=== PATIENT | male | born 1935 | race Caucasian/White ===

== ENCOUNTER 2017-08-27 15:32 | Emergency (ER) | payer MEDICARE, SELFPAY ==
[2016-10-30 13:35] VITALS: BMI 26.5
[2017-08-27 15:33] VITALS: BP 180/73; PULSE 59; RESP 16; TEMP 37.3; O2SAT 98; BMI 27.3
--- NOTE | 2017-08-27 15:48 | VDLE_ITS ---
Reason For Study: PAIN Procedure LEFT Exam performed portable in ED. CFV is compressible, spontaneous, phasic, A preliminary report was called and/or competent, and demonstrates normal faxed to ED. augmentation. FV is compressible, spontaneous, phasic, competent and demonstrates normal augmentation. POP V is compressible, spontaneous, phasic, competent and demonstrates normal augmentation. T/P Trunk is compressible. PTV is compressible. LT PerV is compressible. Left GSV has been harvested for CABG. There are three hypoechoic, nonvascularized structures noted in the left leg. The Popliteal space has a stucture measuring 1.9 x 1.7 cm. The proximal interior calf has two structures measuring 3.2 x 1.2 cm and 2.6 x 1.3 cm. Interpretation Summary Deep veins of the left lower extremity are patent and compressible segmentally. There is no evidence of left lower extremity deep vein thrombosis. Valvular competence appears intact within the proximal deep venous system on the left . The left greater saphenous vein is absent, having been previously harvested. Three non-vascular, hypoechoic structures are noted in the left lower extremity, as described above. These may represent hematomas or seromas. Clinical correlation is advised. Ordering Physician: Juan Miguel Acosta Referring Physician: AVINASH WHITE Performed By: Alma Doran, JUANCS, RVT
[2017-08-27 16:09] LABS: Absolute Lymphocyte Count 1.39 X10^3/ul (0.83-4.51); Absolute Neutrophil Count 5.4 X10^3/uL (2.0-7.7); Basophil# 0.02 X10^3/uL; Basophil% 0.3 % (0-1); Eosinophil# 0.24 X10^3/uL; Eosinophils% 3.2 % (0-5); Hematocrit 40.8 % (40-54); Lymphocyte # 1.39 X10^3/ul (4.0); Lymphocyte % 18.4 % (19-41); Mean Corp Hgb Conc 31.9 g/gl (32-36); Mean Corpuscular Hgb 27.8 pg (27.0-32.0); Mean Corpuscular Volume 87.2 fL (80-94); Mean Platelet Vol. 9.8 fl (6.2-12.0); Monocyte# 0.54 X10^3/uL; Monocyte% 7.1 % (0-10); Neutrophil # 5.37 X10^3/uL (2.7-7.7); Neutrophil % 70.9 % (47-70); POSITIVE COUNT NO; POSITIVE DIFFERENTIAL NO; POSITIVE MORPHOLOGY NO; Platelet Count 244 K/mm3 (150-450); RBC Distribution Width CV 14.5 % (11.6-14.6); RBC Distribution Width SD 45.6 fl (35.1-43.9); Red Blood Count 4.68 M/mm3 (4.6-6.2); White Blood Count 7.6 K/mm3 (4.4-11.0)
[2017-08-27 16:24] LABS: Anion Gap 7 (5-15); BUN 16 mg/dL (7-18); BUN/Creat Ratio 11.8 RATIO (10-20); Calcium,Total 8.3 mg/dL (8.5-10.1); Chloride 104 mmol/L (98-107); Creatinine, Serum 1.36 mg/dL (0.70-1.30); EST Glomerular Filtration Rate 53 mL/min (>60); Est Glom Filt Rate - Afr Amer 65 mL/min (>60); Estimated Creatinine Clearance 41.88 ml/min; Glucose 107 mg/dL (74-106); Potassium 3.7 mmol/L (3.5-5.1); Sodium Level 142 mmol/L (136-145)
[2017-08-27 16:27] LABS: Prothrombin Time (Protime)PT. 13.4 SECONDS (11.7-14.9)
--- NOTE | 2017-08-27 16:30 | ED.VISSUMM ---
- ER Visit Summary Date of Service: 08/27/17 Chief Complaint: Left leg pain History of Present Illness: The patient is a 82 M who presents with 4 days of left leg pain and swelling. 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 He denies any fall trauma or injury. He denies chest pain shortness of breath fevers. No other systemic symptoms. Physical Examination: Afebrile hypertensive but vitals otherwise unremarkable Heart regular Lungs clear Abdomen soft Patient has asymmetric edema of the left leg. He does have some tenderness along the calf he has no focal bony tenderness there is no erythema no streaking he has brisk capillary refill I was unable to palpate dorsalis pedis pulses bilaterally but he has a strong posterior tibial Doppler signal sensation compartments are soft Test Results: CBC BMP coagulation studies notable for creatinine of 1.36. Venous Doppler shows no evidence of DVT however there are 3 hypoechoic nonvascularized structures in the left leg at the popliteal space measuring 1.9 x 1.7 and the proximal anterior calf has 2 structures measuring 3.2 x 1.2 and 2.6 x 1.3. Emergency Department Course and Treatment: 3 studies unremarkable. The patient has no evidence of DVT. He has brisk capillary refill and a strong posterior tibial pulse. No history of trauma. I am uncertain of the etiology of the hypoechoic structures in the leg. Popliteal structure could possibly be Ellis's cyst. I do not believe this is process such as hematoma given the lack of trauma. He has no infectious symptoms or erythema to suggest abscess. He was advised to follow-up with his primary care physician. His symptoms are improving. He has noted that both swelling and pain are better today. He was advised on supportive care. All questions answered bedside. They understand return for new or worsening symptoms. Treatment Plan: [] Disposition: Discharge Impression: Left leg pain and edema This note was generated with [employer] dictation software. It may contain incorrect words, spelling, and punctuation that were not noted in review of the chart prior to signing ED Disposition - Plan for ED Patient: Chief Complaint: Lower Extremity Injury Referrals: Adalgisa Isidro MD [Primary Care Provider] -
--- NOTE | 2017-08-27 16:38 | ED.DCSUM_ITS ---
- ER Visit Summary Date of Service: 08/27/17 Chief Complaint: Left leg pain History of Present Illness: The patient is a 82 M who presents with 4 days of left leg pain and swelling. 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 He denies any fall trauma or injury. He denies chest pain shortness of breath fevers. No other systemic symptoms. Physical Examination: Afebrile hypertensive but vitals otherwise unremarkable Heart regular Lungs clear Abdomen soft Patient has asymmetric edema of the left leg. He does have some tenderness along the calf he has no focal bony tenderness there is no erythema no streaking he has brisk capillary refill I was unable to palpate dorsalis pedis pulses bilaterally but he has a strong posterior tibial Doppler signal sensation compartments are soft Test Results: CBC BMP coagulation studies notable for creatinine of 1.36. Venous Doppler shows no evidence of DVT however there are 3 hypoechoic nonvascularized structures in the left leg at the popliteal space measuring 1.9 x 1.7 and the proximal anterior calf has 2 structures measuring 3.2 x 1.2 and 2.6 x 1.3. Emergency Department Course and Treatment: 3 studies unremarkable. The patient has no evidence of DVT. He has brisk capillary refill and a strong posterior tibial pulse. No history of trauma. I am uncertain of the etiology of the hypoechoic structures in the leg. Popliteal structure could possibly be Ellis' s cyst. I do not believe this is process such as hematoma given the lack of trauma. He has no infectious symptoms or erythema to suggest abscess. He was advised to follow-up with his primary care physician. His symptoms are improving. He has noted that both swelling and pain are better today. He was advised on supportive care. All questions answered bedside. They understand return for new or worsening symptoms. Treatment Plan: [] Disposition: Discharge Impression: Left leg pain and edema This note was generated with [employer] dictation software. It may contain incorrect words, spelling, and punctuation that were not noted in review of the chart prior to signing ED Disposition - Plan for ED Patient: Chief Complaint: Lower Extremity Injury Referrals: Adalgisa Isidro MD [Primary Care Provider] -
--- NOTE | 2017-08-27 16:38 | ED.DEP ---
ED Disposition - Plan for ED Patient: Chief Complaint: Lower Extremity Injury Instructions: ED Leg Swelling Unilateral Referrals: Adalgisa Isidro MD [Primary Care Provider] -
[2017-08-27 17:27] VITALS: BP 157/79; PULSE 61; RESP 16; O2SAT 97
== END 2017-08-27 17:30 | disposition home or self-care (01) ==
PROVIDERS: Emergency Provider Emergency Medicine; Family Provider Internal Medicine; PCP Internal Medicine
DX: M79.662 Pain in left lower leg (principal); R60.0 Localized edema; I25.10 Atherosclerotic heart disease of native coronary artery without angina pectoris; I25.2 Old myocardial infarction; I10 Essential (primary) hypertension; E78.00 Pure hypercholesterolemia, unspecified; Z95.1 Presence of aortocoronary bypass graft
CPT/HCPCS: 80048; 85025; 85610; 93971; 99283; A4216

== ENCOUNTER → 2017-09-16 11:45 | Outpatient (CLI) | payer MEDICARE, SELFPAY ==
[2016-10-30 13:35] VITALS: BMI 26.5
[2017-09-16 14:20] LABS: AST(SGOT) 21 U/L (15-37); Alanine Aminotransfer ALT/SGPT 19 U/L (16-61); Albumin, Serum 3.4 g/dL (3.2-5.0); Alkaline Phosphatase 59 U/L (45-117); Bilirubin, Direct 0.21 mg/dL (0.00-0.30); Cholesterol 129 mg/dL (200); Globulin 3.3 g/dL (2.2-4.2); High Density Lipoprotein 44 mg/dL; Protein, Total 6.7 g/dL (6.4-8.2); Triglycerides 76 mg/dL; Very Low Density Lipoprotein 15 mg/dL (5-40)
== END ==
PROVIDERS: Family Provider Internal Medicine; PCP Internal Medicine; Visit Provider Internal Medicine Cardiovascular Disease
DX: I10 Essential (primary) hypertension (principal); E78.00 Pure hypercholesterolemia, unspecified
CPT/HCPCS: 36415; 80061; 80076

== ENCOUNTER 2018-02-25 15:14 | Emergency (ER) | payer MEDICARE, SELFPAY ==
[2016-10-30 13:35] VITALS: BMI 26.5
[2018-02-25 15:14] VITALS: BP 181/62; PULSE 52; RESP 24; TEMP 36.6; O2SAT 98; BMI 25.8
--- NOTE | 2018-02-25 15:33 | CT_ITS ---
STUDY: CT CERVICAL SPINE WITHOUT CONTRAST REASON FOR EXAM: Male, 82 years old. Fall. RADIATION DOSAGE (If Supplied By Facility): CTDIvol = ( 21.76 ) mGy, DLP = ( 556.56 ) mGycm TECHNIQUE: High resolution transaxial imaging was performed without contrast material. Sagittal and coronal images were reconstructed. Individualized dose optimization techniques were used for this CT. COMPARISON: None FINDINGS: No definite acute fracture/dislocation. Severe demineralization. The cervical junction is intact. C1-C2 articulation is intact with pronounced degenerative changes. Curvature is within normal limits. There is normal alignment. There is multilevel fusion along the anterior aspect of the cervical spine. Facet joints are intact at all levels bilaterally. No jumped facets. There is multilevel spondyloarthropathy. Multilevel degenerative disc disease seen. Multilevel loss of disc height. Multilevel posterior marginal osteophytes and disc bulges. Multilevel neural foraminal narrowing. Multilevel compromise of the spinal canal. There is heavily calcified plaque of the carotids. There is a 2.4 cm nodule or mass of the left thyroid gland. CT/Spine Cervical without Contras IMPRESSION: There is no definite acute fracture/dislocation. Degenerative changes. Electronically Signed: Nate Day MD at 16:11 EDT , Service support ,
--- NOTE | 2018-02-25 15:33 | CT_ITS ---
STUDY: CT LUMBAR SPINE WITHOUT CONTRAST REASON FOR EXAM: Male, 82 years old. Fall. RADIATION DOSAGE (If Supplied By Facility): CTDIvol = ( 25.11 ) mGy, DLP = ( 855.05 ) mGycm TECHNIQUE: The patient was scanned in a multi detector CT scanner. High resolution transaxial imaging was performed. Sagittal and coronal images were reconstructed. Individualized dose optimization techniques were used for this CT. COMPARISON: None FINDINGS: There is straightening of the normal lumbar lordosis. There is no substantial scoliosis. Normal alignment of the lumbar vertebral bodies. No compression fractures are seen. Diffuse demineralization. Pedicles and facet joints intact all levels. Prominent multilevel degenerative facet joint disease with hypertrophy of the involved bones. No significant loss of disc height at any level. Mild to moderate posterior disc bulges at L2-L3, L3-L4, and L4-L5. Multilevel spinal stenosis related to degenerative changes, most pronounced at L3-L4 and L4-L5. Sacroiliac joints are intact bilaterally. Incompletely visualized mass of the left kidney. Ultrasound or CT scan of the abdomen and pelvis recommended. CT/Spine Lumbar without Contrast IMPRESSION: No acute fracture or dislocation. Multilevel degenerative changes. Electronically Signed: Nate Day MD at 16:33 EDT , Service support ,
--- NOTE | 2018-02-25 15:33 | CT_ITS ---
STUDY: CT THORACIC SPINE WITHOUT CONTRAST REASON FOR EXAM: Male, 82 years old. Fall. RADIATION DOSAGE (If Supplied By Facility): CTDIvol = ( 20.02 ) mGy, DLP = ( 1186.43 ) mGycm TECHNIQUE: The patient was scanned in a multi detector CT scanner. High resolution imaging was performed. Sagittal and coronal images were reconstructed. Individualized dose optimization techniques were used for this CT. COMPARISON: None. FINDINGS: Severe diffused mineralization. There is an increased kyphosis of the thoracic spine. There is no substantial scoliosis. There is multilevel endplate spondylosis of the thoracic spine. There is multilevel degenerative disc disease with loss of the disc space heights. No definite fractures. Multilevel ankylosis seen across the anterior thoracic spine. Visualized lungs show subsegmental atelectasis or scarring in both lower lobes. CT/Spine Thoracic without Contras IMPRESSION: No definite acute abnormality. Demineralization. Diffuse degenerative changes. Diffuse ankylosis. Electronically Signed: Nate Day MD at 16:36 EDT , Service support ,
--- NOTE | 2018-02-25 15:33 | CT_ITS ---
STUDY: CT BRAIN WITHOUT CONTRAST REASON FOR EXAM: Male, 82 years old. Fall. Pain. RADIATION DOSAGE (If Supplied By Facility): CTDIvol = ( 44.99 ) mGy, DLP = ( 863.60 ) mGycm TECHNIQUE: Transaxial CT imaging of the brain was performed without administration of intravenous contrast material. Individualized dose optimization techniques were used for this CT. COMPARISON: None. FINDINGS: There is no definite acute abnormality. There is diffuse mild symmetric atrophy. There is atrophy of the posterior fossa structures. There is diffuse small vessel ischemic disease of the white matter. There is no definite acute infarct. There is no bleed. There is no gross mass, mass effect, or midline shift. There is no acute abnormality of the skull. No fractures. Grossly normal orbits. Grossly normal sinuses. CT/Brain/Head without Contrast IMPRESSION: Chronic age related changes and atrophy. No acute abnormality. Electronically Signed: Nate Day MD at 16:06 EDT , Service support ,
--- NOTE | 2018-02-25 15:34 | ED.VISSUMM ---
- ER Visit Summary Date of Service: 02/25/18 Chief Complaint: Fall History of Present Illness: The patient is a 82 M who presents with injuries after a fall. Patient was emptying a bucket of water and slipped on acorns, falling backwards and striking his head on a grassy embankment. He had brief loss of consciousness. Patient is complaining of neck pain and low thoracic/upper lumbar back pain. He was able to get up and walk into the house. He changed his close and placed an ice pack on his back. He is also complaining of a bruise to the left forearm where the metal bucket struck his arm when he fell. He is on Plavix. He denies any other injuries. Physical Examination: Vital signs: afebrile, hemodynamically stable, no hypoxia on room air General: well nourished, well developed, in no distress Skin: warm, dry, no rash, no pallor, hematoma to the left lateral distal/mid forearm, no deformity noted, no surrounding tenderness HEENT: normocephalic and atraumatic no scalp hematoma, abrasion or tenderness; PERRL, EOMI, moist mucous membranes no maxillofacial trauma, neck is supple with no midline tenderness, deformities or step-offs, no paraspinal tenderness Cardiovascular: regular rate and rhythm without murmurs, no peripheral edema, 2+ pulses all distal extremities Respiratory: No increased work of breathing, lungs are clear to auscultation bilaterally, no rales, rhonchi or wheezing, no chest wall tenderness Abdominal: Abdomen is soft, nontender with normoactive bowel sounds, no guarding or rebound, no masses Back: Midline tenderness to palpation in the low thoracic/upper lumbar region without any step-offs or deformities. No paraspinal tenderness MSK: Moves all extremities, no deformities, normal strength, pelvis is stable Neuro: Awake and alert, oriented ?4. No facial droop, sensation and motor function intact and symmetric Test Results: Abnormal Lab Results 02/25/18 02/25/18 02/25/18 15:40 15:40 15:40 WBC 8.7 RBC 4.75 Hgb 13.6 Hct 41.0 MCV 86.3 MCH 28.6 MCHC 33.2 RDW 14.7 H RDW Differential 45.9 H Plt Count 228 MPV 10.1 Immature Gran % (Auto) 0.200 Neut % (Auto) 75.8 H Lymph % (Auto) 12.[address] [place] % (Auto) 6.2 Eos % (Auto) 4.6 Baso % (Auto) 0.5 Absolute Neuts (auto) 6.6 Absolute Lymphs (auto) 1.10 Total Counted Not Reportable PT 13.9 INR 1.1 APTT 35.1 Sodium 138 Potassium 3.9 Chloride 103 Carbon Dioxide 28.0 Anion Gap 7 BUN 15 Creatinine 1.38 H Estim Creat Clear Calc 42.61 Est GFR (MDRD) Af Amer 63 Est GFR (MDRD) Non-Af 52 L BUN/Creatinine Ratio 10.9 Glucose 130 H Calcium 8.4 L Clinical Impression(s) from Imaging Studies Brain CT 02/25/18 15:33 IMPRESSION: Chronic age related changes and atrophy. No acute abnormality. Electronically Signed: Nate Day MD at 16:06 EDT , Service support , Cervical Spine CT 02/25/18 15:33 IMPRESSION: There is no definite acute fracture/dislocation. Degenerative changes. Electronically Signed: Nate Day MD at 16:11 EDT , Service support , Lumbar Spine CT 02/25/18 15:33 IMPRESSION: No acute fracture or dislocation. Multilevel degenerative changes. Electronically Signed: Nate Day MD at 16:33 EDT , Service support , Thoracic Spine CT 02/25/18 15:33 IMPRESSION: No definite acute abnormality. Demineralization. Diffuse degenerative changes. Diffuse ankylosis. Electronically Signed: Nate Day MD at 16:36 EDT , Service support , Forearm X-Ray 02/25/18 15:37 IMPRESSION: Normal x-ray examination of the radius and ulna. Electronically Signed: Nate Day MD at 16:38 EDT , Service support , Chest X-Ray 02/25/18 16:08 IMPRESSION: No changes. No acute abnormalities. Electronically Signed: Nate Day MD at 16:37 EDT , Service support , Medications Given Discontinued Medications Acetaminophen (Tylenol) 650 mg PO X1 ONE Stop: 02/25/18 15:35 Last Admin: 02/25/18 16:16 Dose: 650 mg Hydrocodone Bitart/Acetaminophen ([place] 5mg-325mg) 1 tablet PO X1 ONE Stop: 02/25/18 17:21 Last Admin: 02/25/18 17:45 Dose: 1 tablet Emergency Department Course and Treatment: Patient is on Plavix and had a head injury with brief loss of consciousness. Head CT is performed. Spinal CT including neck, thoracic and lumbar performed due to patient's complaints of midline pain and injury. Head CT showed no intracranial hemorrhage. C-spine and thoracic/lumbar spine showed no fractures. There was a mass noted on the left kidney that was not completely visualized. Patient does not have any knowledge of this mass and will follow up with his primary care doctor for further characterization and workup of it. Labs showed no leukocytosis, anemia, electrolyte derangements. Patient had an elevated creatinine of 1.3. PT and INR were within normal limits. Patient received Tylenol for pain. He was given a dose of [place] for continued back pain prior to discharge. He was given a prescription for [place]. He will follow-up with his doctor for reevaluation and for further workup of the left kidney mass. Patient discharged home in improved condition. Treatment Plan: [] Disposition: [] Impression: Closed head injury, contusion of the back, incidental left kidney mass finding on imaging This note was generated with [employer] dictation software. It may contain incorrect words, spelling, and punctuation that were not noted in review of the chart prior to signing ED Disposition - Plan for ED Patient: Disposition: Home or Assisted Living Chief Complaint: Fall Instructions: ED Mechanical Fall Prescriptions: Hydrocodone Bitart/Apap 5-325 [[place] 5MG-325MG] 1 tab PO Q6H PRN PRN 3 Days #10 tab PRN Reason: Pain Referrals: Adalgisa Isidro MD [Primary Care Provider] - 3-5 Days (Left kidney mass noted on CT of the lumbar spine) Additional Instructions: Use Tylenol as needed for pain and use [place] for severe pain. Do not exceed more than 3000 mg of acetaminophen in [address] scan of your lumbar spine showed an incidental finding of a mass on your left kidney, which was only partially seen in this imaging. Please follow-up with your doctor for further workup of this left kidney mass. If you have any worsening of your condition or any new concerning symptoms, please return immediately to the emergency department for another evaluation.
--- NOTE | 2018-02-25 15:37 | ED.DCSUM_ITS ---
- ER Visit Summary Date of Service: 02/25/18 Chief Complaint: Fall History of Present Illness: The patient is a 82 M who presents with injuries after a fall. Patient was emptying a bucket of water and slipped on acorns, falling backwards and striking his head on a grassy embankment. He had brief loss of consciousness. Patient is complaining of neck pain and low thoracic/upper lumbar back pain. He was able to get up and walk into the house. He changed his close and placed an ice pack on his back. He is also complaining of a bruise to the left forearm where the metal bucket struck his arm when he fell. He is on Plavix. He denies any other injuries. Physical Examination: Vital signs: afebrile, hemodynamically stable, no hypoxia on room air General: well nourished, well developed, in no distress Skin: warm, dry, no rash, no pallor, hematoma to the left lateral distal/mid forearm, no deformity noted, no surrounding tenderness HEENT: normocephalic and atraumatic no scalp hematoma, abrasion or tenderness; PERRL, EOMI, moist mucous membranes no maxillofacial trauma, neck is supple with no midline tenderness, deformities or step-offs, no paraspinal tenderness Cardiovascular: regular rate and rhythm without murmurs, no peripheral edema, 2+ pulses all distal extremities Respiratory: No increased work of breathing, lungs are clear to auscultation bilaterally, no rales, rhonchi or wheezing, no chest wall tenderness Abdominal: Abdomen is soft, nontender with normoactive bowel sounds, no guarding or rebound, no masses Back: Midline tenderness to palpation in the low thoracic/upper lumbar region without any step-offs or deformities. No paraspinal tenderness MSK: Moves all extremities, no deformities, normal strength, pelvis is stable Neuro: Awake and alert, oriented ?4. No facial droop, sensation and motor function intact and symmetric Test Results: Abnormal Lab Results 02/25/18 02/25/18 02/25/18 15:40 15:40 15:40 WBC 8.7 RBC 4.75 Hgb 13.6 Hct 41.0 MCV 86.3 MCH 28.6 MCHC 33.2 RDW 14.7 H RDW Differential 45.9 H Plt Count 228 MPV 10.1 Immature Gran % (Auto) 0.200 Neut % (Auto) 75.8 H Lymph % (Auto) 12.7 L [place] % (Auto) 6.2 Eos % (Auto) 4.6 Baso % (Auto) 0.5 Absolute Neuts (auto) 6.6 Absolute Lymphs (auto) 1.10 Total Counted Not Reportable PT 13.9 INR 1.1 APTT 35.1 Sodium 138 Potassium 3.9 Chloride 103 Carbon Dioxide 28.0 Anion Gap 7 BUN 15 Creatinine 1.38 H Estim Creat Clear Calc 42.61 Est GFR (MDRD) Af Amer 63 Est GFR (MDRD) Non-Af 52 L BUN/Creatinine Ratio 10.9 Glucose 130 H Calcium 8.4 L Clinical Impression(s) from Imaging Studies Brain CT 02/25/18 15:33 IMPRESSION: Chronic age related changes and atrophy. No acute abnormality. Electronically Signed: Nate Day MD at 16:06 EDT , Service support , Cervical Spine CT 02/25/18 15:33 IMPRESSION: There is no definite acute fracture/dislocation. Degenerative changes. Electronically Signed: Nate Day MD at 16:11 EDT , Service support , Lumbar Spine CT 02/25/18 15:33 IMPRESSION: No acute fracture or dislocation. Multilevel degenerative changes. Electronically Signed: Nate Day MD at 16:33 EDT , Service support , Thoracic Spine CT 02/25/18 15:33 IMPRESSION: No definite acute abnormality. Demineralization. Diffuse degenerative changes. Diffuse ankylosis. Electronically Signed: Nate Day MD at 16:36 EDT , Service support , Forearm X-Ray 02/25/18 15:37 IMPRESSION: Normal x-ray examination of the radius and ulna. Electronically Signed: Nate Day MD at 16:38 EDT , Service support , Chest X-Ray 02/25/18 16:08 IMPRESSION: No changes. No acute abnormalities. Electronically Signed: Nate Day MD at 16:37 EDT , Service support , Medications Given Discontinued Medications Acetaminophen (Tylenol) 650 mg PO X1 ONE Stop: 02/25/18 15:35 Last Admin: 02/25/18 16:16 Dose: 650 mg Hydrocodone Bitart/Acetaminophen ([place] 5mg-325mg) 1 tablet PO X1 ONE Stop: 02/25/18 17:21 Last Admin: 02/25/18 17:45 Dose: 1 tablet Emergency Department Course and Treatment: Patient is on Plavix and had a head injury with brief loss of consciousness. Head CT is performed. Spinal CT including neck, thoracic and lumbar performed due to patient's complaints of midline pain and injury. Head CT showed no intracranial hemorrhage. C-spine and thoracic/lumbar spine showed no fractures. There was a mass noted on the left kidney that was not completely visualized. Patient does not have any knowledge of this mass and will follow up with his primary care doctor for further characterization and workup of it. Labs showed no leukocytosis, anemia, electrolyte derangements. Patient had an elevated creatinine of 1.3. PT and INR were within normal limits. Patient received Tylenol for pain. He was given a dose of [place] for continued back pain prior to discharge. He was given a prescription for [place]. He will follow-up with his doctor for reevaluation and for further workup of the left kidney mass. Patient discharged home in improved condition. Treatment Plan: [] Disposition: [] Impression: Closed head injury, contusion of the back, incidental left kidney mass finding on imaging This note was generated with [employer] dictation software. It may contain incorrect words, spelling, and punctuation that were not noted in review of the chart prior to signing ED Disposition - Plan for ED Patient: Disposition: Home or Assisted Living Chief Complaint: Fall Instructions: ED Mechanical Fall Prescriptions: Hydrocodone Bitart/Apap 5-325 [[place] 5MG-325MG] 1 tab PO Q6H PRN PRN 3 Days #10 tab PRN Reason: Pain Referrals: Adalgisa Isidro MD [Primary Care Provider] - 3-5 Days (Left kidney mass noted on CT of the lumbar spine) Additional Instructions: Use Tylenol as needed for pain and use [place] for severe pain. Do not exceed more than 3000 mg of acetaminophen in [address] scan of your lumbar spine showed an incidental finding of a mass on your left kidney, which was only partially seen in this imaging. Please follow-up with your doctor for further workup of this left kidney mass. If you have any worsening of your condition or any new concerning symptoms, please return immediately to the emergency department for another evaluation.
--- NOTE | 2018-02-25 15:37 | RAD_ITS ---
STUDY: X-RAY - LEFT RADIUS AND ULNA REASON FOR EXAM: Male, 82 years old. Fall. Pain. TECHNIQUE: 2 view(s) of the forearm. COMPARISON: None. FINDINGS: There is no demonstrated soft tissue swelling. Normal visualized radius. Normal visualized ulna. There is no demonstrated acute fracture. RAD/Forearm 2 Views IMPRESSION: Normal x-ray examination of the radius and ulna. Electronically Signed: Nate Day MD at 16:38 EDT , Service support ,
[2018-02-25 15:56] LABS: Absolute Neutrophil Count 6.6 X10^3/uL (2.0-7.7); Basophil# 0.04 X10^3/uL; Basophil% 0.5 % (0-1); Eosinophils% 4.6 % (0-5); Hemoglobin 13.6 g/dl (13.0-16.5); Lymphocyte % 12.7 % (19-41); Mean Corp Hgb Conc 33.2 g/gl (32-36); Mean Corpuscular Hgb 28.6 pg (27.0-32.0); Mean Corpuscular Volume 86.3 fL (80-94); Mean Platelet Vol. 10.1 fl (6.2-12.0); Monocyte# 0.54 X10^3/uL; Monocyte% 6.2 % (0-10); Neutrophil # 6.55 X10^3/uL (2.7-7.7); Neutrophil % 75.8 % (47-70); Platelet Count 228 K/mm3 (150-450); RBC Distribution Width CV 14.7 % (11.6-14.6); RBC Distribution Width SD 45.9 fl (35.1-43.9); Red Blood Count 4.75 M/mm3 (4.6-6.2); White Blood Count 8.7 K/mm3 (4.4-11.0)
[2018-02-25 16:00] LABS: POSITIVE COUNT NO; POSITIVE DIFFERENTIAL NO; POSITIVE MORPHOLOGY NO
[2018-02-25 16:06] LABS: Anion Gap 7 (5-15); BUN 15 mg/dL (7-18); BUN/Creat Ratio 10.9 RATIO (10-20); Calcium,Total 8.4 mg/dL (8.5-10.1); Chloride 103 mmol/L (98-107); Creatinine, Serum 1.38 mg/dL (0.70-1.30); EST Glomerular Filtration Rate 52 mL/min (>60); Est Glom Filt Rate - Afr Amer 63 mL/min (>60); Estimated Creatinine Clearance 42.61 ml/min; Glucose 130 mg/dL (74-106); Potassium 3.9 mmol/L (3.5-5.1); Sodium Level 138 mmol/L (136-145)
--- NOTE | 2018-02-25 16:08 | RAD_ITS ---
STUDY: X-RAY CHEST REASON FOR EXAM: Male, 82 years old. Fall. Pain. TECHNIQUE: Single AP portable view of the chest. COMPARISON: 12/06/2016. FINDINGS: The lungs are hyperexpanded. There are coarsened interstitial markings suggestive of mild chronic fibrosis. Scarring seen in the left lung base, stable. No gross focal infiltrates. Blunting of the left costophrenic angle is stable and is probably scarring. Sternal cerclage wires and vascular clips are present from a prior sternotomy and coronary artery bypass graft procedure (CABG). Mild to moderate cardiomegaly. Normal mediastinum and rashad. Normal visualized pulmonary arteries. Normal visualized aortic arch and descending thoracic aorta. Normal visualized thoracic spine. Normal visualized ribs, clavicles, and shoulders. No fractures are seen. There is no demonstrated abnormality of the visualized soft tissue structures of the upper abdomen. RAD/Chest 1 View (Portable) IMPRESSION: No changes. No acute abnormalities. Electronically Signed: Nate Day MD at 16:37 EDT , Service support ,
[2018-02-25 16:15] LABS: International Normalized Ratio 1.1; Prothrombin Time (Protime)PT. 13.9 SECONDS (11.7-14.9)
[2018-02-25 16:16] LABS: Partial Thromboplast Time 35.1 Seconds (24.1-36.2)
[2018-02-25] MEDS: Acetaminophen 325 MG Tablet 650 MG PO (16:16)
[2018-02-25 16:17] VITALS: PULSE 61; RESP 21; O2SAT 96; O2SAT 97
--- NOTE | 2018-02-25 17:20 | ED.DEP ---
ED Disposition - Plan for ED Patient: Disposition: Home or Assisted Living Chief Complaint: Fall Instructions: ED Mechanical Fall Prescriptions: Hydrocodone Bitart/Apap 5-325 [[place] 5MG-325MG] 1 tab PO Q6H PRN PRN 3 Days #10 tab PRN Reason: Pain Referrals: Adalgisa Isidro MD [Primary Care Provider] - 3-5 Days (Left kidney mass noted on CT of the lumbar spine) Additional Instructions: Use Tylenol as needed for pain and use [place] for severe pain. Do not exceed more than 3000 mg of acetaminophen in [address] scan of your lumbar spine showed an incidental finding of a mass on your left kidney, which was only partially seen in this imaging. Please follow-up with your doctor for further workup of this left kidney mass. If you have any worsening of your condition or any new concerning symptoms, please return immediately to the emergency department for another evaluation.
[2018-02-25] MEDS: HYDROcodone Bitartrate/Apap 5/325 Tablet PO (17:45)
[2018-02-25 17:46] VITALS: BP 160/74; PULSE 60; RESP 18; O2SAT 95
--- NOTE | 2018-02-25 17:47 | ED.RN ---
PT GIVEN WRITTEN AND VERBAL DISCHARGE INSTRUCTIONS AND HOME GOING PRESCRIPTIONS. PT DAUGHTER AND PT VERBALIZE UNDERSTANDING. EDUCATED ON USE AND SIDE EFFECTS OF NORCO. PT IV D/C SITE COVERED WITH 2X2 GAUZE DRESSING AND PAPER TAPE. PRESSURE APPLIED TO SITE. PT DRESSED AND PLACED INTO WHEELCHAIR AND WHEELED OUT OF DEPT BY DAUGHTER.
== END 2018-02-25 17:49 | disposition home or self-care (01) ==
PROVIDERS: Emergency Provider Emergency Medicine; Family Provider Internal Medicine; PCP Internal Medicine
DX: S06.9X1A Unspecified intracranial injury with loss of consciousness of 30 minutes or less, initial encounter (principal); S30.0XXA Contusion of lower back and pelvis, initial encounter; N28.89 Other specified disorders of kidney and ureter; I25.10 Atherosclerotic heart disease of native coronary artery without angina pectoris; I25.2 Old myocardial infarction; M54.2 Cervicalgia; W01.0XXA Fall on same level from slipping, tripping and stumbling without subsequent striking against object, initial encounter
CPT/HCPCS: 70450; 71045; 72125; 72128; 72131; 73090; 80048; 85025; 85610; 85730; 99283; A4216

== ENCOUNTER → 2018-11-09 16:20 | Outpatient (CLI) | payer MEDICARE, SELFPAY ==
[2016-10-30 13:35] VITALS: BMI 26.5
[2018-11-09 16:11] VITALS: BMI 24.7
[2018-11-09 18:00] LABS: Anion Gap 8 (5-15); BUN 22 mg/dL (7-18); Calcium,Total 8.5 mg/dL (8.5-10.1); Chloride 104 mmol/L (98-107); Creatinine, Serum 1.47 mg/dL (0.70-1.30); EST Glomerular Filtration Rate 49 mL/min (>60); Est Glom Filt Rate - Afr Amer 59 mL/min (>60); Glucose 119 mg/dL (74-106); Potassium 3.8 mmol/L (3.5-5.1); Sodium Level 140 mmol/L (136-145)
[2018-11-09 18:06] LABS: BNP,B-Type NATRIURETIC PEPTIDE 383.7 pg/mL (0-100)
== END ==
PROVIDERS: Family Provider Internal Medicine; PCP Internal Medicine; Referring Provider Nurse Practitioner Family; Visit Provider Nurse Practitioner Family
DX: I25.10 Atherosclerotic heart disease of native coronary artery without angina pectoris (principal); I25.2 Old myocardial infarction; I10 Essential (primary) hypertension; E78.5 Hyperlipidemia, unspecified; R06.09 Other forms of dyspnea
CPT/HCPCS: 36415; 80048; 83880

== ENCOUNTER → 2018-12-02 05:50 | Outpatient (CLI) | payer MEDICARE, SELFPAY ==
[2016-10-30 13:35] VITALS: BMI 26.5
[2018-11-09 16:11] VITALS: BMI 24.7
--- NOTE | 2018-12-02 12:30 | STRESSREP ---
Stress Test Report Pharmacologic myocardial perfusion stress test. 83-year-old man with a history of chest pain, shortness of breath. Medications: Atenolol, Plavix, amlodipine, atorvastatin, isosorbide. Stress protocol: Resting EKG demonstrates atrial fibrillation with a rate of 60 bpm occasional premature ventricular complexes noted resting blood pressure 132/70 mmHg. 0.4 mg of regadenoson was infused per usual protocol followed by rapid intravenous saline flush injection continuous EKG monitoring was performed. The patient maintained atrial fibrillation throughout the recording. The maximum heart rate attained was 77 bpm which was 56% of maximum predicted heart rate and maximum workload was 1 metabolic equivalent. At rest and during peak infusion nonspecific ST-T wave changes were noted with no meet the criteria for ischemia. The resting blood pressure was 132/70 mmHg the peak blood pressure was 148/60 mmHg. Myocardial perfusion protocol. 14.1 mCi of technetium 99m sestamibi was injected at rest. 0.4 mg of regadenoson was infused per usual protocol peak infusion 43.9 mCi of technetium 99m sestamibi was injected stress images were obtained stress and rest images were reconstructed and compared in the short axis vertical and horizontal long axis. Gated images were also obtained Perfusion SPECT analysis: Review of the stress images demonstrate a normal cardiac silhouette size. There is a large extensive defect noted involving the lateral wall and extending to the anterolateral wall. This is present on the stress and resting images to a similar extent suggesting a previous extensive lateral and anterolateral infarct. No ischemia is noted. Gated SPECT analysis: The gated ejection fraction is noted to be 34%. Conclusion: Myocardial perfusion stress test with evidence of previous extensive lateral and anterolateral infarct. No ischemia noted. Ischemic cardiomyopathy Atrial fibrillation.
== END ==
PROVIDERS: Family Provider Internal Medicine; PCP Internal Medicine; Referring Provider Nurse Practitioner Family; Visit Provider Nurse Practitioner Family
DX: I25.10 Atherosclerotic heart disease of native coronary artery without angina pectoris (principal); R07.9 Chest pain, unspecified; R06.09 Other forms of dyspnea; I10 Essential (primary) hypertension; E78.5 Hyperlipidemia, unspecified
CPT/HCPCS: 78452; 93017; A9500; A4216; J2785

== ENCOUNTER 2019-01-22 23:05 | Inpatient (IN) | payer MEDICARE, SELFPAY ==
[2016-10-30 13:35] VITALS: BMI 26.5
[2018-12-14 10:47] VITALS: BMI 23.6
--- NOTE | 2019-01-22 23:05 | ECHOD_ITS ---
Reason For Study: AFIB Procedure This was a 2D Doppler, Color Flow transthoracic echocardiogram. The study was technically difficult. Exam performed portable in ICU/CCU. Left Ventricle Borderline enlarged left ventricle. Mild segmental systolic dysfunction (see wall motion). The estimated ejection fraction is 45 %. Unable to assess diastolic dysfunction. Posterior-Basal: Akinetic. Infero-Basal: Hypokinetic. Mid-Anterior : Hypokinetic. Mid-Lateral : Hypokinetic. Mid- Posterior: Akinetic. Mid-Inferior: Hypokinetic. Mid-anteroseptal : Hypokinetic. Anterior [place] : Hypokinetic. Lateral [place] : Hypokinetic. Right Ventricle Normal RV size. Normal systolic function. Atria The left atrium is moderately enlarged. Normal right atrium. No doppler evidence for ASD. Mitral Valve There is no mitral annular calcification. Normal mitral valve. Mild (1+) mitral valve insufficiency. Tricuspid Valve Mild focal calcification of the tricuspid valve. Moderate (2+) tricuspid valve insufficiency. Right ventricular systolic pressure estimated to be 80 mmHg. Aortic Valve Trisinus/trileaflet aortic valve. Moderate focal aortic valve calcification. Trivial aortic valve insufficiency. Pulmonic Valve The pulmonic valve is not well visualized. Trivial pulmonic valve insufficiency. Great Vessels Normal sized aortic root. Pericardium/Pleural No pericardial effusion. Medication Definity deferred d/ elevated PAP. MMode/2D Measurements & Calculations LVIDd: 5.6 cm IVSd: 0.96 cm Ao root diam: 2.9 cm LVIDs: 4.3 cm LVPWd: 0.68 cm RVDd: 4.6 cm FS: 21.8 % LAV(MOD-bp): 102.0 ml LVAd ap4: 34.6 cm2 SV(MOD-sp4): 58.6 ml LAV(MOD-bp) Indexed: 52.2 ml/m2 EDV(MOD-sp4): 119.2 ml LAV(MOD-sp2): 87.9 ml EDV(sp4-el): 124.1 ml LAV(MOD-sp4): 118.3 ml LVAs ap4: 23.0 cm2 ESV(MOD-sp4): 60.7 ml ESV(sp4-el): 61.1 ml EF(MOD-sp4): 49.1 % EF(sp4-el): 50.8 % SV(sp4-el): 63.0 ml LA A4 area: 31.8 cm2 LA dimension(2D): 5.8 cm RA A4 area: 18.2 cm2 Doppler Measurements & Calculations Ao V2 max: 118.5 cm/sec LV V1 max: 81.2 cm/sec PA V2 max: 62.8 cm/sec Ao max P.6 mmHg LV V1 max P.6 mmHg TR max jeanine: 422.6 cm/sec TR max P.5 mmHg Interpretation Summary The study was technically difficult. Borderline enlarged left ventricle. Mild segmental systolic dysfunction (see wall motion). The estimated ejection fraction is 45 %. The left atrium is moderately enlarged. Mild (1+) mitral valve insufficiency. Moderate (2+) tricuspid valve insufficiency. Moderate focal aortic valve calcification. Trivial aortic valve insufficiency. Trivial pulmonic valve insufficiency. Right ventricular systolic pressure estimated to be 80 mmHg. (c/w severe pulmonary hypertension) Unable to assess diastolic dysfunction. Ordering Physician: Ashley Lundberg Referring Physician: AVINASH WHITE Performed By: Alma Doran, RDCS, RVT
--- NOTE | 2019-01-22 23:31 | PCM.HP.STD ---
Problem List (1) Acute respiratory failure with hypoxia Status: Acute (2) Pneumonia Status: Acute Qualifiers: Pneumonia type: due to unspecified organism Laterality: left Lung location: lower lobe of lung Qualified Code(s): J18.1 - Lobar pneumonia, unspecified organism (3) Severe sepsis Status: Acute (4) CHF exacerbation Status: Acute Qualifiers: Heart failure type: unspecified Qualified Code(s): I50.9 - Heart failure, unspecified (5) Atrial fibrillation with RVR Status: Acute (6) Hyperlipidemia Status: Chronic Qualifiers: Hyperlipidemia type: unspecified Qualified Code(s): E78.5 - Hyperlipidemia, unspecified (7) Non-ST elevated myocardial infarction Status: Chronic (8) HTN (hypertension) Status: Chronic Qualifiers: Hypertension type: essential hypertension Qualified Code(s): I10 - Essential (primary) hypertension (9) CAD (coronary artery disease) Status: Chronic Qualifiers: Coronary Disease-Associated Artery/Lesion type: unspecified vessel or lesion type [place] vs. transplanted heart: unspecified whether [place] or transplanted heart Associated angina: angina presence unspecified Qualified Code(s): I25.10 - Atherosclerotic heart disease of [place] coronary artery without angina pectoris (10) BPH (benign prostatic hyperplasia) Status: Chronic Qualifiers: Lower urinary tract symptom presence: unspecified whether lower urinary tract symptoms present Qualified Code(s): N40.0 - Benign prostatic hyperplasia without lower urinary tract symptoms History of Present Illness Date of Admission: 01/22/19 Chief Complaint: Dyspnea, fever, cough The patient is an 83 y/o M w/ PMHx: CAD s/p remote CABG MARIA to his LAD, SVG to OM1 and SVG to first diagonal, PCI SVG to obtuse marginal 08/2016 w/ noted patent MARIA to LAD, staged procedure with RCA stenting 10/2016, HTN, HLD, Tobacco use history, Anxiety and Depression, CKD stage III who presents to the [facility] as direct admission from [facility] ED on 01/22/19 with history of ongoing exertional dyspnea for which she has been evaluated per cardiology and had recently 07/2018 ECHO as well as 11/2018 stress testing which was unremarkable for inducible ischemia who now presents as direct admission from outside hospital ED with history of worsening 2-day severe dyspnea, more severe on day of ED presentation to the point of having to call EMS who noted patient to be dyspneic, hypoxic with increased work of breathing, febrile with mildly productive cough and fever. Patient did note on day of ED presentation he did have episode of anorexia, nausea and several bouts of emesis followed by dry heaving. In the outside hospital ED patient was noted to on examination have crackles at the bases with increased work of breathing but it initially appeared more stable with intent to obtain CT scan of the chest and following return per physician went into flash pulmonary edema with worsened pulmonary status requiring BiPAP initiation as well as nitroglycerin drip with clinical improvement and eventual decreased blood pressure therefore nitroglycerin titrated off. Additional ED lab and imaging results at outside facility included: VS: T 38.4, HR 102, BP 131/63, RR 30, BIPAP Oxygenating 94% CBC: WBC 12.5, Hgb 15, Plt 206 with L shift BMP: Na 142, K 4.1, BUN/Cr 19/1.3 Trop: 0.020 LA: 2.2 CXR: Vascular congestion and interstitial edema, ? L pleural effusion versus infiltrate CTPA: No PE, BL small effusions, congestion, cardiomegaly and LL infiltrate. ABG: pH 7.4, pO2 77, pCO2 35 EKG: Atrial fibrillation Bld Cx x 2 Vanc and Zosyn, NG drip initially, Lasix 40 mg IV x 1, ASA and tylenol Past Medical History Past Medical History (Chronic Problems): Chronic Problems (Last Reviewed 07/07/18 @ 15:47 by Amor Steen MD) Hyperlipidemia (Chronic) Non-ST elevated myocardial infarction (Chronic) HTN (hypertension) (Chronic) Pure hypercholesterolemia (Chronic) Atherosclerotic heart disease (Chronic) S/P CABG in 1993 with MARIA to LAD, SVG to OM1, and SVG to first diagonal; PTCA/CRYSTAL to SVG to obtuse marginal in August 2016; Staged PTCA/CRYSTAL to RCA in October 2016; CAD (coronary artery disease) (Chronic) BPH (benign prostatic hyperplasia) (Chronic) Medical History: Medical History (Last Reviewed 07/07/18 @ 15:47 by Amor Steen MD) 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 PTCA: PTCA/CRYSTAL to SVG to OM 09/19/2016. PCI-CRYSTAL-RCA 10/30/2016. 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 Allergies atorvastatin calcium [From Lipitor] Adverse Reaction (Verified 12/14/18 10:59) Other LEG CRAMPS WITH 40MG DOSE BUT TOLERATES LOWER DOSE buspirone HCl [From BuSpar] Adverse Reaction (Verified 12/14/18 10:59) Other FAINT fosinopril sodium [From Monopril] Adverse Reaction (Verified 12/14/18 10:59) Other LEG CRAMPS Iodinated Contrast Media [CONTRASTS] Adverse Reaction (Verified 12/14/18 10:59) Itching ramipril [From Altace] Adverse Reaction (Verified 12/14/18 10:59) Other LEG CRAMPS simvastatin Adverse Reaction (Verified 12/14/18 10:59) Other WHEN MIXED WITH DILTIAZEM CAUSES SEVERE MUSCLE CRAMPS Home Medications: Ambulatory Orders Medication Instructions Recorded Atenolol [Tenormin (beta vlad)] 50 mg PO DAILY 06/01/14 Calcium Carb/Vitamin D 1 tab PO DAILY@0800 06/01/14 [Caltrate-600 With Vit D Tab] Cholecalciferol (VIT D3) [Vitamin 2,000 unit PO DAILY 06/01/14 D3] Multivitamins,Therapeutic 1 tab PO DAILY 06/01/14 [Multivitamin] Geary-3 Fatty Acids/Fish Oil 1 ea PO DAILY 06/01/14 [Geary-3 Fish Oil Softgel] Nitroglycerin (INPATIENT USE) 0.4 mg SUBLINGUAL PRN PRN 06/08/14 [Nitrostat] Aspirin E.C. [Ecotrin] 81 mg PO DAILY@0800 tab 10/31/16 atorvastatin 20 mg tablet 20 mg PO QHS #90 tab 05/12/18 clopidogrel 75 mg tablet 75 mg PO DAILY #90 tab 05/12/18 amlodipine 5 mg tablet 5 mg PO .daily #90 tab 07/07/18 isosorbide dinitrate 20 mg tablet 20 mg PO TID #270 tab 07/07/18 losartan 25 mg tablet 25 mg PO BID #180 tab 07/07/18 lorazepam 0.5 mg tablet 0.5 mg PO DAILY PRN 15 Days tab 11/09/18 sertraline 50 mg tablet 100 mg PO DAILY tab 11/09/18 furosemide 40 mg tablet 40 mg PO BID #90 tab 12/14/18 potassium chloride ER 20 mEq 20 meq PO DAILY #90 tab 12/14/18 tablet,extended release Surgical History: Surgical History (Last Reviewed 07/07/18 @ 15:47 by Amor Steen MD) H/O coronary artery bypass surgery Z95.1 CABG: MARIA to LAD, SVG to 1st OM, SVG to 1st Dx 1993. S/P coronary artery stent placement Z95.5 PTCA: PTCA/CRYSTAL to SVG to OM 09/19/2016 Surgical History: coronary bypass surgery, - - CABG x2, PCI. Psychiatric History: Anxiety, Depression Lives: Spouse/ Significant Other Smoking Status: Former smoker Tobacco Use: Non-smoker Alcohol: Occasional Drugs: None - *Family History Sibling Family History: Family History (Last Reviewed 07/07/18 @ 15:47 by Amor Steen MD) Father emphysema Mother Hypertension HLD (hyperlipidemia) Sister Enlarged heart Sister Myocardial infarction History Items: - - sister from enlarged heart Maternal Family History: Family History (Last Reviewed 07/07/18 @ 15:47 by Amor Steen MD) Father emphysema Mother Hypertension HLD (hyperlipidemia) Sister Enlarged heart Sister Myocardial infarction History Items: High Cholesterol, Heart Disease, Hypertension Paternal Family History: Family History (Last Reviewed 07/07/18 @ 15:47 by Amor Steen MD) Father emphysema Mother Hypertension HLD (hyperlipidemia) Sister Enlarged heart Sister Myocardial infarction History Items: COPD Review of Systems Constitutional: Reports: Anorexia, Fever, Malaise, Weakness, Fatigue. Denies: Chills, Weight Change HEENT: Denies: Head Aches, Sinus Congestion, Sinus Drainage Cardiovascular: Reports: Palpitations. Denies: Chest Pain, Edema, Light Headedness, Orthopnea, Syncope Respiratory: Reports: Cough, Shortness of Breath, Shortness of breath at rest, Shortness of breath upon exertion, Sputum production. Denies: Wheezing Gastrointestinal: Reports: Nausea, Vomiting. Denies: Abdominal Pain Genitourinary: Denies: Dysuria Musculoskeletal: Reports: Joint Pain. Denies: Joint Tenderness Skin: Denies: Rash, Wounds Neurological: Denies: Numbness, Tingling, Focal weakness Psychiatric: Reports: Anxiety, Depression. Denies: Homicidal Ideations, Suicidal Ideations Hematologic/ Lymphatic: Reports: Easy Bruising, Easy Bleeding VTE Information - Inpt Only VTE Present on Admission: No VTE Mechan Device Prophylaxis: SCD's VTE Pharm Prophylaxis ordered?: Yes Subjective: Seated upright in the ICU bed, BiPAP per EMS still in place, notes feeling improved since initial presentation in outside hospital ED, able to speak in full sentences now, normalized respiratory rate and resolving accessory muscle usage. Objective: Physical Examination: General: awake, alert, oriented x 3 and cooperative, seated upright in the ICU bed, recent arrival, BiPAP per EMS still in place, notes feeling improved since initial presentation in outside hospital ED, able to speak in full sentences now, normalized respiratory rate and resolving accessory muscle usage. Skin: normal color, turgor, no icterus, cyanosis except occasional noted ecchymoses, very staged extremities. HEENT: AT/NC, EOMI, PERRLA, dry MM, BIPAP in place, no carotid bruits, +JVD noted. Lungs: Diminished breath sounds throughout, greater bilateral bases, mildly rhonchorous especially left base, rales bilateral mid to base, BiPAP per EMS still in place, notes feeling improved since initial presentation in outside hospital ED, able to speak in full sentences now, normalized respiratory rate and resolving accessory muscle usage. Heart: Irregular irregular; no gallop, rub audible. Abdomen: soft, NTTP, ND, normal BS, no HSM. Extremities: no cyanosis, clubbing, or edema. Neurological: patient awake, alert, oriented x 3; cognitive function intact; pupils equally reactive to light and accomodation; cranial nerves II-XII grossly normal, moving all 4 extremities, no focal deficits, strength severely global decrease secondary to acute presentation. Psychiatric: affect appears fatigued, no acute evidence of depressive or anxiety feelings. - Physical Exam Body Mass Index (BMI) 23.6 Assessment/Plan All Active Problems (Last Reviewed 07/07/18 @ 15:47 by Amor Steen MD) Acute respiratory failure with hypoxia (Acute) Pneumonia (Acute) Severe sepsis (Acute) CHF exacerbation (Acute) Atrial fibrillation with RVR (Acute) Dyspnea on exertion (Acute) Chest pain (Acute) The patient is an 83 y/o M w/ PMHx: CAD s/p remote CABG x 2 and PCI, HTN, HLD, Tobacco use history, Anxiety and Depression, CKD stage III who presents to the [facility] as direct admission from [facility] ED on 01/22/19 with worsening 2-day history of severe dyspnea, more severe on day of ED presentation to the point of having to call EMS who noted patient to be dyspneic, hypoxic with increased work of breathing, febrile with mildly productive cough and fever. 1. Acute Severe Sepsis secondary to Acute Hypoxic Respiratory Failure, Multifactorial secondary to Community Aqcuired Pneumonia, Possible GN Organism and #2: Will admit to the ICU, BIPAP at [facility]SH ED although may transition to CPAP given no marked CO2 retention, will transition to NC as able with wean as tolerated to room air, continue ATC duonebs, PRN albuterol, maintained on IV Zosyn and Vancomycin given severity of appearance wih de-escalation of abx as able, HOB, IS parameters w/ pending sputum cultures, respiratory viral panel and urine antigens. Bld cx x 2 obtained in the [facility] ED. ICU physician consulted. 2. Acute Decompensated CHF, Unclear Type: Patient administered IV lasix in the ED, will maintain on cardiac telemetry obtain cardiac enzyme series, obtain serial EKGs, continue IV lasix diuresis, monitor I/Os, maintain on intake restriction, continue medical therapy w/ asa, statin, BB, ACEI. Will obtain TSH and magnesium level. Most recent ECHO 08/21/18, will request repeat. Cardiology consulted, requested admission per Hospitalist service from [facility] ED. PRN morphine to decrease afterload, continue oxygen supplementation, if necessary will position w/ upright position with legs off bed to decrease preload. 3. Paroxsymal atrial fibrillation, ? New Onset: Stress testing results mentioned atrial fibrillation during study but not mentioned in prior Cardiology notes and no anticoagulation regimen noted including most recent evaluation in 11/2018, thus assume new onset. Discussed with OSH ED physician and requested initiation of heparin versus lovenox. EKG in [facility]SH ED w/ atrial fibrillation w/ RVR initially but rate improved to 80s without regimen. Will maintain on telemetry, obtain cardiac enzyme serial set, obtain magnesium level, repeat ECHO as noted, obtain TSH level. CHADs scoring appropriate for anticoagulation start at this time w/ lovenox with oral regimen investigation in AM for cost assessment. Cardiology consulted, pending. 4. CAD: s/p remote CABG MARIA to his LAD, SVG to OM1 and SVG to first diagonal, PCI SVG to obtuse marginal 08/2016 w/ noted patent MARIA to LAD, staged procedure with RCA stenting 10/2016, following w/ Dr. Steen, will continue home regimen asa, plavix, statin, BB. 12/02/18 most recent stress testing performed which was negative for inducible ischemia. 08/21/18 ECHO w/ LV normal size, mild septal LV hypertrophy, LV systolic function mildly decreased with EF 47%, indeterminate LV diastolic dysfunction, RV normal size, RV systolic function low normal, left atrial cavity severely dilated, estimated RV systolic pressure likely underestimated secondary to week or incomplete tricuspid regurgitation signal but at least 70 mmHg plus. 5. CKD stage III: Admission BUN/Cr 13/06.3, prior appears similar with Cr 1.3-1.4, continue to trend. 6. Hypertension: Continue home regimen including atenolol, amlodipine, Lasix, losartan, isosorbide, PRN hydralazine. 7. Hyperlipidemia: Continue home statin regimen. AM FLP. 8. History of tobacco use: Continued tobacco cessation encouragement. 9. DVT prophylaxis: SCDs, therapeutic Lovenox. 10. CODE status: Patient daughter is his healthcare power of insurance attorney, living will is in place. Discussed CODE status at length including difference between FULL code, DNR-CCA and DNR-CC status. Following discussions about the differences in these status, requested full code status. Advanced Care Planning Face to Face Time: 16 minutes. Code Visit Inpatient E&M: 46523 Init Hosp L3 Procedures: 80989 Advncd Care Plan 30 Min
[2019-01-22 23:46] VITALS: BP 168/86; PULSE 93; RESP 24; TEMP 36.8; O2SAT 91
[2019-01-22 23:54] VITALS: PULSE 94
[2019-01-22 23:58] VITALS: BMI 24.6
[2019-01-23] VITALS (26 sets, daily range): BP systolic 117–150; BP diastolic 55–101; PULSE 51–93; RESP 12–25; TEMP 36.2–37.2; O2SAT 87–99
--- NOTE | 2019-01-23 00:08 | CPS ---
Use for rescue, per physician
[2019-01-23] MEDS: Enoxaparin 80 MG/0.8 ML Syringe 75 MG SC ×3 (00:46→21:05)
[2019-01-23] MEDS: Furosemide 40 MG/4 ML Vial IV ×3 (00:48→17:48)
[2019-01-23] MEDS: Atenolol 50 MG Tablet PO (00:48)
--- NOTE | 2019-01-23 00:53 | PCM.RX.CS ---
Consult Pharmacy has been consulted to manage selected antiobiotic: Vancomycin Type of Consult: New start Suspected Infection: Pneumonia Weight used for dosin.8 kg Estimated Creatinine Clearance: 44.5 Goal Trough: 15-20 mcg/mL Pharmacy Plan for Drug Dosing: Pharmacy Service will continue to monitor and adjust dosing as required. Medications Vancomycin HCl () 500 mg in 100 mls @ 100 mls/hr IV Q12H LISA VANCO 1250 GIVEN IN [facility] ED 01/23 @ 0000 Follow-Up Labs: Trough Vancomycin Labs to be done on [date and time ordered]: 01/24 @ 1130
[2019-01-23 01:25] LABS: Thyroid Stim Hormone (TSH) 0.93 uIU/mL (0.358-3.74)
[2019-01-23 03:48] LABS: Absolute Lymphocyte Count 0.38 X10^3/uL (0.83-4.51); Absolute Neutrophil Count 10.1 X10^3/uL (2.0-7.7); Basophil# 0.02 X10^3/uL; Basophil% 0.2 % (0-1); Hematocrit 41.5 % (40-54); Hemoglobin 13.7 g/dL (13.0-16.5); Lymphocyte # 0.38 X10^3/ul (4.0); Lymphocyte % 3.6 % (19-41); Mean Corpuscular Hgb 29.7 pg (27.0-32.0); Mean Corpuscular Volume 89.8 fL (80-94); Mean Platelet Vol. 10.9 fl (6.2-12.0); Monocyte# 0.13 X10^3/uL; Monocyte% 1.2 % (0-10); NRBC Flagged by Analyzer 0 % (0-5); Neutrophil # 10.13 X10^3/uL (2.7-7.7); Neutrophil % 94.7 % (47-70); POSITIVE DIFFERENTIAL YES; Platelet Count 200 K/mm3 (150-450); RBC Distribution Width CV 15.4 % (11.6-14.6); Red Blood Count 4.62 M/mm3 (4.6-6.2); White Blood Count 10.7 K/mm3 (4.4-11.0)
[2019-01-23 03:53] LABS: Differential Indicated SCAN CRITERIA MET
[2019-01-23 04:47] LABS: Anion Gap 9 (5-15); BUN 21 mg/dL (7-18); BUN/Creat Ratio 12.8 RATIO (10-20); Chloride 107 mmol/L (98-107); Cholesterol 128 mg/dL (200); Creatinine, Serum 1.64 mg/dL (0.70-1.30); EST Glomerular Filtration Rate 43 mL/min (>60); Est Glom Filt Rate - Afr Amer 52 mL/min (>60); Estimated Creatinine Clearance 35.24 ml/min; Glucose 189 mg/dL (74-106); High Density Lipoprotein 54 mg/dL; Sodium Level 143 mmol/L (136-145); Triglycerides 43 mg/dL; Very Low Density Lipoprotein 9 mg/dL (5-40)
[2019-01-23] MEDS: Isosorbide DN 20 MG Tablet PO ×3 (05:10→21:05)
[2019-01-23] MEDS: 0.9% NaCl IVPB Med Flush (250 mL) 15 ML IV (05:11)
--- NOTE | 2019-01-23 05:55 | RAD_ITS ---
HISTORY: SOB Short of Breath/DyspneaRAD - Chest ADDITIONAL HISTORY: None provided. COMPARISON: 02/25/2018 TECHNIQUE: Frontal chest radiograph. Number of images including paperwork: 1 FINDINGS: LUNGS AND PLEURA: Small bilateral pleural effusions and bibasilar opacities, increased on the right and unchanged on the left. CARDIAC SILHOUETTE: Stable. MEDIASTINUM AND ARGELIA: Aortic calcification. UPPER ABDOMEN: Unremarkable. SKELETON AND SOFT TISSUES: No acute findings. OTHER DEVICES AND HARDWARE: None. RAD/Chest 1 View (Portable) IMPRESSION: Mild increase in right basilar opacity. Chest otherwise appears similar. at 0627 Reported and signed by: Catherine Akhtar MD Electronically Signed: Catherine Akhtar MD at 6:27 EDT Tel , Service support ,
--- NOTE | 2019-01-23 05:55 | EKG12_ITS ---
Test Reason : AM Blood Pressure : / mmHG Vent. Rate : 067 BPM Atrial Rate : 045 BPM P-R Int : 000 ms QRS Dur : 098 ms QT Int : 492 ms P-R-T Axes : 000 017 090 degrees QTc Int : 519 ms Atrial fibrillation Prolonged QT Abnormal ECG When compared with ECG of 23-JAN-2019 05:04, MANUAL COMPARISON REQUIRED, DATA IS UNCONFIRMED Confirmed by ANGÉLICA PEPE ([id number]), assignment editor DEE DEE BEAVERS ([id number]) on 01/28/2019 1:58:23 PM Referred By: FRANCINE Confirmed By:ANGÉLICA PEPE
--- NOTE | 2019-01-23 06:07 | PCM.CON.CC ---
Reason for Consult Date of Consultation: 01/23/19 Reason for Consultation: Respiratory failure, CHF, pneumonia, A. fib History of Present Illness: The patient is an 83-year-old male, with a history as outlined below, who presented as a transfer from an outside hospital emergency department on January 22 with complaints of shortness of breath. Apparently on the day of his hospital presentation, the patient had episodes of nausea followed by bouts of emesis and dry heaving. The patient's presenting plain film chest x-ray at the outside hospital reported vascular congestion/interstitial edema along with cardiomegaly and a small left pleural effusion. The patient's troponin at the outside hospital was negative. However, his BNP level was in excess of 9623. The patient did have elevated systolic blood pressures noted in the emergency department along with tachypnea. A CTA chest was apparently performed which was compromised by respiratory motion. However, there is no evidence of acute central pulmonary embolism. A moderate right and small left pleural effusion were noted along with pulmonary vascular congestion. There was note of a left lower lobe consolidation as well. Per nursing report, the patient has been placed on a nitro drip transiently, which led to hypotension. He was also placed on BiPAP for work of breathing. The patient has a history of coronary artery disease with prior PCI in August 2016. He did previously undergo bypass surgery in 1993. The patient is followed longitudinally by Dr. Steen on an outpatient basis. Recent pharmacologic stress test completed in November 2018 only revealed evidence of previous extensive lateral and anterolateral infarct with no acute ischemia noted. Surface echocardiogram from July 2018 revealed a left ventricular systolic function of approximately 47%. Right ventricular systolic function was noted to be low normal. There was severe left atrial dilation. The right ventricular systolic pressure was elevated. On presentation to the hospital, the patient was noted to be afebrile and hemodynamically stable. He was initially documented to be saturating 91% on 6 L/min. Laboratory evaluation revealed no evidence of a leukocytosis. Chemistry profile was notable for acute on chronic kidney disease with a creatinine of 1.64. Troponin was mildly elevated to 0.189. The patient currently denies the presence of chest pain or shortness of breath. Past Medical History Past Medical History (Chronic Problems): Chronic Problems (Last Reviewed 07/07/18 @ 15:47 by Amor Steen MD) Atrial fibrillation with RVR (Chronic) Hx of CABG (Chronic) Hyperlipidemia (Chronic) HTN (hypertension) (Chronic) Pure hypercholesterolemia (Chronic) Atherosclerotic heart disease (Chronic) S/P CABG in 1993 with MARIA to LAD, SVG to OM1, and SVG to first diagonal; PTCA/CRYSTAL to SVG to obtuse marginal in August 2016; Staged PTCA/CRYSTAL to RCA in October 2016; CAD (coronary artery disease) (Chronic) BPH (benign prostatic hyperplasia) (Chronic) Medical History: Medical History (Last Reviewed 07/07/18 @ 15:47 by Amor Steen MD) senior care use of drug Z79.899 Nicotine abuse Z72.0 Atherosclerotic heart disease of [place] coronary artery without angina pectoris I25.10 CABG: MARIA to LAD, SVG to 1st OM, SVG to 1st Dx 1993. PTCA: PTCA/CRYSTAL to SVG to OM 09/19/2016. PCI-CRYSTAL-RCA 10/30/2016. 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 Allergies atorvastatin calcium [From Lipitor] Adverse Reaction (Verified 12/14/18 10:59) Other LEG CRAMPS WITH 40MG DOSE BUT TOLERATES LOWER DOSE buspirone HCl [From BuSpar] Adverse Reaction (Verified 12/14/18 10:59) Other FAINT fosinopril sodium [From Monopril] Adverse Reaction (Verified 12/14/18 10:59) Other LEG CRAMPS Iodinated Contrast Media [CONTRASTS] Adverse Reaction (Verified 12/14/18 10:59) Itching ramipril [From Altace] Adverse Reaction (Verified 12/14/18 10:59) Other LEG CRAMPS simvastatin Adverse Reaction (Verified 12/14/18 10:59) Other WHEN MIXED WITH DILTIAZEM CAUSES SEVERE MUSCLE CRAMPS Home Medications: Ambulatory Orders Medication Instructions Recorded Atenolol [Tenormin (beta vlad)] 50 mg PO DAILY 06/01/14 Calcium Carb/Vitamin D 1 tab PO DAILY@0800 06/01/14 [Caltrate-600 With Vit D Tab] Cholecalciferol (VIT D3) [Vitamin 2,000 unit PO DAILY 06/01/14 D3] Multivitamins,Therapeutic 1 tab PO DAILY 06/01/14 [Multivitamin] [place]-3 Fatty Acids/Fish Oil 1 ea PO DAILY 06/01/14 [Moriah-3 Fish Oil Softgel] Nitroglycerin (INPATIENT USE) 0.4 mg SUBLINGUAL PRN PRN 06/08/14 [Nitrostat] Aspirin E.C. [Ecotrin] 81 mg PO DAILY@0800 tab 10/31/16 atorvastatin 20 mg tablet 20 mg PO QHS #90 tab 05/12/18 clopidogrel 75 mg tablet 75 mg PO DAILY #90 tab 05/12/18 amlodipine 5 mg tablet 5 mg PO .daily #90 tab 07/07/18 isosorbide dinitrate 20 mg tablet 20 mg PO TID #270 tab 07/07/18 losartan 25 mg tablet 25 mg PO BID #180 tab 07/07/18 lorazepam 0.5 mg tablet 0.5 mg PO DAILY PRN 15 Days tab 11/09/18 sertraline 50 mg tablet 100 mg PO DAILY tab 11/09/18 furosemide 40 mg tablet 40 mg PO BID #90 tab 12/14/18 potassium chloride ER 20 mEq 20 meq PO DAILY #90 tab 12/14/18 tablet,extended release Surgical History: Surgical History (Last Reviewed 07/07/18 @ 15:47 by Amor Steen MD) H/O coronary artery bypass surgery Z95.1 CABG: MARIA to LAD, SVG to 1st OM, SVG to 1st Dx 1993. S/P coronary artery stent placement Z95.5 PTCA: PTCA/CRYSTAL to SVG to OM 09/19/2016 Surgical History: coronary bypass surgery, - - CABG x2, PCI. Psychiatric History: Anxiety, Depression Lives: Spouse/ Significant Other Smoking Status: Former smoker Tobacco Use: Non-smoker Alcohol: Occasional Drugs: None - *Family History Sibling Family History: Family History (Last Reviewed 07/07/18 @ 15:47 by Amor Steen MD) Father emphysema Mother Hypertension HLD (hyperlipidemia) Sister Enlarged heart Sister Myocardial infarction History Items: - - sister from enlarged heart Maternal Family History: Family History (Last Reviewed 07/07/18 @ 15:47 by Amor Steen MD) Father emphysema Mother Hypertension HLD (hyperlipidemia) Sister Enlarged heart Sister Myocardial infarction History Items: High Cholesterol, Heart Disease, Hypertension Paternal Family History: Family History (Last Reviewed 07/07/18 @ 15:47 by Amor Steen MD) Father emphysema Mother Hypertension HLD (hyperlipidemia) Sister Enlarged heart Sister Myocardial infarction History Items: COPD Review of Systems Constitutional: Denies: Chills, Fever Eyes: Denies: Blurred vision, Double vision HEENT: Denies: Head Aches, Sinus Congestion, Sinus Drainage Cardiovascular: Reports: Chest Pain Respiratory: Reports: Shortness of Breath. Denies: Cough, Sputum production Gastrointestinal: Denies: Abdominal Pain, Nausea, Vomiting Genitourinary: Denies: Dysuria Musculoskeletal: Denies: Joint Pain, Joint Tenderness Skin: Reports: Rash - Focal (on back). Denies: Wounds Neurological: Denies: Numbness, Tingling, Focal weakness Psychiatric: Denies: Anxiety, Depression, Homicidal Ideations, Suicidal Ideations Hematologic/ Lymphatic: Denies: Easy Bruising, Easy Bleeding Objective: The patient's most recent lab work, culture data and imaging studies have all been personally reviewed. - Physical Exam General: Alert, Oriented x3, Cooperative, No apparent distress HEENT: Atraumatic, PERRLA Oral: No Gingival or Mucosal Lesions/ Ulcerations Neck: Supple, No Nodes, Trachea Midline Lungs: - - Grossly clear with the exception of right basilar rales. Cardiovascular: Normal S1, Normal S2, Irregular Rate Abdomen: Bowel Sounds Present, Soft, Non Tender Extremities: No clubbing, No cyanosis, No edema Skin: - - Focal rash located on back. Musculoskeletal: No Muscle Wasting Lymphatic: No Cervical, Supraclavicular, or Inguinal Adenopathy Neurological: Cranial nerves II-XII grossly intact, Neuro grossly intact Psych/Mental Status: Alert and oriented to time, place, person, mood and affect Vital Signs Temp Pulse Resp BP Pulse Ox 99.0 F 55 L 15 128/74 H 98 01/23/19 05:00 01/23/19 06:00 01/23/19 06:00 01/23/19 06:00 01/23/19 06:00 Oxygen Flow Rate (L/min) 5 Oxygen Delivery Method Nasal Cannula Weight: 171 lb 8.314 oz Body Mass Index (BMI) 24.6 Intake and Output for Last 24 Hours 01/21/19 01/22/19 01/23/19 23:59 23:59 23:59 Intake Total 100 / 100 Output Total 850 / 850 Balance -750 / -750 Microbiology Past 72 Hours 01/23/19 01:00 Legionella Antigen - Final Urine, Clean Catch 01/23/19 01:00 Streptococcus pneumoniae Antigen (M - Final Urine, Clean Catch Laboratory Tests Past 24 Hrs 01/23/19 01/23/19 01/23/19 00:45 03:35 03:35 WBC 10.7 RBC 4.62 Hgb 13.7 Hct 41.5 MCV 89.8 MCH 29.7 MCHC 33.0 RDW Std Deviation 50.0 H RDW Coeff of Justice 15.4 H Plt Count 200 MPV 10.9 Immature Gran % (Auto) 0.300 Neut % (Auto) 94.7 H Lymph % (Auto) 3.6 L [place] % (Auto) 1.2 Eos % (Auto) 0.0 Baso % (Auto) 0.2 Absolute Neuts (auto) 10.1 H Absolute Lymphs (auto) 0.38 L Nucleated RBC % 0 Sodium Cancelled Potassium Cancelled Chloride Cancelled Carbon Dioxide Cancelled Anion Gap Cancelled BUN Cancelled Creatinine Cancelled Estim Creat Clear Calc Cancelled Est GFR (MDRD) Af Amer Cancelled Est GFR (MDRD) Non-Af Cancelled BUN/Creatinine Ratio Cancelled Glucose Cancelled Calcium Cancelled Magnesium 2.0 Troponin I 0.156 H Triglycerides Cancelled Cholesterol Cancelled LDL Cholesterol Cancelled VLDL Cholesterol Cancelled HDL Cholesterol Cancelled TSH 0.93 01/23/19 01/23/19 03:35 04:00 WBC RBC Hgb Hct MCV MCH MCHC RDW Std Deviation RDW Coeff of Justice Plt Count MPV Immature Gran % (Auto) Neut % (Auto) Lymph % (Auto) [place] % (Auto) Eos % (Auto) Baso % (Auto) Absolute Neuts (auto) Absolute Lymphs (auto) Nucleated RBC % Sodium 143 Potassium 4.0 Chloride 107 Carbon Dioxide 27.0 Anion Gap 9 BUN 21 H Creatinine 1.64 H Estim Creat Clear Calc 35.24 Est GFR (MDRD) Af Amer 52 L Est GFR (MDRD) Non-Af 43 L BUN/Creatinine Ratio 12.8 Glucose 189 H Calcium 8.0 L Magnesium Troponin I Cancelled 0.187 H Triglycerides 43 Cholesterol 128 LDL Cholesterol 65 VLDL Cholesterol 9 HDL Cholesterol 54 TSH Clinical Impression(s) from Imaging Studies Chest X-Ray 01/23/19 05:55 IMPRESSION: Mild increase in right basilar opacity. Chest otherwise appears similar. at 0627 Reported and signed by: Catherine Akhtar MD Electronically Signed: Catherine Akhtar MD at 6:27 EDT Tel , Service support , Assessment/Plan RECOMMENDATIONS: 1. Wean supplemental oxygen to maintain saturations at or above 90%. 2. Trend troponins and obtain repeat echocardiogram. 3. Check MRSA screen and discontinue vancomycin if negative. 4. Continue Zosyn as ordered, pending infectious work-up. 5. Cardiology consultation is pending. IMPRESSIONS: 1. Acute hypoxemic respiratory failure The patient initially presented to the hospital with symptoms including chest pain and shortness of breath. The patient's outside hospital CTA chest demonstrated findings concerning for decompensated heart failure and basilar pneumonia. The patient has responded clinically to the use of IV diuretic therapy and noninvasive positive pressure ventilatory support. He has been weaned from BiPAP at this time and is maintaining oxygen saturations on nasal cannula supplemental O2. Recommend continuing to wean O2 to maintain saturations at or above 90%. Continue diuretic therapy. Continue empiric antimicrobial therapy, pending infectious work-up. Check MRSA screen, and if negative, discontinue vancomycin. Repeat echocardiogram is currently pending. Cardiology consultation is pending. 2. Chest pain/history of coronary artery disease/troponin elevation/paroxysmal atrial fibrillation The patient is routinely followed by Dr. Steen on an outpatient basis. We will trend his troponin levels at this time and obtain a repeat echocardiogram. Defer medical management to cardiology. 3. 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 Continue home medications as indicated. This note was generated with [employer] software. It may contain incorrect words, spelling, and punctuation that were not noted in checking the note before signing. Code Visit Inpatient E&M: 60443 Init Hosp L3
[2019-01-23] MEDS: Ipratropium/Albuterol Sulfate 3 ML AMPUL.NEB INHALATION ×4 (06:50→19:13)
--- NOTE | 2019-01-23 07:11 | PN_ITS ---
Subjective: Patient is an 83-year-old gentleman who was transferred from an outside hospital with progressive shortness of breath associated with fever, chills and cough. CT performed [facility] demonstrated left lower lobe consolidation with moderate right and small left pleural effusion with pulmonary vascular congestion. Patient was subsequently transferred to the [facility] admitted to the intensive care unit Objective: GENERAL: cooperative HEENT: Atraumatic; EYES; Anicteric, NECK; supple, normal thyroid, RESPIRATORY: Diminished to auscultation CARDIOVASCULAR: Irregularly irregular GI: soft, non-tender, normoactive bowel sounds, : No Renal angle tenderness; EXTREMITIES: Trace edema, no clubbing, MUSCULOSKELETAL: No Joint Tenderness; NEURO: Awake; no lateralizing signs. SKIN: No Rash PSYCH; Normal affect Vitals/I&O's: Vital Signs Temp Pulse Resp BP Pulse Ox 99.0 F 50 L 18 128/74 H 99 01/23/19 05:00 01/23/19 06:52 01/23/19 06:52 01/23/19 06:00 01/23/19 06:52 Oxygen Flow Rate (L/min) 6 Oxygen Delivery Method Nasal Cannula Weight: 77.8 kg Body Mass Index (BMI) 24.6 Intake and Output for Last 24 Hours 01/21/19 01/22/19 01/23/19 23:59 23:59 23:59 Intake Total 100 / 100 Output Total 850 / 850 Balance -750 / -750 Microbiology Past 72 Hours 01/23/19 01:00 Urine, Clean Catch Legionella Antigen - Final 01/23/19 01:00 Urine, Clean Catch Streptococcus pneumoniae Antigen (M - Final Laboratory Results 01/23/19 00:45: Magnesium 2.0, Troponin I 0.156 H, TSH 0.93 01/23/19 03:35: WBC 10.7, RBC 4.62, Hgb 13.7, Hct 41.5, MCV 89.8, MCH 29.7, MCHC 33.0, RDW Std Deviation 50.0 H, RDW Coeff of Justice 15.4 H, Plt Count 200, MPV 10.9, Immature Gran % (Auto) 0.300, Neut % (Auto) 94.7 H, Lymph % (Auto) 3.6 L, Gem % (Auto) 1.2, Eos % (Auto) 0.0, Baso % (Auto) 0.2, Absolute Neuts (auto) 10.1 H, Absolute Lymphs (auto) 0.38 L, Nucleated RBC % 0 01/23/19 03:35: Sodium Cancelled, Potassium Cancelled, Chloride Cancelled, Carbon Dioxide Cancelled, Anion Gap Cancelled, BUN Cancelled, Creatinine Cancelled, Estim Creat Clear Calc Cancelled, Est GFR (MDRD) Af Amer Cancelled, Est GFR (MDRD) Non-Af Cancelled, BUN/Creatinine Ratio Cancelled, Glucose Cancelled, Calcium Cancelled, Triglycerides Cancelled, Cholesterol Cancelled, LDL Cholesterol Cancelled, VLDL Cholesterol Cancelled, HDL Cholesterol Cancelled 01/23/19 03:35: Troponin I Cancelled 01/23/19 04:00: Sodium 143, Potassium 4.0, Chloride 107, Carbon Dioxide 27.0, Anion Gap 9, BUN 21 H, Creatinine 1.64 H, Estim Creat Clear Calc 35.24, Est GFR (MDRD) Af Amer 52 L, Est GFR (MDRD) Non-Af 43 L, BUN/Creatinine Ratio 12.8, Glucose 189 H, Calcium 8.0 L, Troponin I 0.187 H, Triglycerides 43, Cholesterol 128, LDL Cholesterol 65, VLDL Cholesterol 9, HDL Cholesterol 54 01/23/19 06:30: Troponin I 0.189 H Current Medications Acetaminophen (Tylenol) 650 mg PO Q6H PRN PRN PRN Reason: Non-cardiac pain (mod-severe) Hydrocodone Bitart/Acetaminophen ([place] 5mg-325mg) 1 - 2 tablet PO Q6H PRN PRN PRN Reason: MOD-SEVERE PAIN (4-10/10) Al Hydroxide/Mg Hydroxide (Mylanta Ii) 15 - 30 ml PO Q4H PRN PRN PRN Reason: INDIGESTION Albuterol Sulfate (Ventolin Aerosols) 2.5 mg INHALATION Q2H PRN PRN PRN Reason: SHORTNESS OF BREATH Albuterol/Ipratropium (Duoneb) 3 ml INHALATION Q4HWA.RT [facility] Last Admin: 01/23/19 06:50 Dose: 3 ml Documented by: Amlodipine Besylate (Norvasc) 5 mg PO DAILY [facility] Aspirin (Ecotrin) 81 mg PO DAILY@0800 [facility] Atenolol (Tenormin (Beta Darcie)) 50 mg PO DAILY [facility] Last Admin: 01/23/19 00:48 Dose: 50 mg Documented by: Atorvastatin Calcium (Lipitor) 20 mg PO QHS [facility] Clopidogrel Bisulfate (Plavix) 75 mg PO DAILY [facility] Dextrose (D50w Syringe) 0 gm IV X1 PRN; Protocol PRN Reason: Hypoglycemia Enoxaparin Sodium (Lovenox) 75 mg SC Q12 [facility] Last Admin: 01/23/19 00:46 Dose: 75 mg Documented by: Furosemide (Lasix) 40 mg IV BIDLX [facility] Last Admin: 01/23/19 00:48 Dose: 40 mg Documented by: Glucagon () 1 mg IM .X1 PRN PRN Reason: Hypoglycemia Guaifenesin (Robitussin) 10 ml PO Q4H PRN PRN PRN Reason: COUGH Hydralazine HCl (Apresoline Iv) 10 mg IV Q4H PRN PRN PRN Reason: SBP > 160 Piperacillin Sod/Tazobactam (Sod 3.375 gm/ Sodium Chloride) 50 mls @ 12.5 mls/hr IV Q8 [facility] Last Admin: 01/23/19 05:10 Dose: 12.5 mls/hr Documented by: Vancomycin IV Pharmacy to Dose (1 ea/ Sodium Chloride) 500 mls @ 250 mls/hr IV X1 PRN; Protocol PRN Reason: Rx to Dose Sodium Chloride () 250 mls @ 15 mls/hr IV .[id number] PRN PRN Reason: SALINE FLUSH Last Infusion: 01/23/19 05:11 Dose: 0 mls/hr Documented by: Vancomycin HCl () 500 mg in 100 mls @ 100 mls/hr IV Q12H [facility] Isosorbide Dinitrate (Isordil) 20 mg PO TID [facility] Last Admin: 01/23/19 05:10 Dose: 20 mg Documented by: Lorazepam (Ativan) 0.5 mg PO DAILY PRN PRN PRN Reason: anxiety Losartan Potassium (Cozaar) 25 mg PO BID [facility] Magnesium Hydroxide (Milk Of Magnesia) 30 ml PO DAILY PRN PRN Reason: Constipation Melatonin (Melatonin) 3 mg PO QHS PRN PRN PRN Reason: INSOMNIA Morphine Sulfate () 1 - 2 mg IV Q4H PRN PRN PRN Reason: PAIN Nitroglycerin (Nitrostat) 0.4 mg SUBLINGUAL Q5M PRN PRN Reason: CARDIAC/CHEST PAIN Ondansetron HCl (Zofran) 4 mg IV Q8H PRN PRN PRN Reason: NAUSEA/VOMITING Potassium Chloride (K-Dur) 20 meq PO DAILY [facility] Sertraline HCl (Zoloft) 100 mg PO DAILY [facility] Sodium Chloride () 10 - 40 ml IV UD PRN PRN Reason: SALINE FLUSH Throat Lozenges (Cepacol Sore Throat Lozenge) 1 lozenge MUCOUS MEM Q2H PRN PRN PRN Reason: Sore Throat/Cough Medical Necessity - Tobacco Use Smoking Status: Former smoker Tobacco Use: Non-smoker Assessment/Plan All Active Problems (Last Reviewed 07/07/18 @ 15:47 by Amor Steen MD) Acute respiratory failure with hypoxia (Acute) Pneumonia (Acute) Severe sepsis (Acute) CHF exacerbation (Acute) Atrial fibrillation with RVR (Acute) Dyspnea on exertion (Acute) Chest pain (Acute) Patient is an 83-year-old gentleman who was transferred from an outside hospital with progressive shortness of breath associated with fever, chills and cough. CT performed [facility] demonstrated left lower lobe consolidation with moderate right and small left pleural effusion with pulmonary vascular congestion. Patient was subsequently transferred to the [facility] admitted to the intensive care unit 1. Acute hypoxic respiratory failure due to combination of factors including c ommunity-acquired pneumonia acute decompensated congestive heart failure. Admitted to the intensive care unit managed with noninvasive ventilation 2. Sepsis secondary to community-acquired pneumonia. Patient admitted to the intensive care unit management broad-spectrum antibiotics with vancomycin and Zosyn after cultures have been sent 3. Acute decompensated congestive heart failure with decreased ejection fraction patient has known ischemic cardiomyopathy with an ejection fraction of 35% patient was placed on diuretics Lasix, daily input and output, fluid restriction and daily weight. Consultation was placed to patient's primary cardiology team 4. Elevated troponin suspected to be secondary to demand ischemia. Given patient significant past cardiac history including CABG and subsequent stent placement consultation was placed to patient's radiographer cardiac catheterization 5. Coronary artery disease with previous CABG x2 and subsequent PCI patient is on beta-blockers, ARB's as well as antiplatelet therapy 6. Ischemic cardiomyopathy due #5. Recommended medications including beta- blockers and ARB's 7. Chronic kidney disease stage III with baseline creatinine of 1.4-1.6. 8. Hypertension-blood pressure controlled, home medications continued with dose adjustment as needed 9. Dyslipidemia-patient is on statin therapy, continued at home dose 10. Depression with anxiety patient is on sertraline did continue 11. Paroxysmal atrial fibrillation with significant variable rate and is on therapeutic Lovenox consultation placed to cardiology 12. DVT prophylaxis: SCDs, therapeutic Lovenox. Active Medications Acetaminophen (Tylenol) 650 mg PO Q6H PRN PRN PRN Reason: Non-cardiac pain (mod-severe) Hydrocodone Bitart/Acetaminophen ([place] 5mg-325mg) 1 - 2 tablet PO Q6H PRN PRN PRN Reason: MOD-SEVERE PAIN (4-03/04) Al Hydroxide/Mg Hydroxide (Mylanta Ii) 15 - 30 ml PO Q4H PRN PRN PRN Reason: INDIGESTION Albuterol Sulfate (Ventolin Aerosols) 2.5 mg INHALATION Q2H PRN PRN PRN Reason: SHORTNESS OF BREATH Albuterol/Ipratropium (Duoneb) 3 ml INHALATION Q4HWA.RT [facility] Last Admin: 01/23/19 06:50 Dose: 3 ml Documented by: Amlodipine Besylate (Norvasc) 5 mg PO DAILY [facility] Aspirin (Ecotrin) 81 mg PO DAILY@0800 [facility] Atenolol (Tenormin (Beta Darcie)) 50 mg PO DAILY [facility] Last Admin: 01/23/19 00:48 Dose: 50 mg Documented by: Atorvastatin Calcium (Lipitor) 20 mg PO QHS [facility] Clopidogrel Bisulfate (Plavix) 75 mg PO DAILY [facility] Dextrose (D50w Syringe) 0 gm IV X1 PRN; Protocol PRN Reason: Hypoglycemia Enoxaparin Sodium (Lovenox) 75 mg SC Q12 [facility] Last Admin: 01/23/19 00:46 Dose: 75 mg Documented by: Furosemide (Lasix) 40 mg IV BIDLX [facility] Last Admin: 01/23/19 00:48 Dose: 40 mg Documented by: Glucagon () 1 mg IM .X1 PRN PRN Reason: Hypoglycemia Guaifenesin (Robitussin) 10 ml PO Q4H PRN PRN PRN Reason: COUGH Hydralazine HCl (Apresoline Iv) 10 mg IV Q4H PRN PRN PRN Reason: SBP > 160 Piperacillin Sod/Tazobactam (Sod 3.375 gm/ Sodium Chloride) 50 mls @ 12.5 mls/hr IV Q8 [facility] Last Admin: 01/23/19 05:10 Dose: 12.5 mls/hr Documented by: Vancomycin IV Pharmacy to Dose (1 ea/ Sodium Chloride) 500 mls @ 250 mls/hr IV X1 PRN; Protocol PRN Reason: Rx to Dose Sodium Chloride () 250 mls @ 15 mls/hr IV .[id number] PRN PRN Reason: SALINE FLUSH Last Infusion: 01/23/19 05:11 Dose: 0 mls/hr Documented by: Vancomycin HCl () 500 mg in 100 mls @ 100 mls/hr IV Q12H [facility] Isosorbide Dinitrate (Isordil) 20 mg PO TID [facility] Last Admin: 01/23/19 05:10 Dose: 20 mg Documented by: Lorazepam (Ativan) 0.5 mg PO DAILY PRN PRN PRN Reason: anxiety Losartan Potassium (Cozaar) 25 mg PO BID [facility] Magnesium Hydroxide (Milk Of Magnesia) 30 ml PO DAILY PRN PRN Reason: Constipation Melatonin (Melatonin) 3 mg PO QHS PRN PRN PRN Reason: INSOMNIA Morphine Sulfate () 1 - 2 mg IV Q4H PRN PRN PRN Reason: PAIN Nitroglycerin (Nitrostat) 0.4 mg SUBLINGUAL Q5M PRN PRN Reason: CARDIAC/CHEST PAIN Ondansetron HCl (Zofran) 4 mg IV Q8H PRN PRN PRN Reason: NAUSEA/VOMITING Potassium Chloride (K-Dur) 20 meq PO DAILY [facility] Sertraline HCl (Zoloft) 100 mg PO DAILY [facility] Sodium Chloride () 10 - 40 ml IV UD PRN PRN Reason: SALINE FLUSH Throat Lozenges (Cepacol Sore Throat Lozenge) 1 lozenge MUCOUS MEM Q2H PRN PRN PRN Reason: Sore Throat/Cough Code Visit Inpatient E&M: [id number] [facility] Hosp L3
--- NOTE | 2019-01-23 09:44 | CM.UR ---
Attempted to see patient for RN assmt at this time however he is sleeping. Will return at later time. Marcy Flores RN, CCM.
--- NOTE | 2019-01-23 10:56 | CM.UR ---
RN CM Assessment Introduced role of RN CM to patient. Patient is alert and able to participate in RN CM Assessment. Care providers, pharmacy, and demographics verified. No family at bedside. Presentation: c/o SOB, nausea, vomiting, dry heaves. Admit Dx: CHF Re-Admit: no Barriers/Issues: Cares for w/dementia. So he makes decisions with that in mind. PCP: yaya Specialists: Brittney heart; linda (urology). Preferred Pharmacy: [facility] or [employer] mail order [facility] Benefit: yes, no concerns. LNOK: Savannah Long, daughter. , Carmen, has demential. LW/HPOA: Savannah Long, daughter is 2nd HPOA but who is first has dementia. both are on file. Living Arrangements: Lives in 2 story home however has 1st floor set up. Him and his live alone. Daughter checks on them. She also hired someone to come M-W- to help clean and with meals. The days she comes--she gets them breakfast and lunch. ADL?s: Independent. Transportation: Self or daughter, if needed. DME: Walker, Cane, raised toilet seat, shower chair, grab bars and hand held shower head. Had o2 in past but only for a couple of weeks. DME co: No preference. had o2 from [employer] in past. HHC: None SNF: None Goal: to return home. DC PLAN: Vet declines SNF. discussed HHC and he declined but I began to ask if doing daily wts. States no. Instructed him on daily weights and why you do it. Explained that HHC can instruct him on things like that along with assess his CP status for ongoing recovery. states will consider it. Marcy Flores RN, CCM.
--- NOTE | 2019-01-23 12:21 | CON.PCM_ITS ---
Problem List (1) CAD (coronary artery disease) Status: Chronic Qualifiers: Coronary Disease-Associated Artery/Lesion type: unspecified vessel or lesion type [place] vs. transplanted heart: unspecified whether [place] or transplanted heart Associated angina: angina presence unspecified Qualified Code(s): I25.10 - Atherosclerotic heart disease of [place] coronary artery without angina pectoris (2) Hx of CABG Status: Chronic (3) Atrial fibrillation with RVR Status: Chronic (4) CHF exacerbation Status: Acute Qualifiers: Heart failure type: unspecified Qualified Code(s): I50.9 - Heart failure, unspecified (5) Non-ST elevated myocardial infarction Status: Acute (6) Hyperlipidemia Status: Chronic Qualifiers: Hyperlipidemia type: unspecified Qualified Code(s): E78.5 - Hyperlipidemia, unspecified (7) HTN (hypertension) Status: Chronic Qualifiers: Hypertension type: essential hypertension Qualified Code(s): I10 - Essential (primary) hypertension (8) Pneumonia Status: Acute Qualifiers: Pneumonia type: due to unspecified organism Laterality: left Lung location: lower lobe of lung Qualified Code(s): J18.1 - Lobar pneumonia, unspecified organism (9) Severe sepsis Status: Acute Reason for Consult Date of Consultation: 01/23/19 History of Present Illness: The patient is a 83 year old white male with a past cardiovascular history which is included underlying CAD, CABG, CHF, atrial fibrillation, superimposed upon hyperlipidemia, hypertension, who now presents for evaluation of CHF exacerbation as well as pneumonia and sepsis. The patient states that recently he became progressively short of breath and dyspneic. He subsequently presented to the [facility] emergency department. Based upon a telephone conversation with the [facility] emergency department staff he was thought to have a combination of CHF exacerbation as well as, based upon fever, examination, and radiologic findings with chest CT scan, an underlying pneumonia. He was treated with a combination of IV nitroglycerin and O2 support with BiPAP. He was subsequently transferred to [facility] ICU for further evaluation and care. He was treated with IV diuretic therapy. He states he feels much better this morning than he did last night. He denies any ongoing chest discomfort. He states his main concern was his progressive shortness of breath and dyspnea. He has had orthopnea/PND. He has not noted any significant lower extremity peripheral pitting edema. There was no report of near syncope or syncope. He states he has a history of atrial fibrillation. He is undergone laboratory profile. His laboratory studies have demonstrated indeterminate troponin I levels. His ECG demonstrated the appearance of atrial fibrillation with concerns of a prolonged QT interval. His radiologic studies have demonstrated bilateral pulmonary infiltrates/edema on preliminary inspection. [] Past Medical History Allergies/Adverse Reactions: Allergies atorvastatin calcium [From Lipitor] Adverse Reaction (Verified 12/14/18 10:59) Other LEG CRAMPS WITH 40MG DOSE BUT TOLERATES LOWER DOSE buspirone HCl [From BuSpar] Adverse Reaction (Verified 12/14/18 10:59) Other FAINT fosinopril sodium [From Monopril] Adverse Reaction (Verified 12/14/18 10:59) Other LEG CRAMPS Iodinated Contrast Media [CONTRASTS] Adverse Reaction (Verified 12/14/18 10:59) Itching ramipril [From Altace] Adverse Reaction (Verified 12/14/18 10:59) Other LEG CRAMPS simvastatin Adverse Reaction (Verified 12/14/18 10:59) Other WHEN MIXED WITH DILTIAZEM CAUSES SEVERE MUSCLE CRAMPS Home Medications: Ambulatory Orders Medication Instructions Recorded Atenolol [Tenormin (beta vlad)] 50 mg PO DAILY 06/01/14 Calcium Carb/Vitamin D 1 tab PO DAILY@0800 06/01/14 [Caltrate-600 With Vit D Tab] Cholecalciferol (VIT D3) [Vitamin 2,000 unit PO DAILY 06/01/14 D3] Multivitamins,Therapeutic 1 tab PO DAILY 06/01/14 [Multivitamin] [place]-3 Fatty Acids/Fish Oil 1 ea PO DAILY 06/01/14 [[place]-3 Fish Oil Softgel] Nitroglycerin (INPATIENT USE) 0.4 mg SUBLINGUAL PRN PRN 06/08/14 [Nitrostat] Aspirin E.C. [Ecotrin] 81 mg PO DAILY@0800 tab 10/31/16 atorvastatin 20 mg tablet 20 mg PO QHS #90 tab 05/12/18 clopidogrel 75 mg tablet 75 mg PO DAILY #90 tab 05/12/18 amlodipine 5 mg tablet 5 mg PO .daily #90 tab 07/07/18 isosorbide dinitrate 20 mg tablet 20 mg PO TID #270 tab 07/07/18 losartan 25 mg tablet 25 mg PO BID #180 tab 07/07/18 lorazepam 0.5 mg tablet 0.5 mg PO DAILY PRN 15 Days tab 11/09/18 sertraline 50 mg tablet 100 mg PO DAILY tab 11/09/18 furosemide 40 mg tablet 40 mg PO BID #90 tab 12/14/18 potassium chloride ER 20 mEq 20 meq PO DAILY #90 tab 12/14/18 tablet,extended release Past Medical History (Chronic Problems): Chronic Problems (Last Reviewed 07/07/18 @ 15:47 by Amor Steen MD) Atrial fibrillation with RVR (Chronic) Hx of CABG (Chronic) Hyperlipidemia (Chronic) HTN (hypertension) (Chronic) Pure hypercholesterolemia (Chronic) Atherosclerotic heart disease (Chronic) S/P CABG in 1993 with MARIA to LAD, SVG to OM1, and SVG to first diagonal; PTCA/CRYSTAL to SVG to obtuse marginal in August 2016; Staged PTCA/CRYSTAL to RCA in October 2016; CAD (coronary artery disease) (Chronic) BPH (benign prostatic hyperplasia) (Chronic) Surgical History: coronary bypass surgery, - - CABG x2, PCI. Psychiatric History: Anxiety, Depression - *Family History Sibling Family History: Family History (Last Reviewed 07/07/18 @ 15:47 by Amor Steen MD) Father emphysema Mother Hypertension HLD (hyperlipidemia) Sister Enlarged heart Sister Myocardial infarction History Items: - - sister from enlarged heart Maternal Family History: Family History (Last Reviewed 07/07/18 @ 15:47 by Amor Steen MD) Father emphysema Mother Hypertension HLD (hyperlipidemia) Sister Enlarged heart Sister Myocardial infarction History Items: High Cholesterol, Heart Disease, Hypertension Paternal Family History: Family History (Last Reviewed 07/07/18 @ 15:47 by Amor Steen MD) Father emphysema Mother Hypertension HLD (hyperlipidemia) Sister Enlarged heart Sister Myocardial infarction History Items: COPD Lives: Spouse/ Significant Other Smoking Status: Former smoker Tobacco Use: Non-smoker Alcohol: Occasional Drugs: None Review of Systems - Review of Systems General: Reports: Fever. Denies: Fatigue, Night Sweats Cardiovascular: Reports: Chest Discomfort, Shortness of Breath, Orthopnea, PND Respiratory: Reports: Shortness of Breath. Denies: Cough, Sputum Production, Hemoptysis Gastrointestinal: Denies: Hematemesis, Hematochezia, Melena Genitourinary: Denies: Dysuria, Hematuria Skin: Denies: Rash Subjectve: This is a pleasant thin 83-year-old white male who appears to be resting r easonably comfortably at the moment in no acute distress. Objective: Vital Signs Temp Pulse Resp BP Pulse Ox 97.2 F L 64 18 142/66 H 94 01/23/19 08:00 01/23/19 11:01 01/23/19 11:01 01/23/19 11:00 01/23/19 11:00 Oxygen Flow Rate (L/min) 3 Oxygen Delivery Method Nasal Cannula Weight: 171 lb 8.314 oz Body Mass Index (BMI) 24.6 Intake and Output for Last 24 Hours 01/21/19 01/22/19 01/23/19 23:59 23:59 23:59 Intake Total 150 / 150 Output Total 850 / 850 Balance -700 / -700 General: Awake, Alert, Oriented x 3, Cooperative, No Acute Distress HEENT: Atraumatic, Normocephalic, PERRL, EOMI, Sclera Non Icteric Oral: Moist Mucosa Neck: Supple, Good ROM, No JVD Lungs: Diminished Herminio Bases Cardiovascular: Irregular Rhythm, Normal S1, Normal S2 Abdomen: Bowel Sounds Present, Soft, Non Tender Extremities: No edema Neurological: No Focal Motor or Sensory Deficit Psych/Mental Status: Appropriate 01/23/19 00:45: Magnesium 2.0, Troponin I 0.156 H 01/23/19 03:35: WBC 10.7, RBC 4.62, Hgb 13.7, Hct 41.5, MCV 89.8, MCH 29.7, MCHC 33.0, Plt Count 200, MPV 10.9, Immature Gran % (Auto) 0.300, Neut % (Auto) 94.7 H, Lymph % (Auto) 3.6 L, Rhea % (Auto) 1.2, Eos % (Auto) 0.0, Baso % (Auto) 0.2, Absolute Neuts (auto) 10.1 H, Nucleated RBC % 0 01/23/19 03:35: Sodium Cancelled, Potassium Cancelled, Chloride Cancelled, Ca rbon Dioxide Cancelled, Anion Gap Cancelled, BUN Cancelled, Creatinine Cancelled, Est GFR (MDRD) Af Amer Cancelled, Est GFR (MDRD) Non-Af Cancelled, BUN/Creatinine Ratio Cancelled, Glucose Cancelled, Calcium Cancelled, Triglycerides Cancelled, Cholesterol Cancelled, LDL Cholesterol Cancelled, VLDL Cholesterol Cancelled, HDL Cholesterol Cancelled 01/23/19 03:35: Troponin I Cancelled 01/23/19 04:00: Sodium 143, Potassium 4.0, Chloride 107, Carbon Dioxide 27.0, Anion Gap 9, BUN 21 H, Creatinine 1.64 H, Est GFR (MDRD) Af Amer 52 L, Est GFR (MDRD) Non-Af 43 L, BUN/Creatinine Ratio 12.8, Glucose 189 H, Calcium 8.0 L, Troponin I 0.187 H, Triglycerides 43, Cholesterol 128, LDL Cholesterol 65, VLDL Cholesterol 9, HDL Cholesterol 54 01/23/19 06:30: Troponin I 0.189 H Rhythm: Atrial fibrillation EKG: As noted above ECHO: 08-20-18: [facility]: Left ventricle reported with an LVEF of 47%; severe left atrial enlargement; mild to moderate MR; mild TR; trace to mild AI; trace to mild CO Stress Test: 12-02-18: Pharmacologic stress nuclear imaging study: Compatible with previous extensive lateral and anterior lateral OH with no myocardial ischemia appreciated with an LVEF of 34% Cardiac Cath: 09-19-16: Left ventricle with an LVEF 55% with hypokinesis of the basal inferior segment; left main coronary artery with 40% stenosis; LAD occluded; LCx occluded; RCA previously stented with mid 90% stenosis; MARIA to the LAD patent; SVG to the diagonal branch occluded; SVG to the OM stented with in-stent 95% stenosis PCI: 10-30-16: PCI to the mid RCA with a 3.0?20 Promus Synergy stent and relook at the SVG to the OM reported is widely patent with NNEKA-3 flow CXR: Preliminary evaluation as noted above Chest CT Scan: [facility] report per emergency department staff as noted above Assessment/Plan 1. CAD status post CABG The patient has a history of CAD status post CABG. He has undergone noninvasive evaluation earlier this year as noted above. He was not thought at the time to require further evaluation with diagnostic cardiac catheterization. At the present time he presents with concerns of both CHF exacerbation and pneumonia/sepsis. He is in the ICU for continued medical management. As he has improves he can be considered to be transferred to the PCU for continued evaluation and care. Depending upon his clinical course he may or may not need repeat evaluation of his coronary/graft anatomy. In the meantime he will continue medical therapy with adjustment as needed. 2. Atrial fibrillation The patient has a history of atrial fibrillation. He has been on rate control therapy. This will be adjusted as needed. He can be considered for anticoagulant therapy if the risk benefit ratio is in his favor. 3. CHF He does have a CHF exacerbation. At the present time he will need to be monitored and continue medical management. He will undergo further evaluation with a transthoracic echocardiogram to reassess his left ventricular wall motion systolic function to assist with his ongoing evaluation and care. 4. Non-ST segment elevation OH His troponin I levels were indeterminant. This may be a type II supply demand mismatch event brought on by his pneumonia/sepsis superimposed upon his underlying cardiovascular status especially noting that his recent noninvasive study did not suggest ongoing myocardial ischemia warranting further invasive evaluation or care. His enzymes and ECG can be followed. He will be reassessed noninvasively as noted above. Depending upon his course he may or may not need repeat invasive evaluation and care. In the meantime he will continue medical management. 5. Hyperlipidemia He will continue medical management as deemed appropriate. 6. Hypertension His blood pressure will be followed. He will continue medical therapy as deemed appropriate. 7. Pneumonia He has been diagnosed with pneumonia. He will continue evaluation care per internal medicine and pulmonology/critical care medicine. 8. Sepsis He was also thought to have evidence of sepsis. Again he will continue evaluation care per internal medicine and neurology/critical care medicine. Comment: The patient's case has been discussed and reviewed with the patient. This note was generated with [employer] dictation software. It may contain incorrect words, spelling, and punctuation that were not noted in checking the note before signing.
[2019-01-23] MEDS: Losartan Potassium 25 MG Tablet PO ×2 (12:40→21:05)
[2019-01-23] MEDS: Aspirin E.C. 81 MG Tablet PO (12:40)
[2019-01-23] MEDS: Sertraline 100 MG Tablet PO (12:42)
[2019-01-23] MEDS: Clopidogrel Bisulfate 75 MG Tablet PO (12:42)
[2019-01-23] MEDS: amLODIPine 5 MG Tablet PO (12:42)
--- NOTE | 2019-01-23 14:27 | NURSING ---
report called to TINSEL MACHINE OPERATOR
[2019-01-23 14:44] LABS: M R Staph aureus DNA By PCR Negative (Negative); Probe Check PASS; Specimen Processing Control PASS
[2019-01-23] MEDS: 0.9% NaCl Peripheral Flush Adult/Peds IV (17:49)
[2019-01-23] MEDS: Atorvastatin Calcium 20 MG Tablet PO (21:05)
[2019-01-24] VITALS (17 sets, daily range): BP systolic 122–156; BP diastolic 48–81; PULSE 45–94; RESP 16–22; TEMP 36.5–36.7; O2SAT 88–96
--- NOTE | 2019-01-24 01:43 | NURSING ---
14:00 Zosyn noted to not have infused. Hospitalist notified.
--- NOTE | 2019-01-24 05:55 | EKG12_ITS ---
Test Reason : CP/SOB Blood Pressure : / mmHG Vent. Rate : 108 BPM Atrial Rate : 122 BPM P-R Int : 000 ms QRS Dur : 096 ms QT Int : 360 ms P-R-T Axes : 000 -08 086 degrees QTc Int : 482 ms Atrial fibrillation with rapid ventricular response Nonspecific ST abnormality Abnormal ECG When compared with ECG of 24-JAN-2019 05:19, MANUAL COMPARISON REQUIRED, DATA IS UNCONFIRMED Confirmed by ANGÉLICA PEPE ([id number]), editor news DEE DEE BEAVERS ([id number]) on 01/28/2019 2:00:22 PM Referred By: DR ESCAMILLA Confirmed By:ANGÉLICA PEPE
[2019-01-24] MEDS: 0.9% NaCl IVPB Med Flush (250 mL) 12.5 ML IV (06:23)
[2019-01-24] MEDS: Isosorbide DN 20 MG Tablet PO ×3 (06:35→21:14)
[2019-01-24] MEDS: Acetaminophen 325 MG Tablet 650 MG PO (06:36)
--- NOTE | 2019-01-24 07:13 | PCM.PN.PUL ---
Subjective: The patient was seen and examined at the bedside this morning. Events from the last 24 hours have been reviewed. The patient is currently afebrile, hemodynamically stable and maintaining appropriate oxygen saturations on 2 L/min via nasal cannula. The patient is currently documented to be overall net -1.8 L for the admission. The patient is currently sitting upright in bed, eating breakfast. He denies the presence of SOB. Objective: The patient's most recent lab work, culture data and imaging studies have all been personally reviewed. Surface echocardiogram revealed mild segmental systolic dysfunction with an ejection fraction of 45%. There was left atrial enlargement and a right ventricular systolic pressure estimated to be 80 mmHg. Strep and urine Legionella antigens were both negative. Respiratory viral panel was negative. - Physical Exam General: Alert, Oriented x3, Cooperative, No apparent distress, - - Sitting upright in bed eating breakfast. HEENT: Atraumatic, PERRLA, Normocephalic Oral: No Gingival or Mucosal Lesions/ Ulcerations Neck: Supple, No Nodes, Trachea Midline Lungs: No rhonchi, No wheeze, No rales, Diminished Cardiovascular: Normal S1, Normal S2, Irregular Rate Abdomen: Bowel Sounds Present, Soft, Non Tender Extremities: No clubbing, No cyanosis, No edema Skin: No breakdown Musculoskeletal: No Tenderness to Palpation of Joints or Extremities Lymphatic: No Cervical, Supraclavicular, or Inguinal Adenopathy Neurological: Cranial nerves II-XII grossly intact, Neuro grossly intact Psych/Mental Status: Alert and oriented to time, place, person, mood and affect Vital Signs Temp Pulse Resp BP Pulse Ox 97.8 F 73 22 H 136/81 H 96 01/24/19 02:55 01/24/19 06:53 01/24/19 02:55 01/24/19 02:55 01/24/19 02:55 Oxygen Flow Rate (L/min) 2 Oxygen Delivery Method Nasal Cannula Weight: 166 lb 14.239 oz Body Mass Index (BMI) 24.6 Intake and Output for Last 24 Hours 01/22/19 01/23/19 01/24/19 23:59 23:59 23:59 Intake Total 1073.25 / 1073.25 77.63 / 77.63 Output Total 2450 / 2450 585 / 585 Balance -1376.75 / -1376.75 -507.37 / -507.37 Microbiology Past 72 Hours 01/23/19 02:15 Respiratory Panel (PCR) - Final Mucosa - Nasopharyngeal 01/23/19 01:00 Legionella Antigen - Final Urine, Clean Catch 01/23/19 01:00 Streptococcus pneumoniae Antigen (M - Final Urine, Clean Catch Laboratory Tests Past 24 Hrs 01/23/19 01/24/19 01/24/19 12:30 05:00 05:00 WBC Pending RBC Pending Hgb Pending Hct Pending MCV Pending MCH Pending MCHC Pending RDW Std Deviation Pending RDW Coeff of Justice Pending Plt Count Pending Neut % (Auto) Pending Absolute Neuts (auto) Pending Sodium Pending Potassium Pending Chloride Pending Carbon Dioxide Pending Anion Gap Pending BUN Pending Creatinine Pending Est GFR (MDRD) Af Amer Pending Est GFR (MDRD) Non-Af Pending BUN/Creatinine Ratio Pending Glucose Pending Calcium Pending Magnesium Pending MRSA (PCR) Negative Clinical Impression(s) from Imaging Studies Chest X-Ray 01/23/19 05:55 IMPRESSION: Mild increase in right basilar opacity. Chest otherwise appears similar. at 0627 Reported and signed by: Catherine Akhtar MD Electronically Signed: Catherine Akhtar MD at 6:27 EDT Tel , Service support , Medical Necessity - Tobacco Use Smoking Status: Former smoker Tobacco Use: Non-smoker Assessment/Plan All Active Problems (Last Reviewed 07/07/18 @ 15:47 by Amor Steen MD) Acute respiratory failure with hypoxia (Acute) Pneumonia (Acute) Severe sepsis (Acute) CHF exacerbation (Acute) Dyspnea on exertion (Acute) Chest pain (Acute) Non-ST elevated myocardial infarction (Acute) RECOMMENDATIONS: 1. Continue antibiotics. 2. Wean supplemental oxygen to maintain saturations at or above 90%. 3. Continue diuretic therapy. 4. Encourage incentive parameter use and mobilize patient as tolerated. IMPRESSIONS: 1. Acute hypoxemic respiratory failure The patient initially presented to the hospital with symptoms including chest pain and shortness of breath. The patient's outside hospital CTA chest demonstrated findings concerning for decompensated heart failure and basilar pneumonia. The patient has responded clinically to the use of IV diuretic therapy and noninvasive positive pressure ventilatory support. He has been weaned from BiPAP and is maintaining oxygen saturations on nasal cannula supplemental O2. Recommend continuing to wean O2 to maintain saturations at or above 90%. Continue diuretic therapy. Continue empiric antimicrobial therapy, pending infectious work-up. Cardiology is following to assist with medical optimization. 2. Chest pain/history of coronary artery disease/troponin elevation/paroxysmal atrial fibrillation The patient is routinely followed by Dr. Steen on an outpatient basis. Defer medical management to cardiology. 3. 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 Continue home medications as indicated. This note was generated with [employer] dictation software. It may contain incorrect words, spelling, and punctuation that were not noted in checking the note before signing. Code Visit Inpatient E&M: 62363 Subs Hosp L2
[2019-01-24 07:14] LABS: Anion Gap 8 (5-15); BUN 38 mg/dL (7-18); BUN/Creat Ratio 22.6 RATIO (10-20); Chloride 108 mmol/L (98-107); Creatinine, Serum 1.68 mg/dL (0.70-1.30); EST Glomerular Filtration Rate 42 mL/min (>60); Est Glom Filt Rate - Afr Amer 50 mL/min (>60); Glucose 121 mg/dL (74-106); Magnesium 2.2 mg/dL (1.6-2.6); Potassium 3.6 mmol/L (3.5-5.1); Sodium Level 144 mmol/L (136-145)
[2019-01-24] MEDS: Ipratropium/Albuterol Sulfate 3 ML AMPUL.NEB INHALATION ×4 (07:14→19:26)
[2019-01-24 07:22] LABS: Absolute Lymphocyte Count 1.07 X10^3/uL (0.83-4.51); Absolute Neutrophil Count 10.9 X10^3/uL (2.0-7.7); Basophil# 0.03 X10^3/uL; Basophil% 0.2 % (0-1); Eosinophil# 0.04 X10^3/uL; Eosinophils% 0.3 % (0-5); Hematocrit 36.3 % (40-54); Hemoglobin 11.8 g/dL (13.0-16.5); Lymphocyte # 1.07 X10^3/ul (4.0); Lymphocyte % 8.3 % (19-41); Mean Corp Hgb Conc 32.5 g/dL (32-36); Mean Corpuscular Hgb 29.4 pg (27.0-32.0); Mean Corpuscular Volume 90.3 fL (80-94); Mean Platelet Vol. 10.8 fl (6.2-12.0); Monocyte# 0.72 X10^3/uL; Monocyte% 5.6 % (0-10); NRBC Flagged by Analyzer 0 % (0-5); Neutrophil # 10.93 X10^3/uL (2.7-7.7); Neutrophil % 85.3 % (47-70); Platelet Count 174 K/mm3 (150-450); RBC Distribution Width CV 15.5 % (11.6-14.6); RBC Distribution Width SD 50.7 fl (35.1-43.9); Red Blood Count 4.02 M/mm3 (4.6-6.2); White Blood Count 12.8 K/mm3 (4.4-11.0)
--- NOTE | 2019-01-24 07:24 | PCM.PN.HOSP ---
Subjective: Patient is an 83-year-old gentleman who was transferred from an outside hospital with progressive shortness of breath associated with fever, chills and cough. CT performed [facility] demonstrated left lower lobe consolidation with moderate right and small left pleural effusion with pulmonary vascular congestion. Patient was subsequently transferred to the [facility] admitted to the intensive care unit 01/24/2019. Patient was transferred from the intensive care unit to PCU once his respiratory status improved he however still requires oxygen desaturate was his oxygen is taking up. He may need to be assessed for home oxygen prior to discharge Objective: GENERAL: cooperative HEENT: Atraumatic; EYES; Anicteric, NECK; supple, normal thyroid, RESPIRATORY: Diminished to auscultation CARDIOVASCULAR: Irregularly irregular GI: soft, non-tender, normoactive bowel sounds, : No Renal angle tenderness; EXTREMITIES: Trace edema, no clubbing, MUSCULOSKELETAL: No Joint Tenderness; NEURO: Awake; no lateralizing signs. SKIN: No Rash PSYCH; Normal affect Vitals/I&O's: Vital Signs Temp Pulse Resp BP Pulse Ox 97.8 F 73 22 H 136/81 H 96 01/24/19 02:55 01/24/19 06:53 01/24/19 02:55 01/24/19 02:55 01/24/19 02:55 Oxygen Flow Rate (L/min) 2 Oxygen Delivery Method Nasal Cannula Weight: 75.7 kg Body Mass Index (BMI) 24.6 Intake and Output for Last 24 Hours 01/22/19 01/23/19 01/24/19 23:59 23:59 23:59 Intake Total 1073.25 / 1073.25 77.63 / 77.63 Output Total 2450 / 2450 585 / 585 Balance -1376.75 / -1376.75 -507.37 / -507.37 Microbiology Past 72 Hours 01/23/19 02:15 Mucosa - Nasopharyngeal Respiratory Panel (PCR) - Final 01/23/19 01:00 Urine, Clean Catch Legionella Antigen - Final 01/23/19 01:00 Urine, Clean Catch Streptococcus pneumoniae Antigen (M - Final Laboratory Results 01/23/19 12:30: MRSA (PCR) Negative 01/24/19 05:00: WBC 12.8 H, RBC 4.02 L, Hgb 11.8 L, Hct 36.3 L, MCV 90.3, MCH 29.4, MCHC 32.5, RDW Std Deviation 50.7 H, RDW Coeff of Justice 15.5 H, Plt Count 174, MPV 10.8, Immature Gran % (Auto) 0.300, Neut % (Auto) 85.3 H, Lymph % (Auto) 8.3 L, Emery % (Auto) 5.6, Eos % (Auto) 0.3, Baso % (Auto) 0.2, Absolute Neuts (auto) 10.9 H, Absolute Lymphs (auto) 1.07, Nucleated RBC % 0 01/24/19 05:00: Sodium 144, Potassium 3.6, Chloride 108 H, Carbon Dioxide 28.0, Anion Gap 8, BUN 38 H, Creatinine 1.68 H, Estim Creat Clear Calc 34.40, Est GFR (MDRD) Af Amer 50 L, Est GFR (MDRD) Non-Af 42 L, BUN/Creatinine Ratio 22.6 H, Glucose 121 H, Calcium 8.0 L, Magnesium 2.2 Current Medications Acetaminophen (Tylenol) 650 mg PO Q6H PRN PRN PRN Reason: Non-cardiac pain (mod-severe) Last Admin: 01/24/19 06:36 Dose: 650 mg Documented by: Hydrocodone Bitart/Acetaminophen (Shelbina 5mg-325mg) 1 - 2 tablet PO Q6H PRN PRN PRN Reason: MOD-SEVERE PAIN (4-10/10) Al Hydroxide/Mg Hydroxide (Mylanta Ii) 15 - 30 ml PO Q4H PRN PRN PRN Reason: INDIGESTION Albuterol Sulfate (Ventolin Aerosols) 2.5 mg INHALATION Q2H PRN PRN PRN Reason: SHORTNESS OF BREATH Albuterol/Ipratropium (Duoneb) 3 ml INHALATION Q4HWA.RT [facility] Last Admin: 01/24/19 07:14 Dose: 3 ml Documented by: Amlodipine Besylate (Norvasc) 5 mg PO DAILY [facility] Last Admin: 01/23/19 12:42 Dose: 5 mg Documented by: Aspirin (Ecotrin) 81 mg PO DAILY@0800 [facility] Last Admin: 01/23/19 12:40 Dose: 81 mg Documented by: Atenolol (Tenormin (Beta Darcie)) 25 mg PO DAILY [facility] Atorvastatin Calcium (Lipitor) 20 mg PO QHS [facility] Last Admin: 01/23/19 21:05 Dose: 20 mg Documented by: Clopidogrel Bisulfate (Plavix) 75 mg PO DAILY [facility] Last Admin: 01/23/19 12:42 Dose: 75 mg Documented by: Dextrose (D50w Syringe) 0 gm IV X1 PRN; Protocol PRN Reason: Hypoglycemia Enoxaparin Sodium (Lovenox) 75 mg SC Q12 [facility] Last Admin: 01/23/19 21:05 Dose: 75 mg Documented by: Furosemide (Lasix) 40 mg IV BIDLX [facility] Last Admin: 01/23/19 17:48 Dose: 40 mg Documented by: Glucagon () 1 mg IM .X1 PRN PRN Reason: Hypoglycemia Guaifenesin (Robitussin) 10 ml PO Q4H PRN PRN PRN Reason: COUGH Hydralazine HCl (Apresoline Iv) 10 mg IV Q4H PRN PRN PRN Reason: SBP > 160 Piperacillin Sod/Tazobactam (Sod 3.375 gm/ Sodium Chloride) 50 mls @ 12.5 mls/hr IV Q8 [facility] Last Admin: 01/24/19 06:26 Dose: 12.5 mls/hr Documented by: Sodium Chloride () 250 mls @ 15 mls/hr IV .[id number] PRN PRN Reason: SALINE FLUSH Last Infusion: 01/24/19 06:26 Dose: 0 mls/hr Documented by: Isosorbide Dinitrate (Isordil) 20 mg PO TID [facility] Last Admin: 01/24/19 06:35 Dose: 20 mg Documented by: Lorazepam (Ativan) 0.5 mg PO DAILY PRN PRN PRN Reason: anxiety Losartan Potassium (Cozaar) 25 mg PO BID [facility] Last Admin: 01/23/19 21:05 Dose: 25 mg Documented by: Magnesium Hydroxide (Milk Of Magnesia) 30 ml PO DAILY PRN PRN Reason: Constipation Melatonin (Melatonin) 3 mg PO QHS PRN PRN PRN Reason: INSOMNIA Morphine Sulfate () 1 - 2 mg IV Q4H PRN PRN PRN Reason: PAIN Nitroglycerin (Nitrostat) 0.4 mg SUBLINGUAL Q5M PRN PRN Reason: CARDIAC/CHEST PAIN Ondansetron HCl (Zofran) 4 mg IV Q8H PRN PRN PRN Reason: NAUSEA/VOMITING Potassium Chloride (K-Dur) 20 meq PO DAILY [facility] Last Admin: 01/23/19 12:41 Dose: 20 meq Documented by: Sertraline HCl (Zoloft) 100 mg PO DAILY [facility] Last Admin: 01/23/19 12:42 Dose: 100 mg Documented by: Sodium Chloride () 10 - 40 ml IV UD PRN PRN Reason: SALINE FLUSH Last Admin: 01/23/19 17:49 Dose: 15 ml Documented by: Throat Lozenges (Cepacol Sore Throat Lozenge) 1 lozenge MUCOUS MEM Q2H PRN PRN PRN Reason: Sore Throat/Cough Medical Necessity - Tobacco Use Smoking Status: Former smoker Tobacco Use: Non-smoker Assessment/Plan All Active Problems (Last Reviewed 07/07/18 @ 15:47 by Amor Steen MD) Acute respiratory failure with hypoxia (Acute) Pneumonia (Acute) Severe sepsis (Acute) CHF exacerbation (Acute) Dyspnea on exertion (Acute) Chest pain (Acute) Non-ST elevated myocardial infarction (Acute) Patient is an 83-year-old gentleman who was transferred from an outside hospital with progressive shortness of breath associated with fever, chills and cough. CT performed [facility] demonstrated left lower lobe consolidation with moderate right and small left pleural effusion with pulmonary vascular congestion. Patient was subsequently transferred to the [facility] admitted to the intensive care unit 1. Acute hypoxic respiratory failure due to combination of factors including community-acquired pneumonia acute decompensated congestive heart failure. Admitted to the intensive care unit managed with noninvasive ventilation ~01/24/2019: Patient was transferred from the intensive care unit to the progressive care unit following stabilization of his respiratory status. However requires oxygen did drop to high 80s while she was taking it. Patient may need to be assessed for home oxygen prior to discharge 2. Sepsis secondary to community-acquired pneumonia. Patient admitted to the intensive care unit management broad-spectrum antibiotics with vancomycin and Zosyn after cultures have been sent ~01/24/2019 cultures have remained negative to date. 3. Acute decompensated congestive heart failure with decreased ejection fraction patient has known ischemic cardiomyopathy with an ejection fraction of 35% patient was placed on diuretics Lasix, daily input and output, fluid restriction and daily weight. Consultation was placed to patient's primary cardiology team repeat echo during hospital stay revealed mild segmental systolic dysfunction with an ejection fraction of 45%. There was left atrial enlargement and a right ventricular systolic pressure estimated to be 80 mmHg. 4. Elevated troponin suspected to be secondary to demand ischemia. 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 Berkowitz reviewed. 5. Severe pulmonary hypertension with estimated RVSP of 88 mmHg 6. Coronary artery disease with previous CABG x2 and subsequent PCI patient is on beta-blockers, ARB's as well as antiplatelet therapy 7. Ischemic cardiomyopathy due #5. Recommended medications including beta-blockers and ARB's 8. Hypertension-blood pressure controlled, home medications continued with dose adjustment as needed 9. Dyslipidemia-patient is on statin therapy, continued at home dose 10. Depression with anxiety patient is on sertraline did continue 11. Paroxysmal atrial fibrillation with significant variable rate and is on therapeutic Lovenox consultation placed to cardiology patient is a candidate for long-term systemic anticoagulation given his high [id number] 4+ 12. Chronic kidney disease stage III with baseline creatinine of 1.4-1.6. 13. DVT prophylaxis: SCDs, therapeutic Lovenox. Code Visit Inpatient E&M: 02508 Subs Hosp L2
[2019-01-24] MEDS: Losartan Potassium 25 MG Tablet PO ×2 (09:17→21:15)
[2019-01-24] MEDS: Clopidogrel Bisulfate 75 MG Tablet PO (09:17)
[2019-01-24] MEDS: 0.9% NaCl Peripheral Flush Adult/Peds IV ×2 (09:17→17:19)
[2019-01-24] MEDS: Enoxaparin 80 MG/0.8 ML Syringe 75 MG SC ×2 (09:17→21:15)
[2019-01-24] MEDS: Furosemide 40 MG/4 ML Vial IV ×2 (09:17→17:19)
[2019-01-24] MEDS: amLODIPine 5 MG Tablet PO (09:17)
[2019-01-24] MEDS: Aspirin E.C. 81 MG Tablet PO (09:17)
[2019-01-24] MEDS: Atenolol 25 MG Tablet PO (09:18)
[2019-01-24] MEDS: Sertraline 100 MG Tablet PO (09:18)
--- NOTE | 2019-01-24 11:44 | PCM.PN.CARD ---
Subjectve: The patient states he continues to feel better with his breathing. Objective: Vital Signs Temp Pulse Resp BP Pulse Ox 97.8 F 68 18 122/48 H 93 01/24/19 09:05 01/24/19 11:17 01/24/19 11:17 01/24/19 09:05 01/24/19 09:05 Oxygen Flow Rate (L/min) 1 Oxygen Delivery Method Nasal Cannula Weight: 166 lb 14.239 oz Body Mass Index (BMI) 24.6 Intake and Output for Last 24 Hours 01/22/19 01/23/19 01/24/19 23:59 23:59 23:59 Intake Total 1073.25 / 1073.25 127.63 / 127.63 Output Total 2450 / 2450 585 / 585 Balance -1376.75 / -1376.75 -457.37 / -457.37 General: Awake, Alert, Oriented x 3, Cooperative, No Acute Distress HEENT: Atraumatic, Normocephalic, PERRL, EOMI, Sclera Non Icteric Neck: Supple, Good ROM, No JVD Lungs: Inspiratory Wheezes - Herminio Cardiovascular: Irregular Rhythm, Normal S1, Normal S2 Abdomen: Bowel Sounds Present, Soft, Non Tender Extremities: No edema Neurological: No Focal Motor or Sensory Deficit Psych/Mental Status: Appropriate 01/24/19 05:00: WBC 12.8 H, RBC 4.02 L, Hgb 11.8 L, Hct 36.3 L, MCV 90.3, MCH 29.4, MCHC 32.5, Plt Count 174, MPV 10.8, Immature Gran % (Auto) 0.300, Neut % (Auto) 85.3 H, Lymph % (Auto) 8.3 L, Bennett % (Auto) 5.6, Eos % (Auto) 0.3, Baso % (Auto) 0.2, Absolute Neuts (auto) 10.9 H, Nucleated RBC % 0 01/24/19 05:00: Sodium 144, Potassium 3.6, Chloride 108 H, Carbon Dioxide 28.0, Anion Gap 8, BUN 38 H, Creatinine 1.68 H, Est GFR (MDRD) Af Amer 50 L, Est GFR (MDRD) Non-Af 42 L, BUN/Creatinine Ratio 22.6 H, Glucose 121 H, Calcium 8.0 L, Magnesium 2.2 Rhythm: Atrial fibrillation Echocardiogram: Interpretation Summary The study was technically difficult. Borderline enlarged left ventricle. Mild segmental systolic dysfunction (see wall motion). The estimated ejection fraction is 45 %. The left atrium is moderately enlarged. Mild (1+) mitral valve insufficiency. Moderate (2+) tricuspid valve insufficiency. Moderate focal aortic valve calcification. Trivial aortic valve insufficiency. Trivial pulmonic valve insufficiency. Right ventricular systolic pressure estimated to be 80 mmHg. (c/w severe pulmonary hypertension) Unable to assess diastolic dysfunction. Medical Necessity - Tobacco Use Smoking Status: Former smoker Tobacco Use: Non-smoker Assessment/Plan 1. CAD status post CABG The patient has a history of CAD status post CABG. He has undergone noninvasive evaluation earlier this year as noted above. He was not thought at the time to require further evaluation with diagnostic cardiac catheterization. At the present time he presents with concerns of both CHF exacerbation and pneumonia/sepsis. He is now in the PCU. He appears symptomatically improved. He is continuing medical therapy. Depending upon his clinical course he may or may not need repeat evaluation of his coronary/graft anatomy. 2. Atrial fibrillation The patient has a history of atrial fibrillation. He has been on rate control therapy. This will be adjusted as needed. He can be considered for anticoagulant therapy if the risk benefit ratio is in his favor. 3. CHF He does have a CHF exacerbation. At the present time he will need to be monitored and continue medical management. He did undergo reevaluation with a transthoracic echocardiogram. His estimated LVEF was 45%. He is continuing medical therapy. This includes IV diuretic therapy at this time. 4. Non-ST segment elevation DE His troponin I levels were indeterminant. This may be a type II supply demand mismatch event brought on by his pneumonia/sepsis superimposed upon his underlying cardiovascular status especially noting that his recent noninvasive study did not suggest ongoing myocardial ischemia warranting further invasive evaluation or care. His enzymes and ECG can be followed. He will be reassessed noninvasively as noted above. Depending upon his course he may or may not need repeat invasive evaluation and care. In the meantime he will continue medical management. 5. Hyperlipidemia He will continue medical management as deemed appropriate. 6. Hypertension His blood pressure will be followed. He will continue medical therapy as deemed appropriate. 7. Pneumonia He has been diagnosed with pneumonia. He will continue evaluation care per internal medicine and pulmonology/critical care medicine. 8. Sepsis He was also thought to have evidence of sepsis. Again he will continue evaluation care per internal medicine and pulmonology/critical care medicine. Comment: The patient's case has been discussed and reviewed with the patient. This note was generated with [employer] dictation software. It may contain incorrect words, spelling, and punctuation that were not noted in checking the note before signing.
[2019-01-24] MEDS: HYDROcodone Bitartrate/Apap 5/325 Tablet PO (13:57)
[2019-01-24] MEDS: Atorvastatin Calcium 20 MG Tablet PO (21:14)
[2019-01-25] VITALS (18 sets, daily range): BP systolic 140–165; BP diastolic 64–90; PULSE 73–152; RESP 15–24; TEMP 36.8–36.9; O2SAT 88–98
[2019-01-25] MEDS: Nitroglycerin (INPATIENT USE) 0.4 MG TAB.SUBL SUBLINGUAL (04:13)
[2019-01-25] MEDS: Albuterol 2.5 MG/3 ML VIAL.NEB. INHALATION (04:13)
[2019-01-25] MEDS: guaiFENesin 10 ML UDC (200MG/10ML) PO (04:39)
[2019-01-25] MEDS: BENZOCAINE/MENTHOL 1 LOZENGE MUCOUS MEM ×2 (04:39→14:56)
[2019-01-25 05:29] LABS: Absolute Lymphocyte Count 0.81 X10^3/uL (0.83-4.51); Absolute Neutrophil Count 9.6 X10^3/uL (2.0-7.7); Basophil# 0.04 X10^3/uL; Basophil% 0.4 % (0-1); Eosinophil# 0.15 X10^3/uL; Eosinophils% 1.3 % (0-5); Hematocrit 41.6 % (40-54); Hemoglobin 13.4 g/dL (13.0-16.5); Lymphocyte # 0.81 X10^3/ul (4.0); Lymphocyte % 7.2 % (19-41); Mean Corp Hgb Conc 32.2 g/dL (32-36); Mean Corpuscular Hgb 29.5 pg (27.0-32.0); Mean Corpuscular Volume 91.6 fL (80-94); Mean Platelet Vol. 10.4 fl (6.2-12.0); Monocyte# 0.62 X10^3/uL; Monocyte% 5.5 % (0-10); NRBC Flagged by Analyzer 0 % (0-5); Neutrophil % 85.1 % (47-70); Platelet Count 198 K/mm3 (150-450); RBC Distribution Width SD 53.1 fl (35.1-43.9); Red Blood Count 4.54 M/mm3 (4.6-6.2); White Blood Count 11.3 K/mm3 (4.4-11.0)
[2019-01-25] MEDS: Isosorbide DN 20 MG Tablet PO ×3 (05:38→21:02)
[2019-01-25 05:46] LABS: Anion Gap 7 (5-15); BUN 38 mg/dL (7-18); BUN/Creat Ratio 20.5 RATIO (10-20); Calcium,Total 8.6 mg/dL (8.5-10.1); Chloride 108 mmol/L (98-107); Creatinine, Serum 1.85 mg/dL (0.70-1.30); EST Glomerular Filtration Rate 37 mL/min (>60); Est Glom Filt Rate - Afr Amer 45 mL/min (>60); Estimated Creatinine Clearance 31.24 ml/min; Glucose 123 mg/dL (74-106); Sodium Level 145 mmol/L (136-145)
[2019-01-25] MEDS: Ipratropium/Albuterol Sulfate 3 ML AMPUL.NEB INHALATION ×3 (06:41→19:25)
--- NOTE | 2019-01-25 07:58 | PN_ITS ---
Subjective: Chief complaint: Follow-up after admission for sepsis secondary to community acquired pneumonia, complicated by acute hypoxic respiratory failure and also found to have acute decompensated CHF and non-ST elevation DC. Patient seen and examined. No acute events overnight. Nursing staff mentioned that this morning, his oxygen requirement slightly increased to 3 to 4 L, he was on 1 L last night. Patient mentioned that he has not had any sort of cough and chest pain which he thinks was brought up by coughing. His breathing is okay this morning, still having mild cough with minimal sputum production. Although, he is feeling better. He has been afebrile, intermittently, he has been tachycardic blood pressure stable, pulse ox is 94% on 3 L. - Physical Exam General: Alert, Oriented x3, Cooperative, No apparent distress HEENT: Atraumatic, PERRLA, EOMI, Normocephalic Oral: Moist Mucosa, No Gingival or Mucosal Lesions/ Ulcerations Neck: Supple, No JVD, Negative Carotid Bruits, Trachea Midline, Thyroid Normal Size and Texture Lungs: No wheeze, No rales, Diminished, Rhonchi, - - Decreased breath sounds bilateral, bilateral rhonchi, minimally short of breath. Cardiovascular: Normal S1, Normal S2, No murmurs, PMI Normal, Irregular Rate Abdomen: Bowel Sounds Present, Soft, Non Tender, Non-Distended, No Hepato- splenomegaly Extremities: No clubbing, No cyanosis, No edema Skin: No rashes, No breakdown Lymphatic: No Cervical, Supraclavicular, or Inguinal Adenopathy Neurological: Cranial nerves II-XII grossly intact, Motor Exam 5/5 strength throughout Psych/Mental Status: Normal Affect, Appropriate, Alert and oriented to time, place, person, mood and affect Vital Signs Temp Pulse Resp BP Pulse Ox 98.2 F 102 H 18 144/74 H 94 01/25/19 05:45 01/25/19 06:51 01/25/19 05:45 01/25/19 05:45 01/25/19 05:45 Oxygen Flow Rate (L/min) 3 Oxygen Delivery Method Nasal Cannula Weight: 164 lb 3.91 oz Body Mass Index (BMI) 24.6 Intake and Output for Last 24 Hours 01/23/19 01/24/19 01/25/19 23:59 23:59 23:59 Intake Total 1073.25 / 1073.25 1326.21 / 1326.21 333.42 / 333.42 Output Total 2450 / 2450 1005 / 1005 250 / 250 Balance -1376.75 / -1376.75 321.21 / 321.21 83.42 / 83.42 Microbiology Past 72 Hours 01/24/19 18:50 C. difficile DNA Amplification - Final Stool 01/23/19 02:15 Respiratory Panel (PCR) - Final Mucosa - Nasopharyngeal 01/23/19 01:00 Legionella Antigen - Final Urine, Clean Catch 01/23/19 01:00 Streptococcus pneumoniae Antigen (M - Final Urine, Clean Catch Laboratory Tests Past 24 Hrs 01/25/19 01/25/19 05:00 05:00 WBC 11.3 H RBC 4.54 L Hgb 13.4 Hct 41.6 MCV 91.6 MCH 29.5 MCHC 32.2 RDW Std Deviation 53.1 H RDW Coeff of Justice 16.0 H Plt Count 198 MPV 10.4 Immature Gran % (Auto) 0.500 Neut % (Auto) 85.1 H Lymph % (Auto) 7.2 L Barber % (Auto) 5.5 Eos % (Auto) 1.3 Baso % (Auto) 0.4 Absolute Neuts (auto) 9.6 H Absolute Lymphs (auto) 0.81 L Nucleated RBC % 0 Sodium 145 Potassium 4.0 Chloride 108 H Carbon Dioxide 30.0 Anion Gap 7 BUN 38 H Creatinine 1.85 H Estim Creat Clear Calc 31.24 Est GFR (MDRD) Af Amer 45 L Est GFR (MDRD) Non-Af 37 L BUN/Creatinine Ratio 20.5 H Glucose 123 H Calcium 8.6 Medical Necessity - Tobacco Use Smoking Status: Former smoker Tobacco Use: Non-smoker Assessment/Plan All Active Problems (Last Updated 01/25/19 @ 07:53 by Shirlene Tuttle MD) Non-ST elevated myocardial infarction (Acute) Acute respiratory failure with hypoxia (Acute) Pneumonia (Acute) CHF exacerbation (Acute) This is an 83 years old male patient presented to the emergency room because of shortness of breath, cough and fever, found to have sepsis secondary to community acquired pneumonia, complicated by acute hypoxic respiratory failure and also found to have acute decompensated CHF, paroxysmal atrial fibrillation and non-ST elevation DC. #1 community-acquired pneumonia/sepsis: He is on IV Zosyn. He has been afebrile, still on oxygen at 4 L. White blood cell count is trending down. Pneumococcal and Legionella antigen were negative. Respiratory panel for viruses were negative. Sputum culture is pending. Plan to continue same treatment. #2 acute hypoxic respiratory failure: Multifactorial secondary to pneumonia as well as acute CHF. He is on IV antibiotics and IV diuretics. Oxygen requirement has been decreasing but this morning, he went up again to 4 L. He denied any loss of shortness of breath. Plan to continue bronchial dilators, IV diuretics as above. #3 acute decompensated systolic CHF: He is on IV Lasix, on atenolol, isosorbide dinitrate and losartan. 2D echocardiogram revealed ejection fraction of 45%, RVSP of 80 consistent with severe pulmonary hypertension. His creatinine started to go up slightly from his baseline. Plan to repeat BMP tomorrow morning. #4 non-ST elevation DC: Attributed to demand ischemia. EKG reviewed as above. Patient is on aspirin, statins, Plavix, beta-blockers and losartan. #5 paroxysmal atrial fibrillation: This morning, heart rate has been fast but improved. Patient mentioned that he has been on atenolol 50 mg p.o. daily at home but he has been on 25 here. Plan to change atenolol to 50 mg p.o. daily, continue Lovenox for anticoagulation. Cardiology on the case, will discuss with cardiology about starting oral anticoagulant #6 CAD status post CABG and subsequent stents: Stable, continue aspirin, Plavix, statins, beta blockers and losartan. #7 ischemic cardiomyopathy: With acute CHF as mentioned above. Plan as above. #8 hypertension: Blood pressure stable, continue atenolol, nitrates and losartan. #9 stage III chronic kidney disease: Baseline creatinine has been around 1.4 to 1.7 mg/dL. Today's creatinine is 1.85, likely because of the Lasix. Plan to monitor. #10 DVT prophylaxis: He is on therapeutic Lovenox twice daily. This note was generated with [employer] software. It may contain incorrect words, spelling, and punctuation that were not noted in checking the note before signing. Code Visit Inpatient E&M: 51224 Subs Hosp L2
--- NOTE | 2019-01-25 08:16 | CPS ---
Oxygen titrated from 3L to 4L; maintain an oxygen saturation > 88%
[2019-01-25] MEDS: Furosemide 40 MG/4 ML Vial IV ×2 (09:50→17:45)
[2019-01-25] MEDS: 0.9% NaCl Peripheral Flush Adult/Peds IV (09:50)
[2019-01-25] MEDS: Clopidogrel Bisulfate 75 MG Tablet PO (09:51)
[2019-01-25] MEDS: amLODIPine 5 MG Tablet PO (09:51)
[2019-01-25] MEDS: Losartan Potassium 25 MG Tablet PO ×2 (09:51→21:02)
[2019-01-25] MEDS: Enoxaparin 80 MG/0.8 ML Syringe 75 MG SC (09:51)
[2019-01-25] MEDS: Sertraline 100 MG Tablet PO (09:51)
[2019-01-25] MEDS: Atenolol 50 MG Tablet PO (09:51)
[2019-01-25] MEDS: Aspirin E.C. 81 MG Tablet PO (10:17)
--- NOTE | 2019-01-25 10:18 | RAD_ITS ---
STUDY: X-RAY CHEST REASON FOR EXAM: Male, 83 years old. Shortness of breath. TECHNIQUE: Frontal and lateral views of the chest. COMPARISON: January 23, 2019 FINDINGS: Hyperexpansion with diffuse interstitial pattern unchanged. Patchy opacities at both bases, left greater than right, most likely representing scarring, unchanged. Pleural thickening/pleural effusion on the left, relatively unchanged. Cardiomegaly with sternotomy wires. Normal mediastinum and rashad. Normal visualized pulmonary arteries. Aortic tortuosity and calcification Normal visualized thoracic spine. Stable osteoarthrosis There is no demonstrated abnormality of the visualized soft tissue structures of the upper abdomen. RAD/Chest PA and Lateral IMPRESSION: Relatively stable appearance of the chest with no superimposed acute finding. Electronically Signed: Aurelio Hull MD at 11:02 EDT , Service support ,
--- NOTE | 2019-01-25 10:19 | PCM.PN.PUL ---
Subjective: Patient did okay overnight. Patient has had an increase in supplemental oxygen requirements. Patient reports that he was eating and then had to cough. Patient states that he had taken a nitro, but since has required 3 to 4 L to maintain adequate saturations. Patient denies any current chest pain, nausea or vomiting. Patient does report increased difficulty with walking to the restroom. - Physical Exam General: Alert, Oriented x3, Cooperative, No apparent distress, - - Appears stated age. No conversational dyspnea. HEENT: Atraumatic, PERRLA, EOMI, Normocephalic, - - Glasses in place. Oral: Moist Mucosa, No Gingival or Mucosal Lesions/ Ulcerations Neck: Supple, No JVD, No Nodes, Trachea Midline Lungs: No rhonchi, No wheeze, No rales, Diminished Cardiovascular: Normal S1, Normal S2, No murmurs, Irregular Rate, No rub noted, No Gallop Abdomen: Bowel Sounds Present, Soft, Non Tender, Non-Distended Extremities: No clubbing, No cyanosis, No edema Skin: No rashes, No breakdown Musculoskeletal: No Tenderness to Palpation of Joints or Extremities Lymphatic: No Cervical, Supraclavicular, or Inguinal Adenopathy Neurological: Cranial nerves II-XII grossly intact, Neuro grossly intact, Motor Exam 5/5 strength throughout Psych/Mental Status: Alert and oriented to time, place, person, mood and affect Vital Signs Temp Pulse Resp BP Pulse Ox 36.8 C 94 18 141/67 H 94 01/25/19 09:45 01/25/19 09:45 01/25/19 09:45 01/25/19 09:45 01/25/19 09:45 Oxygen Flow Rate (L/min) 4 Oxygen Delivery Method Nasal Cannula Weight: 74.5 kg Body Mass Index (BMI) 24.6 Intake and Output for Last 24 Hours 01/23/19 01/24/19 01/25/19 23:59 23:59 23:59 Intake Total 1073.25 / 1073.25 1326.21 / 1326.21 383.42 / 383.42 Output Total 2450 / 2450 1005 / 1005 250 / 250 Balance -1376.75 / -1376.75 321.21 / 321.21 133.42 / 133.42 Microbiology Past 72 Hours 01/24/19 18:50 C. difficile DNA Amplification - Final Stool 01/23/19 02:15 Respiratory Panel (PCR) - Final Mucosa - Nasopharyngeal 01/23/19 01:00 Legionella Antigen - Final Urine, Clean Catch 01/23/19 01:00 Streptococcus pneumoniae Antigen (M - Final Urine, Clean Catch Laboratory Tests Past 24 Hrs 01/25/19 01/25/19 05:00 05:00 WBC 11.3 H RBC 4.54 L Hgb 13.4 Hct 41.6 MCV 91.6 MCH 29.5 MCHC 32.2 RDW Std Deviation 53.1 H RDW Coeff of Justice 16.0 H Plt Count 198 MPV 10.4 Immature Gran % (Auto) 0.500 Neut % (Auto) 85.1 H Lymph % (Auto) 7.2 L [place] % (Auto) 5.5 Eos % (Auto) 1.3 Baso % (Auto) 0.4 Absolute Neuts (auto) 9.6 H Absolute Lymphs (auto) 0.81 L Nucleated RBC % 0 Sodium 145 Potassium 4.0 Chloride 108 H Carbon Dioxide 30.0 Anion Gap 7 BUN 38 H Creatinine 1.85 H Estim Creat Clear Calc 31.24 Est GFR (MDRD) Af Amer 45 L Est GFR (MDRD) Non-Af 37 L BUN/Creatinine Ratio 20.5 H Glucose 123 H Calcium 8.6 Medical Necessity - Tobacco Use Smoking Status: Former smoker Tobacco Use: Non-smoker Assessment/Plan All Active Problems (Last Updated 01/25/19 @ 07:53 by Shirlene Tuttle MD) Non-ST elevated myocardial infarction (Acute) Acute respiratory failure with hypoxia (Acute) Pneumonia (Acute) CHF exacerbation (Acute) RECOMMENDATIONS: 1. Continue antibiotics. 2. Wean supplemental oxygen to maintain saturations at or above 90%. 3. Continue diuretic therapy. 4. Encourage incentive parameter use and mobilize patient as tolerated. 5. Obtain PA and lateral chest x-ray IMPRESSIONS: 1. Acute hypoxemic respiratory failure The patient initially presented to the hospital with symptoms including chest pain and shortness of breath. The patient's outside hospital CTA chest demonstrated findings concerning for decompensated heart failure and basilar pneumonia. The patient has responded clinically to the use of IV diuretic therapy and noninvasive positive pressure ventilatory support. Unclear if patient had an aspiration event leading to worsening oxygen requirements. Patient has had a slight increase in creatinine indicating the diuretic therapy may need to be lowered in the near future. Recommend continuing to wean O2 to maintain saturations at or above 90%. Continue diuretic therapy. Continue empiric antimicrobial therapy, pending infectious work-up. Cardiology is following to assist with medical optimization. 2. Chest pain/history of coronary artery disease/troponin elevation/paroxysmal atrial fibrillation The patient is routinely followed by Dr. Steen on an outpatient basis. Defer medical management to cardiology. 3. 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 Continue home medications as indicated. Code Visit Inpatient E&M: 07951 Subs Hosp L2
--- NOTE | 2019-01-25 15:51 | CPS ---
Titrated pt.'s O2 flow from 4L to 3L; pt. maintaining saturation > 88%
--- NOTE | 2019-01-25 16:41 | PCM.PN.CARD ---
Subjectve: The patient states that he is breathing better overall. He believes he is wheezing less. Objective: Vital Signs Temp Pulse Resp BP Pulse Ox 98.2 F 75 24 H 140/64 H 91 01/25/19 15:02 01/25/19 15:09 01/25/19 15:09 01/25/19 15:02 01/25/19 15:09 Oxygen Flow Rate (L/min) 3 Oxygen Delivery Method Nasal Cannula Weight: 164 lb 3.91 oz Body Mass Index (BMI) 24.6 Intake and Output for Last 24 Hours 01/23/19 01/24/19 01/25/19 23:59 23:59 23:59 Intake Total 1073.25 / 1073.25 1326.21 / 1326.21 806.92 / 806.92 Output Total 2450 / 2450 1005 / 1005 250 / 250 Balance -1376.75 / -1376.75 321.21 / 321.21 556.92 / 556.92 General: Awake, Alert, Oriented x 3, Cooperative HEENT: Atraumatic, Normocephalic, PERRL, EOMI, Sclera Non Icteric Oral: Moist Mucosa Neck: Supple, Good ROM, No JVD Lungs: Inspiratory Wheezes - Herminio - Less prominent than previous examination Cardiovascular: Irregular Rhythm, Normal S1, Normal S2 Abdomen: Bowel Sounds Present, Soft, Non Tender Extremities: No edema Psych/Mental Status: Appropriate 01/25/19 05:00: WBC 11.3 H, RBC 4.54 L, Hgb 13.4, Hct 41.6, MCV 91.6, MCH 29.5, MCHC 32.2, Plt Count 198, MPV 10.4, Immature Gran % (Auto) 0.500, Neut % (Auto) 85.1 H, Lymph % (Auto) 7.2 L, [place] % (Auto) 5.5, Eos % (Auto) 1.3, Baso % (Auto) 0.4, Absolute Neuts (auto) 9.6 H, Nucleated RBC % 0 01/25/19 05:00: Sodium 145, Potassium 4.0, Chloride 108 H, Carbon Dioxide 30.0, Anion Gap 7, BUN 38 H, Creatinine 1.85 H, Est GFR (MDRD) Af Amer 45 L, Est GFR (MDRD) Non-Af 37 L, BUN/Creatinine Ratio 20.5 H, Glucose 123 H, Calcium 8.6 Rhythm: Medical Necessity - Tobacco Use Smoking Status: Former smoker Tobacco Use: Non-smoker Assessment/Plan 1. CAD status post CABG The patient has a history of CAD status post CABG. He has undergone noninvasive evaluation earlier this year as noted above. He was not thought at the time to require further evaluation with diagnostic cardiac catheterization. At the present time he presents with concerns of both CHF exacerbation and pneumonia/sepsis. He is now in the PCU. He appears symptomatically improved. He is continuing medical therapy. 2. Atrial fibrillation The patient has a history of atrial fibrillation. He has been on rate control therapy. This will be adjusted as needed. He is being transitioned to oral anticoagulant therapy. 3. CHF He does have a CHF exacerbation. At the present time he will need to be monitored and continue medical management. He did undergo reevaluation with a transthoracic echocardiogram. His estimated LVEF was 45%. He is continuing medical therapy. This includes IV diuretic therapy at this time. 4. Non-ST segment elevation NM His troponin I levels were indeterminant. This may be a type II supply demand mismatch event brought on by his pneumonia/sepsis superimposed upon his underlying cardiovascular status especially noting that his recent noninvasive study did not suggest ongoing myocardial ischemia warranting further invasive evaluation or care. 5. Hyperlipidemia He will continue medical management as deemed appropriate. 6. Hypertension His blood pressure will be followed. He will continue medical therapy as deemed appropriate. 7. Pneumonia He has been diagnosed with pneumonia. He will continue evaluation care per internal medicine and pulmonology/critical care medicine. 8. Sepsis He was also thought to have evidence of sepsis. Again he will continue evaluation care per internal medicine and pulmonology/critical care medicine. Comment: The patient's case has been discussed and reviewed with the patient. This note was generated with [employer] dictation software. It may contain incorrect words, spelling, and punctuation that were not noted in checking the note before signing.
[2019-01-25] MEDS: 0.9% NaCl IVPB Med Flush (250 mL) 15 ML IV (17:46)
[2019-01-25] MEDS: APIXABAN 2.5 MG TABLET PO (21:02)
[2019-01-25] MEDS: Atorvastatin Calcium 20 MG Tablet PO (21:02)
[2019-01-26] VITALS (13 sets, daily range): BP systolic 105–137; BP diastolic 55–68; PULSE 59–86; RESP 12–17; TEMP 36.4–36.8; O2SAT 82–96
[2019-01-26] MEDS: 0.9% NaCl IVPB Med Flush (250 mL) 15 ML IV (05:07)
[2019-01-26] MEDS: Isosorbide DN 20 MG Tablet PO ×3 (05:15→21:48)
[2019-01-26] MEDS: BENZOCAINE/MENTHOL 1 LOZENGE MUCOUS MEM ×2 (05:15→08:53)
[2019-01-26 06:06] LABS: Absolute Neutrophil Count 6.7 X10^3/uL (2.0-7.7); Basophil# 0.04 X10^3/uL; Basophil% 0.5 % (0-1); Eosinophil# 0.24 X10^3/uL; Eosinophils% 2.9 % (0-5); Hematocrit 37.9 % (40-54); Hemoglobin 12.2 g/dL (13.0-16.5); Lymphocyte % 10.7 % (19-41); Mean Corp Hgb Conc 32.2 g/dL (32-36); Mean Corpuscular Hgb 29.2 pg (27.0-32.0); Mean Corpuscular Volume 90.7 fL (80-94); Mean Platelet Vol. 10.3 fl (6.2-12.0); Monocyte# 0.52 X10^3/uL; Monocyte% 6.2 % (0-10); NRBC Flagged by Analyzer 0 % (0-5); Neutrophil # 6.67 X10^3/uL (2.7-7.7); Neutrophil % 79.2 % (47-70); Platelet Count 185 K/mm3 (150-450); RBC Distribution Width CV 15.9 % (11.6-14.6); RBC Distribution Width SD 52.6 fl (35.1-43.9); Red Blood Count 4.18 M/mm3 (4.6-6.2); White Blood Count 8.4 K/mm3 (4.4-11.0)
[2019-01-26] MEDS: Ipratropium/Albuterol Sulfate 3 ML AMPUL.NEB INHALATION ×4 (06:41→18:52)
[2019-01-26 06:43] LABS: Anion Gap 8 (5-15); BUN 35 mg/dL (7-18); BUN/Creat Ratio 21.5 RATIO (10-20); Calcium,Total 8.6 mg/dL (8.5-10.1); Chloride 108 mmol/L (98-107); Creatinine, Serum 1.63 mg/dL (0.70-1.30); EST Glomerular Filtration Rate 43 mL/min (>60); Est Glom Filt Rate - Afr Amer 52 mL/min (>60); Estimated Creatinine Clearance 35.46 ml/min; Glucose 104 mg/dL (74-106); Potassium 3.6 mmol/L (3.5-5.1); Sodium Level 145 mmol/L (136-145)
--- NOTE | 2019-01-26 07:45 | PN_ITS ---
Subjective: Chief complaint: Follow-up after admission for sepsis secondary to community acquired pneumonia, complicated by acute hypoxic respiratory failure and also found to have acute decompensated CHF and non-ST elevation WA. Patient seen and examined. No acute events overnight. Today, patient feels better, shortness of breath continued to improve slowly. Still having mild cough, sputum production. Denies fever chills. He has been afebrile, blood pressure has stable, pulse ox is 93% on 2 L. - Physical Exam General: Alert, Oriented x3, Cooperative, No apparent distress HEENT: Atraumatic, PERRLA, EOMI, Normocephalic Oral: Moist Mucosa, No Gingival or Mucosal Lesions/ Ulcerations Neck: Supple, No JVD, Negative Carotid Bruits, Trachea Midline, Thyroid Normal Size and Texture Lungs: No wheeze, Diminished, Rhonchi, - - Decreased breath sounds bilateral more at the bases with faint crackles in the right base Cardiovascular: Normal S1, Normal S2, No murmurs, PMI Normal, Irregular Rate Abdomen: Bowel Sounds Present, Soft, Non Tender, Non-Distended, No Hepato- splenomegaly Extremities: No clubbing, No cyanosis, No edema Skin: No rashes, No breakdown Lymphatic: No Cervical, Supraclavicular, or Inguinal Adenopathy Neurological: Cranial nerves II-XII grossly intact, Neuro grossly intact Psych/Mental Status: Normal Affect, Appropriate, Alert and oriented to time, place, person, mood and affect Vital Signs Temp Pulse Resp BP Pulse Ox 98.1 F 73 16 137/55 H 93 01/26/19 03:00 01/26/19 07:00 01/26/19 06:41 01/26/19 05:10 01/26/19 06:41 Oxygen Flow Rate (L/min) 2 Oxygen Delivery Method Nasal Cannula Weight: 163 lb 2.273 oz Body Mass Index (BMI) 24.6 Intake and Output for Last 24 Hours 01/24/19 01/25/19 01/26/19 23:59 23:59 23:59 Intake Total 1326.21 / 1326.21 1333.05 / 1333.05 123.12 / 123.12 Output Total 1005 / 1005 675 / 675 100 / 100 Balance 321.21 / 321.21 658.05 / 658.05 23.12 / 23.12 Microbiology Past 72 Hours 01/25/19 06:00 Gram Stain - Final Sputum, Expectorated/Coughed 01/24/19 18:50 C. difficile DNA Amplification - Final Stool 01/23/19 02:15 Respiratory Panel (PCR) - Final Mucosa - Nasopharyngeal Laboratory Tests Past 24 Hrs 01/26/19 01/26/19 05:46 05:46 WBC 8.4 RBC 4.18 L Hgb 12.2 L Hct 37.9 L MCV 90.7 MCH 29.2 MCHC 32.2 RDW Std Deviation 52.6 H RDW Coeff of Justice 15.9 H Plt Count 185 MPV 10.3 Immature Gran % (Auto) 0.500 Neut % (Auto) 79.2 H Lymph % (Auto) 10.7 L [place] % (Auto) 6.2 Eos % (Auto) 2.9 Baso % (Auto) 0.5 Absolute Neuts (auto) 6.7 Absolute Lymphs (auto) 0.90 Nucleated RBC % 0 Sodium 145 Potassium 3.6 Chloride 108 H Carbon Dioxide 29.0 Anion Gap 8 BUN 35 H Creatinine 1.63 H Estim Creat Clear Calc 35.46 Est GFR (MDRD) Af Amer 52 L Est GFR (MDRD) Non-Af 43 L BUN/Creatinine Ratio 21.5 H Glucose 104 Calcium 8.6 Medical Necessity - Tobacco Use Smoking Status: Former smoker Tobacco Use: Non-smoker Assessment/Plan All Active Problems (Last Updated 01/25/19 @ 07:53 by Shirlene Tuttle MD) Non-ST elevated myocardial infarction (Acute) Acute respiratory failure with hypoxia (Acute) Pneumonia (Acute) CHF exacerbation (Acute) This is an 83 years old male patient presented to the emergency room because of shortness of breath, cough and fever, found to have sepsis secondary to community acquired pneumonia, complicated by acute hypoxic respiratory failure and also found to have acute decompensated CHF, paroxysmal atrial fibrillation and non-ST elevation WA. #1 community-acquired pneumonia/sepsis: Remained on IV Zosyn. He has been afebrile, oxygen is down to 2 L. Leukocytosis resolved. Pneumococcal and Legionella antigen were negative. Respiratory panel for viruses were negative. Sputum culture is pending. Plan to continue same treatment, anticipate discharge tomorrow. #2 acute hypoxic respiratory failure: Multifactorial secondary to pneumonia as well as acute CHF. He is on IV antibiotics and IV diuretics. Oxygen requirement has been decreasing, he is down to 2 L and he is feeling better. Plan to continue same treatment, ambulatory pulse ox tomorrow morning. #3 acute decompensated systolic CHF: Remained on IV Lasix, on atenolol, isosorbide dinitrate and losartan. 2D echocardiogram revealed ejection fraction of 45%, RVSP of 80 consistent with severe pulmonary hypertension. Creatinine improved compared to yesterday. Plan to give another dose of IV Lasix, then switch to oral Lasix later today, repeat BMP tomorrow morning #4 non-ST elevation WA: Attributed to demand ischemia. EKG reviewed as above. Patient is on aspirin, statins, Plavix, beta-blockers and losartan. #5 paroxysmal atrial fibrillation: Rate is controlled, blood pressure stable. Continue atenolol for rate control and he was started on Eliquis yesterday. #6 CAD status post CABG and subsequent stents: Stable, continue aspirin, Plavix, statins, beta blockers and losartan. #7 ischemic cardiomyopathy: With acute CHF as mentioned above. Plan as above. #8 hypertension: Blood pressure stable, continue atenolol, nitrates and losartan. #9 stage III chronic kidney disease: Baseline creatinine has been around 1.4 to 1.7 mg/dL. Today's creatinine is 1.63, stable at baseline. #10 DVT prophylaxis: Continue Eliquis. This note was generated with [employer] software. It may contain incorrect words, spelling, and punctuation that were not noted in checking the note before signing. Code Visit Inpatient E&M: 27602 Subs Hosp L2
[2019-01-26] MEDS: APIXABAN 2.5 MG TABLET PO ×2 (08:46→21:48)
[2019-01-26] MEDS: Atenolol 50 MG Tablet PO (08:46)
[2019-01-26] MEDS: Aspirin E.C. 81 MG Tablet PO (08:53)
[2019-01-26] MEDS: Losartan Potassium 25 MG Tablet PO ×2 (08:54→21:48)
[2019-01-26] MEDS: amLODIPine 5 MG Tablet PO (08:54)
[2019-01-26] MEDS: Clopidogrel Bisulfate 75 MG Tablet PO (08:57)
[2019-01-26] MEDS: Furosemide 40 MG/4 ML Vial IV (08:57)
[2019-01-26] MEDS: 0.9% NaCl Peripheral Flush Adult/Peds IV ×2 (08:58→15:09)
[2019-01-26] MEDS: Sertraline 100 MG Tablet PO (10:37)
--- NOTE | 2019-01-26 10:46 | PN_ITS ---
Subjective: Patient did well overnight. Patient reports subjective improvement compared to yesterday. Patient states he was able to ambulate to the bathroom with little difficulty. Patient is still requiring 2 L nasal cannula to maintain saturations. - Physical Exam General: Alert, Oriented x3, Cooperative, No apparent distress, - - Appears stated age. No conversational dyspnea. HEENT: Atraumatic, PERRLA, EOMI, Normocephalic, - - No scleral icterus or injection noted. Glasses in place. Oral: Moist Mucosa, No Gingival or Mucosal Lesions/ Ulcerations Neck: Supple, No JVD, No Nodes, Trachea Midline Lungs: No rhonchi, No wheeze, No rales, Diminished Cardiovascular: Normal S1, Normal S2, No murmurs, Irregular Rate, No rub noted, No Gallop Abdomen: Bowel Sounds Present, Soft, Non Tender, Non-Distended Extremities: No clubbing, No cyanosis, No edema, Capillary Refill Less than 3 Seconds Skin: No rashes, No breakdown Musculoskeletal: No Tenderness to Palpation of Joints or Extremities Lymphatic: No Cervical, Supraclavicular, or Inguinal Adenopathy Neurological: Cranial nerves II-XII grossly intact, Neuro grossly intact, Motor Exam 5/5 strength throughout Psych/Mental Status: Alert and oriented to time, place, person, mood and affect Vital Signs Temp Pulse Resp BP Pulse Ox 36.7 C 72 17 134/67 H 87 01/26/19 08:44 01/26/19 08:44 01/26/19 08:44 01/26/19 08:44 01/26/19 10:07 Oxygen Flow Rate (L/min) [ 6 AMBULATION with Oxygen] Oxygen Flow Rate (L/min) 2 Oxygen Delivery Method Nasal Cannula Weight: 74 kg Body Mass Index (BMI) 24.6 Intake and Output for Last 24 Hours 01/24/19 01/25/19 01/26/19 23:59 23:59 23:59 Intake Total 1326.21 / 1326.21 1333.05 / 1333.05 181.12 / 181.12 Output Total 1005 / 1005 675 / 675 100 / 100 Balance 321.21 / 321.21 658.05 / 658.05 81.12 / 81.12 Microbiology Past 72 Hours 01/25/19 06:00 Gram Stain - Final Sputum, Expectorated/Coughed Respiratory Culture - Preliminary Presumptive C albicans 01/24/19 18:50 C. difficile DNA Amplification - Final Stool 01/23/19 02:15 Respiratory Panel (PCR) - Final Mucosa - Nasopharyngeal Laboratory Tests Past 24 Hrs 01/26/19 01/26/19 05:46 05:46 WBC 8.4 RBC 4.18 L Hgb 12.2 L Hct 37.9 L MCV 90.7 MCH 29.2 MCHC 32.2 RDW Std Deviation 52.6 H RDW Coeff of Justice 15.9 H Plt Count 185 MPV 10.3 Immature Gran % (Auto) 0.500 Neut % (Auto) 79.2 H Lymph % (Auto) 10.7 L [place] % (Auto) 6.2 Eos % (Auto) 2.9 Baso % (Auto) 0.5 Absolute Neuts (auto) 6.7 Absolute Lymphs (auto) 0.90 Nucleated RBC % 0 Sodium 145 Potassium 3.6 Chloride 108 H Carbon Dioxide 29.0 Anion Gap 8 BUN 35 H Creatinine 1.63 H Estim Creat Clear Calc 35.46 Est GFR (MDRD) Af Amer 52 L Est GFR (MDRD) Non-Af 43 L BUN/Creatinine Ratio 21.5 H Glucose 104 Calcium 8.6 Clinical Impression(s) from Imaging Studies Chest X-Ray 01/25/19 10:18 IMPRESSION: Relatively stable appearance of the chest with no superimposed acute finding. Electronically Signed: Aurelio Hull MD at 11:02 EDT , Service support , Medical Necessity - Tobacco Use Smoking Status: Former smoker Tobacco Use: Non-smoker Assessment/Plan All Active Problems (Last Updated 01/25/19 @ 07:53 by Shirlene Tuttle MD) Non-ST elevated myocardial infarction (Acute) Acute respiratory failure with hypoxia (Acute) Pneumonia (Acute) CHF exacerbation (Acute) RECOMMENDATIONS: 1. Continue antibiotics to complete a 10-day course 2. Wean supplemental oxygen to maintain saturations at or above 90%. 3. Continue diuretic therapy. 4. Encourage incentive parameter use and mobilize patient as tolerated. 5. Walking oximetry prior to discharge IMPRESSIONS: 1. Acute hypoxemic respiratory failure The patient initially presented to the hospital with symptoms including chest pain and shortness of breath. The patient's outside hospital CTA chest demonstrated findings concerning for decompensated heart failure and basilar pneumonia. The patient has responded clinically to the use of IV diuretic therapy and noninvasive positive pressure ventilatory support. Chest x-ray yesterday did not show any acute infiltrate. Patient has tolerated diuretic therapy well. Continue to wean oxygen as tolerated. Cannot exclude the need for short-term nasal cannula oxygen. Patient should have a walking oximetry prior to discharge and this can be followed up as an outpatient. 2. Chest pain/history of coronary artery disease/troponin eleva tion/paroxysmal atrial fibrillation The patient is routinely followed by Dr. Steen on an outpatient basis. Defer medical management to cardiology. 3. 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 Continue home medications as indicated. Code Visit Inpatient E&M: 67606 Subs Hosp L2
--- NOTE | 2019-01-26 11:59 | PCM.PN.CARD ---
Subjectve: The patient believes that his breathing is improving as time goes on. He denies any ongoing chest discomfort. Objective: Vital Signs Temp Pulse Resp BP Pulse Ox 98.0 F 59 L 16 134/67 H 87 01/26/19 08:44 01/26/19 11:02 01/26/19 10:53 01/26/19 08:44 01/26/19 10:07 Oxygen Flow Rate (L/min) [ 6 AMBULATION with Oxygen] Oxygen Flow Rate (L/min) 2 Oxygen Delivery Method Nasal Cannula Weight: 163 lb 2.273 oz Body Mass Index (BMI) 24.6 Intake and Output for Last 24 Hours 01/24/19 01/25/19 01/26/19 23:59 23:59 23:59 Intake Total 1326.21 / 1326.21 1333.05 / 1333.05 181.12 / 181.12 Output Total 1005 / 1005 675 / 675 100 / 100 Balance 321.21 / 321.21 658.05 / 658.05 81.12 / 81.12 General: Awake, Alert, Oriented x 3, Cooperative, No Acute Distress HEENT: Atraumatic, Normocephalic, PERRL, EOMI, Sclera Non Icteric Oral: Moist Mucosa Neck: Supple, Good ROM, No JVD Lungs: Rales - Herminio Bases Cardiovascular: Irregular Rhythm, Normal S1, Normal S2 Abdomen: Bowel Sounds Present, Soft, Non Tender Extremities: No edema Psych/Mental Status: Appropriate 01/26/19 05:46: WBC 8.4, RBC 4.18 L, Hgb 12.2 L, Hct 37.9 L, MCV 90.7, MCH 29.2, MCHC 32.2, Plt Count 185, MPV 10.3, Immature Gran % (Auto) 0.500, Neut % (Auto) 79.2 H, Lymph % (Auto) 10.7 L, [place] % (Auto) 6.2, Eos % (Auto) 2.9, Baso % (Auto) 0.5, Absolute Neuts (auto) 6.7, Nucleated RBC % 0 01/26/19 05:46: Sodium 145, Potassium 3.6, Chloride 108 H, Carbon Dioxide 29.0, Anion Gap 8, BUN 35 H, Creatinine 1.63 H, Est GFR (MDRD) Af Amer 52 L, Est GFR (MDRD) Non-Af 43 L, BUN/Creatinine Ratio 21.5 H, Glucose 104, Calcium 8.6 Rhythm: Atrial fibrillation Medical Necessity - Tobacco Use Smoking Status: Former smoker Tobacco Use: Non-smoker Assessment/Plan 1. CAD status post CABG The patient has a history of CAD status post CABG. He has undergone noninvasive evaluation earlier this year as noted above. He was not thought at the time to require further evaluation with diagnostic cardiac catheterization. At the present time he presents with concerns of both CHF exacerbation and pneumonia/sepsis. He is now in the PCU. He appears symptomatically improved. He is continuing medical therapy. 2. Atrial fibrillation The patient has a history of atrial fibrillation. He has been on rate control therapy. This will be adjusted as needed. He is being transitioned to oral anticoagulant therapy. 3. CHF He does have a CHF exacerbation. At the present time he will need to be monitored and continue medical management. He did undergo reevaluation with a transthoracic echocardiogram. His estimated LVEF was 45%. He is continuing medical therapy. He is being transitioned from IV to oral diuretics. 4. Non-ST segment elevation [place] His troponin I levels were indeterminant. This may be a type II supply demand mismatch event brought on by his pneumonia/sepsis superimposed upon his underlying cardiovascular status especially noting that his recent noninvasive study did not suggest ongoing myocardial ischemia warranting further invasive evaluation or care. 5. Hyperlipidemia He will continue medical management as deemed appropriate. 6. Hypertension His blood pressure will be followed. He will continue medical therapy as deemed appropriate. 7. Pneumonia He has been diagnosed with pneumonia. He will continue evaluation care per internal medicine and pulmonology/critical care medicine. 8. Sepsis He was also thought to have evidence of sepsis. Again he will continue evaluation care per internal medicine and pulmonology/critical care medicine. Comment: The patient's case has been discussed and reviewed with the patient. This note was generated with [employer] dictation software. It may contain incorrect words, spelling, and punctuation that were not noted in checking the note before signing.
--- NOTE | 2019-01-26 12:18 | CASEMGMT ---
CORWIN GRAYSON NOTE: Call received from pt's daughter, Savannah. She states she is pt's HCPOA. She states she is interested in pt going to a SNF. Savannah made aware pt is A/O and that he would need to be agreeable as well. PT/OT notes also reviewed and pt ambulated 200' today andd HHC recommended. Savannah made aware of this and states is interested in list of HHC agencies in Network with [facility]. COWRIN GRAYSON to room to talk with pt. He is alert/oriented. Discussed SNF vs HHC and pt declines wanting to go to SNF. Discussed PT/OT recommendations. Pt is agreeable to HHC. While CORIWN GRAYSON in room talking with pt, pt's other daughter, Zohreh, came in to see pt. Pt states he is agreeable to what HHC agency Savannah and Zohreh decide on. List of C agencies in network with [facility] left in room at this time for family to review. Palak GARRETT RN, CM
--- NOTE | 2019-01-26 15:33 | CASEMGMT ---
Patient has a Healthcare POA and Healthcare LW on file at [facility]. Kinjal TROTTER ENTRY OPERATOR
[2019-01-26] MEDS: Furosemide 40 MG Tablet PO (17:56)
[2019-01-26] MEDS: Atorvastatin Calcium 20 MG Tablet PO (21:49)
[2019-01-27] VITALS (8 sets, daily range): BP systolic 112–146; BP diastolic 58–70; PULSE 58–85; RESP 12–20; TEMP 36.6–36.9; O2SAT 89–99
[2019-01-27] MEDS: BENZOCAINE/MENTHOL 1 LOZENGE MUCOUS MEM (06:28)
[2019-01-27] MEDS: Isosorbide DN 20 MG Tablet PO (06:28)
--- NOTE | 2019-01-27 07:49 | CPS ---
Titrated pt.'s oxygen from 2.5L to 2L; pt. maintaining O2 saturation > 94%
--- NOTE | 2019-01-27 09:55 | PCM.PN.PUL ---
Subjective: Patient did well overnight. No acute issues were reported. Patient feels his strength is improving subjectively. Patient denies any chest pain. Patient does have a cough, but no production is reported. - Physical Exam General: Alert, Oriented x3, Cooperative, No apparent distress, Well developed, Well nourished, - - Appears stated age. HEENT: Atraumatic, PERRLA, EOMI, Normocephalic, - - No scleral icterus or injection noted. Oral: Moist Mucosa, No Gingival or Mucosal Lesions/ Ulcerations Neck: Supple, No JVD, No Nodes, Trachea Midline Lungs: No rhonchi, No wheeze, No rales, Diminished Cardiovascular: Normal S1, Normal S2, No murmurs, Irregular Rate, No rub noted, No Gallop Abdomen: Bowel Sounds Present, Soft, Non Tender, Non-Distended Extremities: No clubbing, No cyanosis, No edema, Capillary Refill Less than 3 Seconds Skin: No rashes, No breakdown Musculoskeletal: No Tenderness to Palpation of Joints or Extremities Lymphatic: No Cervical, Supraclavicular, or Inguinal Adenopathy Neurological: Cranial nerves II-XII grossly intact, Neuro grossly intact, Motor Exam 5/5 strength throughout Psych/Mental Status: Alert and oriented to time, place, person, mood and affect Vital Signs Temp Pulse Resp BP Pulse Ox 36.6 C 69 12 146/58 H 95 01/27/19 06:20 01/27/19 07:00 01/27/19 06:20 01/27/19 06:20 01/27/19 07:00 Oxygen Flow Rate (L/min) [ 6 AMBULATION with Oxygen] Oxygen Flow Rate (L/min) 2 Oxygen Delivery Method Nasal Cannula Weight: 72 kg Body Mass Index (BMI) 24.6 Intake and Output for Last 24 Hours 01/25/19 01/26/19 01/27/19 23:59 23:59 23:59 Intake Total 1333.05 / 1333.05 1555.37 / 1555.37 111 / 111 Output Total 675 / 675 750 / 750 300 / 300 Balance 658.05 / 658.05 805.37 / 805.37 -189 / -189 Microbiology Past 72 Hours 01/25/19 06:00 Gram Stain - Final Sputum, Expectorated/Coughed Respiratory Culture - Final Presumptive C albicans 01/24/19 18:50 C. difficile DNA Amplification - Final Stool Medical Necessity - Tobacco Use Smoking Status: Former smoker Tobacco Use: Non-smoker Assessment/Plan All Active Problems (Last Updated 01/25/19 @ 07:53 by Shirlene Tuttle MD) Non-ST elevated myocardial infarction (Acute) Acute respiratory failure with hypoxia (Acute) Pneumonia (Acute) CHF exacerbation (Acute) RECOMMENDATIONS: 1. Continue antibiotics to complete a 10-day course. Jaylene likely contaminant and does not need treated 2. Wean supplemental oxygen to maintain saturations at or above 90%. 3. Agree with transition to p.o. Lasix 4. Encourage incentive parameter use and mobilize patient as tolerated. 5. Walking oximetry prior to discharge 6. Follow-up 2 weeks after discharge with nurse practitioner in our office IMPRESSIONS: 1. Acute hypoxemic respiratory failure The patient initially presented to the hospital with symptoms including chest pain and shortness of breath. The patient's outside hospital CTA chest demonstrated findings concerning for decompensated heart failure and basilar pneumonia. The patient has responded clinically to the use of IV diuretic therapy and noninvasive positive pressure ventilatory support. Chest x-ray yesterday did not show any acute infiltrate. Patient has tolerated diuretic therapy well. Agree with transition to p.o. Lasix. Continue to wean oxygen as tolerated. Cannot exclude the need for short-term nasal cannula oxygen. Patient should have a walking oximetry prior to discharge and this can be followed up as an outpatient. 2. Chest pain/history of coronary artery disease/troponin elevation/paroxysmal atrial fibrillation The patient is routinely followed by Dr. Steen on an outpatient basis. Defer medical management to cardiology. 3. 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 Continue home medications as indicated. Code Visit Inpatient E&M: 09778 Subs Hosp L2
[2019-01-27] MEDS: Aspirin E.C. 81 MG Tablet PO (09:58)
[2019-01-27] MEDS: Losartan Potassium 25 MG Tablet PO (09:59)
[2019-01-27] MEDS: Furosemide 40 MG Tablet PO (10:00)
[2019-01-27] MEDS: APIXABAN 2.5 MG TABLET PO (10:00)
[2019-01-27] MEDS: amLODIPine 5 MG Tablet PO (10:02)
[2019-01-27] MEDS: Clopidogrel Bisulfate 75 MG Tablet PO (10:03)
[2019-01-27] MEDS: Sertraline 100 MG Tablet PO (10:04)
[2019-01-27] MEDS: Atenolol 50 MG Tablet PO (10:04)
[2019-01-27] MEDS: 0.9% NaCl Peripheral Flush Adult/Peds IV (10:05)
--- NOTE | 2019-01-27 10:06 | PCM.DC ---
- Discharge Diagnoses Current Active Problems: Current Active and Chronic Problems (Last Reviewed 07/07/18 @ 15:47 by Amor Steen MD) Hx of CABG (Chronic) You will use the following diet at home:: Cardiac, Fluid restricted (specify 2000 mls, 1500 mls) - Less than 1500 cc daily Your food should be the consistency of: Regular Discharge Activity: Return to Normal Activity Weight Bearing Status: Weight bearing as tolerated Call your doctor if you observe: Fever of 101 or Higher, Shortness of breath, Dizziness, Fainting spells, Chest pain, Increased palpitations (irregular heartbeat), Uncontrolled pain Instructions: Heart Failure, Using Oxygen at Home Allergies/Adverse Reactions: Allergies atorvastatin calcium [From Lipitor] Adverse Reaction (Verified 12/14/18 10:59) Other LEG CRAMPS WITH 40MG DOSE BUT TOLERATES LOWER DOSE buspirone HCl [From BuSpar] Adverse Reaction (Verified 12/14/18 10:59) Other FAINT fosinopril sodium [From Monopril] Adverse Reaction (Verified 12/14/18 10:59) Other LEG CRAMPS Iodinated Contrast Media [CONTRASTS] Adverse Reaction (Verified 12/14/18 10:59) Itching ramipril [From Altace] Adverse Reaction (Verified 12/14/18 10:59) Other LEG CRAMPS simvastatin Adverse Reaction (Verified 12/14/18 10:59) Other WHEN MIXED WITH DILTIAZEM CAUSES SEVERE MUSCLE CRAMPS Medications to take at Discharge Atenolol [Tenormin (beta vlad)] 50 mg PO DAILY 06/01/14 Calcium Carb/Vitamin D [Caltrate-600 With Vit D Tab] 1 tab PO BID 06/01/14 Cholecalciferol (VIT D3) [Vitamin D3] 2,000 unit PO DAILY 06/01/14 Multivitamins,Therapeutic [Multivitamin] 1 tab PO DAILY 06/01/14 [place]-3 Fatty Acids/Fish Oil [[place]-3 Fish Oil Softgel] 1 ea PO BID 06/01/14 Nitroglycerin (INPATIENT USE) [Nitrostat] 0.4 mg SUBLINGUAL PRN PRN 06/08/14 atorvastatin 20 mg tablet 20 mg PO QHS #90 tab 05/12/18 clopidogrel 75 mg tablet 75 mg PO DAILY #90 tab 05/12/18 amlodipine 5 mg tablet 5 mg PO .daily #90 tab 07/07/18 isosorbide dinitrate 20 mg tablet 20 mg PO TID #270 tab 07/07/18 losartan 25 mg tablet 25 mg PO BID #180 tab 07/07/18 lorazepam 0.5 mg tablet 0.5 mg PO DAILY PRN 15 Days tab 11/09/18 sertraline 50 mg tablet 100 mg PO DAILY tab 11/09/18 potassium chloride ER 20 mEq tablet,extended release 20 meq PO DAILY #90 tab 12/14/18 Amox/Clavulanate Tablet [Augmentin Tablet] 875 mg PO Q12H #10 tab 01/27/19 Apixaban [Eliquis] 2.5 mg PO BID #90 tab 01/27/19 Furosemide 40 mg PO BID #90 tab 01/27/19 The following prescriptions were given: Amox/Clavulanate Tablet [Augmentin Tablet] 875 mg PO Q12H #10 tab Prescription Printed Apixaban [Eliquis] 2.5 mg PO BID #90 tab Prescription Printed Furosemide 40 mg PO BID #90 tab Prescription Printed Primary Care Physician: Adalgisa Isidro MD [Primary Care Provider] - Please follow up with your Primary Care Physician in: 1 week. Test Results: Test results from this visit will be discussed in further detail at your follow-up appointment, if applicable. Please Follow Up With: Robbie Baugh MD When: 2 week. Please Follow Up With: Que Berkowitz MD When: 2-4 weeks.
--- NOTE | 2019-01-27 10:26 | PN.CARD_ITS ---
Subjectve: The patient appears to be resting comfortably. He looks better compared to admission. He states he feels better especially with respect to his breathing. Objective: Vital Signs Temp Pulse Resp BP Pulse Ox 97.9 F 80 16 112/60 92 01/27/19 09:52 01/27/19 09:52 01/27/19 09:52 01/27/19 09:52 01/27/19 09:52 Oxygen Flow Rate (L/min) [ 6 AMBULATION with Oxygen] Oxygen Flow Rate (L/min) 2 Oxygen Delivery Method Room Air Weight: 158 lb 11.725 oz Body Mass Index (BMI) 24.6 Intake and Output for Last 24 Hours 01/25/19 01/26/19 01/27/19 23:59 23:59 23:59 Intake Total 1333.05 / 1333.05 1555.37 / 1555.37 111 / 111 Output Total 675 / 675 750 / 750 300 / 300 Balance 658.05 / 658.05 805.37 / 805.37 -189 / -189 General: Awake, Alert, Oriented x 3, Cooperative, No Acute Distress HEENT: Atraumatic, Normocephalic, PERRL, EOMI, Sclera Non Icteric Oral: Moist Mucosa Neck: Supple, Good ROM, No JVD Lungs: - - Improved compared to previous examination with respect to no obvious wheezing at this time Cardiovascular: Irregular Rhythm, Normal S1, Normal S2 Abdomen: Bowel Sounds Present, Soft, Non Tender Extremities: No edema Psych/Mental Status: Appropriate Rhythm: Atrial fibrillation Medical Necessity - Tobacco Use Smoking Status: Former smoker Tobacco Use: Non-smoker Assessment/Plan 1. CAD status post CABG The patient has a history of CAD status post CABG. He has undergone noninvasive evaluation earlier this year as noted above. He was not thought at the time to require further evaluation with diagnostic cardiac catheterization. At the present time he presents with concerns of both CHF exacerbation and pneumonia/sepsis. He is now in the PCU. He appears symptomatically improved. He is continuing medical therapy. 2. Atrial fibrillation The patient has a history of atrial fibrillation. He has been on rate control therapy. This will be adjusted as needed. He is being transitioned to oral anticoagulant therapy. 3. CHF He does have a CHF exacerbation. At the present time he will need to be monitored and continue medical manage ment. He did undergo reevaluation with a transthoracic echocardiogram. His estimated LVEF was 45%. He is continuing medical therapy. He is now on oral diuretics. 4. Non-ST segment elevation MS His troponin I levels were indeterminant. This may be a type II supply demand mismatch event brought on by his pneumonia/sepsis superimposed upon his underlying cardiovascular status especially noting that his recent noninvasive study did not suggest ongoing myocardial ischemia warranting further invasive evaluation or care. 5. Hyperlipidemia He will continue medical management as deemed appropriate. 6. Hypertension His blood pressure will be followed. He will continue medical therapy as deemed appropriate. 7. Pneumonia He has been diagnosed with pneumonia. He will continue evaluation care per internal medicine and pulmonology/critical care medicine. 8. Sepsis He was also thought to have evidence of sepsis. Again he will continue evaluation care per internal medicine and pulmonology/critical care medicine. Overall, the patient appears to be symptomatically improved. He will need to continue medical management. He will need continued future outpatient follow-up with his PCP as well as with cardiology. Comment: The patient's case has been discussed and reviewed with the patient. This note was generated with [employer] dictation software. It may contain incorrect words, spelling, and punctuation that were not noted in checking the note before signing.
--- NOTE | 2019-01-27 10:26 | CASEMGMT ---
Addendum entered by Heidi Saldana 01/27/19 11:21: This RN CM received call from pt's daughterSavannah and in-network HHC list reviewed at this time. DaughterSavannah, states that she would like [facility] set up for pt at this time. Advised daughter that pt would be set up for RN, PT/OT, and SW at discharge, voices understanding at this time. Daughter does ask this RN CM about what qualifies pt for SNF at this time. This RN CM asked daughter is pt changed his mind and is willing to go to SNF and daughterSavannah, states that pt does not want to go to SNF but would still like to go home at this time. This RN CM advised her that if pt did decide once home that he needed to go to SNF then his PCP and C SW could assist with this, voices understanding. Daughter is aware that pt does not qualify for home oxygen at this time, voices understanding. Advised daughter that pt would be sent home on Eliquis and that this RN CM would call to check coverage/co-pay and that this RN CM would notify her with any concerns with Eliquis coverage/co-pay, voices understanding. Daughter is concerned about knowing what meds pt will and won't be on at discharge. This RN CM advised daughter that this would all be in pt d/c instructions and that HHC RN would also go through, voices understanding. Order for HHC in [facility] at this time. Call to [facility] and per pharmacist, pt's co-pay for 90 days of med is $94 at this time. This RN CM to room and updated pt on all at this time, voices understanding. Pt states that he still would like to go home with the C at this time and states no concern with Eliquis co-pay for $94 for 90 days at this time. Pt thanks this RN CM for all the assistance at this time. Pt voices no further questions/concerns/needs at this time. SStaten RN CM Original Note: Per Kinza OLIVIA, pt does not qualify for home oxygen at this time. This RN CM to room to discuss discharge plan with pt at this time and pt states that he would like to go home with HHC but states this RN CM needs to call his daughter, Savannah, to get the HHC choice. Call to Savannah and she is unsure of [facility] agency at this time and would like to call this RN CM back in a little bit to go over in-network list. Eliquis rx was sent to pharmacy and this RN CM will call and check coverage/co-pay. Shira RN CM
[2019-01-27] MEDS: Ipratropium/Albuterol Sulfate 3 ML AMPUL.NEB INHALATION (10:48)
--- NOTE | 2019-01-27 13:05 | DS.PCM_ITS ---
Discharge Date and Diagnosis Date of Admission: 01/22/19 Date of Discharge: 01/27/19 - Primary Discharge Diagnosis #1 community-acquired pneumonia/sepsis. #2 acute hypoxic respiratory failure. #3 acute decompensated systolic CHF. #4 non-ST elevation NC. - Secondary Discharge Diagnosis Chronic Problems (Last Reviewed 07/07/18 @ 15:47 by Amor Steen MD) HTN (hypertension) (Chronic) Pure hypercholesterolemia (Chronic) Atherosclerotic heart disease (Chronic) S/P CABG in 1993 with MARIA to LAD, SVG to OM1, and SVG to first diagonal; PTCA/CRYSTAL to SVG to obtuse marginal in August 2016; Staged PTCA/CRYSTAL to RCA in October 2016; CAD (coronary artery disease) (Chronic) BPH (benign prostatic hyperplasia) (Chronic) Hyperlipidemia (Chronic) Atrial fibrillation with RVR (Chronic) Hx of CABG (Chronic) Hospital Course and Treatment Imaging Results: Clinical Impression(s) from Imaging Studies Chest X-Ray 01/23/19 05:55 IMPRESSION: Mild increase in right basilar opacity. Chest otherwise appears similar. at 0627 Reported and signed by: Catherine Akhtar MD Electronically Signed: Catherine Akhtar MD at 6:27 EDT Tel , Service support , Chest X-Ray 01/25/19 10:18 IMPRESSION: Relatively stable appearance of the chest with no superimposed acute finding. Electronically Signed: Aurelio Hull MD at 11:02 EDT , Service support , Dr. Gilliland, Dr. Baugh, critical care. Dr. Berkowitz, cardiology. Operations: None Procedures: 2-D Echocardiogram, EKG Summary of Care Provided: Patient seen and examined on the day of discharge and appeared to be stable to be discharged home with home health. Patient's breathing has been improving every day and today on the day of discharge, walking pulse oximeter performed and his pulse ox was 89% on room air with ambulation and 92% on room air at rest and it did not drop below 88% with ambulation. He did not qualify for home oxygen. His other vital signs were stable. This is an 83 years old male patient presented to the emergency room because of shortness of breath, cough and fever, found to have sepsis secondary to community acquired pneumonia, complicated by acute hypoxic respiratory failure and also found to have acute decompensated CHF, paroxysmal atrial fibrillation and non-ST elevation NC. #1 community-acquired pneumonia/sepsis: Treated with IV vancomycin and Zosyn. After treatment, patient remained afebrile for more than 72 hours. Leukocytosis resolved. Pneumococcal and Legionella antigen were negative. Respiratory panel for viruses were negative. Sputum culture revealed presumptive Jaylene albicans, there was no indication to treat. Patient was seen by PT OT and patient elected to go home with home health. Patient discharged home with home health in a stable medical condition, discharged on Augmentin 875 mg p.o. twice daily for 5 days to complete total of 10 days of treatment. #2 acute hypoxic respiratory failure: Multifactorial secondary to pneumonia as well as acute CHF. Treated with IV antibiotics and IV diuretics. Symptoms of shortness of breath improved and his oxygen requirement decreased. On the day of discharge, walking pulse oximetry performed and patient did not qualify for home oxygen. His pulse ox remained above 88% with ambulation on room air. #3 acute decompensated systolic CHF: Treated with IV Lasix, on atenolol, isosorbide dinitrate and losartan. 2D echocardiogram revealed ejection fraction of 45%, RVSP of 80 consistent with severe pulmonary hypertension. His creatinine started to go up and went up to 1.85 but improved with IV Lasix. #4 non-ST elevation NC: Attributed to demand ischemia. EKG reviewed as above. Treated with aspirin, statins, Plavix, beta-blockers and losartan. #5 paroxysmal atrial fibrillation: ContinueD on atenolol for rate control and started on Eliquis during this admission. Patient discharged home with home health in a stable condition, discharged on Augmentin twice daily to complete total 10 days of treatment, started on Eliquis 2.5 g p.o. twice daily for anticoagulation, maintained on his previous home medications including Lasix 40 g p.o. daily, recommended follow-up with PCP in 1 week, follow-up with pulmonology in 2 weeks and follow-up with cardiology in 2 to 4 weeks. This note was generated with [employer] dictation software. It may contain incorrect words, spelling, and punctuation that were not noted in checking the note before signing. - Physical Exam General: Alert, Oriented x3, Cooperative, No apparent distress HEENT: Atraumatic, PERRLA, EOMI, Normocephalic Oral: Moist Mucosa, No Gingival or Mucosal Lesions/ Ulcerations Neck: Supple, No JVD, Negative Carotid Bruits, Trachea Midline, Thyroid Normal Size and Texture Lungs: Clear to auscultation, No wheeze, No rales, Diminished, Rhonchi Cardiovascular: Normal S1, Normal S2, No murmurs, PMI Normal, Irregular Rate Abdomen: Bowel Sounds Present, Soft, Non Tender, Non-Distended, No Hepato- splenomegaly Extremities: No clubbing, No cyanosis, No edema Skin: No rashes, No breakdown Lymphatic: No Cervical, Supraclavicular, or Inguinal Adenopathy Neurological: Cranial nerves II-XII grossly intact, Neuro grossly intact Psych/Mental Status: Normal Affect, Appropriate Vital Signs Temp Pulse Resp BP Pulse Ox 97.9 F 85 20 H 112/60 92 01/27/19 09:52 01/27/19 10:48 01/27/19 10:48 01/27/19 09:52 01/27/19 11:15 Oxygen Flow Rate (L/min) [ 6 AMBULATION with Oxygen] Oxygen Flow Rate (L/min) 2 Oxygen Delivery Method Room Air Weight: 158 lb 11.725 oz Body Mass Index (BMI) 24.6 Intake and Output for Last 24 Hours 01/25/19 01/26/19 01/27/19 23:59 23:59 23:59 Intake Total 1333.05 / 1333.05 1555.37 / 1555.37 521 / 521 Output Total 675 / 675 750 / 750 400 / 400 Balance 658.05 / 658.05 805.37 / 805.37 121 / 121 Microbiology Past 72 Hours 01/25/19 06:00 Gram Stain - Final Sputum, Expectorated/Coughed Respiratory Culture - Final Presumptive C albicans 01/24/19 18:50 C. difficile DNA Amplification - Final Stool Discharge Activity: Return to Normal Activity Weight Bearing Status: Weight bearing as tolerated Call your doctor if you observe: Fever of 101 or Higher, Shortness of breath, Dizziness, Fainting spells, Chest pain, Increased palpitations (irregular heartbeat), Uncontrolled pain Home Medications: Medications to take at Discharge Atenolol [Tenormin (beta vlad)] 50 mg PO DAILY 06/01/14 Calcium Carb/Vitamin D [Caltrate-600 With Vit D Tab] 1 tab PO BID 06/01/14 Cholecalciferol (VIT D3) [Vitamin D3] 2,000 unit PO DAILY 06/01/14 Multivitamins,Therapeutic [Multivitamin] 1 tab PO DAILY 06/01/14 [place]-3 Fatty Acids/Fish Oil [[place]-3 Fish Oil Softgel] 1 ea PO BID 06/01/14 Nitroglycerin (INPATIENT USE) [Nitrostat] 0.4 mg SUBLINGUAL PRN PRN 06/08/14 atorvastatin 20 mg tablet 20 mg PO QHS #90 tab 05/12/18 clopidogrel 75 mg tablet 75 mg PO DAILY #90 tab 05/12/18 amlodipine 5 mg tablet 5 mg PO .daily #90 tab 07/07/18 isosorbide dinitrate 20 mg tablet 20 mg PO TID #270 tab 07/07/18 losartan 25 mg tablet 25 mg PO BID #180 tab 07/07/18 lorazepam 0.5 mg tablet 0.5 mg PO DAILY PRN 15 Days tab 11/09/18 sertraline 50 mg tablet 100 mg PO DAILY tab 11/09/18 potassium chloride ER 20 mEq tablet,extended release 20 meq PO DAILY #90 tab 12/14/18 Amox/Clavulanate Tablet [Augmentin Tablet] 875 mg PO Q12H #10 tab 01/27/19 Apixaban [Eliquis] 2.5 mg PO BID #90 tab 01/27/19 Furosemide 40 mg PO BID #90 tab 01/27/19 Following Prescrptions Were Given to Patient: Amox/Clavulanate Tablet [Augmentin Tablet] 875 mg PO Q12H #10 tab Prescription Printed Apixaban [Eliquis] 2.5 mg PO BID #90 tab Prescription Printed Furosemide 40 mg PO BID #90 tab Prescription Printed Primary Care Physician: Adalgisa Isidro MD [Primary Care Provider] - Please follow up with your Primary Care Physician in: 1 week. Please Follow Up With: Robbie Baugh MD When: 2 week. Please Follow Up With: Que Berkowitz MD When: 2-4 weeks. Patient Instructions: Heart Failure, Using Oxygen at Home Disposition: Home with Home Health Minutes spent on discharge:: 33 Patient Condition:: Stable Medical Necessity - Tobacco Use Smoking Status: Former smoker Tobacco Use: Non-smoker Meaningful Use Info Meaningful Use Diagnoses (Choose all that apply): CHF - CHF PATEL/ARB ordered at discharge?: Yes Documented LVEF (%): 45 Code Visit Inpatient E&M: 72859 Disch Hosp
== END 2019-01-27 14:51 | disposition home or self-care (01) | DRG 871 ==
LOC: ICU 01-23 07:04 → PCU 01-23 14:47 → ICU 01-26 06:33 → PCU 01-26 06:33
PROVIDERS: Internal Medicine; Internal Medicine Critical Care Medicine; Admitting Provider Family Medicine; Family Provider Internal Medicine; PCP Internal Medicine; Visit Provider Hospitalist
DX: A41.9 Sepsis, unspecified organism (principal); I50.23 Acute on chronic systolic (congestive) heart failure; J96.01 Acute respiratory failure with hypoxia; J18.9 Pneumonia, unspecified organism; I21.A1 Myocardial infarction type 2; I13.0 Hypertensive heart and chronic kidney disease with heart failure and stage 1 through stage 4 chronic kidney disease, or unspecified chronic kidney disease; I25.10 Atherosclerotic heart disease of native coronary artery without angina pectoris; N40.0 Benign prostatic hyperplasia without lower urinary tract symptoms; E78.00 Pure hypercholesterolemia, unspecified; E78.5 Hyperlipidemia, unspecified; Z95.1 Presence of aortocoronary bypass graft; I48.0 Paroxysmal atrial fibrillation; Z87.891 Personal history of nicotine dependence; N18.3 Chronic kidney disease, stage 3 (moderate)
CPT/HCPCS: 36415; 71045; 71046; 80048; 80061; 83735; 84443; 84484; 85025; 87070; 87205; 87449; 87493; 87633; 87641; 93005; 93306; 94640; 94667; 94668; 97110; 97116; 97162; 97165; 97530; 97535; 97802; J7050; Q9957; A4216; J1940

== ENCOUNTER → 2019-02-01 17:18 | Outpatient (CLI) | payer MEDICARE, SELFPAY ==
[2016-10-30 13:35] VITALS: BMI 26.5
[2019-01-22 23:58] VITALS: BMI 24.6
[2019-02-01 17:37] LABS: Anion Gap 5 (5-15); BUN 26 mg/dL (7-18); BUN/Creat Ratio 15.4 RATIO (10-20); Calcium,Total 8.5 mg/dL (8.5-10.1); Chloride 106 mmol/L (98-107); Creatinine, Serum 1.69 mg/dL (0.70-1.30); EST Glomerular Filtration Rate 41 mL/min (>60); Est Glom Filt Rate - Afr Amer 50 mL/min (>60); Glucose 76 mg/dL (74-106); Potassium 4.5 mmol/L (3.5-5.1); Sodium Level 142 mmol/L (136-145)
== END ==
PROVIDERS: Family Provider Internal Medicine; PCP Internal Medicine; Visit Provider Internal Medicine
DX: I13.0 Hypertensive heart and chronic kidney disease with heart failure and stage 1 through stage 4 chronic kidney disease, or unspecified chronic kidney disease (principal); I50.21 Acute systolic (congestive) heart failure; N18.3 Chronic kidney disease, stage 3 (moderate)
CPT/HCPCS: 80048

== ENCOUNTER 2019-04-13 18:46 | Inpatient (IN) | payer MEDICARE, SELFPAY ==
[2016-10-30 13:35] VITALS: BMI 26.5
[2019-02-26 11:11] VITALS: BMI 23.9
[2019-04-13] VITALS (8 sets, daily range): BP systolic 122–157; BP diastolic 81–94; PULSE 76–94; RESP 15–20; TEMP 36.7–37.4; O2SAT 88–95; BMI 23.0; BMI 22.4
--- NOTE | 2019-04-13 18:53 | ED.RN ---
PULLED OLD ESTELA FOR
--- NOTE | 2019-04-13 19:04 | ED.RN ---
missed last nights and this am pills per pt and family. took his noon meds at 3pm then 4pm meds on time
--- NOTE | 2019-04-13 19:40 | EKG12_ITS ---
Test Reason : CP Blood Pressure : / mmHG Vent. Rate : 091 BPM Atrial Rate : 312 BPM P-R Int : 000 ms QRS Dur : 092 ms QT Int : 386 ms P-R-T Axes : 000 -30 061 degrees QTc Int : 474 ms Atrial fibrillation Left axis deviation Nonspecific T wave abnormality Prolonged QT Abnormal ECG Confirmed by ESTEBAN ALEXANDER, GIOVANNI ([id number]), offline editor DEE DEE BEAVERS ([id number]) on 04/16/2019 12:25:16 PM Referred By: Ashley Lundberg Confirmed By:LISA ORELLANA MD
[2019-04-13 19:48] LABS: Absolute Lymphocyte Count 1.04 X10^3/uL (0.83-4.51); Absolute Neutrophil Count 9.2 X10^3/uL (2.0-7.7); Basophil# 0.04 X10^3/uL; Basophil% 0.4 % (0-1); Eosinophil# 0.26 X10^3/uL; Eosinophils% 2.3 % (0-5); Hematocrit 45.2 % (40-54); Hemoglobin 14.6 g/dL (13.0-16.5); Lymphocyte # 1.04 X10^3/ul (4.0); Lymphocyte % 9.3 % (19-41); Mean Corp Hgb Conc 32.3 g/dL (32-36); Mean Corpuscular Hgb 28.9 pg (27.0-32.0); Mean Corpuscular Volume 89.3 fL (80-94); Mean Platelet Vol. 10.8 fl (6.2-12.0); Monocyte# 0.61 X10^3/uL; Monocyte% 5.5 % (0-10); NRBC Flagged by Analyzer 0 % (0-5); Neutrophil # 9.19 X10^3/uL (2.7-7.7); Neutrophil % 82.2 % (47-70); Platelet Count 210 K/mm3 (150-450); RBC Distribution Width CV 14.2 % (11.6-14.6); RBC Distribution Width SD 45.7 fl (35.1-43.9); Red Blood Count 5.06 M/mm3 (4.6-6.2); White Blood Count 11.2 K/mm3 (4.4-11.0)
[2019-04-13 19:54] LABS: International Normalized Ratio 1.1; Prothrombin Time (Protime)PT. 14.1 SECONDS (11.7-14.9)
--- NOTE | 2019-04-13 19:55 | RAD_ITS ---
STUDY: X-RAY CHEST REASON FOR EXAM: Male, 83 years old. Chest pain TECHNIQUE: Frontal view of the chest COMPARISON: X-ray chest January 25, 2019 FINDINGS: Postoperative changes are present. Left base atelectasis and/or small infiltrate is present. Lungs are otherwise clear. There are no pleural effusions. There is no pneumothorax. The heart is enlarged. The visualized osseous structures are within normal limits. RAD/Chest 1 View (Portable) IMPRESSION: Left base atelectasis and/or small infiltrate. Cardiomegaly. Electronically Signed: Kulwant Christianson, at 20:11 EST Tel , Service support ,
--- NOTE | 2019-04-13 19:57 | ED.VISSUMM ---
- ER Visit Summary Date of Service: 04/13/19 Chief Complaint: Chest pain History of Present Illness: The patient is a 83 M presenting with chest pain. Patient states this started approximately 1.5 hours prior to arrival. He had midsternal chest pain associated with shortness of breath and nausea. He was lightheaded with no syncope. He took one nitro at home which improved his pain. He has a history of CABG and 6 stents. Last stents were in 2004. History of hypertension, hypercholesterolemia. He is not a smoker. Denies other complaints. Physical Examination: Vitals are stable. Patient is afebrile. Alert no acute distress. HEENT exam is unremarkable. Neck is supple. Lungs are clear and equal bilaterally. Heart is irregularly irregular Abdomen is soft nontender nondistended. Extremities are unremarkable. Skin is warm and dry. No focal neurologic deficit. Remainder of exam is unremarkable. Emergency Department Course and Treatment: Patient was given aspirin on arrival. EKG is A. fib rate of 91, similar to previous. Chest x-ray shows left base atelectasis and/or small infiltrate. Cardiomegaly. CBC shows white count 11.2. Chemistries show glucose 164, BUN 20, creatinine 1.54. Troponin is negative. After the patient ambulated to the bathroom his pulse ox was 79% on room air. He was given Rocephin, Zithromax IV. Discussed with the hospitalist for admission. Disposition: Admission Impression: Pneumonia, hypoxia, chest pain This note was generated with [employer] dictation software. It may contain incorrect words, spelling, and punctuation that were not noted in review of the chart prior to signing ED Disposition - Plan for ED Patient: Referrals: Adalgisa Isidro MD [Primary Care Provider] -
[2019-04-13 20:03] LABS: Anion Gap 6 (5-15); BUN 20 mg/dL (7-18); Calcium,Total 8.8 mg/dL (8.5-10.1); Chloride 106 mmol/L (98-107); Creatinine, Serum 1.54 mg/dL (0.70-1.30); EST Glomerular Filtration Rate 46 mL/min (>60); Est Glom Filt Rate - Afr Amer 56 mL/min (>60); Estimated Creatinine Clearance 38.47 ml/min; Glucose 164 mg/dL (74-106); Potassium 4.1 mmol/L (3.5-5.1); Sodium Level 140 mmol/L (136-145)
[2019-04-13] MEDS: Aspirin 325 MG Tablet PO (20:03)
--- NOTE | 2019-04-13 20:49 | PCM.HP.STD ---
Problem List (1) Acute respiratory failure with hypoxia Status: Acute (2) Pneumonia Status: Acute Qualifiers: Pneumonia type: due to unspecified organism Laterality: left Lung location: lower lobe of lung Qualified Code(s): J18.9 - Pneumonia, unspecified organism (3) Chest pain Status: Acute Qualifiers: Chest pain type: unspecified Qualified Code(s): R07.9 - Chest pain, unspecified (4) CKD (chronic kidney disease), stage III Status: Chronic (5) Essential hypertension Status: Chronic (6) Pure hypercholesterolemia Status: Chronic (7) Atherosclerotic heart disease Status: Chronic Qualifiers: Coronary Disease-Associated Artery/Lesion type: unspecified vessel or lesion type [place] vs. transplanted heart: unspecified whether [place] or transplanted heart Associated angina: angina presence unspecified Qualified Code(s): I25.10 - Atherosclerotic heart disease of [place] coronary artery without angina pectoris Comment: S/P CABG in 1993 with MARIA to LAD, SVG to OM1, and SVG to first diagonal; PTCA/CRYSTAL to SVG to obtuse marginal in August 2016; Staged PTCA/CRYSTAL to RCA in October 2016; (8) BPH (benign prostatic hyperplasia) Status: Chronic Qualifiers: Lower urinary tract symptom presence: unspecified whether lower urinary tract symptoms present Qualified Code(s): N40.0 - Benign prostatic hyperplasia without lower urinary tract symptoms (9) Hx of CABG Status: Chronic History of Present Illness Date of Admission: 04/13/19 Chief Complaint: Chest pain, Fatigue, Malaise, Dyspnea The patient is a 83 y/o M w/ PMHx: CKD stage III, Chronic atrial fibrillation on eliquis, CAD s/p CABG x 5 and PCI, HTN, HLD, Tobacco use history who presents to the [facility] ED on 04/13/19 with history of several days of progressively worsening fatigue, malaise, anorexia with exertional dyspnea which progressed on day of presentation to dyspnea with minimal exertion with onset approximately 1 to 2 hours prior to arrival to the ED with concurrent midsternal chest discomfort described as a heaviness, rated 2-4 out of 10 with worsened dyspnea with no radiation with lightheadedness and diaphoresis, but no nausea or emesis and noted this felt like his prior PR symptoms with self administration of lorazepam and nitroglycerin sublingual regimen with complete resolution of discomfort following. Work-up in the ED included T 99.4, heart rate 89, BP 139/81, 88% on room air however with exertion in the ED patient decreased to 76% on room air, improved to 95% on 2 L nasal cannula, CBC with WBC 11.1, hemoglobin 14.6, platelet 210 with left shift, unremarkable coags, BMP with BUN/creatinine 20/1.54, glucose 164, troponin less than 0.015, EKG with atrial fibrillation, rate controlled with no acute evidence of ischemia, chest x-ray with left lower lobe questionable atelectasis versus infiltrate. In the ED patient ministered aspirin, azithromycin as well as Rocephin. Past Medical History Past Medical History (Chronic Problems): Chronic Problems (Last Reviewed 02/26/19 @ 11:28 by Amor Steen MD) CKD (chronic kidney disease), stage III (Chronic) Presence of stent in coronary artery (Chronic ~10/2016) PTCA/CRYSTAL to SVG to obtuse marginal in August 2016; Staged PTCA/CRYSTAL to RCA in October 2016; Atherosclerosis of coronary artery bypass graft without angina pectoris (Chronic) Essential hypertension (Chronic) Pure hypercholesterolemia (Chronic) Atherosclerotic heart disease (Chronic) S/P CABG in 1993 with MARIA to LAD, SVG to OM1, and SVG to first diagonal; PTCA/CRYSTAL to SVG to obtuse marginal in August 2016; Staged PTCA/CRYSTAL to RCA in October 2016; BPH (benign prostatic hyperplasia) (Chronic) Hyperlipidemia (Chronic) Atrial fibrillation with RVR (Chronic) Hx of CABG (Chronic ~1993) Medical History: Medical History (Last Reviewed 02/26/19 @ 11:28 by Amor Steen MD) Presence of stent in coronary artery (Chronic) Onset Date: ~10/2016 Z95.5 PTCA/CRYSTAL to SVG to obtuse marginal in August 2016; Staged PTCA/CRYSTAL to RCA in October 2016; Atherosclerosis of coronary artery bypass graft without angina pectoris (Chronic) I25.810 Essential hypertension (Chronic) I10 Nicotine abuse Z72.0 Atherosclerotic heart disease of [place] coronary artery without angina pectoris I25.10 CABG: MARIA to LAD, SVG to 1st OM, SVG to 1st Dx 1993. PTCA: PTCA/CRYSTAL to SVG to OM 09/19/2016. PCI-CRYSTAL-RCA 10/30/2016. 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 Allergies atorvastatin calcium [From Lipitor] Adverse Reaction (Verified 04/13/19 18:56) Other LEG CRAMPS WITH 40MG DOSE BUT TOLERATES LOWER DOSE buspirone HCl [From BuSpar] Adverse Reaction (Verified 04/13/19 18:56) Other FAINT fosinopril sodium [From Monopril] Adverse Reaction (Verified 04/13/19 18:56) Other LEG CRAMPS Iodinated Contrast Media [CONTRASTS] Adverse Reaction (Verified 04/13/19 18:56) Itching ramipril [From Altace] Adverse Reaction (Verified 04/13/19 18:56) Other LEG CRAMPS simvastatin Adverse Reaction (Verified 04/13/19 18:56) Other WHEN MIXED WITH DILTIAZEM CAUSES SEVERE MUSCLE CRAMPS Home Medications: Ambulatory Orders Medication Instructions Recorded Atenolol [Tenormin (beta vlad)] 50 mg PO DAILY 06/01/14 Calcium Carb/Vitamin D 1 tab PO BID 06/01/14 [Caltrate-600 With Vit D Tab] Cholecalciferol (VIT D3) [Vitamin 2,000 unit PO DAILY 06/01/14 D3] Multivitamins,Therapeutic 1 tab PO DAILY 06/01/14 [Multivitamin] Nitroglycerin (INPATIENT USE) 0.4 mg SUBLINGUAL PRN PRN 06/08/14 [Nitrostat] lorazepam 0.5 mg tablet 0.5 mg PO DAILY PRN 15 Days tab 11/09/18 Amlodipine Besylate [Norvasc] 5 mg PO DAILY 04/13/19 Apixaban [Eliquis] 2.5 mg PO BID 04/13/19 Atorvastatin Calcium 20 mg PO QHS 04/13/19 Bupropion HCl 75 mg PO BID 04/13/19 Clopidogrel Bisulfate [Clopidogrel] 75 mg PO DAILY 04/13/19 Furosemide 40 mg PO MOWETHFRSA 04/13/19 Furosemide [Lasix] 80 mg PO SUTU 04/13/19 Isosorbide Dinitrate 20 mg PO TID 04/13/19 Losartan Potassium [Cozaar] 25 mg PO BID 04/13/19 Roxana-3S/Dha/Epa/Fish Oil [Roxana-3 1 cap PO BID 04/13/19 Fish Oil 1,200 mg Sfgl] Potassium Chloride [K-Tab ER] 20 meq PO DAILY 04/13/19 Sertraline HCl 100 mg PO DAILY 04/13/19 Surgical History: Surgical History (Last Reviewed 02/26/19 @ 11:28 by Amor Steen MD) H/O coronary artery bypass surgery Z95.1 CABG: MARIA to LAD, SVG to 1st OM, SVG to 1st Dx 1993. Presence of coronary angioplasty implant and graft Onset Date: ~10/2016 Z95.5 PTCA/CRYSTAL to SVG to obtuse marginal in August 2016; Staged PTCA/CRYSTAL to RCA in October 2016; Surgical History: coronary bypass surgery, - - CABG x5, PCI x6, left knee arthroscopic surgery. Psychiatric History: Anxiety, Depression Lives: Alone - Patient currently living alone, his is in skilled undergoing rehab. Smoking Status: Former smoker - Patient quit cigarette tobacco usage in 1945. Tobacco Use: Non-smoker Alcohol: Occasional Drugs: None - *Family History Maternal Family History: Family History (Last Reviewed 02/26/19 @ 11:28 by Amor Steen MD) Father emphysema Mother Hypertension HLD (hyperlipidemia) Sister Enlarged heart Sister Myocardial infarction History Items: High Cholesterol, Heart Disease, Hypertension Paternal Family History: Family History (Last Reviewed 02/26/19 @ 11:28 by Amor Steen MD) Father emphysema Mother Hypertension HLD (hyperlipidemia) Sister Enlarged heart Sister Myocardial infarction History Items: COPD Sibling Family History: Family History (Last Reviewed 02/26/19 @ 11:28 by Amor Steen MD) Father emphysema Mother Hypertension HLD (hyperlipidemia) Sister Enlarged heart Sister Myocardial infarction History Items: - - sister from enlarged heart Review of Systems Constitutional: Reports: Anorexia, Malaise, Weakness, Fatigue. Denies: Chills, Fever, Weight Change HEENT: Denies: Head Aches, Sinus Congestion, Sinus Drainage Cardiovascular: Reports: Chest Pain, Chest Tightness, Light Headedness. Denies: Orthopnea, Palpitations, Syncope Respiratory: Reports: Shortness of Breath, Shortness of breath at rest, Shortness of breath upon exertion. Denies: Cough, Sputum production, Wheezing Gastrointestinal: Denies: Abdominal Pain, Nausea, Vomiting Genitourinary: Denies: Dysuria Musculoskeletal: Reports: Joint Pain. Denies: Joint Tenderness Skin: Denies: Rash, Wounds Neurological: Denies: Numbness, Tingling, Focal weakness Psychiatric: Reports: Anxiety, Depression. Denies: Homicidal Ideations, Suicidal Ideations Hematologic/ Lymphatic: Reports: Easy Bruising, Easy Bleeding VTE Information - Inpt Only VTE Present on Admission: No VTE Mechan Device Prophylaxis: SCD's VTE Pharm Prophylaxis ordered?: No Reason prophylaxis not ordered:: Treatment Not Indicated - We will continue home Eliquis. Patient Problems: Active and Suspected Problems (Last Reviewed 02/26/19 @ 11:28 by Amor Steen MD) Chest pain (Acute) Pneumonia (Acute) Subjective: Seated upright in ED bed, fatigued appearance, recent exertion from the restroom with severe hypoxia in the 70s, increased work of breathing and accessory muscle usage, clinically improving now but at rest and requiring up to 4 to 5 L nasal cannula to maintain appropriate saturations. Objective: Physical Examination: General: awake, alert, oriented x 3 and cooperative, seated upright in the ED bed, fatigued appearance, recent ambulation of the restroom with hypoxia into the 70s, increased work of breathing, accessory muscle usage, clinically improving now as he is resting but requiring 4 to 5 L nasal cannula to maintain appropriate saturations. Skin: normal color, turgor, no icterus, cyanosis. HEENT: AT/NC, EOMI, PERRLA, dry MM, no carotid bruits or JVD noted. Lungs: Diminished, greater bases, left greater than right, increased effort, mild increased work of breathing, accessory muscle usage however improving given currently resting but was very hypoxic prior, no rales, rhonchi or wheezing. wheezing. Heart: Irregular, rate controlled; no gallop, rub audible. Abdomen: soft, NTTP, ND, normal BS, no HSM. Extremities: no cyanosis, clubbing, or edema. Neurological: patient awake, alert, oriented x 3; cognitive function intact; pupils equally reactive to light and accomodation; cranial nerves II-XII grossly normal, moving all 4 extremities, no focal deficits, strength severely global decrease secondary to acute presentation. Psychiatric: affect appears fatigued, ill, no acute evidence of depressive or anxiety feelings. - Physical Exam Vitals/I&O's: Vital Signs Temp Pulse Resp BP Pulse Ox 99.4 F H 88 17 122/84 H 95 04/13/19 18:47 04/13/19 20:00 04/13/19 20:00 04/13/19 20:00 04/13/19 20:00 Oxygen Flow Rate (L/min) 2 Oxygen Delivery Method Nasal Cannula Weight: 165 lb Body Mass Index (BMI) 23.0 Laboratory Results 04/13/19 19:05: WBC 11.2 H, RBC 5.06, Hgb 14.6, Hct 45.2, MCV 89.3, MCH 28.9, MCHC 32.3, RDW Std Deviation 45.7 H, RDW Coeff of Justice 14.2, Plt Count 210, MPV 10.8, Immature Gran % (Auto) 0.300, Neut % (Auto) 82.2 H, Lymph % (Auto) 9.3 L, [place] % (Auto) 5.5, Eos % (Auto) 2.3, Baso % (Auto) 0.4, Absolute Neuts (auto) 9.2 H, Absolute Lymphs (auto) 1.04, Nucleated RBC % 0 04/13/19 19:05: PT 14.1, INR 1.1 04/13/19 19:05: Sodium 140, Potassium 4.1, Chloride 106, Carbon Dioxide 28.0, Anion Gap 6, BUN 20 H, Creatinine 1.54 H, Estim Creat Clear Calc 38.47, Est GFR (MDRD) Af Amer 56 L, Est GFR (MDRD) Non-Af 46 L, BUN/Creatinine Ratio 13.0, Glucose 164 H, Calcium 8.8, Troponin I < 0.015 Assessment/Plan All Active Problems (Last Reviewed 02/26/19 @ 11:28 by Amor Steen MD) Chest pain (Acute) Pneumonia (Acute) Non-ST elevated myocardial infarction (Acute ~01/23/19) Acute respiratory failure with hypoxia (Acute) CHF exacerbation (Acute) Pneumonia (Resolved) The patient is a 83 y/o M w/ PMHx: CKD stage III, Chronic atrial fibrillation on eliquis, CAD s/p CABG x 5 and PCI, HTN, HLD, Tobacco use history who presents to the [facility] ED on 04/13/19 with history of several days of progressively worsening fatigue, malaise, anorexia with exertional dyspnea which progressed on day of presentation to dyspnea with minimal exertion with onset approximately 1 to 2 hours prior to arrival to the ED with concurrent midsternal chest discomfort described as a heaviness, rated 2-4 out of 10 with worsened dyspnea with no radiation with lightheadedness and diaphoresis. 1. Suspected Community Acquired Pneumonia w/ Acute Hypoxic Respiratory Failure: CXR in the ED w/ left base atelectasis and/or small infiltrate, notable hypoxia with any exertion in the emergency room, decreased into the 70s with walking the bathroom with recent fatigue, malaise, anorexia and dyspnea, worse with exertion with suspect likely pneumonia. Patient was admitted in January and treated for pneumonia at that time with review of sputum culture with no significant organisms. Will admit to PCU given underlying cardiac history and chest pain complaints although may be pleuritic, maintain on oxygen with wean as tolerated to room air, PRN albuterol, maintain Rocephin and Azithromycin but given recent prior pneumonia may need to consider broadening but current presentation not severe aside hypoxia thus we will continue with this regimen in the interim, HOB, IS parameters w/ pending sputum cultures, respiratory viral panel and urine antigens. We will continue to gently hydrate and repeat chest x-ray in a.m. Given current presentation, underlying cardiac history will maintain as noted on cardiac monitoring with cycling of cardiac enzymes as well as repeat EKGs but defer immediate stress test transition. 2. Chest Pain: EKG in ED rate controlled atrial fibrillation, CXR w/ suspected left lower lobe pneumonia, initial trop normal x1. Will place on a monitored bed to assure no acute myocardial infarction with serial cardiac enzymes and EKGs. Given acute presentation with concurrently suspected pneumonia, #1, will continue treatment as noted and hold on progression to immediate stress testing until clinically improved. ASA, NG, morphine. FLP in AM. Mag pending. 3. Hyperglycemia: Admission glucose 164, likely stress response, hemoglobin A1c requested. 4. CAD: Status post CABG x5, PCI x6, maintain on aspirin, Eliquis, atenolol, losartan, atorvastatin. 5. Hypertension: Continue home regimen including atenolol, Lasix, isosorbide, losartan, PRN hydralazine. 6. Hyperlipidemia: Continue home statin regimen. AM FLP. 7. Chronic atrial fibrillation: We will continue home Eliquis and atenolol regimen. 8. Anxiety and depression: We will continue patient home sertraline as well as his low-dose lorazepam. Current presentation with noted chest discomfort may be associated with his pleuritic chest discomfort as well as his anxiety. He noted complete resolution following lorazepam as well as nitroglycerin self administration. 9. Chronic Kidney Disease Stage III: Admission BUN/Cr 20/1.54, baseline renal function 1.4-1.7, stable, repeat BMP in AM. 10. CODE status: Patient's daughter is his healthcare power of disability attorney. He has a living will in place. Discussed CODE status at length including difference between FULL code, DNR-CCA and DNR-CC status. Following discussions about the differences in these status, requested DNR-CCA, no intubation status. Advanced Care Planning Face to Face Time: 16 minutes. Code Visit Inpatient E&M: 82253 Init Hosp L3 Procedures: 13781 Advncd Care Plan 30 Min
[2019-04-13] MEDS: Ceftriaxone 1 GM/50 ML BAG IV (21:29)
--- NOTE | 2019-04-13 22:35 | EKG12_ITS ---
Test Reason : AM EKG Blood Pressure : / mmHG Vent. Rate : 069 BPM Atrial Rate : 357 BPM P-R Int : 000 ms QRS Dur : 096 ms QT Int : 462 ms P-R-T Axes : 000 -19 089 degrees QTc Int : 495 ms Atrial fibrillation with premature ventricular or aberrantly conducted complexes Prolonged QT Abnormal ECG When compared with ECG of 13-APR-2019 22:48, MANUAL COMPARISON REQUIRED, DATA IS UNCONFIRMED Confirmed by CARLYLE ALEXANDER, ROSINA ([id number]), movie editor DEE DEE BEAVERS ([id number]) on 04/19/2019 10:04:56 AM Referred By: Ashley Lundberg Confirmed By:ROSINA TADEO MD
[2019-04-14] VITALS (12 sets, daily range): BP systolic 110–162; BP diastolic 53–90; PULSE 69–131; RESP 18; TEMP 36.6–36.9; O2SAT 92–96
[2019-04-14] MEDS: APIXABAN 2.5 MG TABLET PO ×3 (00:09→20:43)
[2019-04-14] MEDS: Losartan Potassium 25 MG Tablet PO ×3 (00:09→20:43)
[2019-04-14] MEDS: Furosemide 40 MG Tablet PO ×3 (00:09→17:10)
[2019-04-14] MEDS: Atorvastatin Calcium 20 MG Tablet PO ×2 (00:09→20:43)
[2019-04-14] MEDS: Isosorbide DN 20 MG Tablet PO ×4 (00:09→20:43)
[2019-04-14] MEDS: 0.9% Normal Saline 1,000 ML 100 ML IV ×3 (01:02→23:13)
[2019-04-14 02:16] LABS: Absolute Lymphocyte Count 1.23 X10^3/uL (0.83-4.51); Absolute Neutrophil Count 7.1 X10^3/uL (2.0-7.7); Basophil# 0.05 X10^3/uL; Basophil% 0.5 % (0-1); Eosinophil# 0.34 X10^3/uL; Eosinophils% 3.6 % (0-5); Hematocrit 37.3 % (40-54); Hemoglobin 12.1 g/dL (13.0-16.5); Lymphocyte # 1.23 X10^3/ul (4.0); Lymphocyte % 13.2 % (19-41); Mean Corp Hgb Conc 32.4 g/dL (32-36); Mean Corpuscular Hgb 28.9 pg (27.0-32.0); Mean Platelet Vol. 10.5 fl (6.2-12.0); Monocyte# 0.57 X10^3/uL; Monocyte% 6.1 % (0-10); NRBC Flagged by Analyzer 0 % (0-5); Neutrophil % 76.3 % (47-70); Platelet Count 170 K/mm3 (150-450); RBC Distribution Width CV 14.2 % (11.6-14.6); RBC Distribution Width SD 45.7 fl (35.1-43.9); Red Blood Count 4.19 M/mm3 (4.6-6.2); White Blood Count 9.3 K/mm3 (4.4-11.0)
[2019-04-14 02:32] LABS: Anion Gap 5 (5-15); BUN 19 mg/dL (7-18); BUN/Creat Ratio 13.8 RATIO (10-20); Calcium,Total 8.2 mg/dL (8.5-10.1); Chloride 106 mmol/L (98-107); Cholesterol 119 mg/dL (200); Creatinine, Serum 1.38 mg/dL (0.70-1.30); EST Glomerular Filtration Rate 52 mL/min (>60); Est Glom Filt Rate - Afr Amer 63 mL/min (>60); Estimated Creatinine Clearance 41.82 ml/min; Glucose 111 mg/dL (74-106); High Density Lipoprotein 38 mg/dL; Potassium 3.3 mmol/L (3.5-5.1); Sodium Level 140 mmol/L (136-145); Triglycerides 77 mg/dL; Very Low Density Lipoprotein 15 mg/dL (5-40)
--- NOTE | 2019-04-14 05:55 | EKG12_ITS ---
Test Reason : CP ADMIT Blood Pressure : / mmHG Vent. Rate : 079 BPM Atrial Rate : 326 BPM P-R Int : 000 ms QRS Dur : 090 ms QT Int : 448 ms P-R-T Axes : 000 -13 093 degrees QTc Int : 513 ms Atrial fibrillation with premature ventricular or aberrantly conducted complexes Nonspecific T wave abnormality Prolonged QT Abnormal ECG When compared with ECG of 13-APR-2019 18:53, MANUAL COMPARISON REQUIRED, DATA IS UNCONFIRMED Confirmed by CARLYLE ALEXANDER, ROSINA ([id number]), video editor DEE DEE BEAVERS ([id number]) on 04/19/2019 10:06:58 AM Referred By: Ashley Lundberg Confirmed By:ROSINA TADEO MD
--- NOTE | 2019-04-14 07:36 | PCM.PN.HOSP ---
Patient Problems: Active and Suspected Problems (Last Reviewed 02/26/19 @ 11:28 by Amor Steen MD) Chest pain (Acute) Pneumonia (Acute) Subjective: CC: Follow-up for chest pain and exertional dyspnea Patient is an 83-year-old gentleman who presented chest pain as well as exertional dyspnea. Chest x-ray obtained on admission demonstrated Left base atelectasis and/or small infiltrate. Was also noted to have low-grade fever of 99.7 as well as likely elevated WBC count 10.2. Given his significant cardiac comorbidities patient admitted to monitored bed for subsequent management Objective: GENERAL: cooperative HEENT: Atraumatic; EYES; Anicteric, NECK; supple, normal thyroid, RESPIRATORY: Diminished to auscultation CARDIOVASCULAR: Irregularly irregular GI: soft, non-tender, normoactive bowel sounds, : No Renal angle tenderness; EXTREMITIES: Trace edema, no clubbing, MUSCULOSKELETAL: No Joint Tenderness; NEURO: Awake; no lateralizing signs. SKIN: No Rash PSYCH; Normal affect Vitals/I&O's: Vital Signs Temp Pulse Resp BP Pulse Ox 97.8 F 72 18 150/65 H 92 04/14/19 04:35 04/14/19 06:51 04/14/19 04:35 04/14/19 04:35 04/14/19 04:35 Oxygen Flow Rate (L/min) 2 Oxygen Delivery Method Nasal Cannula Weight: 72.9 kg Body Mass Index (BMI) 22.4 Intake and Output for Last 24 Hours 04/12/19 04/13/19 04/14/19 23:59 23:59 23:59 Intake Total 50 / 50 675 / 675 Output Total 550 / 550 Balance 50 / 50 125 / 125 Microbiology Past 72 Hours 04/14/19 00:46 Urine, Clean Catch Streptococcus pneumoniae Antigen (M - Final 04/14/19 00:46 Urine, Clean Catch Legionella Antigen - Final Laboratory Results 04/13/19 19:05: WBC 11.2 H, RBC 5.06, Hgb 14.6, Hct 45.2, MCV 89.3, MCH 28.9, MCHC 32.3, RDW Std Deviation 45.7 H, RDW Coeff of Justice 14.2, Plt Count 210, MPV 10.8, Immature Gran % (Auto) 0.300, Neut % (Auto) 82.2 H, Lymph % (Auto) 9.3 L, Yancey % (Auto) 5.5, Eos % (Auto) 2.3, Baso % (Auto) 0.4, Absolute Neuts (auto) 9.2 H, Absolute Lymphs (auto) 1.04, Nucleated RBC % 0 04/13/19 19:05: PT 14.1, INR 1.1 04/13/19 19:05: Sodium 140, Potassium 4.1, Chloride 106, Carbon Dioxide 28.0, Anion Gap 6, BUN 20 H, Creatinine 1.54 H, Estim Creat Clear Calc 38.47, Est GFR (MDRD) Af Amer 56 L, Est GFR (MDRD) Non-Af 46 L, BUN/Creatinine Ratio 13.0, Glucose 164 H, Calcium 8.8, Troponin I < 0.015 04/13/19 19:05: Magnesium 2.0 04/13/19 19:05: Hemoglobin A1c 6.0 04/13/19 23:00: Troponin I < 0.015 04/14/19 02:06: Sodium 140, Potassium 3.3 L, Chloride 106, Carbon Dioxide 29.0, Anion Gap 5, BUN 19 H, Creatinine 1.38 H, Estim Creat Clear Calc 41.82, Est GFR (MDRD) Af Amer 63, Est GFR (MDRD) Non-Af 52 L, BUN/Creatinine Ratio 13.8, Glucose 111 H, Calcium 8.2 L, Triglycerides 77, Cholesterol 119, LDL Cholesterol 66, VLDL Cholesterol 15, HDL Cholesterol 38 L 04/14/19 02:06: WBC 9.3, RBC 4.19 L, Hgb 12.1 L, Hct 37.3 L, MCV 89.0, MCH 28.9, MCHC 32.4, RDW Std Deviation 45.7 H, RDW Coeff of Justice 14.2, Plt Count 170, MPV 10.5, Immature Gran % (Auto) 0.300, Neut % (Auto) 76.3 H, Lymph % (Auto) 13.2 L, Yancey % (Auto) 6.1, Eos % (Auto) 3.6, Baso % (Auto) 0.5, Absolute Neuts (auto) 7.1, Absolute Lymphs (auto) 1.23, Nucleated RBC % 0 04/14/19 02:06: Troponin I < 0.015 Current Medications Acetaminophen (Tylenol) 650 mg PO Q6H PRN PRN PRN Reason: Non-cardiac pain (4-10/10) Hydrocodone Bitart/Acetaminophen ([place] 5mg-325mg) 1 - 2 tablet PO Q6H PRN PRN PRN Reason: Pain Score 4-10/10 Al Hydroxide/Mg Hydroxide (Mylanta Ii) 15 - 30 ml PO Q4H PRN PRN PRN Reason: INDIGESTION Albuterol Sulfate (Ventolin Aerosols) 2.5 mg INHALATION Q2H PRN PRN PRN Reason: dyspnea, wheezing Amlodipine Besylate (Norvasc) 5 mg PO DAILY [facility] Apixaban (Eliquis) 2.5 mg PO BID [facility] Last Admin: 04/14/19 00:09 Dose: 2.5 mg Documented by: Aspirin (Ecotrin) 81 mg PO DAILY@0800 [facility] Atenolol (Tenormin (Beta Darcie)) 50 mg PO DAILY [facility] Atorvastatin Calcium (Lipitor) 20 mg PO QHS [facility] Last Admin: 04/14/19 00:09 Dose: 20 mg Documented by: Bupropion HCl (Wellbutrin Tablets) 75 mg PO DAILY [facility] Cholecalciferol (Vitamin D) 2,000 unit PO DAILY [facility] Clopidogrel Bisulfate (Plavix) 75 mg PO DAILY [facility] Dextrose (D50w Syringe) 0 gm IV X1 PRN; Protocol PRN Reason: Hypoglycemia Furosemide (Lasix) 40 mg PO BIDLX [facility] Last Admin: 04/14/19 00:09 Dose: 40 mg Documented by: Glucagon () 1 mg IM .X1 PRN PRN Reason: Hypoglycemia Guaifenesin (Robitussin) 20 ml PO Q4H PRN PRN PRN Reason: COUGH Hydralazine HCl (Apresoline Iv) 10 mg IV Q4H PRN PRN PRN Reason: SBP > 160 Sodium Chloride () 1,000 mls @ 100 mls/hr IV .Q10H [facility] Last Admin: 04/14/19 01:02 Dose: 100 mls/hr Documented by: Azithromycin 500 mg/ Dextrose 255 mls @ 250 mls/hr IV Q24@2200 [facility] Ceftriaxone Sodium 2 gm/ (Sodium Chloride) 50 mls @ 100 mls/hr IV Q24@2200 [facility] Isosorbide Dinitrate (Isordil) 20 mg PO TID [facility] Last Admin: 04/14/19 05:00 Dose: 20 mg Documented by: Lorazepam (Ativan) 0.5 mg PO DAILY PRN PRN PRN Reason: Anixety Losartan Potassium (Cozaar) 25 mg PO BID [facility] Last Admin: 04/14/19 00:09 Dose: 25 mg Documented by: Magnesium Hydroxide (Milk Of Magnesia) 30 ml PO DAILY PRN PRN Reason: Constipation Melatonin (Melatonin) 3 mg PO QHS PRN PRN PRN Reason: INSOMNIA Morphine Sulfate () 1 - 2 mg IV Q4H PRN PRN PRN Reason: Pain Score 1-10/10 Nitroglycerin (Nitrostat) 0.4 mg SUBLINGUAL Q5M PRN PRN Reason: CARDIAC/CHEST PAIN Nutritional Formula (Lactose Free) (Ensure Enlive) 120 ml PO 4X/DAY [facility] Ondansetron HCl (Zofran) 4 mg IV Q8H PRN PRN PRN Reason: NAUSEA/VOMITING Potassium Chloride (K-Dur) 20 meq PO DAILYCM [facility] Sertraline HCl (Zoloft) 100 mg PO DAILY [facility] Sodium Chloride () 10 - 40 ml IV UD PRN PRN Reason: SALINE FLUSH Throat Lozenges (Cepacol Sore Throat Lozenge) 1 lozenge MUCOUS MEM Q2H PRN PRN PRN Reason: Sore Throat/Cough STROKE Vital Signs/Narrative: Vital Signs Temp Pulse Resp BP Pulse Ox 04/14/19 06:51 72 04/14/19 04:35 97.8 F 78 18 150/65 H 92 Medical Necessity - Tobacco Use Smoking Status: Former smoker Tobacco Use: Non-smoker Assessment/Plan All Active Problems (Last Reviewed 02/26/19 @ 11:28 by Amor Steen MD) Chest pain (Acute) Pneumonia (Acute) Non-ST elevated myocardial infarction (Acute ~01/23/19) Acute respiratory failure with hypoxia (Acute) CHF exacerbation (Acute) Pneumonia (Resolved) Patient is an 83-year-old gentleman who presented chest pain as well as exertional dyspnea. Chest x-ray obtained on admission demonstrated Left base atelectasis and/or small infiltrate. Was also noted to have low-grade fever of 99.7 as well as likely elevated WBC count 10.2. Given his significant cardiac comorbidities patient admitted to monitored bed for subsequent management 1. Suspected community-acquired pneumonia ~Patient started on Rocephin as well as azithromycin in addition to supplemental oxygen. Cultures so far negative to date 2. Exertional dyspnea with chest pain ~ In a patient with underlying coronary artery disease with previous CABG. Patient does not recall his last stress his cardiac enzymes have so far remained negative to date, plan will be for patient to undergo a nuclear stress test prior to his discharge to rule out myocardial ischemia 3. Chronic congestive heart failure with decreased ejection fraction ~patient has known ischemic cardiomyopathy with an ejection fraction of 35% patient patient is on diuretics Lasix, continued 4. Severe pulmonary hypertension ~ with estimated RVSP of 88 mmHg 5. Coronary artery disease ~with previous CABG x2 and subsequent PCI patient is on beta-blockers, ARB's as well as antiplatelet therapy 6. Hypertension ~ blood pressure controlled, home medications continued with dose adjustment as needed 7. Dyslipidemia ~patient is on statin therapy, continued at home dose 8. Depression with anxiety ~patient is on sertraline did continue 9. Paroxysmal atrial fibrillation with variable rate ~Patient is on rate control agent?atenolol as well as systemic anticoagulation with Eliquis 10. Chronic kidney disease stage III with baseline creatinine of 1.4-1.6. ~Kidney function at baseline 11. DVT prophylaxis: Eliquis Active Medications Acetaminophen (Tylenol) 650 mg PO Q6H PRN PRN PRN Reason: Non-cardiac pain (4-10/10) Hydrocodone Bitart/Acetaminophen ([place] 5mg-325mg) 1 - 2 tablet PO Q6H PRN PRN PRN Reason: Pain Score 4-10/10 Al Hydroxide/Mg Hydroxide (Mylanta Ii) 15 - 30 ml PO Q4H PRN PRN PRN Reason: INDIGESTION Albuterol Sulfate (Ventolin Aerosols) 2.5 mg INHALATION Q2H PRN PRN PRN Reason: dyspnea, wheezing Amlodipine Besylate (Norvasc) 5 mg PO DAILY [facility] Apixaban (Eliquis) 2.5 mg PO BID [facility] Last Admin: 04/14/19 00:09 Dose: 2.5 mg Documented by: Aspirin (Ecotrin) 81 mg PO DAILY@0800 [facility] Last Admin: 04/14/19 08:42 Dose: Not Given Documented by: Atenolol (Tenormin (Beta Darcie)) 50 mg PO DAILY [facility] Atorvastatin Calcium (Lipitor) 20 mg PO QHS [facility] Last Admin: 04/14/19 00:09 Dose: 20 mg Documented by: Bupropion HCl (Wellbutrin Tablets) 75 mg PO DAILY [facility] Cholecalciferol (Vitamin D) 2,000 unit PO DAILY [facility] Clopidogrel Bisulfate (Plavix) 75 mg PO DAILY [facility] Dextrose (D50w Syringe) 0 gm IV X1 PRN; Protocol PRN Reason: Hypoglycemia Furosemide (Lasix) 40 mg PO BIDLX [facility] Last Admin: 04/14/19 00:09 Dose: 40 mg Documented by: Glucagon () 1 mg IM .X1 PRN PRN Reason: Hypoglycemia Guaifenesin (Robitussin) 20 ml PO Q4H PRN PRN PRN Reason: COUGH Hydralazine HCl (Apresoline Iv) 10 mg IV Q4H PRN PRN PRN Reason: SBP > 160 Sodium Chloride () 1,000 mls @ 100 mls/hr IV .Q10H [facility] Last Admin: 04/14/19 01:02 Dose: 100 mls/hr Documented by: Azithromycin 500 mg/ Dextrose 255 mls @ 250 mls/hr IV Q24@2200 [facility] Ceftriaxone Sodium 2 gm/ (Sodium Chloride) 50 mls @ 100 mls/hr IV Q24@2200 [facility] Isosorbide Dinitrate (Isordil) 20 mg PO TID [facility] Last Admin: 04/14/19 05:00 Dose: 20 mg Documented by: Lorazepam (Ativan) 0.5 mg PO DAILY PRN PRN PRN Reason: Anixety Losartan Potassium (Cozaar) 25 mg PO BID [facility] Last Admin: 04/14/19 00:09 Dose: 25 mg Documented by: Magnesium Hydroxide (Milk Of Magnesia) 30 ml PO DAILY PRN PRN Reason: Constipation Melatonin (Melatonin) 3 mg PO QHS PRN PRN PRN Reason: INSOMNIA Morphine Sulfate () 1 - 2 mg IV Q4H PRN PRN PRN Reason: Pain Score 1-10/10 Nitroglycerin (Nitrostat) 0.4 mg SUBLINGUAL Q5M PRN PRN Reason: CARDIAC/CHEST PAIN Nutritional Formula (Lactose Free) (Ensure Enlive) 120 ml PO 4X/DAY [facility] Ondansetron HCl (Zofran) 4 mg IV Q8H PRN PRN PRN Reason: NAUSEA/VOMITING Potassium Chloride (K-Dur) 20 meq PO DAILYCM [facility] Last Admin: 04/14/19 08:42 Dose: 20 meq Documented by: Sertraline HCl (Zoloft) 100 mg PO DAILY [facility] Sodium Chloride () 10 - 40 ml IV UD PRN PRN Reason: SALINE FLUSH Throat Lozenges (Cepacol Sore Throat Lozenge) 1 lozenge MUCOUS MEM Q2H PRN PRN PRN Reason: Sore Throat/Cough Clinical Impression(s) from Imaging Studies Chest X-Ray 04/13/19 19:55 IMPRESSION: Left base atelectasis and/or small infiltrate. Cardiomegaly. Electronically Signed: Kulwant Christianson, at 20:11 EST Tel , Service support , Code Visit Inpatient E&M: [id number] Subs Hosp L3
--- NOTE | 2019-04-14 08:15 | RAD_ITS ---
STUDY: X-RAY CHEST REASON FOR EXAM: Male, 83 years old. Six-month history of cough and shortness of breath. TECHNIQUE: AP and lateral views of the chest. COMPARISON: Comparison is made with prior study dated April 13, 2019. FINDINGS: EKG electrodes are seen. Stable left lower lobe infiltrate with blunting of the left cosmetic angle. Minimal increase interstitial markings at the right lung base suggestive of curly B lines. Underlying mild degree of CHF should be ruled out. Sternal cerclage wires and vascular clips are present from a prior sternotomy and coronary artery bypass graft procedure (CABG). Normal mediastinum and rashad. Normal visualized pulmonary arteries. There is atherosclerotic calcification of the aortic arch with tortuosity. Normal visualized thoracic spine. There is degenerative osteoarthritis of the bilateral shoulders. There is no demonstrated abnormality of the visualized soft tissue structures of the upper abdomen. RAD/Chest PA and Lateral IMPRESSION: Stable left lower lobe infiltrate with blunting of the left costophrenic angle increased interstitial markings suggests a mild degree of superimposed CHF. Electronically Signed: Onur Butler, at 11:12 EST , Service support ,
[2019-04-14] MEDS: amLODIPine 5 MG Tablet PO (10:56)
[2019-04-14] MEDS: Clopidogrel Bisulfate 75 MG Tablet PO (10:57)
[2019-04-14] MEDS: Atenolol 50 MG Tablet PO (10:57)
[2019-04-14] MEDS: Sertraline 100 MG Tablet PO (10:58)
[2019-04-14] MEDS: 0.9% Saline Lock 10 ML Syringe IV ×2 (11:50→23:14)
[2019-04-14] MEDS: Ondansetron 4 MG/2 ML Vial IV (11:50)
[2019-04-14] MEDS: buPROPion 75 MG Tablet PO ×2 (12:34→20:43)
--- NOTE | 2019-04-14 12:57 | CASEMGMT ---
CORWIN GRAYSON assessment: Face to Face with patient for initial transition planning/care coordination assessment. RN KENAN introduced self and role at [facility], pt voices understanding and consents to assessment at this time. Pt is lying in bed in no distress at this time. Pt is A/Ox4 at this time and answers all questions appropriately at this time. Care providers, pharmacy, and demographics verified at this time. PCP: Sanna Specialists: felipe Steen Preferred Pharmacy: [facility] mail [place] Insurance: [facility] Prescription Benefit: [employer] Living Will/HPOA: Pt states has LW/HPOA and they are on file at [facility] at this time. Pt's is listed as HPOA but according to pt/chart, she has dementia and caregivers at home. Pt's daughter, Savannah Long, is listed as back up. Jose ManuelBethanyLauren ALIVIA aaron, voices understanding. LNOK: Savannah Long, daughter; Amy Lujan, daughter Living Arrangements: Pt states lives with on main level of 2 story home and states no concerns at home at this time. Pt states is independent with ADL's. Pt states that they have a caregiver for his that comes in [facility] mornings each week for 3 hours and they help with meals, cleaning, etc. Transportation: Pt states drives self or daughter drives and states no transportation concerns at this time. DME/HHC: Pt states has the following DME: cane, walker, w/c, raised toilet seat, grab bars, shower chair, and hand held shower. Pt states no need for any further DME at this time. Pt is currently on 3 liters of oxygen at this time, CM to follow. Pt did have [facility]HC set up at last discharge but states that he does not feel that he needs it at this time. CM to follow. Pt states no hx of SNF in the past. Pt states no concerns with going home at time of discharge. Pt is retired. Pt states does not smoke but does drink 2 beers before dinner every night. Pt voices no further concerns/needs at this time. CM to follow PT/OT eval, home oxygen qualification and for any further discharge planning/needs. Advised pt to ask for CM if any further questions/concerns/needs arise, voices understanding. Pt Goal: Home Plan: Home, pending PT/OT evals. [place] CORWIN CM
[2019-04-14] MEDS: Tamsulosin HCl 0.4 MG Capsule PO (17:10)
[2019-04-15] VITALS (10 sets, daily range): BP systolic 110–150; BP diastolic 56–88; PULSE 63–82; RESP 14–18; TEMP 36.4–37.2; O2SAT 92–95
--- NOTE | 2019-04-15 04:00 | EKG12_ITS ---
Test Reason : AM Blood Pressure : / mmHG Vent. Rate : 078 BPM Atrial Rate : 074 BPM P-R Int : 000 ms QRS Dur : 100 ms QT Int : 438 ms P-R-T Axes : 000 003 090 degrees QTc Int : 499 ms Atrial fibrillation Nonspecific T wave abnormality Prolonged QT Abnormal ECG When compared with ECG of 14-APR-2019 05:52, MANUAL COMPARISON REQUIRED, DATA IS UNCONFIRMED Confirmed by CARLYLE ALEXANDER, ROSINA ([id number]), brands editor DEE DEE BEAVERS ([id number]) on 04/19/2019 9:57:29 AM Referred By: Ashley Lundberg Confirmed By:ROSINA TADEO MD
[2019-04-15 05:10] LABS: Absolute Lymphocyte Count 0.84 X10^3/uL (0.83-4.51); Basophil# 0.03 X10^3/uL; Basophil% 0.3 % (0-1); Eosinophil# 0.27 X10^3/uL; Eosinophils% 2.8 % (0-5); Hemoglobin 11.7 g/dL (13.0-16.5); Lymphocyte # 0.84 X10^3/ul (4.0); Lymphocyte % 8.6 % (19-41); Mean Corp Hgb Conc 32.5 g/dL (32-36); Mean Corpuscular Hgb 29.1 pg (27.0-32.0); Mean Corpuscular Volume 89.6 fL (80-94); Mean Platelet Vol. 10.6 fl (6.2-12.0); Monocyte# 0.54 X10^3/uL; Monocyte% 5.5 % (0-10); NRBC Flagged by Analyzer 0 % (0-5); Neutrophil # 8.04 X10^3/uL (2.7-7.7); Neutrophil % 82.4 % (47-70); Platelet Count 150 K/mm3 (150-450); RBC Distribution Width CV 14.1 % (11.6-14.6); Red Blood Count 4.02 M/mm3 (4.6-6.2); White Blood Count 9.8 K/mm3 (4.4-11.0)
[2019-04-15 05:19] LABS: International Normalized Ratio 1.3; Prothrombin Time (Protime)PT. 16.2 SECONDS (11.7-14.9)
[2019-04-15 05:20] LABS: Partial Thromboplast Time 45.5 Seconds (24.1-36.2)
[2019-04-15] MEDS: Aspirin E.C. 81 MG Tablet PO (05:25)
[2019-04-15] MEDS: Losartan Potassium 25 MG Tablet PO ×2 (05:25→20:53)
[2019-04-15] MEDS: Clopidogrel Bisulfate 75 MG Tablet PO (05:25)
[2019-04-15 05:30] LABS: Anion Gap 9 (5-15); BUN 23 mg/dL (7-18); Calcium,Total 7.7 mg/dL (8.5-10.1); Chloride 105 mmol/L (98-107); Creatinine, Serum 1.53 mg/dL (0.70-1.30); EST Glomerular Filtration Rate 46 mL/min (>60); Est Glom Filt Rate - Afr Amer 56 mL/min (>60); Estimated Creatinine Clearance 37.72 ml/min; Glucose 104 mg/dL (74-106); Potassium 3.6 mmol/L (3.5-5.1); Sodium Level 141 mmol/L (136-145)
[2019-04-15] MEDS: 0.9% Normal Saline 1,000 ML 100 ML IV (11:28)
[2019-04-15] MEDS: Furosemide 40 MG Tablet PO ×2 (11:33→17:24)
[2019-04-15] MEDS: amLODIPine 5 MG Tablet PO (11:36)
[2019-04-15] MEDS: buPROPion 75 MG Tablet PO ×2 (11:37→20:52)
[2019-04-15] MEDS: Sertraline 100 MG Tablet PO (11:37)
[2019-04-15] MEDS: Atenolol 50 MG Tablet PO (11:40)
--- NOTE | 2019-04-15 11:55 | PCM.PROGNOTE ---
<Leigh Parks - Last Filed: 04/15/19 12:12> Patient Problems: Active and Suspected Problems (Last Reviewed 02/26/19 @ 11:28 by Amor Steen MD) Chest pain (Acute) Pneumonia (Acute) Subjective: Patient seen and examined. Underwent stress test this morning. Patient denies symptoms during stress test. He does report continued dyspnea with minimal exertion and generalized weakness. - Physical Exam Vitals/I&O's: Vital Signs Temp Pulse Resp BP Pulse Ox 98.0 F 81 14 132/65 H 93 04/15/19 11:44 04/15/19 11:44 04/15/19 11:44 04/15/19 11:44 04/15/19 11:44 Oxygen Flow Rate (L/min) 2 Oxygen Delivery Method Nasal Cannula Weight: 160 lb 11.472 oz Body Mass Index (BMI) 22.4 Intake and Output for Last 24 Hours 04/13/19 04/14/19 04/15/19 23:59 23:59 23:59 Intake Total 50 / 50 3443.33 / 3683.33 1235 / 1235 Output Total 800 / 1125 800 / 800 Balance 50 / 50 2643.33 / 2558.33 435 / 435 General: Alert, Oriented x3, Cooperative HEENT: Atraumatic, PERRLA, EOMI, Normocephalic Oral: Dry Mucosa Neck: Supple, No JVD, Negative Carotid Bruits Lungs: Clear to auscultation, Diminished Cardiovascular: - - Atrial fibrillation, rate controlled Abdomen: Bowel Sounds Present, Soft, Non Tender, Non-Distended Extremities: No clubbing, No cyanosis, No edema, Capillary Refill Less than 3 Seconds Skin: No rashes, No breakdown Musculoskeletal: No Tenderness to Palpation of Joints or Extremities Neurological: Cranial nerves II-XII grossly intact, Neuro grossly intact Psych/Mental Status: Normal Affect, Appropriate Microbiology Past 72 Hours 04/14/19 00:45 Mucosa - Nose Respiratory Panel (PCR) - Final 04/14/19 00:46 Urine, Clean Catch Streptococcus pneumoniae Antigen (M - Final 04/14/19 00:46 Urine, Clean Catch Legionella Antigen - Final Laboratory Results 04/15/19 05:00: WBC 9.8, RBC 4.02 L, Hgb 11.7 L, Hct 36.0 L, MCV 89.6, MCH 29.1, MCHC 32.5, RDW Std Deviation 46.0 H, RDW Coeff of Justice 14.1, Plt Count 150, MPV 10.6, Immature Gran % (Auto) 0.400, Neut % (Auto) 82.4 H, Lymph % (Auto) 8.6 L, [place] % (Auto) 5.5, Eos % (Auto) 2.8, Baso % (Auto) 0.3, Absolute Neuts (auto) 8.0 H, Absolute Lymphs (auto) 0.84, Nucleated RBC % 0 04/15/19 05:00: PT 16.2 H, INR 1.3, APTT 45.5 H 04/15/19 05:00: Sodium 141, Potassium 3.6, Chloride 105, Carbon Dioxide 27.0, Anion Gap 9, BUN 23 H, Creatinine 1.53 H, Estim Creat Clear Calc 37.72, Est GFR (MDRD) Af Amer 56 L, Est GFR (MDRD) Non-Af 46 L, BUN/Creatinine Ratio 15.0, Glucose 104, Calcium 7.7 L Current Medications Acetaminophen (Tylenol) 650 mg PO Q6H PRN PRN PRN Reason: Non-cardiac pain (4-10/10) Hydrocodone Bitart/Acetaminophen ([place] 5mg-325mg) 1 - 2 tablet PO Q6H PRN PRN PRN Reason: Pain Score 4-10/10 Al Hydroxide/Mg Hydroxide (Mylanta Ii) 15 - 30 ml PO Q4H PRN PRN PRN Reason: INDIGESTION Albuterol Sulfate (Ventolin Aerosols) 2.5 mg INHALATION Q2H PRN PRN PRN Reason: dyspnea, wheezing Amlodipine Besylate (Norvasc) 5 mg PO DAILY [facility] [place] Last Admin: 04/15/19 11:36 Dose: 5 mg Documented by: Apixaban (Eliquis) 2.5 mg PO BID [facility] [place] Last Admin: 04/14/19 20:43 Dose: 2.5 mg Documented by: Aspirin (Ecotrin) 81 mg PO DAILY@0800 [facility] [place] Last Admin: 04/15/19 05:25 Dose: 81 mg Documented by: Atenolol (Tenormin (Beta Darcie)) 50 mg PO DAILY [facility] [place] Last Admin: 04/15/19 11:40 Dose: 50 mg Documented by: Atorvastatin Calcium (Lipitor) 20 mg PO QHS [facility] [place] Last Admin: 04/14/19 20:43 Dose: 20 mg Documented by: Bupropion HCl (Wellbutrin Tablets) 75 mg PO BID [facility] [place] Last Admin: 04/15/19 11:37 Dose: 75 mg Documented by: Cholecalciferol (Vitamin D) 2,000 unit PO DAILY [facility] [place] Last Admin: 04/15/19 11:36 Dose: 2,000 unit Documented by: Clopidogrel Bisulfate (Plavix) 75 mg PO DAILY [facility] [place] Last Admin: 04/15/19 05:25 Dose: 75 mg Documented by: Dextrose (D50w Syringe) 0 gm IV X1 PRN; Protocol PRN Reason: Hypoglycemia Furosemide (Lasix) 40 mg PO BIDLX [facility] [place] Last Admin: 04/15/19 11:33 Dose: 40 mg Documented by: Glucagon () 1 mg IM .X1 PRN PRN Reason: Hypoglycemia Guaifenesin (Robitussin) 20 ml PO Q4H PRN PRN PRN Reason: COUGH Hydralazine HCl (Apresoline Iv) 10 mg IV Q4H PRN PRN PRN Reason: SBP > 160 Sodium Chloride () 1,000 mls @ 100 mls/hr IV .Q10H [facility] [place] Last Admin: 04/15/19 11:28 Dose: 100 mls/hr Documented by: Azithromycin 500 mg/ Dextrose 255 mls @ 250 mls/hr IV Q24@2200 [facility] [place] Last Infusion: 04/14/19 23:13 Dose: Infused Documented by: Ceftriaxone Sodium 2 gm/ (Sodium Chloride) 50 mls @ 100 mls/hr IV Q24@2200 [facility] [place] Last Infusion: 04/14/19 21:26 Dose: Infused Documented by: Isosorbide Dinitrate (Isordil) 20 mg PO TID [facility] [place] Last Admin: 04/15/19 05:28 Dose: Not Given Documented by: Lorazepam (Ativan) 0.5 mg PO DAILY PRN PRN PRN Reason: Anixety Losartan Potassium (Cozaar) 25 mg PO BID [facility] [place] Last Admin: 04/15/19 05:25 Dose: 25 mg Documented by: Magnesium Hydroxide (Milk Of Magnesia) 30 ml PO DAILY PRN PRN Reason: Constipation Melatonin (Melatonin) 3 mg PO QHS PRN PRN PRN Reason: INSOMNIA Morphine Sulfate () 1 - 2 mg IV Q4H PRN PRN PRN Reason: Pain Score 1-10/10 Nitroglycerin (Nitrostat) 0.4 mg SUBLINGUAL Q5M PRN PRN Reason: CARDIAC/CHEST PAIN Nutritional Formula (Lactose Free) (Ensure Enlive) 120 ml PO 4X/DAY [facility] [place] Last Admin: 04/15/19 11:28 Dose: Not Given Documented by: Ondansetron HCl (Zofran) 4 mg IV Q8H PRN PRN PRN Reason: NAUSEA/VOMITING Last Admin: 04/14/19 11:50 Dose: 4 mg Documented by: Potassium Chloride (K-Dur) 20 meq PO DAILYCM [facility] [place] Last Admin: 04/15/19 11:36 Dose: 20 meq Documented by: Sertraline HCl (Zoloft) 100 mg PO DAILY [facility] [place] Last Admin: 04/15/19 11:37 Dose: 100 mg Documented by: Sodium Chloride () 10 - 40 ml IV UD PRN PRN Reason: SALINE FLUSH Last Admin: 04/14/19 23:14 Dose: 10 ml Documented by: Tamsulosin HCl (Flomax) 0.4 mg PO DAILY@1730 [facility] [place] Last Admin: 04/14/19 17:10 Dose: 0.4 mg Documented by: Throat Lozenges (Cepacol Sore Throat Lozenge) 1 lozenge MUCOUS MEM Q2H PRN PRN PRN Reason: Sore Throat/Cough Medical Necessity - Tobacco Use Smoking Status: Former smoker Tobacco Use: Non-smoker Assessment/Plan All Active Problems (Last Reviewed 02/26/19 @ 11:28 by Amor Steen MD) Chest pain (Acute) Pneumonia (Acute) Non-ST elevated myocardial infarction (Acute ~01/23/19) Acute respiratory failure with hypoxia (Acute) CHF exacerbation (Acute) Pneumonia (Resolved) 1. Acute hypoxic respiratory insufficiency secondary to acute community-acquired pneumonia-chest x-ray admission with left base infiltrate. Mild leukocytosis and fever. Continue azithromycin and Rocephin. Albuterol and DuoNeb aerosols. Respiratory panel negative. Urine negative for strep and Legionella. Blood culture pending. Send sputum for culture. Continue supplement oxygen to maintain O2 sat above 90%. Walking pulse ox prior to discharge. PT/OT. 2. Chest pain, rule out ACS-troponin negative. EKG without ST-T changes. Patient underwent nuclear stress test this morning, report pending. 3. Severe pulmonary hypertension-RVSP 80 mmHg on echo December 2018. 4. Chronic systolic CHF-echo from December 2018 demonstrated an EF of 45%, mild mitral valve insufficiency, moderate tricuspid valve insufficiency, RVSP estimated to be 80 mmHg. Continue home Lasix regimen. 5. 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 6. Hypertension-continue atenolol, Lasix, isosorbide, losartan. 7. Hyperlipidemia-continue statin regimen. 8. Chronic atrial fibrillation-rate controlled. Continue Eliquis, atenolol. 9. Anxiety, depression-continue sertraline, bupropion, lorazepam regimen. 10. Chronic kidney disease stage III-at baseline, trend BMP. 11. BPH-continue Flomax regimen. DVT prophylaxis-Eliquis Discharge planning: Follow PT/OT evaluation. This patient was seen by LEXIE Rich under the supervision of Dr. Silva. <Honey Silva - Last Filed: 04/15/19 16:31> - Physical Exam Vitals/I&O's: Vital Signs Temp Pulse Resp BP Pulse Ox 97.9 F 66 16 150/79 H 95 04/15/19 14:42 04/15/19 14:42 04/15/19 14:42 04/15/19 14:42 04/15/19 14:42 Oxygen Flow Rate (L/min) 2 Oxygen Delivery Method Nasal Cannula Weight: 72.9 kg Body Mass Index (BMI) 22.4 Intake and Output for Last 24 Hours 04/13/19 04/14/19 04/15/19 23:59 23:59 23:59 Intake Total 50 / 50 3443.33 / 3683.33 1450 / 1450 Output Total 800 / 1125 800 / 800 Balance 50 / 50 2643.33 / 2558.33 650 / 650 Microbiology Past 72 Hours 04/14/19 00:45 Mucosa - Nose Respiratory Panel (PCR) - Final 04/14/19 00:46 Urine, Clean Catch Streptococcus pneumoniae Antigen (M - Final 04/14/19 00:46 Urine, Clean Catch Legionella Antigen - Final Laboratory Results 04/15/19 05:00: WBC 9.8, RBC 4.02 L, Hgb 11.7 L, Hct 36.0 L, MCV 89.6, MCH 29.1, MCHC 32.5, RDW Std Deviation 46.0 H, RDW Coeff of Justice 14.1, Plt Count 150, MPV 10.6, Immature Gran % (Auto) 0.400, Neut % (Auto) 82.4 H, Lymph % (Auto) 8.6 L, [place] % (Auto) 5.5, Eos % (Auto) 2.8, Baso % (Auto) 0.3, Absolute Neuts (auto) 8.0 H, Absolute Lymphs (auto) 0.84, Nucleated RBC % 0 04/15/19 05:00: PT 16.2 H, INR 1.3, APTT 45.5 H 04/15/19 05:00: Sodium 141, Potassium 3.6, Chloride 105, Carbon Dioxide 27.0, Anion Gap 9, BUN 23 H, Creatinine 1.53 H, Estim Creat Clear Calc 37.72, Est GFR (MDRD) Af Amer 56 L, Est GFR (MDRD) Non-Af 46 L, BUN/Creatinine Ratio 15.0, Glucose 104, Calcium 7.7 L Current Medications Acetaminophen (Tylenol) 650 mg PO Q6H PRN PRN PRN Reason: Non-cardiac pain (4-10/10) Hydrocodone Bitart/Acetaminophen ([place] 5mg-325mg) 1 - 2 tablet PO Q6H PRN PRN PRN Reason: Pain Score 4-10/10 Al Hydroxide/Mg Hydroxide (Mylanta Ii) 15 - 30 ml PO Q4H PRN PRN PRN Reason: INDIGESTION Albuterol Sulfate (Ventolin Aerosols) 2.5 mg INHALATION Q2H PRN PRN PRN Reason: dyspnea, wheezing Amlodipine Besylate (Norvasc) 5 mg PO DAILY [facility] [place] Last Admin: 04/15/19 11:36 Dose: 5 mg Documented by: Apixaban (Eliquis) 2.5 mg PO BID [facility] [place] Last Admin: 04/15/19 16:22 Dose: Not Given Documented by: Aspirin (Ecotrin) 81 mg PO DAILY@0800 [facility] [place] Last Admin: 04/15/19 05:25 Dose: 81 mg Documented by: Atenolol (Tenormin (Beta Darcie)) 50 mg PO DAILY [facility] [place] Last Admin: 04/15/19 11:40 Dose: 50 mg Documented by: Atorvastatin Calcium (Lipitor) 20 mg PO QHS [facility] [place] Last Admin: 04/14/19 20:43 Dose: 20 mg Documented by: Bupropion HCl (Wellbutrin Tablets) 75 mg PO BID [facility] [place] Last Admin: 04/15/19 11:37 Dose: 75 mg Documented by: Cholecalciferol (Vitamin D) 2,000 unit PO DAILY [facility] [place] Last Admin: 04/15/19 11:36 Dose: 2,000 unit Documented by: Clopidogrel Bisulfate (Plavix) 75 mg PO DAILY [facility] [place] Last Admin: 04/15/19 05:25 Dose: 75 mg Documented by: Dextrose (D50w Syringe) 0 gm IV X1 PRN; Protocol PRN Reason: Hypoglycemia Furosemide (Lasix) 40 mg PO BIDLX [facility] [place] Last Admin: 04/15/19 11:33 Dose: 40 mg Documented by: Furosemide (Lasix) 20 mg IV DAILY [facility] [place] Glucagon () 1 mg IM .X1 PRN PRN Reason: Hypoglycemia Guaifenesin (Robitussin) 20 ml PO Q4H PRN PRN PRN Reason: COUGH Hydralazine HCl (Apresoline Iv) 10 mg IV Q4H PRN PRN PRN Reason: SBP > 160 Azithromycin 500 mg/ Dextrose 255 mls @ 250 mls/hr IV Q24@2200 [facility] [place] Last Infusion: 04/14/19 23:13 Dose: Infused Documented by: Ceftriaxone Sodium 2 gm/ (Sodium Chloride) 50 mls @ 100 mls/hr IV Q24@2200 [facility] [place] Last Infusion: 04/14/19 21:26 Dose: Infused Documented by: Isosorbide Dinitrate (Isordil) 20 mg PO TID [facility] [place] Last Admin: 04/15/19 14:35 Dose: 20 mg Documented by: Lorazepam (Ativan) 0.5 mg PO DAILY PRN PRN PRN Reason: Anixety Losartan Potassium (Cozaar) 25 mg PO BID [facility] [place] Last Admin: 04/15/19 05:25 Dose: 25 mg Documented by: Magnesium Hydroxide (Milk Of Magnesia) 30 ml PO DAILY PRN PRN Reason: Constipation Melatonin (Melatonin) 3 mg PO QHS PRN PRN PRN Reason: INSOMNIA Morphine Sulfate () 1 - 2 mg IV Q4H PRN PRN PRN Reason: Pain Score 1-10/10 Nitroglycerin (Nitrostat) 0.4 mg SUBLINGUAL Q5M PRN PRN Reason: CARDIAC/CHEST PAIN Nutritional Formula (Lactose Free) (Ensure Enlive) 120 ml PO 4X/DAY [facility] [place] Last Admin: 04/15/19 14:35 Dose: Not Given Documented by: Ondansetron HCl (Zofran) 4 mg IV Q8H PRN PRN PRN Reason: NAUSEA/VOMITING Last Admin: 04/14/19 11:50 Dose: 4 mg Documented by: Potassium Chloride (K-Dur) 20 meq PO DAILYCM [facility] [place] Last Admin: 04/15/19 11:36 Dose: 20 meq Documented by: Sertraline HCl (Zoloft) 100 mg PO DAILY [facility] [place] Last Admin: 04/15/19 11:37 Dose: 100 mg Documented by: Sodium Chloride () 10 - 40 ml IV UD PRN PRN Reason: SALINE FLUSH Last Admin: 04/14/19 23:14 Dose: 10 ml Documented by: Tamsulosin HCl (Flomax) 0.4 mg PO DAILY@1730 [facility] [place] Last Admin: 04/14/19 17:10 Dose: 0.4 mg Documented by: Throat Lozenges (Cepacol Sore Throat Lozenge) 1 lozenge MUCOUS MEM Q2H PRN PRN PRN Reason: Sore Throat/Cough Assessment/Plan This patient was seen in conjunction with Leigh Parks MARGARINE CHURN OPERATOR. I have independently interviewed and examined the patient and reviewed pertinent historical, laboratory, and other data. Please refer to her note for patient's presentation, findings, and recommendations. Patient was seen and examined. Feels improved. No acute events overnight. States done today that was negative. Vitals were reviewed -stable Physical Exam: Gen: Comfortable, not pale, not jaundiced, alert oriented x3, on 2L oxygen CVS:HS I +II, regular, no murmurs RESP: Diminished at the lung bases GI: BS present and normal, nontender, no palpable organs EXT:No edema Labs reviewed: ASSESSMENT: 1. Hypoxia 2. Chest pain, atypical 3. Severe pulmonary hypertension 4. Chroinc systolic CHF, EF 45% 5. Hypertension 6. Hyperlipidemia 7. Chronic atrial fibrillation 8. Anxiety/depression Meds reviewed Plan: Continue to wean off oxygen Reevaluate for ambulatory oxygen tomorrow We will discharge tomorrow if stable Code Visit Inpatient E&M: 72511 Subs Hosp L2
[2019-04-15] MEDS: Isosorbide DN 20 MG Tablet PO ×2 (14:35→20:53)
--- NOTE | 2019-04-15 14:36 | STRESSREP_ITS ---
Stress Test Report Date: 04/15/2019 Procedure: Pharmacologic stress nuclear imaging study Indications: Chest pain Consent: Per the patient Procedure: The patient underwent pharmacologic (Regadenoson) evaluation with a peak heart rate of 87 beats per minute (63 %predicted maximal heart rate) and a peak blood pressure of 130/62 mmHg. The baseline ECG demonstrated [atrial fibrillation]. EKG during lexiscan infusion revealed no significant ischemic changes. EKG post infusion revealed no significant ischemic changes [There were no significant cardiac dysrhythmias pretest, during pharmacologic infusion, or recovery]. [There was no complaint of chest discomfort during pharmacologic infusion or recovery]. The examination was discontinued secondary to completion of protocol. Impression: 1. Lexiscan stress test test is negative for Lexiscan infusion induced EKG changes of ischemia. 2. Lexiscan stress test test is negative for Lexiscan infusion induced chest pain. 3. Results of the nuclear portion of the test is as below Myocardial perfusion imaging study: Technique: The patient was injected with 12 millicuries of technetium 99m Cardiolite and subsequently rest SPECT Cardiolite nuclear imaging was obtained in the horizontal long, vertical long, and short axis views. The patient underwent pharmacologic (Regadenoson) evaluation. Please see above for details. The patient was injected with [] millicuries of technetium 99m Cardiolite and subsequently stress SPECT Cardiolite nuclear imaging was obtained in the horizo ntal long, vertical long, and short axis views. A gated Cardiolite study at peak stress was obtained. Interpretation: Rest and stress SPECT Cardiolite nuclear imaging status post realignment, nor malization, and attenuation correction demonstrate severe decrease in the radioisotope uptake in the lateral wall and inferolateral zamora on both the rest and stress images suggestive of infarction in this region. There is no significant reversibility suggestive of significant ischemia. Gated images reveal global hypokinesis. The reported LVEF is 37 %. Impression: 1. There is no evidence of significant ischemia. Evidence of prior lateral and inferolateral myocardial infarction. 2. Estimated ejection fraction is 37%. This note was generated with Googleation software. It may contain incorrect words, spelling, and punctuation that were not noted in checking the note before signing.
[2019-04-15] MEDS: Tamsulosin HCl 0.4 MG Capsule PO (17:24)
[2019-04-15] MEDS: 0.9% Saline Lock 10 ML Syringe IV (20:52)
[2019-04-15] MEDS: Atorvastatin Calcium 20 MG Tablet PO (20:52)
[2019-04-15] MEDS: APIXABAN 2.5 MG TABLET PO (20:53)
[2019-04-16] VITALS (7 sets, daily range): BP systolic 106–113; BP diastolic 48–57; PULSE 40–65; RESP 16–18; TEMP 36.4–36.7; O2SAT 86–97
[2019-04-16] MEDS: Isosorbide DN 20 MG Tablet PO ×2 (05:37→13:28)
[2019-04-16] MEDS: 0.9% Saline Lock 10 ML Syringe IV (05:38)
[2019-04-16 06:39] LABS: Hematocrit 35.9 % (40-54); Hemoglobin 11.6 g/dL (13.0-16.5); Mean Corp Hgb Conc 32.3 g/dL (32-36); Mean Corpuscular Hgb 28.8 pg (27.0-32.0); Mean Corpuscular Volume 89.1 fL (80-94); Mean Platelet Vol. 10.7 fl (6.2-12.0); Platelet Count 159 K/mm3 (150-450); RBC Distribution Width CV 13.9 % (11.6-14.6); RBC Distribution Width SD 45.3 fl (35.1-43.9); Red Blood Count 4.03 M/mm3 (4.6-6.2); White Blood Count 7.6 K/mm3 (4.4-11.0)
[2019-04-16 07:03] LABS: Anion Gap 8 (5-15); BUN 24 mg/dL (7-18); Chloride 107 mmol/L (98-107); Creatinine, Serum 1.26 mg/dL (0.70-1.30); EST Glomerular Filtration Rate 58 mL/min (>60); Est Glom Filt Rate - Afr Amer 70 mL/min (>60); Glucose 83 mg/dL (74-106); Potassium 3.4 mmol/L (3.5-5.1); Sodium Level 143 mmol/L (136-145)
[2019-04-16] MEDS: Aspirin E.C. 81 MG Tablet PO (09:49)
[2019-04-16] MEDS: APIXABAN 2.5 MG TABLET PO (09:50)
[2019-04-16] MEDS: buPROPion 75 MG Tablet PO (09:50)
[2019-04-16] MEDS: Clopidogrel Bisulfate 75 MG Tablet PO (09:50)
[2019-04-16] MEDS: Furosemide 40 MG Tablet PO (09:50)
[2019-04-16] MEDS: Losartan Potassium 25 MG Tablet PO (09:50)
[2019-04-16] MEDS: Atenolol 50 MG Tablet PO (09:51)
[2019-04-16] MEDS: Sertraline 100 MG Tablet PO (09:51)
--- NOTE | 2019-04-16 11:51 | PCM.DC ---
- Discharge Diagnoses Current Active Problems: Current Active and Chronic Problems (Last Reviewed 02/26/19 @ 11:28 by Amor Steen MD) Chest pain (Acute) CKD (chronic kidney disease), stage III (Chronic) Pneumonia (Acute) You will use the following diet at home:: No restrictions Allergies/Adverse Reactions: Allergies atorvastatin calcium [From Lipitor] Adverse Reaction (Verified 04/13/19 18:56) Other LEG CRAMPS WITH 40MG DOSE BUT TOLERATES LOWER DOSE buspirone HCl [From BuSpar] Adverse Reaction (Verified 04/13/19 18:56) Other FAINT fosinopril sodium [From Monopril] Adverse Reaction (Verified 04/13/19 18:56) Other LEG CRAMPS Iodinated Contrast Media [CONTRASTS] Adverse Reaction (Verified 04/13/19 18:56) Itching ramipril [From Altace] Adverse Reaction (Verified 04/13/19 18:56) Other LEG CRAMPS simvastatin Adverse Reaction (Verified 04/13/19 18:56) Other WHEN MIXED WITH DILTIAZEM CAUSES SEVERE MUSCLE CRAMPS Medications to take at Discharge Atenolol [Tenormin (beta vlad)] 50 mg PO DAILY 06/01/14 Calcium Carb/Vitamin D [Caltrate-600 With Vit D Tab] 1 tab PO BID 06/01/14 Cholecalciferol (VIT D3) [Vitamin D3] 2,000 unit PO DAILY 06/01/14 Multivitamins,Therapeutic [Multivitamin] 1 tab PO DAILY 06/01/14 Nitroglycerin (INPATIENT USE) [Nitrostat] 0.4 mg SUBLINGUAL PRN PRN 06/08/14 lorazepam 0.5 mg tablet 0.5 mg PO DAILY PRN 15 Days tab 11/09/18 Amlodipine Besylate [Norvasc] 5 mg PO DAILY 04/13/19 Apixaban [Eliquis] 2.5 mg PO BID 04/13/19 Atorvastatin Calcium 20 mg PO QHS 04/13/19 Bupropion HCl 75 mg PO BID 04/13/19 Clopidogrel Bisulfate [Clopidogrel] 75 mg PO DAILY 04/13/19 Furosemide 40 mg PO MOWETHFRSA 04/13/19 Furosemide [Lasix] 80 mg PO SUTU 04/13/19 Isosorbide Dinitrate 20 mg PO TID 04/13/19 Losartan Potassium [Cozaar] 25 mg PO BID 04/13/19 [place]-3S/Dha/Epa/Fish Oil [[place]-3 Fish Oil 1,200 mg Sfgl] 1 cap PO BID 04/13/19 Potassium Chloride [K-Tab ER] 20 meq PO DAILY 04/13/19 Sertraline HCl 100 mg PO DAILY 04/13/19 Tamsulosin HCl 0.4 mg PO DAILY 04/13/19 Amox/Clavulanate Tablet [Augmentin Tablet] 875 mg PO Q12H #8 tab 04/16/19 Azithromycin 500 mg PO DAILY 1 Days #1 tab 04/16/19 The following prescriptions were given: Amox/Clavulanate Tablet [Augmentin Tablet] 875 mg PO Q12H #8 tab Transmission Status: Received by [facility]/pharmacy #[id number] Azithromycin 500 mg PO DAILY 1 Days #1 tab Transmission Status: Pending to [facility]/pharmacy #[id number] Primary Care Physician: Adalgisa Isidro MD [Primary Care Provider] - Please follow up with your Primary Care Physician in: 1 Week Test Results: Test results from this visit will be discussed in further detail at your follow-up appointment, if applicable. Please Follow Up With: Amor Steen MD Please Follow Up With: Sage Iverson Proposed Discharge Date: 04/16/19
--- NOTE | 2019-04-16 12:34 | CASEMGMT ---
Therapy is recommending further therapy at discharge. ALIVIA spoke with patient and his daughter Amy. Introduced self and role at [facility]. SW explained that therapy is recommending further therapy and would he be agreeable to home health. He said he would be in agreement and would like [facility] as he has had them before. ALIVIA let them both know the RN KENAN will be working on setting up home oxygen. ALIVIA called Tere at [facility] and left her a voice mail with referral for custodial, PT, OT, and Social Work. Plan: Home with [facility] custodial, PT, OT, and Social Work. Home O2 being set up by RN KENAN. Kinjal [employer]
--- NOTE | 2019-04-16 13:00 | DS.PCM_ITS ---
<Leigh Parks - Last Filed: 04/16/19 13:09> Discharge Date and Diagnosis Date of Admission: 04/13/19 Date of Discharge: 04/16/19 - Primary Discharge Diagnosis Active and Suspected Problems (Last Reviewed 02/26/19 @ 11:28 by Amor Steen MD) 1. Acute hypoxic respiratory insufficiency secondary to acute community- acquired pneumonia 2. Chest pain, ACS ruled out 3. Severe pulmonary hypertension 4. Chronic systolic CHF 5. CAD status post CABG x5 and PCI x6 6. Hypertension 7. Hyperlipidemia 8. Chronic atrial fibrillation 9. Anxiety, depression 10. Chronic kidney disease stage III 11. BPH - Secondary Discharge Diagnosis Chronic Problems (Last Reviewed 02/26/19 @ 11:28 by Amor Steen MD) CKD (chronic kidney disease), stage III (Chronic) Presence of stent in coronary artery (Chronic ~10/2016) PTCA/CRYSTAL to SVG to obtuse marginal in August 2016; Staged PTCA/CRYSTAL to RCA in October 2016; Atherosclerosis of coronary artery bypass graft without angina pectoris (Chronic) Essential hypertension (Chronic) Pure hypercholesterolemia (Chronic) Atherosclerotic heart disease (Chronic) S/P CABG in 1993 with MARIA to LAD, SVG to OM1, and SVG to first diagonal; PTCA/CRYSTAL to SVG to obtuse marginal in August 2016; Staged PTCA/CRYSTAL to RCA in October 2016; BPH (benign prostatic hyperplasia) (Chronic) Hyperlipidemia (Chronic) Atrial fibrillation with RVR (Chronic) Hx of CABG (Chronic ~1993) Hospital Course and Treatment Imaging Results: Diagnostic Data Chest X-Ray 04/14/19 08:15 IMPRESSION: Stable left lower lobe infiltrate with blunting of the left costophrenic angle increased interstitial markings suggests a mild degree of superimposed CHF. Electronically Signed: Onur Butler, at 11:12 EST , Service support , Operations: None Procedures: Stress test Summary of Care Provided: The patient is a 83 year old M admitted 04/13/2018 due to chest pain, fatigue, malaise and dyspnea. 1. Acute hypoxic respiratory insufficiency secondary to acute community- acquired pneumonia-chest x-ray admission with left base infiltrate. Mild leukocytosis and fever resolved. Respiratory panel negative. Urine negative for strep and Legionella. Blood culture shows no growth thus far. Patient unable to produce sputum for culture. IV azithromycin and IV Rocephin during admission. Discharge on azithromycin 5 mg x 1 dose to complete course as well as Augmentin 875 mg p.o. twice daily for 4 days. Patient qualified for home oxygen and will continue 2 L nasal cannula supplemental oxygen with ambulation. He is ambulatory in the home. Follow-up with primary care provider in 1 week. 2. Chest pain, ACS ruled out-troponin negative. EKG without ST-T changes. Patient underwent nuclear stress test which was negative for ischemia. 3. Severe pulmonary hypertension-RVSP 80 mmHg on echo December 2018. 4. Chronic systolic CHF-echo from December 2018 demonstrated an EF of 45%, mild mitral valve insufficiency, moderate tricuspid valve insufficiency, RVSP estimated to be 80 mmHg. Continue home Lasix regimen. 5. 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 6. Hypertension-continue atenolol, Lasix, isosorbide, losartan. 7. Hyperlipidemia-continue statin regimen. 8. Chronic atrial fibrillation-rate controlled. Continue Eliquis, atenolol. 9. Anxiety, depression-continue sertraline, bupropion, lorazepam regimen. 10. Chronic kidney disease stage III-at baseline. 11. BPH-continue Flomax regimen. General: Alert, Oriented x3, Cooperative HEENT: Atraumatic, PERRLA, EOMI, Normocephalic Oral: Dry Mucosa Neck: Supple, No JVD, Negative Carotid Bruits Lungs: Clear to auscultation, Diminished Cardiovascular: Atrial fibrillation, rate controlled Abdomen: Bowel Sounds Present, Soft, Non Tender, Non-Distended Extremities: No clubbing, No cyanosis, No edema, Capillary Refill Less than 3 Seconds Skin: No rashes, No breakdown Musculoskeletal: No Tenderness to Palpation of Joints or Extremities Neurological: Cranial nerves II-XII grossly intact, Neuro grossly intact Psych/Mental Status: Normal Affect, Appropriate Patient seen and examined prior to discharge. Physical assessment as noted above. Patient is stable for discharge with follow up recommendations as noted above. This patient was seen by LEXIE Rich under the supervision of Dr. Silva. - Physical Exam Vitals/I&O's: Vital Signs Temp Pulse Resp BP Pulse Ox 97.5 F L 56 L 18 106/49 L 91 04/16/19 09:38 04/16/19 09:38 04/16/19 09:38 04/16/19 09:38 04/16/19 12:31 Oxygen Flow Rate (L/min) [ 2 AMBULATION with Oxygen] Oxygen Flow Rate (L/min) [ 0 AMBULATING on Room Air] Oxygen Flow Rate (L/min) [At 0 REST on Room Air] Oxygen Flow Rate (L/min) 2 Oxygen Delivery Method Nasal Cannula Weight: 160 lb 11.472 oz Body Mass Index (BMI) 22.4 Intake and Output for Last 24 Hours 04/14/19 04/15/19 04/16/19 23:59 23:59 23:59 Intake Total 3443.33 / 3683.33 1855 / 1855 Output Total 800 / 1125 1000 / 1000 150 / 150 Balance 2643.33 / 2558.33 855 / 855 -150 / -150 Microbiology Past 72 Hours 04/15/19 16:30 Stool C. difficile DNA Amplification - Final 04/14/19 00:45 Mucosa - Nose Respiratory Panel (PCR) - Final 04/14/19 00:46 Urine, Clean Catch Streptococcus pneumoniae Antigen (M - Fin al 04/14/19 00:46 Urine, Clean Catch Legionella Antigen - Final Laboratory Results 04/16/19 06:20: WBC 7.6, RBC 4.03 L, Hgb 11.6 L, Hct 35.9 L, MCV 89.1, MCH 28.8, MCHC 32.3, RDW Std Deviation 45.3 H, RDW Coeff of Justice 13.9, Plt Count 159, MPV 10.7 04/16/19 06:20: Sodium 143, Potassium 3.4 L, Chloride 107, Carbon Dioxide 28.0, Anion Gap 8, BUN 24 H, Creatinine 1.26, Estim Creat Clear Calc 45.80, Est GFR (MDRD) Af Amer 70, Est GFR (MDRD) Non-Af 58 L, BUN/Creatinine Ratio 19.0, Glucose 83, Calcium 8.0 L Current Medications Acetaminophen (Tylenol) 650 mg PO Q6H PRN PRN PRN Reason: Non-cardiac pain (-03/04) Hydrocodone Bitart/Acetaminophen ([place] 5mg-325mg) 1 - 2 tablet PO Q6H PRN PRN PRN Reason: Pain Score 4-10/10 Al Hydroxide/Mg Hydroxide (Mylanta Ii) 15 - 30 ml PO Q4H PRN PRN PRN Reason: INDIGESTION Albuterol Sulfate (Ventolin Aerosols) 2.5 mg INHALATION Q2H PRN PRN PRN Reason: dyspnea, wheezing Amlodipine Besylate (Norvasc) 5 mg PO DAILY [facility] Last Admin: 04/16/19 09:50 Dose: Not Given Documented by: Apixaban (Eliquis) 2.5 mg PO BID [facility] Last Admin: 04/16/19 09:50 Dose: 2.5 mg Documented by: Aspirin (Ecotrin) 81 mg PO DAILY@0800 [facility] Last Admin: 04/16/19 09:49 Dose: 81 mg Documented by: Atenolol (Tenormin (Beta Darcie)) 50 mg PO DAILY [facility] Last Admin: 04/16/19 09:51 Dose: 50 mg Documented by: Atorvastatin Calcium (Lipitor) 20 mg PO QHS [facility] Last Admin: 04/15/19 20:52 Dose: 20 mg Documented by: Bupropion HCl (Wellbutrin Tablets) 75 mg PO BID [facility] Last Admin: 04/16/19 09:50 Dose: 75 mg Documented by: Cholecalciferol (Vitamin D) 2,000 unit PO DAILY [facility] Last Admin: 04/16/19 09:50 Dose: 2,000 unit Documented by: Clopidogrel Bisulfate (Plavix) 75 mg PO DAILY [facility] Last Admin: 04/16/19 09:50 Dose: 75 mg Documented by: Dextrose (D50w Syringe) 0 gm IV X1 PRN; Protocol PRN Reason: Hypoglycemia Furosemide (Lasix) 40 mg PO BIDLX [facility] Last Admin: 04/16/19 09:50 Dose: 40 mg Documented by: Glucagon () 1 mg IM .X1 PRN PRN Reason: Hypoglycemia Guaifenesin (Robitussin) 20 ml PO Q4H PRN PRN PRN Reason: COUGH Hydralazine HCl (Apresoline Iv) 10 mg IV Q4H PRN PRN PRN Reason: SBP > 160 Azithromycin 500 mg/ Dextrose 255 mls @ 250 mls/hr IV Q24@2200 [facility] Last Infusion: 04/15/19 22:44 Dose: Infused Documented by: Ceftriaxone Sodium 2 gm/ (Sodium Chloride) 50 mls @ 100 mls/hr IV Q24@2200 [facility] Last Infusion: 04/15/19 21:30 Dose: Infused Documented by: Isosorbide Dinitrate (Isordil) 20 mg PO TID [facility] Last Admin: 04/16/19 05:37 Dose: 20 mg Documented by: Lorazepam (Ativan) 0.5 mg PO DAILY PRN PRN PRN Reason: Anixety Losartan Potassium (Cozaar) 25 mg PO BID [facility] Last Admin: 04/16/19 09:50 Dose: 25 mg Documented by: Magnesium Hydroxide (Milk Of Magnesia) 30 ml PO DAILY PRN PRN Reason: Constipation Melatonin (Melatonin) 3 mg PO QHS PRN PRN PRN Reason: INSOMNIA Morphine Sulfate () 1 - 2 mg IV Q4H PRN PRN PRN Reason: Pain Score 1-10/10 Nitroglycerin (Nitrostat) 0.4 mg SUBLINGUAL Q5M PRN PRN Reason: CARDIAC/CHEST PAIN Nutritional Formula (Lactose Free) (Ensure Enlive) 120 ml PO 4X/DAY [facility] Last Admin: 04/16/19 09:49 Dose: 120 ml Documented by: Ondansetron HCl (Zofran) 4 mg IV Q8H PRN PRN PRN Reason: NAUSEA/VOMITING Last Admin: 04/14/19 11:50 Dose: 4 mg Documented by: Potassium Chloride (K-Dur) 20 meq PO DAILYCM [facility] Last Admin: 04/16/19 09:50 Dose: 20 meq Documented by: Sertraline HCl (Zoloft) 100 mg PO DAILY [facility] Last Admin: 04/16/19 09:51 Dose: 100 mg Documented by: Sodium Chloride () 10 - 40 ml IV UD PRN PRN Reason: SALINE FLUSH Last Admin: 04/16/19 05:38 Dose: 10 ml Documented by: Tamsulosin HCl (Flomax) 0.4 mg PO DAILY@1730 [facility] Last Admin: 04/15/19 17:24 Dose: 0.4 mg Documented by: Throat Lozenges (Cepacol Sore Throat Lozenge) 1 lozenge MUCOUS MEM Q2H PRN PRN PRN Reason: Sore Throat/Cough Discharge Diet: Low fat/ Low Cholesterol, 8 Cup Fluid Restriciton Discharge Activity: Return to Normal Activity Call your doctor if you observe: Shortness of breath, Dizziness, Fainting spells, Chest pain Home Medications: Medications to take at Discharge Atenolol [Tenormin (beta darcie)] 50 mg PO DAILY 06/01/14 Calcium Carb/Vitamin D [Caltrate-600 With Vit D Tab] 1 tab PO BID 06/01/14 Cholecalciferol (VIT D3) [Vitamin D3] 2,000 unit PO DAILY 06/01/14 Multivitamins,Therapeutic [Multivitamin] 1 tab PO DAILY 06/01/14 Nitroglycerin (INPATIENT USE) [Nitrostat] 0.4 mg SUBLINGUAL PRN PRN 06/08/14 lorazepam 0.5 mg tablet 0.5 mg PO DAILY PRN 15 Days tab 11/09/18 Amlodipine Besylate [Norvasc] 5 mg PO DAILY 04/13/19 Apixaban [Eliquis] 2.5 mg PO BID 04/13/19 Atorvastatin Calcium 20 mg PO QHS 04/13/19 Bupropion HCl 75 mg PO BID 04/13/19 Clopidogrel Bisulfate [Clopidogrel] 75 mg PO DAILY 04/13/19 Furosemide 40 mg PO MOWETHFRSA 04/13/19 Furosemide [Lasix] 80 mg PO SUTU 04/13/19 Isosorbide Dinitrate 20 mg PO TID 04/13/19 Losartan Potassium [Cozaar] 25 mg PO BID 04/13/19 Hoffman-3S/Dha/Epa/Fish Oil [Hoffman-3 Fish Oil 1,200 mg Sfgl] 1 cap PO BID 04/13/19 Potassium Chloride [K-Tab ER] 20 meq PO DAILY 04/13/19 Sertraline HCl 100 mg PO DAILY 04/13/19 Tamsulosin HCl 0.4 mg PO DAILY 04/13/19 Amox/Clavulanate Tablet [Augmentin Tablet] 875 mg PO Q12H #8 tab 04/16/19 Azithromycin 500 mg PO DAILY 1 Days #1 tab 04/16/19 Following Prescrptions Were Given to Patient: Amox/Clavulanate Tablet [Augmentin Tablet] 875 mg PO Q12H #8 tab Transmission Status: Received by [facility]/pharmacy #[id number] Azithromycin 500 mg PO DAILY 1 Days #1 tab Transmission Status: Received by [facility]/pharmacy #[id number] Primary Care Physician: Adalgisa Isidro MD [Primary Care Provider] - Please follow up with your Primary Care Physician in: 1 Week Please Follow Up With: Amor Steen MD When: As scheduled in 06/04/2019 Disposition: Home with Home Health Minutes spent on discharge:: 35 Patient Condition:: Stable Medical Necessity - Tobacco Use Smoking Status: Former smoker Tobacco Use: Non-smoker Meaningful Use Info Meaningful Use Diagnoses (Choose all that apply): None applicable <Luannetskailash,[place] - Last Filed: 04/18/19 05:58> Discharge Date and Diagnosis - Secondary Discharge Diagnosis Chronic Problems (Last Reviewed 02/26/19 @ 11:28 by Amor Steen MD) CKD (chronic kidney disease), stage III (Chronic) Presence of stent in coronary artery (Chronic ~10/2016) PTCA/CRYSTAL to SVG to obtuse marginal in August 2016; Staged PTCA/CRYSTAL to RCA in October 2016; Atherosclerosis of coronary artery bypass graft without angina pectoris (Chronic) Essential hypertension (Chronic) Pure hypercholesterolemia (Chronic) Atherosclerotic heart disease (Chronic) S/P CABG in 1993 with MARIA to LAD, SVG to OM1, and SVG to first diagonal; PTCA/CRYSTAL to SVG to obtuse marginal in August 2016; Staged PTCA/CRYSTAL to RCA in October 2016; BPH (benign prostatic hyperplasia) (Chronic) Hyperlipidemia (Chronic) Atrial fibrillation with RVR (Chronic) Hx of CABG (Chronic ~1993) Hospital Course and Treatment Summary of Care Provided: The patient is a 83 year old M with multiple co-morbidities admitted with progressive shortness of breath and chest pain. Chest X-ray showed left lower lung infiltrate. He required oxygen. He was managed on intranasal oxygen, IV antibiotics and breathing treatments. He underwent a nuclear stress test for chest pain that was negative for acute ischemia. Patient continued to improve and was found to require oxygen at discharge. He was discharged on 2L oxygen and will follow-up with his PCP within 1-2 weeks. Physical Exam: Gen: Comfortable, not pale, not jaundiced, alert oriented x3, on 2L oxygen CVS:HS I +II, regular, no murmurs RESP: Diminished at the lung bases GI: BS present and normal, nontender, no palpable organs EXT:No edema Labs reviewed: ASSESSMENT: 1. Hypoxia 2. Chest pain, atypical 3. Severe pulmonary hypertension 4. Chroinc systolic CHF, EF 45% 5. Hypertension 6. Hyperlipidemia 7. Chronic atrial fibrillation 8. Anxiety/depression - Physical Exam Vitals/I&O's: Vital Signs Temp Pulse Resp BP Pulse Ox 98.0 F 52 L 16 113/57 L 94 04/16/19 13:25 04/16/19 13:25 04/16/19 13:25 04/16/19 13:25 04/16/19 13:25 Oxygen Flow Rate (L/min) [ 2 AMBULATION with Oxygen] Oxygen Flow Rate (L/min) [ 0 AMBULATING on Room Air] Oxygen Flow Rate (L/min) [At 0 REST on Room Air] Oxygen Flow Rate (L/min) 2 Oxygen Delivery Method Nasal Cannula Weight: 72.9 kg Body Mass Index (BMI) 22.4 Intake and Output for Last 24 Hours 04/16/19 04/17/19 04/18/19 23:59 23:59 23:59 Output Total 150 / 150 Balance -150 / -150 Microbiology Past 72 Hours 04/13/19 21:15 Blood Culture (Wb) - Anticubital Right Blood Culture - Preliminary No growth in 48 hours. 04/13/19 21:17 Blood Culture (Wb) - Anticubital Right Blood Culture - Preliminary No growth in 48 hours. 04/15/19 16:30 Stool C. difficile DNA Amplification - Final Code Visit Inpatient E&M: 61819 Disch Hosp
--- NOTE | 2019-04-16 13:09 | CASEMGMT ---
Pt does qualify for home oxygen at this time. This RN CM to room at this time and pt/daughter provided with a list of in-network DME companies and pt/daughter choose [facility] at this time. Referral faxed to [facility] at this time and call to Lucien at [facility] to notify of referral and she states that they will get a tank out 'right away.' Pt was also set up for [facility] by Virgil BUNCH. Pt/daughter state no further concerns/needs at this time. Shira OLIVIA CM
--- NOTE | 2019-04-16 14:56 | CASEMGMT ---
ALIVIA called patient's daughter, Savannah per her request. ALIVIA answered her questions. She was hoping patient would have gone to a longterm. ALIVIA told her he did fairly well with therapy. ALIVIA told her home health was set up nursing, PT, OT, and social science instructor. SW let her know patient went home on oxygen. She expressed that he can be frustrating as he often makes bad decisions. She said they just put her mom in [facility] as she was in the hospital for pneumonia as well. She asked about a medical alert button. ALIVIA told her there are many options, but the hospital does offer one as long as he has a land line. He does have a land line. ALIVIA told her SW will pass along this information to the home health social science instructor and have her call her. She thanked ALIVIA for the information. ALIVIA called Sánchez with [facility] and left her a voice mail with patient's daughter Savannah's name and number and interest in a medical alert button. ALIVIA also sent her an email. Kinjal TROTTER MSW
--- NOTE | 2019-04-19 14:28 | CASEMGMT ---
[facility] DC PHONE CALL DC DATE: 04/16/19 DC Disposition: Home Diagnosis on Discharge: LACE/STRATA: 03/28 Attempted call to home phone. No answer. Mahad VARGASN RN ACM
== END 2019-04-16 14:20 | disposition home or self-care (01) | DRG 194 ==
LOC: ED 20:16 → PCU 21:18
PROVIDERS: Internal Medicine; Nurse Practitioner Family; Admitting Provider Family Medicine; Emergency Provider Emergency Medicine; Family Provider Internal Medicine; PCP Internal Medicine; Referring Provider Family Medicine; Visit Provider Internal Medicine
DX: J18.9 Pneumonia, unspecified organism (principal); I13.0 Hypertensive heart and chronic kidney disease with heart failure and stage 1 through stage 4 chronic kidney disease, or unspecified chronic kidney disease; I50.22 Chronic systolic (congestive) heart failure; I48.20 Chronic atrial fibrillation, unspecified; N18.3 Chronic kidney disease, stage 3 (moderate); I27.20 Pulmonary hypertension, unspecified; I25.10 Atherosclerotic heart disease of native coronary artery without angina pectoris; E78.5 Hyperlipidemia, unspecified; Z66 Do not resuscitate; I25.5 Ischemic cardiomyopathy; I25.2 Old myocardial infarction; N40.0 Benign prostatic hyperplasia without lower urinary tract symptoms; R06.89 Other abnormalities of breathing; R09.02 Hypoxemia; R07.89 Other chest pain; Z87.891 Personal history of nicotine dependence; Z79.01 Long term (current) use of anticoagulants; Z95.1 Presence of aortocoronary bypass graft; Z95.5 Presence of coronary angioplasty implant and graft
CPT/HCPCS: 36415; 71045; 71046; 78452; 80048; 80061; 83036; 83735; 84484; 85025; 85027; 85610; 85730; 87040; 87449; 87493; 87633; 93005; 93017; 97162; 97166; 97530; 97802; 99251; 99284; A9500; J7030; J7040; A4216; G0463; J0696; J2405; J2785

== ENCOUNTER 2019-04-18 21:53 | Inpatient (IN) | payer MEDICARE, SELFPAY ==
[2016-10-30 13:35] VITALS: BMI 26.5
[2019-04-13 22:53] VITALS: BMI 22.4
[2019-04-18 21:54] VITALS: BP 162/63; PULSE 98; RESP 16; TEMP 36.6; O2SAT 85; BMI 23.3
[2019-04-18 22:07] VITALS: BP 162/63; PULSE 78; PULSE 98; RESP 16; RESP 20; TEMP 36.6; O2SAT 96
--- NOTE | 2019-04-18 22:35 | EKG12_ITS ---
Test Reason : SOB Blood Pressure : / mmHG Vent. Rate : 081 BPM Atrial Rate : 312 BPM P-R Int : 000 ms QRS Dur : 096 ms QT Int : 434 ms P-R-T Axes : 000 -11 083 degrees QTc Int : 504 ms Atrial fibrillation Prolonged QT Abnormal ECG Confirmed by CARLYLE ALEXANDER, ROSINA ([id number]), visual effects editor DEE DEE BEAVERS ([id number]) on 04/21/2019 11:34:24 AM Referred By: CHRISTOPHER Confirmed By:ROSINA TADEO MD
--- NOTE | 2019-04-18 22:36 | ED.VIS.GEN ---
History of Present Illness Chief Complaint: Shortness of Breath Informant: Patient Narrative: Stated that he was discharged 2 days ago from our hospital after a diagnosis of CHF and pneumonia. He had a chest x-ray that showed a left lower pneumonia. He has been discharged on azithromycin antibiotics as well as home oxygen nasal cannula. He has had a stuffy nose so when he walks around and does mild activities his shortness of breath increases. He had short-lived chest pain this morning that lasted for a few moments. He took a nitro and it went away. He recently had a negative stress test negative cardiac enzymes. He does have a history of coronary artery disease status post bypass and stents in the past. He also has chronic atrial fibrillation and is on treatment for this including Eliquis and aspirin. Patient stated his shortness of breath has just persisted since he left. It has not gotten much worse. No fevers or chills. - Past Medical History (1) Acute respiratory failure with hypoxia Status: Acute (2) CHF exacerbation Status: Acute (3) Chest pain Status: Acute (4) Non-ST elevated myocardial infarction Status: Acute (5) Pneumonia Status: Acute (6) Atherosclerosis of coronary artery bypass graft without angina pectoris Status: Chronic (7) Atherosclerotic heart disease Status: Chronic Comment: S/P CABG in 1993 with MARIA to LAD, SVG to OM1, and SVG to first diagonal; PTCA/CRYSTAL to SVG to obtuse marginal in August 2016; Staged PTCA/CRYSTAL to RCA in October 2016; (8) Atrial fibrillation with RVR Status: Chronic (9) BPH (benign prostatic hyperplasia) Status: Chronic (10) CKD (chronic kidney disease), stage III Status: Chronic (11) Essential hypertension Status: Chronic (12) Hx of CABG Status: Chronic (13) Hyperlipidemia Status: Chronic (14) Presence of stent in coronary artery Status: Chronic Comment: PTCA/CRYSTAL to SVG to obtuse marginal in August 2016; Staged PTCA/CRYSTAL to RCA in October 2016; (15) Pure hypercholesterolemia Status: Chronic Past Medical History - Allergies and Home Meds Allergies/Adverse Reactions: Allergies atorvastatin calcium [From Lipitor] Adverse Reaction (Verified 04/18/19 21:57) Other LEG CRAMPS WITH 40MG DOSE BUT TOLERATES LOWER DOSE buspirone HCl [From BuSpar] Adverse Reaction (Verified 04/18/19 21:57) Other FAINT fosinopril sodium [From Monopril] Adverse Reaction (Verified 04/18/19 21:57) Other LEG CRAMPS Iodinated Contrast Media [CONTRASTS] Adverse Reaction (Verified 04/18/19 21:57) Itching ramipril [From Altace] Adverse Reaction (Verified 04/18/19 21:57) Other LEG CRAMPS simvastatin Adverse Reaction (Verified 04/18/19 21:57) Other WHEN MIXED WITH DILTIAZEM CAUSES SEVERE MUSCLE CRAMPS Primary Care Physician: Adalgisa Isidro MD [Primary Care Provider] - Prior records reviewed: Yes Past Medical History: - - See problem list Surgical History: coronary bypass surgery, - - CABG x5, PCI x6, left knee arthroscopic surgery. Lives: With Family Smoking Status: Former smoker Alcohol: None Drugs: None - Family History Maternal Family History: Family History (Last Reviewed 02/26/19 @ 11:28 by Amor Steen MD) Father emphysema Mother Hypertension HLD (hyperlipidemia) Sister Enlarged heart Sister Myocardial infarction Family History: Reports: High Cholesterol, Heart Disease, Hypertension Paternal Family History: Family History (Last Reviewed 02/26/19 @ 11:28 by Amor Steen MD) Father emphysema Mother Hypertension HLD (hyperlipidemia) Sister Enlarged heart Sister Myocardial infarction Family History: Reports: COPD Sibling Family History: Family History (Last Reviewed 02/26/19 @ 11:28 by Amor Steen MD) Father emphysema Mother Hypertension HLD (hyperlipidemia) Sister Enlarged heart Sister Myocardial infarction Family History: Reports: - - sister from enlarged heart Review of Systems General: Denies: Chills, Fever, Sweats Eyes: Denies: Visual changes - bilaterally, Diplopia ENT: Denies: Rhinorrhea, Sore throat Cardiovascular: Reports: Chest pain. Denies: Palpitations Respiratory: Reports: Dyspnea, Cough, Dyspnea on exertion Gastrointestinal: Denies: Abdominal pain, Nausea, Vomiting, Diarrhea, Melena, Hematochezia Genitourinary: Denies: Dysuria, Hematuria, Frequency Musculoskeletal: Denies: Back pain, Extremity Pain Skin: Denies: Rash, Wounds Neurological: Denies: Headache, Weakness, Numbness Physical Exam Vital Signs/Narrative: Vital Signs Temp Pulse Resp BP Pulse Ox 04/18/19 22:07 98 F 98 16 162/63 H 96 04/18/19 21:54 98 F 98 16 162/63 H 85 General: Well nourished, Well developed, No Acute Distress Head: Normocephalic, Atraumatic Eyes: Perrl, EOMI ENT: Moist mucous membranes, No rhinorrhea Neck: Supple, Nontender Cardiovascular: Regular rate, No murmurs, Irregular. Negative for: Regular rhythm Respiratory: No distress, CTA bilaterally, Chest nontender. Negative for: Rales, Rhonchi, Wheezing Abdomen: Soft, Nontender, Nondistended, Normal bowel sounds Back: Nontender, Normal Inspection Extremities: Nontender, No edema Skin: Normal color, No rash Neurological: Alert, Oriented x3, Cranial nerves II-XII grossly intact, Normal Strength, Normal Sensation Psychological: Normal affect, Normal Mood Diagnostic/Tx/Re-eval - Medical Decision Making Patient resting comfortably speaking full sentences on nasal cannula oxygen. Lab work EKG and chest x-ray obtained lab work shows elevated BNP. Troponin negative. Mild elevated BUN. Chest x-ray shows small right pleural effusion and chronic changes consistent with mild CHF. Patient given a dose of Lasix IV. [place] better after treatment. Will be admitted for further evaluation and treatment ED Disposition - Plan for ED Patient: Disposition: Home or Assisted Living Diagnosis: Congestive heart failure, CHF exacerbation
--- NOTE | 2019-04-18 22:57 | RAD_ITS ---
HISTORY: Short of Breath/Dyspnea EXAMINATION/TECHNIQUE: XR Chest 2 Views: COMPARISON: 04/14/2019 and 01/25/2019 FINDINGS: Cardiac telemetry leads in place. Borderline cardiomegaly. Interval development of a small right pleural effusion. A tiny left pleural effusion is also present. Underlying left basilar pleural-parenchymal scarring including calcific pleural scarring. Left apical chronic pleural parenchymal scarring, as well. Background chronic lung disease with hyperinflation and interstitial thickening. A component of right basilar septal interstitial edema may be present. No acute infiltrate. Median sternotomy and retrosternal surgical clips compatible with previous CABG. Left coronary artery stent. Atherosclerotic thoracic aorta. Senescent changes of the dorsal spine. RAD/Chest PA and Lateral IMPRESSION: 1. Borderline cardiomegaly with interval development of small right pleural effusion and probable tiny left pleural effusion. 2. Background chronic disease with COPD and left apical and left basilar pleural parenchymal scarring. 3. The overall pattern is compatible with acute on chronic chest disease. Right basilar mild septal interstitial edema may be present representing mild cardiac decompensation superimposed on COPD and chronic scarring. at 0006 Reported and signed by: Mau Parker MD Electronically Signed: Mau Parker, at 0:05 EST Tel , Service support ,
[2019-04-18 23:03] LABS: Absolute Neutrophil Count 8.3 X10^3/uL (2.0-7.7); Basophil# 0.02 X10^3/uL; Basophil% 0.2 % (0-1); Eosinophil# 0.58 X10^3/uL; Eosinophils% 5.6 % (0-5); Hemoglobin 12.4 g/dL (13.0-16.5); Lymphocyte % 7.7 % (19-41); Mean Corp Hgb Conc 32.6 g/dL (32-36); Mean Corpuscular Hgb 28.6 pg (27.0-32.0); Mean Corpuscular Volume 87.6 fL (80-94); Mean Platelet Vol. 10.5 fl (6.2-12.0); Monocyte# 0.59 X10^3/uL; Monocyte% 5.7 % (0-10); NRBC Flagged by Analyzer 0 % (0-5); Neutrophil # 8.29 X10^3/uL (2.7-7.7); Neutrophil % 80.3 % (47-70); Platelet Count 219 K/mm3 (150-450); RBC Distribution Width SD 45.1 fl (35.1-43.9); Red Blood Count 4.34 M/mm3 (4.6-6.2); White Blood Count 10.3 K/mm3 (4.4-11.0)
[2019-04-18 23:22] VITALS: BP 143/78; PULSE 79; RESP 18; TEMP 36.6; O2SAT 95
[2019-04-18 23:31] LABS: Anion Gap 7 (5-15); BUN 20 mg/dL (7-18); BUN/Creat Ratio 16.3 RATIO (10-20); Calcium,Total 8.9 mg/dL (8.5-10.1); Chloride 108 mmol/L (98-107); Creatinine, Serum 1.23 mg/dL (0.70-1.30); EST Glomerular Filtration Rate 60 mL/min (>60); Est Glom Filt Rate - Afr Amer 72 mL/min (>60); Estimated Creatinine Clearance 46.99 ml/min; Glucose 129 mg/dL (74-106); Potassium 3.6 mmol/L (3.5-5.1); Sodium Level 142 mmol/L (136-145)
[2019-04-19] VITALS (17 sets, daily range): BP systolic 109–166; BP diastolic 59–99; PULSE 61–80; RESP 14–20; TEMP 36.6–36.9; O2SAT 90–97; BMI 23.3; BMI 23.4
--- NOTE | 2019-04-19 00:41 | HP.PCM_ITS ---
Problem List (1) Acute respiratory failure with hypoxia Status: Acute (2) CHF exacerbation Status: Acute Qualifiers: Heart failure type: systolic Qualified Code(s): I50.23 - Acute on chronic systolic (congestive) heart failure (3) CAP (community acquired pneumonia) Status: Acute Qualifiers: Laterality: left Lung location: lower lobe of lung Qualified Code(s): J18.9 - Pneumonia, unspecified organism (4) CKD (chronic kidney disease), stage III Status: Chronic (5) Essential hypertension Status: Chronic (6) Atherosclerotic heart disease Status: Chronic Qualifiers: Coronary Disease-Associated Artery/Lesion type: unspecified vessel or lesion type [place] vs. transplanted heart: unspecified whether [place] or transplanted heart Associated angina: angina presence unspecified Qualified Code(s): I25.10 - Atherosclerotic heart disease of [place] coronary artery without angina pectoris Comment: S/P CABG in 1993 with MARIA to LAD, SVG to OM1, and SVG to first diagonal; PTCA/CRYSTAL to SVG to obtuse marginal in August 2016; Staged PTCA/CRYSTAL to RCA in October 2016; (7) BPH (benign prostatic hyperplasia) Status: Chronic Qualifiers: Lower urinary tract symptom presence: unspecified whether lower urinary tract symptoms present Qualified Code(s): N40.0 - Benign prostatic hyperplasia without lower urinary tract symptoms (8) Hyperlipidemia Status: Chronic Qualifiers: Hyperlipidemia type: unspecified Qualified Code(s): E78.5 - Hyperlipidemia, unspecified History of Present Illness Date of Admission: 04/19/19 Chief Complaint: Fatigue, worsened dyspnea, unable to care for self at home The patient is a 83 y/o M w/ PMHx: CKD stage III, Chronic atrial fibrillation on eliquis, CAD s/p CABG x 5 and PCI, HTN, HLD, Tobacco use history, Chronic Systolic CHF who was recently admitted on 04/13/19-04/16/19 with acute hypoxic respiratory insufficiency secondary to community-acquired pneumonia with chest pain with ACS rule out at that time who now he presents to the [facility] ED on 9 with history of worsened dyspnea since discharge, worse with exertion as well as pleuritic chest discomfort, worse with coughing although it did prompt him to take nitroglycerin on day of ED presentation with some improvement with recent negative cardiac stress testing and serial enzymes who notes that prior to discharge halfway facility placement have been recommended but he deferred that at this time but now returns as family's concern for him and he also agrees that halfway facility would be best placement. He denies any recent significant lower extremity edema orthopnea but has had weight gain since recent presentation and he did receive IV fluids while inpatient. Work-up in the ED included T 98, heart rate 98, BP 162/63, respiratory rate 16, 96% on 4 L nasal cannula, CBC with WC 10.3, hemoglobin 12.4, platelet 219 with left shift, BMP with chloride 108, BUN/creatinine 20/1.23, glucose 129, troponin less than 0.015, BNP 1641, chest x-ray with borderline cardiomegaly with interval development of small right pleural effusion and probable tiny left pleural effusion with background chronic disease with chronic COPD and left apical and left basilar pleural-parenchymal scarring, right basilar mild septal interstitial edema representing mild cardiac decompensation superimposed on COPD and chronic scarring. In the ED patient ministered Lasix 20 mg IV x1. Past Medical History Past Medical History (Chronic Problems): Chronic Problems (Last Reviewed 02/26/19 @ 11:28 by Amor Steen MD) CKD (chronic kidney disease), stage III (Chronic) Presence of stent in coronary artery (Chronic ~10/2016) PTCA/CRYSTAL to SVG to obtuse marginal in August 2016; Staged PTCA/CRYSTAL to RCA in October 2016; Atherosclerosis of coronary artery bypass graft without angina pectoris (Chronic) Essential hypertension (Chronic) Pure hypercholesterolemia (Chronic) Atherosclerotic heart disease (Chronic) S/P CABG in 1993 with MARIA to LAD, SVG to OM1, and SVG to first diagonal; PTCA/CRYSTAL to SVG to obtuse marginal in August 2016; Staged PTCA/CRYSTAL to RCA in October 2016; BPH (benign prostatic hyperplasia) (Chronic) Hyperlipidemia (Chronic) Atrial fibrillation with RVR (Chronic) Hx of CABG (Chronic ~1993) Medical History: Medical History (Last Reviewed 02/26/19 @ 11:28 by Amor Steen MD) Presence of stent in coronary artery (Chronic) Onset Date: ~10/2016 Z95.5 PTCA/CRYSTAL to SVG to obtuse marginal in August 2016; Staged PTCA/CRYSTAL to RCA in October 2016; Atherosclerosis of coronary artery bypass graft without angina pectoris (Chronic) I25.810 Essential hypertension (Chronic) I10 Nicotine abuse Z72.0 Atherosclerotic heart disease of [place] coronary artery without angina pectoris I25.10 CABG: MARIA to LAD, SVG to 1st OM, SVG to 1st Dx 1993. PTCA: PTCA/CRYSTAL to SVG to OM 09/19/2016. PCI-CRYSTAL-RCA 10/30/2016. 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 Allergies atorvastatin calcium [From Lipitor] Adverse Reaction (Verified 04/18/19 21:57) Other LEG CRAMPS WITH 40MG DOSE BUT TOLERATES LOWER DOSE buspirone HCl [From BuSpar] Adverse Reaction (Verified 04/18/19 21:57) Other FAINT fosinopril sodium [From Monopril] Adverse Reaction (Verified 04/18/19 21:57) Other LEG CRAMPS Iodinated Contrast Media [CONTRASTS] Adverse Reaction (Verified 04/18/19 21:57) Itching ramipril [From Altace] Adverse Reaction (Verified 04/18/19 21:57) Other LEG CRAMPS simvastatin Adverse Reaction (Verified 04/18/19 21:57) Other WHEN MIXED WITH DILTIAZEM CAUSES SEVERE MUSCLE CRAMPS Home Medications: Ambulatory Orders Medication Instructions Recorded Atenolol [Tenormin (beta lvad)] 50 mg PO DAILY 06/01/14 Calcium Carb/Vitamin D 1 tab PO BID 06/01/14 [Caltrate-600 With Vit D Tab] Cholecalciferol (VIT D3) [Vitamin 2,000 unit PO DAILY 06/01/14 D3] Multivitamins,Therapeutic 1 tab PO DAILY 06/01/14 [Multivitamin] Nitroglycerin (INPATIENT USE) 0.4 mg SUBLINGUAL PRN PRN 06/08/14 [Nitrostat] lorazepam 0.5 mg tablet 0.5 mg PO DAILY PRN 15 Days tab 11/09/18 Amlodipine Besylate [Norvasc] 5 mg PO DAILY 04/13/19 Apixaban [Eliquis] 2.5 mg PO BID 04/13/19 Atorvastatin Calcium 20 mg PO QHS 04/13/19 Bupropion HCl 75 mg PO BID 04/13/19 Clopidogrel Bisulfate [Clopidogrel] 75 mg PO DAILY 04/13/19 Furosemide 40 mg PO MOWETHFRSA 04/13/19 Furosemide [Lasix] 80 mg PO SUTU 04/13/19 Isosorbide Dinitrate 20 mg PO TID 04/13/19 Losartan Potassium [Cozaar] 25 mg PO BID 04/13/19 [place]-3S/Dha/Epa/Fish Oil [[place]-3 1 cap PO BID 04/13/19 Fish Oil 1,200 mg Sfgl] Potassium Chloride [K-Tab ER] 20 meq PO DAILY 04/13/19 Sertraline HCl 100 mg PO DAILY 04/13/19 Tamsulosin HCl 0.4 mg PO DAILY 04/13/19 Amox/Clavulanate Tablet [Augmentin 875 mg PO Q12H #8 tab 04/16/19 Tablet] Azithromycin 500 mg PO DAILY 1 Days #1 tab 04/16/19 Surgical History: Surgical History (Last Reviewed 02/26/19 @ 11:28 by Amor Steen MD) H/O coronary artery bypass surgery Z95.1 CABG: MARIA to LAD, SVG to 1st OM, SVG to 1st Dx 1993. Presence of coronary angioplasty implant and graft Onset Date: ~10/2016 Z95.5 PTCA/CRYSTAL to SVG to obtuse marginal in August 2016; Staged PTCA/CRYSTAL to RCA in October 2016; Surgical History: coronary bypass surgery, - - CABG x5, PCI x6, left knee arthroscopic surgery. Psychiatric History: Anxiety, Depression Lives: Alone - Patient is currently living alone as his has dementia and is living in skilled facility. Smoking Status: Former smoker - Patient with cigarette tobacco in 1945. Tobacco Use: Non-smoker Alcohol: None Drugs: None - *Family History Sibling Family History: Family History (Last Reviewed 02/26/19 @ 11:28 by Amor Steen MD) Father emphysema Mother Hypertension HLD (hyperlipidemia) Sister Enlarged heart Sister Myocardial infarction History Items: - - sister from enlarged heart Maternal Family History: Family History (Last Reviewed 02/26/19 @ 11:28 by Amor Steen MD) Father emphysema Mother Hypertension HLD (hyperlipidemia) Sister Enlarged heart Sister Myocardial infarction History Items: High Cholesterol, Heart Disease, Hypertension Paternal Family History: Family History (Last Reviewed 02/26/19 @ 11:28 by Amor Steen MD) Father emphysema Mother Hypertension HLD (hyperlipidemia) Sister Enlarged heart Sister Myocardial infarction History Items: COPD Review of Systems Constitutional: Reports: Malaise, Weakness, Fatigue. Denies: Chills, Fever, Weight Change HEENT: Denies: Head Aches, Sinus Congestion, Sinus Drainage Cardiovascular: Reports: Chest Pain. Denies: Palpitations Respiratory: Reports: Cough, Pleuritic Pain, Shortness of Breath, Shortness of breath at rest, Shortness of breath upon exertion. Denies: Sputum production Gastrointestinal: Denies: Abdominal Pain, Nausea, Vomiting Genitourinary: Denies: Dysuria Musculoskeletal: Reports: Joint Pain. Denies: Joint Tenderness Skin: Denies: Rash, Wounds Neurological: Denies: Numbness, Tingling, Focal weakness Psychiatric: Reports: Anxiety, Depression. Denies: Homicidal Ideations, Suicidal Ideations Hematologic/ Lymphatic: Reports: Anemia, Easy Bruising, Easy Bleeding VTE Information - Inpt Only VTE Present on Admission: No VTE Mechan Device Prophylaxis: SCD's VTE Pharm Prophylaxis ordered?: No Reason prophylaxis not ordered:: Treatment Not Indicated - Continue home eliquis. Patient Problems: Active and Suspected Problems (Last Reviewed 02/26/19 @ 11:28 by Amor Steen MD) Congestive heart failure (Acute) CAP (community acquired pneumonia) (Acute) CHF exacerbation (Acute) Subjective: Seated upright in the ED bed, fatigued, no acute distress. Objective: Physical Examination: General: awake, alert, oriented x 3 and cooperative, seated upright in the ED bed, fatigued appearance but no acute distress. Skin: normal color, turgor, no icterus, cyanosis except notable diffuse very staged ecchymoses to extremities. HEENT: AT/NC, EOMI, PERRLA, dry MM, no carotid bruits, no market severe JVD noted. Lungs: Diminished breath sounds throughout, greater bases, mildly coarse, very mild rales at bases, improved effort from prior, no wheezing. Heart: Irregular; no gallop, rub audible. Abdomen: soft, NTTP, ND, normal BS, no HSM. Extremities: no cyanosis, clubbing, or edema. Neurological: patient awake, alert, oriented x 3; cognitive function intact; pupils equally reactive to light and accomodation; cranial nerves II-XII grossly normal, moving all 4 extremities, no focal deficits, strength severely global decrease secondary to recent acute presentation and current mild overload. Psychiatric: affect appears fatigued, no acute evidence of depressive or anxiety feelings. - Physical Exam Vitals/I&O's: Vital Signs Temp Pulse Resp BP Pulse Ox 98 F 74 14 161/99 H 97 04/19/19 00:12 04/19/19 00:12 04/19/19 00:12 04/19/19 00:12 04/19/19 00:12 Oxygen Flow Rate (L/min) 4 Oxygen Delivery Method Nasal Cannula Weight: 163 lb Body Mass Index (BMI) 23.3 Laboratory Results 04/18/19 22:50: WBC 10.3, RBC 4.34 L, Hgb 12.4 L, Hct 38.0 L, MCV 87.6, MCH 28.6, MCHC 32.6, RDW Std Deviation 45.1 H, RDW Coeff of Justice 14.0, Plt Count 219, MPV 10.5, Immature Gran % (Auto) 0.500, Neut % (Auto) 80.3 H, Lymph % (Auto) 7.7 L, [place] % (Auto) 5.7, Eos % (Auto) 5.6 H, Baso % (Auto) 0.2, Absolute Neuts (auto) 8.3 H, Absolute Lymphs (auto) 0.80 L, Nucleated RBC % 0 04/18/19 22:50: Sodium 142, Potassium 3.6, Chloride 108 H, Carbon Dioxide 27.0, Anion Gap 7, BUN 20 H, Creatinine 1.23, Estim Creat Clear Calc 46.99, Est GFR (MDRD) Af Amer 72, Est GFR (MDRD) Non-Af 60, BUN/Creatinine Ratio 16.3, Glucose 129 H, Calcium 8.9, Troponin I < 0.015 04/18/19 22:50: B-Natriuretic Peptide 1641.0 H Assessment/Plan All Active Problems (Last Reviewed 02/26/19 @ 11:28 by Amor Steen MD) Congestive heart failure (Acute) CAP (community acquired pneumonia) (Acute) Chest pain (Acute) Pneumonia (Acute) Non-ST elevated myocardial infarction (Acute ~01/23/19) Acute respiratory failure with hypoxia (Acute) CHF exacerbation (Acute) Pneumonia (Resolved) The patient is a 83 y/o M w/ PMHx: CKD stage III, Chronic atrial fibrillation on eliquis, CAD s/p CABG x 5 and PCI, HTN, HLD, Tobacco use history, Chronic Systolic CHF who was recently admitted on 04/13/19-04/16/19 with acute hypoxic respiratory insufficiency secondary to community-acquired pneumonia with chest pain with ACS rule out at that time who now he presents to the [facility] ED on 04/19/19 with history of worsened dyspnea since discharge, worse with exertion as well as pleuritic chest discomfort, worse with coughing. 1. Acute Mild Decompensated Systolic CHF: CXR obtained in the ED w/ mild congestion, likely with recent hydration during recent CAP admission. Patient administered IV lasix in the ED, will admit to PCU, maintain on cardiac telemetry, recent normal cycled cardiac enzymes and negative stress testing, plan reepeat EKG in AM, continue IV lasix diuresis with likely quick transition to oral home Lasix regimen given mild to moderate presentation, monitor I/Os, continue medical therapy w/ Eliquis, statin, BB, ARB. Most recent ECHO noted 01/23/19 w/ borderline enlarged LV, mild segmental systolic dysfunction, EF 45%, moderately enlarged LA, mild MVI, moderate TBI, trivial ANDRE, trivial TBI, RVSP 80 mmHg consistent with severe pulmonary hypertension thus given recently performed will not repeat. PT/OT/case management consultations for discharge pl anning for halfway facility placement as patient is now amenable. 2. Recent Community Acquired Pneumonia w/ Hypoxia: Recent admission with treatment LLL PNA, with recent discharge on 2 L nasal cannula, currently on 4 L nasal cannula upon current ED presentation, wean oxygen as able, PRN albuterol, treated recently with Rocephin and Azithromycin with transition to Augmentin and azithromycin for atypicals outpatient which will be continued until completion, HOB, IS parameters. 3. Recent Chest Pain: EKG w/ rate controlled atrial fibrillation, normal cycled cardiac enzymes, unremarkable stress testing during prior admission. Maintained on plavix, eliquis, statin, BB, ARB regimen as noted. 4. CAD: Status post CABG x 5, PCI x 6, maintain on plavix, Eliquis, atenolol, losartan, atorvastatin. 5. Hypertension: Continue home regimen including atenolol, Lasix, isosorbide, losartan, PRN hydralazine. 6. Hyperlipidemia: Continue home statin regimen. 7. Chronic atrial fibrillation: We will continue home Eliquis and atenolol regimen. 8. Anxiety and depression: We will continue patient home sertraline as well as his low-dose lorazepam. 9. Chronic Kidney Disease Stage III: Admission BUN/Cr 20/1.23, baseline renal function 1.4-1.7, repeat BMP in AM. 10. CODE status: Patient's daughter again present, HCPOA, living will in place. Confirmed from prior admission that the family and patient wish to continue DNR- CCA, no intubation status following review again of the differences between FULL code, DNR-CCA and DNR-CC status. Advanced Care Planning Face to Face Time: 16 m inutes. Code Visit Inpatient E&M: 06736 Init Hosp L3 Procedures: 54557 Advncd Care Plan 30 Min
[2019-04-19] MEDS: Furosemide 20 MG/2 ML VIAL IV (00:50)
[2019-04-19] MEDS: Amox/Clavulanate 875 MG Tablet PO ×3 (02:04→21:57)
[2019-04-19 05:41] LABS: Absolute Lymphocyte Count 1.23 X10^3/uL (0.83-4.51); Absolute Neutrophil Count 7.9 X10^3/uL (2.0-7.7); Basophil# 0.02 X10^3/uL; Basophil% 0.2 % (0-1); Eosinophil# 0.72 X10^3/uL; Eosinophils% 6.8 % (0-5); Hematocrit 39.7 % (40-54); Hemoglobin 13.1 g/dL (13.0-16.5); Lymphocyte # 1.23 X10^3/ul (4.0); Lymphocyte % 11.6 % (19-41); Mean Corpuscular Volume 87.8 fL (80-94); Mean Platelet Vol. 10.5 fl (6.2-12.0); Monocyte# 0.68 X10^3/uL; Monocyte% 6.4 % (0-10); NRBC Flagged by Analyzer 0 % (0-5); Neutrophil # 7.85 X10^3/uL (2.7-7.7); Neutrophil % 74.4 % (47-70); Platelet Count 201 K/mm3 (150-450); RBC Distribution Width CV 14.2 % (11.6-14.6); RBC Distribution Width SD 45.1 fl (35.1-43.9); Red Blood Count 4.52 M/mm3 (4.6-6.2); White Blood Count 10.6 K/mm3 (4.4-11.0)
[2019-04-19] MEDS: Isosorbide DN 20 MG Tablet PO ×3 (05:41→21:58)
--- NOTE | 2019-04-19 05:55 | EKG12_ITS ---
Test Reason : AM EKG Blood Pressure : / mmHG Vent. Rate : 071 BPM Atrial Rate : 357 BPM P-R Int : 000 ms QRS Dur : 096 ms QT Int : 446 ms P-R-T Axes : 000 -02 092 degrees QTc Int : 484 ms Atrial fibrillation with premature ventricular or aberrantly conducted complexes Abnormal QRS-T angle, consider primary T wave abnormality Prolonged QT Abnormal ECG When compared with ECG of 18-APR-2019 22:45, MANUAL COMPARISON REQUIRED, DATA IS UNCONFIRMED Confirmed by ANGÉLICA PEPE ([id number]), metropolitan editor CAROL JEFFERSON ([id number] on 04/23/2019 11:57:48 AM Referred By: STUART Confirmed By:ANGÉLICA PEPE
[2019-04-19 06:22] LABS: Anion Gap 10 (5-15); BUN 17 mg/dL (7-18); BUN/Creat Ratio 14.2 RATIO (10-20); Calcium,Total 8.8 mg/dL (8.5-10.1); Chloride 104 mmol/L (98-107); EST Glomerular Filtration Rate 61 mL/min (>60); Est Glom Filt Rate - Afr Amer 74 mL/min (>60); Estimated Creatinine Clearance 48.16 ml/min; Glucose 108 mg/dL (74-106); Magnesium 1.9 mg/dL (1.6-2.6); Potassium 3.3 mmol/L (3.5-5.1); Sodium Level 140 mmol/L (136-145); Thyroid Stim Hormone (TSH) 1.91 uIU/mL (0.358-3.74)
[2019-04-19] MEDS: Ipratropium/Albuterol Sulfate 3 ML AMPUL.NEB INHALATION ×3 (07:29→19:58)
[2019-04-19] MEDS: Clopidogrel Bisulfate 75 MG Tablet PO (08:13)
[2019-04-19] MEDS: Atenolol 50 MG Tablet PO (08:13)
[2019-04-19] MEDS: amLODIPine 5 MG Tablet PO (08:13)
[2019-04-19] MEDS: Losartan Potassium 25 MG Tablet PO ×2 (08:13→21:57)
[2019-04-19] MEDS: buPROPion 75 MG Tablet PO ×2 (08:14→21:57)
[2019-04-19] MEDS: Tamsulosin HCl 0.4 MG Capsule PO (08:14)
[2019-04-19] MEDS: APIXABAN 2.5 MG TABLET PO ×2 (08:14→21:57)
[2019-04-19] MEDS: Sertraline 100 MG Tablet PO (08:14)
[2019-04-19] MEDS: Furosemide 40 MG/4 ML Vial IV ×2 (08:14→17:08)
[2019-04-19] MEDS: 0.9% Saline Lock 10 ML Syringe IV ×2 (08:15→17:08)
--- NOTE | 2019-04-19 10:00 | CASEMGMT ---
ALIVIA met with patient this am to discuss his discharge plan. He confirmed his plan is to go to [facility]. His is currently at [facility]. ALIVIA told him ALIVIA will work on this and he will have to stay at [facility] until his insurance approves him which will not be today. Kinjal SAHA
--- NOTE | 2019-04-19 10:07 | PCM.PROGNOTE ---
<Leigh Parks - Last Filed: 04/19/19 10:20> Patient Problems: Active and Suspected Problems (Last Reviewed 02/26/19 @ 11:28 by Amor Steen MD) Congestive heart failure (Acute) CAP (community acquired pneumonia) (Acute) CHF exacerbation (Acute) Subjective: Patient seen and examined. Breathing improved. On 3 L nasal cannula. Patient agreeable to SNF at discharge. - Physical Exam Vitals/I&O's: Vital Signs Temp Pulse Resp BP Pulse Ox 98.3 F 74 16 166/73 H 90 04/19/19 05:35 04/19/19 07:29 04/19/19 07:29 04/19/19 05:35 04/19/19 07:29 Oxygen Flow Rate (L/min) 3 Oxygen Delivery Method Nasal Cannula Weight: 161 lb 13.109 oz Body Mass Index (BMI) 23.3 Intake and Output for Last 24 Hours 04/17/19 04/18/19 04/19/19 23:59 23:59 23:59 Intake Total 50 / 50 Output Total 250 / 250 Balance -200 / -200 General: Alert, Oriented x3, Cooperative HEENT: Atraumatic, PERRLA, EOMI, Normocephalic Neck: Supple, No JVD, Negative Carotid Bruits Lungs: Clear to auscultation, Diminished Cardiovascular: - - Atrial fibrillation, rate controlled Abdomen: Bowel Sounds Present, Soft, Non Tender Extremities: No clubbing, No cyanosis, No edema, Capillary Refill Less than 3 Seconds Skin: No rashes, No breakdown Musculoskeletal: No Tenderness to Palpation of Joints or Extremities Neurological: Cranial nerves II-XII grossly intact, Neuro grossly intact Psych/Mental Status: Normal Affect, Appropriate Laboratory Results 04/18/19 22:50: WBC 10.3, RBC 4.34 L, Hgb 12.4 L, Hct 38.0 L, MCV 87.6, MCH 28.6, MCHC 32.6, RDW Std Deviation 45.1 H, RDW Coeff of Justice 14.0, Plt Count 219, MPV 10.5, Immature Gran % (Auto) 0.500, Neut % (Auto) 80.3 H, Lymph % (Auto) 7.7 L, Canyon % (Auto) 5.7, Eos % (Auto) 5.6 H, Baso % (Auto) 0.2, Absolute Neuts (auto) 8.3 H, Absolute Lymphs (auto) 0.80 L, Nucleated RBC % 0 04/18/19 22:50: Sodium 142, Potassium 3.6, Chloride 108 H, Carbon Dioxide 27.0, Anion Gap 7, BUN 20 H, Creatinine 1.23, Estim Creat Clear Calc 46.99, Est GFR (MDRD) Af Amer 72, Est GFR (MDRD) Non-Af 60, BUN/Creatinine Ratio 16.3, Glucose 129 H, Calcium 8.9, Troponin I < 0.015 04/18/19 22:50: B-Natriuretic Peptide 1641.0 H 04/19/19 05:25: WBC 10.6, RBC 4.52 L, Hgb 13.1, Hct 39.7 L, MCV 87.8, MCH 29.0, MCHC 33.0, RDW Std Deviation 45.1 H, RDW Coeff of Justice 14.2, Plt Count 201, MPV 10.5, Immature Gran % (Auto) 0.600, Neut % (Auto) 74.4 H, Lymph % (Auto) 11.6 L, Canyon % (Auto) 6.4, Eos % (Auto) 6.8 H, Baso % (Auto) 0.2, Absolute Neuts (auto) 7.9 H, Absolute Lymphs (auto) 1.23, Nucleated RBC % 0 04/19/19 05:25: Sodium 140, Potassium 3.3 L, Chloride 104, Carbon Dioxide 26.0, Anion Gap 10, BUN 17, Creatinine 1.20, Estim Creat Clear Calc 48.16, Est GFR (MDRD) Af Amer 74, Est GFR (MDRD) Non-Af 61, BUN/Creatinine Ratio 14.2, Glucose 108 H, Calcium 8.8, Magnesium 1.9, TSH 1.91 Current Medications Acetaminophen (Tylenol) 650 mg PO Q6H PRN PRN PRN Reason: Non-cardiac pain (mod-severe) Al Hydroxide/Mg Hydroxide (Mylanta Ii) 15 - 30 ml PO Q4H PRN PRN PRN Reason: INDIGESTION Albuterol Sulfate (Ventolin Aerosols) 2.5 mg INHALATION Q2H PRN PRN PRN Reason: dyspnea, wheezing Albuterol/Ipratropium (Duoneb) 3 ml INHALATION Q6HWA.RT [facility] Last Admin: 04/19/19 07:29 Dose: 3 ml Documented by: Amlodipine Besylate (Norvasc) 5 mg PO DAILY [facility] Last Admin: 04/19/19 08:13 Dose: 5 mg Documented by: Amoxicillin/Clavulanate Potassium (Augmentin Tablet) 875 mg PO Q12 [facility] Last Admin: 04/19/19 08:14 Dose: 875 mg Documented by: Apixaban (Eliquis) 2.5 mg PO BID [facility] Last Admin: 04/19/19 08:14 Dose: 2.5 mg Documented by: Atenolol (Tenormin (Beta Darcie)) 50 mg PO DAILY [facility] Last Admin: 04/19/19 08:13 Dose: 50 mg Documented by: Atorvastatin Calcium (Lipitor) 20 mg PO QHS [facility] Bupropion HCl (Wellbutrin Tablets) 75 mg PO BID [facility] Last Admin: 04/19/19 08:14 Dose: 75 mg Documented by: Clopidogrel Bisulfate (Plavix) 75 mg PO DAILY [facility] Last Admin: 04/19/19 08:13 Dose: 75 mg Documented by: Dextrose (D50w Syringe) 0 gm IV X1 PRN; Protocol PRN Reason: Hypoglycemia Furosemide (Lasix) 40 mg IV BIDLX [facility] Last Admin: 04/19/19 08:14 Dose: 40 mg Documented by: Glucagon () 1 mg IM .X1 PRN PRN Reason: Hypoglycemia Guaifenesin (Robitussin) 20 ml PO Q4H PRN PRN PRN Reason: COUGH Hydralazine HCl (Apresoline Iv) 10 mg IV Q4H PRN PRN PRN Reason: SBP > 160 Sodium Chloride () 250 mls @ 15 mls/hr IV .[id number] PRN PRN Reason: Saline Flush Isosorbide Dinitrate (Isordil) 20 mg PO TID [facility] Last Admin: 04/19/19 05:41 Dose: 20 mg Documented by: Lorazepam (Ativan) 0.5 mg PO DAILY PRN PRN PRN Reason: Anixety Losartan Potassium (Cozaar) 25 mg PO BID [facility] Last Admin: 04/19/19 08:13 Dose: 25 mg Documented by: Magnesium Hydroxide (Milk Of Magnesia) 30 ml PO DAILY PRN PRN PRN Reason: Constipation Melatonin (Melatonin) 3 mg PO QHS PRN PRN PRN Reason: INSOMNIA Morphine Sulfate () 1 - 2 mg IV Q4H PRN PRN PRN Reason: Pain Score 1-10/10 Nitroglycerin (Nitrostat) 0.4 mg SUBLINGUAL Q5M PRN PRN Reason: CARDIAC/CHEST PAIN Nutritional Formula (Lactose Free) (Ensure Enlive) 120 ml PO 4X/DAY [facility] Last Admin: 04/19/19 08:14 Dose: 120 ml Documented by: Ondansetron HCl (Zofran) 4 mg IV Q8H PRN PRN PRN Reason: NAUSEA/VOMITING Potassium Chloride (K-Dur) 20 meq PO DAILY [facility] Last Admin: 04/19/19 08:14 Dose: 20 meq Documented by: Sertraline HCl (Zoloft) 100 mg PO DAILY [facility] Last Admin: 04/19/19 08:14 Dose: 100 mg Documented by: Sodium Chloride () 10 - 40 ml IV UD PRN PRN Reason: SALINE FLUSH Last Admin: 04/19/19 08:15 Dose: 10 ml Documented by: Tamsulosin HCl (Flomax) 0.4 mg PO DAILY [facility] Last Admin: 04/19/19 08:14 Dose: 0.4 mg Documented by: Throat Lozenges (Cepacol Sore Throat Lozenge) 1 lozenge MUCOUS MEM Q2H PRN PRN PRN Reason: Sore Throat/Cough Medical Necessity - Tobacco Use Smoking Status: Former smoker Tobacco Use: Non-smoker Assessment/Plan All Active Problems (Last Reviewed 02/26/19 @ 11:28 by Amor Steen MD) Congestive heart failure (Acute) CAP (community acquired pneumonia) (Acute) Chest pain (Acute) Pneumonia (Acute) Non-ST elevated myocardial infarction (Acute ~01/23/19) Acute respiratory failure with hypoxia (Acute) CHF exacerbation (Acute) Pneumonia (Resolved) 1. Mild acute on chronic systolic CHF with acute hypoxic respiratory insufficiency-chest x-ray admission with small right pleural effusion, probable tiny left pleural effusion. BNP 1641. IV Lasix 40 mg twice daily. Strict I&O. Daily weight. Echocardiogram December 2018 with EF 45%, mild mitral valve insufficiency, mild tricuspid valve insufficiency, RVSP estimated to be 80 mmHg. Continue supplement oxygen to maintain O2 at or above 90%. Patient recently discharged on 2 L nasal cannula following admission for pneumonia. 2. Recent left lower lobe community-acquired pneumonia-continue previously prescribed course of Augmentin. On supplemental oxygen as noted above following recent pneumonia and also exacerbated by #1. 3. Severe pulmonary hypertension-RVSP 80 mmHg on echo December 2018. 4. Chronic kidney disease stage III-at baseline. 5. 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 6. Hypertension-continue atenolol, Lasix, isosorbide, losartan. 7. Hyperlipidemia-continue statin regimen. 8. Chronic atrial fibrillation-rate controlled. Continue Eliquis, atenolol. 9. Anxiety, depression-continue sertraline, bupropion, lorazepam regimen. 10. BPH-continue Flomax regimen. DVT prophylaxis-Eliquis Discharge planning: SNF pending pre-CERT. This patient was seen by LEXIE Rich under the supervision of Dr. Silva. <Honey Silva - Last Filed: 04/19/19 16:55> - Physical Exam Vitals/I&O's: Vital Signs Temp Pulse Resp BP Pulse Ox 98.2 F 70 16 129/80 H 93 04/19/19 11:35 04/19/19 15:07 04/19/19 12:45 04/19/19 11:35 04/19/19 11:35 Oxygen Flow Rate (L/min) 2 Oxygen Delivery Method Nasal Cannula Weight: 73.4 kg Body Mass Index (BMI) 23.3 Intake and Output for Last 24 Hours 04/17/19 04/18/19 04/19/19 23:59 23:59 23:59 Intake Total 410 / 410 Output Total 250 / 250 Balance 160 / 160 Laboratory Results 04/18/19 22:50: WBC 10.3, RBC 4.34 L, Hgb 12.4 L, Hct 38.0 L, MCV 87.6, MCH 28.6, MCHC 32.6, RDW Std Deviation 45.1 H, RDW Coeff of Justice 14.0, Plt Count 219, MPV 10.5, Immature Gran % (Auto) 0.500, Neut % (Auto) 80.3 H, Lymph % (Auto) 7.7 L, Canyon % (Auto) 5.7, Eos % (Auto) 5.6 H, Baso % (Auto) 0.2, Absolute Neuts (auto) 8.3 H, Absolute Lymphs (auto) 0.80 L, Nucleated RBC % 0 04/18/19 22:50: Sodium 142, Potassium 3.6, Chloride 108 H, Carbon Dioxide 27.0, Anion Gap 7, BUN 20 H, Creatinine 1.23, Estim Creat Clear Calc 46.99, Est GFR (MDRD) Af Amer 72, Est GFR (MDRD) Non-Af 60, BUN/Creatinine Ratio 16.3, Glucose 129 H, Calcium 8.9, Troponin I < 0.015 04/18/19 22:50: B-Natriuretic Peptide 1641.0 H 04/19/19 05:25: WBC 10.6, RBC 4.52 L, Hgb 13.1, Hct 39.7 L, MCV 87.8, MCH 29.0, MCHC 33.0, RDW Std Deviation 45.1 H, RDW Coeff of Justice 14.2, Plt Count 201, MPV 10.5, Immature Gran % (Auto) 0.600, Neut % (Auto) 74.4 H, Lymph % (Auto) 11.6 L, Canyon % (Auto) 6.4, Eos % (Auto) 6.8 H, Baso % (Auto) 0.2, Absolute Neuts (auto) 7.9 H, Absolute Lymphs (auto) 1.23, Nucleated RBC % 0 04/19/19 05:25: Sodium 140, Potassium 3.3 L, Chloride 104, Carbon Dioxide 26.0, Anion Gap 10, BUN 17, Creatinine 1.20, Estim Creat Clear Calc 48.16, Est GFR (MDRD) Af Amer 74, Est GFR (MDRD) Non-Af 61, BUN/Creatinine Ratio 14.2, Glucose 108 H, Calcium 8.8, Magnesium 1.9, TSH 1.91 Current Medications Acetaminophen (Tylenol) 650 mg PO Q6H PRN PRN PRN Reason: Non-cardiac pain (mod-severe) Al Hydroxide/Mg Hydroxide (Mylanta Ii) 15 - 30 ml PO Q4H PRN PRN PRN Reason: INDIGESTION Albuterol Sulfate (Ventolin Aerosols) 2.5 mg INHALATION Q2H PRN PRN PRN Reason: dyspnea, wheezing Albuterol/Ipratropium (Duoneb) 3 ml INHALATION Q6HWA.RT [facility] Last Admin: 04/19/19 12:45 Dose: 3 ml Documented by: Amlodipine Besylate (Norvasc) 5 mg PO DAILY [facility] Last Admin: 04/19/19 08:13 Dose: 5 mg Documented by: Amoxicillin/Clavulanate Potassium (Augmentin Tablet) 875 mg PO Q12 [facility] Last Admin: 04/19/19 08:14 Dose: 875 mg Documented by: Apixaban (Eliquis) 2.5 mg PO BID [facility] Last Admin: 04/19/19 08:14 Dose: 2.5 mg Documented by: Atenolol (Tenormin (Beta Darcie)) 50 mg PO DAILY [facility] Last Admin: 04/19/19 08:13 Dose: 50 mg Documented by: Atorvastatin Calcium (Lipitor) 20 mg PO QHS [facility] Bupropion HCl (Wellbutrin Tablets) 75 mg PO BID [facility] Last Admin: 04/19/19 08:14 Dose: 75 mg Documented by: Clopidogrel Bisulfate (Plavix) 75 mg PO DAILY [facility] Last Admin: 04/19/19 08:13 Dose: 75 mg Documented by: Dextrose (D50w Syringe) 0 gm IV X1 PRN; Protocol PRN Reason: Hypoglycemia Furosemide (Lasix) 40 mg IV BIDLX [facility] Last Admin: 04/19/19 08:14 Dose: 40 mg Documented by: Glucagon () 1 mg IM .X1 PRN PRN Reason: Hypoglycemia Guaifenesin (Robitussin) 20 ml PO Q4H PRN PRN PRN Reason: COUGH Hydralazine HCl (Apresoline Iv) 10 mg IV Q4H PRN PRN PRN Reason: SBP > 160 Sodium Chloride () 250 mls @ 15 mls/hr IV .[id number] PRN PRN Reason: Saline Flush Isosorbide Dinitrate (Isordil) 20 mg PO TID [facility] Last Admin: 04/19/19 13:19 Dose: 20 mg Documented by: Lorazepam (Ativan) 0.5 mg PO DAILY PRN PRN PRN Reason: Anixety Losartan Potassium (Cozaar) 25 mg PO BID [facility] Last Admin: 04/19/19 08:13 Dose: 25 mg Documented by: Magnesium Hydroxide (Milk Of Magnesia) 30 ml PO DAILY PRN PRN PRN Reason: Constipation Melatonin (Melatonin) 3 mg PO QHS PRN PRN PRN Reason: INSOMNIA Morphine Sulfate () 1 - 2 mg IV Q4H PRN PRN PRN Reason: Pain Score 1-10/10 Nitroglycerin (Nitrostat) 0.4 mg SUBLINGUAL Q5M PRN PRN Reason: CARDIAC/CHEST PAIN Nutritional Formula (Lactose Free) (Ensure Enlive) 120 ml PO 4X/DAY [facility] Last Admin: 04/19/19 13:20 Dose: 120 ml Documented by: Ondansetron HCl (Zofran) 4 mg IV Q8H PRN PRN PRN Reason: NAUSEA/VOMITING Potassium Chloride (K-Dur) 20 meq PO DAILY [facility] Last Admin: 04/19/19 08:14 Dose: 20 meq Documented by: Sertraline HCl (Zoloft) 100 mg PO DAILY [facility] Last Admin: 04/19/19 08:14 Dose: 100 mg Documented by: Sodium Chloride () 10 - 40 ml IV UD PRN PRN Reason: SALINE FLUSH Last Admin: 04/19/19 08:15 Dose: 10 ml Documented by: Tamsulosin HCl (Flomax) 0.4 mg PO DAILY [facility] Last Admin: 04/19/19 08:14 Dose: 0.4 mg Documented by: Throat Lozenges (Cepacol Sore Throat Lozenge) 1 lozenge MUCOUS MEM Q2H PRN PRN PRN Reason: Sore Throat/Cough Assessment/Plan This patient was seen in conjunction with Leigh Parks MDM DEVELOPER. I have independently interviewed and examined the patient and reviewed pertinent historical, laboratory, and other data. Please refer to her note for patient's presentation, findings, and recommendations. Patient was seen and examined. He complains of shortness of breath with chest pain on admission which is resolved. The plan is for discharge to [facility] where his is. Vitals were reviewed -stable Physical Exam: Gen: Comfortable, not pale, not jaundiced, alert oriented x3, in mild respiratory distress CVS:HS I +II, regular, no murmurs RESP: Diminished at lung bases, no wheezes heard GI: BS present and normal, nontender, no palpable organs EXT:No edema Labs reviewed: ASSESSMENT: 1. Acute hypoxic respiratory insufficiency 2. Acute on chronic Systolic CHF 3. Recent pneumonia 4. Severe pulmonary hypertension 5. CAD status post CABG 6. Hypertension Meds reviewed Plan: Continue on aspirin, statin, Eliquis, beta-darcie, antibiotics Discharge planning to SNF Code Visit Inpatient E&M: 25706 Subs Hosp L2
--- NOTE | 2019-04-19 10:45 | CASEMGMT ---
LW/POA forms scanned into summary tab of echart. Carmen is listed as POA and daughter Savannah as first alternate. MADHURI Escalante
--- NOTE | 2019-04-19 13:18 | CASEMGMT ---
ALIVIA called patient's daughter/POASavannah. ALIVIA told her about conversation with patient and she said that is correct. ALIVIA told her SW will make the referral and he will stay at [facility] until insurance approves him. ALIVIA did tell her that it is possible that insurance could deny him for alf so she needs to be thinking of a back up plan. ALIVIA told her SW will let her know when SW gets any new information. ALIVIA faxed referral to [facility]. ALIVIA called [facility] and spoke with Roxanne regarding referral. She said she will get the pre-cert request started. Plan: [facility] pending pre-cert. Kinjal SAHA
[2019-04-19] MEDS: Atorvastatin Calcium 20 MG Tablet PO (21:57)
[2019-04-20] VITALS (7 sets, daily range): BP systolic 119–134; BP diastolic 54–67; PULSE 60–85; RESP 16–18; TEMP 36.5–36.6; O2SAT 94–98
[2019-04-20] MEDS: Isosorbide DN 20 MG Tablet PO ×2 (05:33→13:13)
[2019-04-20 05:55] LABS: Anion Gap 8 (5-15); BUN 25 mg/dL (7-18); Calcium,Total 8.4 mg/dL (8.5-10.1); Chloride 104 mmol/L (98-107); Creatinine, Serum 1.39 mg/dL (0.70-1.30); EST Glomerular Filtration Rate 52 mL/min (>60); Est Glom Filt Rate - Afr Amer 63 mL/min (>60); Estimated Creatinine Clearance 41.58 ml/min; Glucose 101 mg/dL (74-106); Potassium 3.7 mmol/L (3.5-5.1); Sodium Level 142 mmol/L (136-145)
[2019-04-20] MEDS: Ipratropium/Albuterol Sulfate 3 ML AMPUL.NEB INHALATION ×2 (07:35→13:20)
[2019-04-20] MEDS: APIXABAN 2.5 MG TABLET PO (09:29)
[2019-04-20] MEDS: Atenolol 50 MG Tablet PO (09:29)
[2019-04-20] MEDS: buPROPion 75 MG Tablet PO (09:29)
[2019-04-20] MEDS: Sertraline 100 MG Tablet PO (09:29)
[2019-04-20] MEDS: Amox/Clavulanate 875 MG Tablet PO (09:29)
[2019-04-20] MEDS: Losartan Potassium 25 MG Tablet PO (09:29)
[2019-04-20] MEDS: amLODIPine 5 MG Tablet PO (09:29)
[2019-04-20] MEDS: Furosemide 40 MG/4 ML Vial IV (09:29)
[2019-04-20] MEDS: Tamsulosin HCl 0.4 MG Capsule PO (09:29)
[2019-04-20] MEDS: Clopidogrel Bisulfate 75 MG Tablet PO (09:29)
[2019-04-20] MEDS: Ondansetron 4 MG/2 ML Vial IV (10:04)
[2019-04-20] MEDS: 0.9% Saline Lock 10 ML Syringe IV (10:06)
--- NOTE | 2019-04-20 13:28 | TREXTCA.CO_ITS ---
- Diet 04/19/19 01:09 Diet: Cardiac/Low Cholesterol Food consistency:: Regular Liquid Consistency:: Regular/Thin - Routine Orders/Code Status Enema Type: Fleetz Enema Frequency: Daily PRN Suppository Type: Dulcolax 10mg Suppository Frequency: Daily PRN O2 Liters per Minute: 2-3 O2 Frequency: Continuous Keep PO Greater than or Equal to (%): 90 Routine Lab Work: CBC, BMP, - - Q Week Code [facility] Suggestions for Active Care Change Position every (hours): 2 Times a day to sit in chair: 3 - Therapies Physical Therapy: Eval and Treat Occupational Therapy: Eval and Treat - Problem/Diagnosis (1) Congestive heart failure Status: Acute Current Visit: Yes (2) CAP (community acquired pneumonia) Status: Resolved Current Visit: No (3) CKD (chronic kidney disease), stage III Status: Chronic Current Visit: No (4) Pneumonia Status: Acute Current Visit: No (5) Presence of stent in coronary artery Status: Chronic Comment: PTCA/CRYSTAL to SVG to obtuse marginal in August 2016; Staged PTCA/CRYSTAL to RCA in October 2016; Current Visit: No (6) Atherosclerosis of coronary artery bypass graft without angina pectoris Status: Chronic Current Visit: No (7) Essential hypertension Status: Chronic Current Visit: No (8) Pure hypercholesterolemia Status: Chronic Current Visit: No (9) Atherosclerotic heart disease Status: Chronic Comment: S/P CABG in 1993 with MARIA to LAD, SVG to OM1, and SVG to first diagonal; PTCA/CRYSTAL to SVG to obtuse marginal in August 2016; Staged PTCA/CRYSTAL to RCA in October 2016; Current Visit: No (10) BPH (benign prostatic hyperplasia) Status: Chronic Current Visit: No (11) Non-ST elevated myocardial infarction Status: Resolved Current Visit: No (12) Hyperlipidemia Status: Chronic Current Visit: No (13) Acute respiratory failure with hypoxia Status: Acute Current Visit: Yes (14) CHF exacerbation Status: Acute Current Visit: Yes (15) Atrial fibrillation with RVR Status: Chronic Current Visit: No (16) Hx of CABG Status: Chronic Current Visit: No - Allergies/Procedures Done in Hospital Allergies/Adverse Reactions: Allergies atorvastatin calcium [From Lipitor] Adverse Reaction (Verified 04/18/19 21:57) Other LEG CRAMPS WITH 40MG DOSE BUT TOLERATES LOWER DOSE buspirone HCl [From BuSpar] Adverse Reaction (Verified 04/18/19 21:57) Other FAINT fosinopril sodium [From Monopril] Adverse Reaction (Verified 04/18/19 21:57) Other LEG CRAMPS Iodinated Contrast Media [CONTRASTS] Adverse Reaction (Verified 04/18/19 21:57) Itching ramipril [From Altace] Adverse Reaction (Verified 04/18/19 21:57) Other LEG CRAMPS simvastatin Adverse Reaction (Verified 04/18/19 21:57) Other WHEN MIXED WITH DILTIAZEM CAUSES SEVERE MUSCLE CRAMPS Procedures: None - Type of Care/Length of Stay Estimated LOS: Convalescent Care Less Than 30 days Type of Care Needed: Skilled Rehab Potential: Fair Prognosis: Fair - Additional Orders/Day of Discharge H&P will serve as current which was dated: 04/19/19 Day of Discharge: 04/20/19 - Dietary and Speech Recommendations Dietitian Recommendations/Changes: Suggest diet change to cardiac/low sodium as needed. Continue ensure enlive on medpass as ordered. - Follow Up Care Primary Care Physician: Adalgisa Isidro MD [Primary Care Provider] - Please follow up with your Primary Care Physician in: 1 Week Please Follow Up With: Amor Steen MD When: As scheduled 06/04/19
--- NOTE | 2019-04-20 13:33 | DS.PCM_ITS ---
<Leigh Parks - Last Filed: 04/20/19 13:38> Discharge Date and Diagnosis Date of Admission: 04/19/19 Date of Discharge: 04/20/19 - Primary Discharge Diagnosis Active and Suspected Problems (Last Reviewed 02/26/19 @ 11:28 by Amor Steen MD) 1. Mild acute on chronic systolic CHF with acute hypoxic respiratory insufficiency- 2. Recent left lower lobe community-acquired pneumonia 3. Severe pulmonary hypertension 4. Chronic kidney disease stage III 5. CAD status post CABG x5 and PCI 6. Hypertension 7. Hyperlipidemia 8. Chronic atrial fibrillation 9. Anxiety, depression 10. BPH - Secondary Discharge Diagnosis Chronic Problems (Last Reviewed 02/26/19 @ 11:28 by Amor Steen MD) CKD (chronic kidney disease), stage III (Chronic) Presence of stent in coronary artery (Chronic ~10/2016) PTCA/CRYSTAL to SVG to obtuse marginal in August 2016; Staged PTCA/CRYSTAL to RCA in October 2016; Atherosclerosis of coronary artery bypass graft without angina pectoris (Chronic) Essential hypertension (Chronic) Pure hypercholesterolemia (Chronic) Atherosclerotic heart disease (Chronic) S/P CABG in 1993 with MARIA to LAD, SVG to OM1, and SVG to first diagonal; PTCA/CRYSTAL to SVG to obtuse marginal in August 2016; Staged PTCA/CRYSTAL to RCA in October 2016; BPH (benign prostatic hyperplasia) (Chronic) Hyperlipidemia (Chronic) Atrial fibrillation with RVR (Chronic) Hx of CABG (Chronic ~1993) Hospital Course and Treatment Imaging Results: Diagnostic Data Chest X-Ray 04/18/19 22:57 IMPRESSION: 1. Borderline cardiomegaly with interval development of small right pleural effusion and probable tiny left pleural effusion. 2. Background chronic disease with COPD and left apical and left basilar pleural parenchymal scarring. 3. The overall pattern is compatible with acute on chronic chest disease. Right basilar mild septal interstitial edema may be present representing mild cardiac decompensation superimposed on COPD and chronic scarring. at 0006 Reported and signed by: Mau Parker MD Electronically Signed: Mau Parker, at 0:05 EST Tel , Service support , Operations: None Procedures: None Summary of Care Provided: The patient is a 83 year old M admitted 04/19/2019 due to fatigue, worsening dyspnea and unable to care for self at home. 1. Mild acute on chronic systolic CHF with acute hypoxic respiratory insufficiency-chest x-ray admission with small right pleural effusion, probable tiny left pleural effusion. BNP 1641. Patient received IV Lasix during admission. Echocardiogram December 2018 with EF 45%, mild mitral valve insufficie ncy, mild tricuspid valve insufficiency, RVSP estimated to be 80 mmHg. Continue supplement oxygen to maintain O2 at or above 90%. Patient recently discharged on 2 L nasal cannula following admission for pneumonia. Discharged on Lasix 40 mg daily. Follow-up with cardiology as scheduled. SNF at discharge. 2. Recent left lower lobe community-acquired pneumonia-completed course of antibiotic. On supplemental oxygen as noted above following recent pneumonia and also exacerbated by #1. 3. Severe pulmonary hypertension-RVSP 80 mmHg on echo December 2018. 4. Chronic kidney disease stage III-at baseline. 5. 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 6. Hypertension-continue atenolol, Lasix, isosorbide, losartan. 7. Hyperlipidemia-continue statin regimen. 8. Chronic atrial fibrillation-rate controlled. Continue Eliquis, atenolol. 9. Anxiety, depression-continue sertraline, bupropion, lorazepam regimen. 10. BPH-continue Flomax regimen. General: Alert, Oriented x3, Cooperative HEENT: Atraumatic, PERRLA, EOMI, Normocephalic Neck: Supple, No JVD, Negative Carotid Bruits Lungs: Clear to auscultation, Diminished Cardiovascular: - - Atrial fibrillation, rate controlled Abdomen: Bowel Sounds Present, Soft, Non Tender Extremities: No clubbing, No cyanosis, No edema, Capillary Refill Less than 3 Seconds Skin: No rashes, No breakdown Musculoskeletal: No Tenderness to Palpation of Joints or Extremities Neurological: Cranial nerves II-XII grossly intact, Neuro grossly intact Psych/Mental Status: Normal Affect, Appropriate Patient seen and examined prior to discharge. Physical assessment as noted above. Patient is stable for discharge with follow up recommendations as noted above. This patient was seen by LEXIE Rich under the supervision of Dr. Paintsil. - Physical Exam Vitals/I&O's: Vital Signs Temp Pulse Resp BP Pulse Ox 97.7 F L 83 18 121/55 H 94 04/20/19 09:27 04/20/19 09:27 04/20/19 09:27 04/20/19 09:27 04/20/19 09:27 Oxygen Flow Rate (L/min) 3 Oxygen Delivery Method Nasal Cannula Weight: 162 lb 4.163 oz Body Mass Index (BMI) 23.3 Intake and Output for Last 24 Hours 04/18/19 04/19/19 04/20/19 23:59 23:59 23:59 Intake Total 770 / 770 420 / 420 Output Total 475 / 475 Balance 295 / 295 420 / 420 Laboratory Results 04/20/19 05:10: Sodium 142, Potassium 3.7, Chloride 104, Carbon Dioxide 30.0, Anion Gap 8, BUN 25 H, Creatinine 1.39 H, Estim Creat Clear Calc 41.58, Est GFR (MDRD) Af Amer 63, Est GFR (MDRD) Non-Af 52 L, BUN/Creatinine Ratio 18.0, Glucose 101, Calcium 8.4 L Current Medications Acetaminophen (Tylenol) 650 mg PO Q6H PRN PRN PRN Reason: Non-cardiac pain (mod-severe) Al Hydroxide/Mg Hydroxide (Mylanta Ii) 15 - 30 ml PO Q4H PRN PRN PRN Reason: INDIGESTION Albuterol Sulfate (Ventolin Aerosols) 2.5 mg INHALATION Q2H PRN PRN PRN Reason: dyspnea, wheezing Albuterol/Ipratropium (Duoneb) 3 ml INHALATION Q6HWA.RT [facility] Last Admin: 04/20/19 13:20 Dose: 3 ml Documented by: Amlodipine Besylate (Norvasc) 5 mg PO DAILY [facility] Last Admin: 04/20/19 09:29 Dose: 5 mg Documented by: Amoxicillin/Clavulanate Potassium (Augmentin Tablet) 875 mg PO Q12 [facility] Last Admin: 04/20/19 09:29 Dose: 875 mg Documented by: Apixaban (Eliquis) 2.5 mg PO BID [facility] Last Admin: 04/20/19 09:29 Dose: 2.5 mg Documented by: Atenolol (Tenormin (Beta Darcie)) 50 mg PO DAILY [facility] Last Admin: 04/20/19 09:29 Dose: 50 mg Documented by: Atorvastatin Calcium (Lipitor) 20 mg PO QHS [facility] Last Admin: 04/19/19 21:57 Dose: 20 mg Documented by: Bupropion HCl (Wellbutrin Tablets) 75 mg PO BID [facility] Last Admin: 04/20/19 09:29 Dose: 75 mg Documented by: Clopidogrel Bisulfate (Plavix) 75 mg PO DAILY [facility] Last Admin: 04/20/19 09:29 Dose: 75 mg Documented by: Dextrose (D50w Syringe) 0 gm IV X1 PRN; Protocol PRN Reason: Hypoglycemia Furosemide (Lasix) 20 mg IV DAILY [facility] Glucagon () 1 mg IM .X1 PRN PRN Reason: Hypoglycemia Guaifenesin (Robitussin) 20 ml PO Q4H PRN PRN PRN Reason: COUGH Hydralazine HCl (Apresoline Iv) 10 mg IV Q4H PRN PRN PRN Reason: SBP > 160 Sodium Chloride () 250 mls @ 15 mls/hr IV .[id number] PRN PRN Reason: Saline Flush Isosorbide Dinitrate (Isordil) 20 mg PO TID [facility] Last Admin: 04/20/19 13:13 Dose: 20 mg Documented by: Lorazepam (Ativan) 0.5 mg PO DAILY PRN PRN PRN Reason: Anixety Losartan Potassium (Cozaar) 25 mg PO BID [facility] Last Admin: 04/20/19 09:29 Dose: 25 mg Documented by: Magnesium Hydroxide (Milk Of Magnesia) 30 ml PO DAILY PRN PRN PRN Reason: Constipation Melatonin (Melatonin) 3 mg PO QHS PRN PRN PRN Reason: INSOMNIA Morphine Sulfate () 1 - 2 mg IV Q4H PRN PRN PRN Reason: Pain Score 1-10/10 Nitroglycerin (Nitrostat) 0.4 mg SUBLINGUAL Q5M PRN PRN Reason: CARDIAC/CHEST PAIN Nutritional Formula (Lactose Free) (Ensure Enlive) 120 ml PO 4X/DAY [facility] Last Admin: 04/20/19 13:00 Dose: Not Given Documented by: Ondansetron HCl (Zofran) 4 mg IV Q8H PRN PRN PRN Reason: NAUSEA/VOMITING Last Admin: 04/20/19 10:04 Dose: 4 mg Documented by: Potassium Chloride (K-Dur) 20 meq PO DAILY [facility] Last Admin: 04/20/19 09:41 Dose: 20 meq Documented by: Sertraline HCl (Zoloft) 100 mg PO DAILY [facility] Last Admin: 04/20/19 09:29 Dose: 100 mg Documented by: Sodium Chloride () 10 - 40 ml IV UD PRN PRN Reason: SALINE FLUSH Last Admin: 04/20/19 10:06 Dose: 10 ml Documented by: Tamsulosin HCl (Flomax) 0.4 mg PO DAILY [facility] Last Admin: 04/20/19 09:29 Dose: 0.4 mg Documented by: Throat Lozenges (Cepacol Sore Throat Lozenge) 1 lozenge MUCOUS MEM Q2H PRN PRN PRN Reason: Sore Throat/Cough Home Medications: Medications to take at Discharge Atenolol [Tenormin (beta darcie)] 50 mg PO DAILY 06/01/14 Calcium Carb/Vitamin D [Caltrate-600 With Vit D Tab] 1 tab PO BID 06/01/14 Cholecalciferol (VIT D3) [Vitamin D3] 2,000 unit PO DAILY 06/01/14 Multivitamins,Therapeutic [Multivitamin] 1 tab PO DAILY 06/01/14 Nitroglycerin (INPATIENT USE) [Nitrostat] 0.4 mg SUBLINGUAL PRN PRN 06/08/14 lorazepam 0.5 mg tablet 0.5 mg PO DAILY PRN 15 Days tab 11/09/18 Amlodipine Besylate [Norvasc] 5 mg PO DAILY 04/13/19 Apixaban [Eliquis] 2.5 mg PO BID 04/13/19 Atorvastatin Calcium 20 mg PO QHS 04/13/19 Bupropion HCl 75 mg PO BID 04/13/19 Clopidogrel Bisulfate [Clopidogrel] 75 mg PO DAILY 04/13/19 Isosorbide Dinitrate 20 mg PO TID 04/13/19 Losartan Potassium [Cozaar] 25 mg PO BID 04/13/19 Benton-3S/Dha/Epa/Fish Oil [Benton-3 Fish Oil 1,200 mg Sfgl] 1 cap PO BID 04/13/19 Potassium Chloride [K-Tab ER] 20 meq PO DAILY 04/13/19 Sertraline HCl 100 mg PO DAILY 04/13/19 Tamsulosin HCl 0.4 mg PO DAILY 04/13/19 Albuterol Aerosols [Ventolin Aerosols] 2.5 mg INHALATION Q2H PRN PRN vial.neb. 04/20/19 Furosemide 40 mg PO DAILY #0 04/20/19 Primary Care Physician: Adalgisa Isidro MD [Primary Care Provider] - Please follow up with your Primary Care Physician in: 1 Week Please Follow Up With: Amor Steen MD When: As scheduled 06/04/19 Disposition: Residential facility Minutes spent on discharge:: 35 Patient Condition:: Stable Medical Necessity - Tobacco Use Smoking Status: Former smoker Tobacco Use: Non-smoker Meaningful Use Info Meaningful Use Diagnoses (Choose all that apply): CHF - CHF PATEL/ARB ordered at discharge?: Yes Documented LVEF (%): 45 <RicardoTrenton - Last Filed: 04/21/19 06:45> Discharge Date and Diagnosis - Secondary Discharge Diagnosis Chronic Problems (Last Reviewed 02/26/19 @ 11:28 by Amor Steen MD) CKD (chronic kidney disease), stage III (Chronic) Presence of stent in coronary artery (Chronic ~10/2016) PTCA/CRYSTAL to SVG to obtuse marginal in August 2016; Staged PTCA/CRYSTAL to RCA in October 2016; Atherosclerosis of coronary artery bypass graft without angina pectoris (Chronic) Essential hypertension (Chronic) Pure hypercholesterolemia (Chronic) Atherosclerotic heart disease (Chronic) S/P CABG in 1993 with MARIA to LAD, SVG to OM1, and SVG to first diagonal; PTCA/CRYSTAL to SVG to obtuse marginal in August 2016; Staged PTCA/CRYSTAL to RCA in October 2016; BPH (benign prostatic hyperplasia) (Chronic) Hyperlipidemia (Chronic) Atrial fibrillation with RVR (Chronic) Hx of CABG (Chronic ~1993) Hospital Course and Treatment Summary of Care Provided: T This patient was seen in conjunction with Leigh Parks NP. I have independently interviewed and examined the patient and reviewed pertinent historical, laboratory, and other data. Please refer to her note for patient's presentation, findings, and recommendations. The patient is a 83 year old M with past medical history of chronic systolic CHF who was recently admitted and discharged with acute hypoxic respiratory insufficiency secondary to community-acquired pneumonia. He was readmitted with progressive fatigue, shortness of breath and chest pain and inability to care for himself. His is in the [facility]. Patient was started on a low dose of Lasix with improvement. He was seen by PT and OT. He is skilled for discharge to long-term facility. Physical Exam: Gen: Comfortable, not pale, not jaundiced, alert oriented x3, on 3L oxygen CVS:HS I +II, regular, no murmurs RESP: Diminished at lung bases, no wheezes heard GI: BS present and normal, nontender, no palpable organs EXT:No edema - Physical Exam Vitals/I&O's: Vital Signs Temp Pulse Resp BP Pulse Ox 97.8 F 85 18 134/67 H 97 04/20/19 15:10 04/20/19 15:10 04/20/19 15:10 04/20/19 15:10 04/20/19 15:10 Oxygen Flow Rate (L/min) 3 Oxygen Delivery Method Nasal Cannula Weight: 73.6 kg Body Mass Index (BMI) 23.3 Intake and Output for Last 24 Hours 04/19/19 04/20/19 04/21/19 23:59 23:59 23:59 Intake Total 770 / 770 420 / 420 Output Total 475 / 475 Balance 295 / 295 420 / 420 Code Visit Inpatient E&M: 48660 Disch Hosp
--- NOTE | 2019-04-20 13:48 | CASEMGMT ---
ALIIVA received a call from Roxanne at [facility]. She received insurance approval for patient. ALIVIA notified Nurse Practitioner. ALIVIA then received a call from patient's daughter, Savannah who is also his POA. ALIVIA let her know patient was approved and he will go to [facility] today. She said she was looking at some other facilities. ALIVIA told her we cannot change the facility now. The pre-cert would have to be started all over again and that would delay the discharge. She said that is fine. She preferred transport be set up. ALIVIA told her SW will let her know when ALIVIA has a time. Kinjal TROTTER MSW
--- NOTE | 2019-04-20 14:48 | CASEMGMT ---
ALIVIA faxed orders to [facility]. ALIVIA completed a convalescent on HENS. Called [facility] and arranged for patient to get picked up at 4p via cot. ALIVIA notified RNRoxanne at [facility], medical office secretary, control panel builder, and patient's daughter Savannah. ALIVIA also spoke with Roxanne at [facility] about speaking with patient and his family about Palliative Care. She said they could do this. Plan: d/c to [facility] under skilled level of care on a convalescent stay. Kinjal TROTTER MARKETING ACCOUNT EXECUTIVE
--- NOTE | 2019-04-20 14:50 | NURSING ---
This RN called and gave report to CORWIN Saha at [facility].
== END 2019-04-20 16:05 | disposition skilled nursing facility (03) | DRG 291 ==
LOC: ED 04-19 00:27 → PCU 04-19 01:05
PROVIDERS: Nurse Practitioner Family; Admitting Provider Family Medicine; Emergency Provider Emergency Medicine; Family Provider Internal Medicine; PCP Internal Medicine; Visit Provider Internal Medicine
DX: I13.0 Hypertensive heart and chronic kidney disease with heart failure and stage 1 through stage 4 chronic kidney disease, or unspecified chronic kidney disease (principal); I50.23 Acute on chronic systolic (congestive) heart failure; I48.20 Chronic atrial fibrillation, unspecified; I25.10 Atherosclerotic heart disease of native coronary artery without angina pectoris; E78.5 Hyperlipidemia, unspecified; N18.3 Chronic kidney disease, stage 3 (moderate); N40.0 Benign prostatic hyperplasia without lower urinary tract symptoms; R06.89 Other abnormalities of breathing; R09.02 Hypoxemia; F41.9 Anxiety disorder, unspecified; Z79.01 Long term (current) use of anticoagulants; Z87.01 Personal history of pneumonia (recurrent); Z95.1 Presence of aortocoronary bypass graft; F32.9 Major depressive disorder, single episode, unspecified; Z95.5 Presence of coronary angioplasty implant and graft
CPT/HCPCS: 36415; 71046; 80048; 83735; 83880; 84443; 84484; 85025; 93005; 94640; 97162; 97166; 97530; 97802; 99285; A4216; J1940; J2405

== ENCOUNTER 2019-05-08 12:14 | Observation (INO) | payer MEDICARE, SELFPAY ==
[2016-10-30 13:35] VITALS: BMI 26.5
[2019-04-19 01:20] VITALS: BMI 23.3
[2019-05-08] VITALS (11 sets, daily range): BP systolic 112–163; BP diastolic 49–80; PULSE 39–76; RESP 16–21; TEMP 36.4–37.2; O2SAT 92–99; BMI 23.3; BMI 22.8; BMI 23.4
--- NOTE | 2019-05-08 12:55 | CT_ITS ---
STUDY: CT BRAIN WITHOUT CONTRAST REASON FOR EXAM: Male, 83 years old. Fell yesterday x3) Hanning right side of head. No loss of consciousness. History of hypertension, A. fib and skin cancer. RADIATION DOSAGE (If Supplied By Facility): CTDIvol = ( 44.99 ) mGy, DLP = ( 812.98 ) mGycm TECHNIQUE: Transaxial CT imaging of the brain was performed without administration of intravenous contrast material. Coronal and sagittal reconstructions were performed. Individualized dose optimization techniques were used for this CT. COMPARISON: 02/25/2018. FINDINGS: Normal soft tissue structures. Normal calvarium. Moderate cerebral atrophy, central cortical. This accounts for the dilated third and lateral ventricles. Normal cerebral aqueduct and fourth ventricle. Hypodensities in the white matter of both cerebral hemispheres are chronic white matter ischemic changes and unchanged. Normal basal ganglia and thalami. Normal brainstem. Normal cerebellum. There is no intracranial hemorrhage. There are no findings of an acute ischemic infarction. Normal visualized paranasal sinuses. CT/Brain/Head without Contrast IMPRESSION: 1. No CT evidence of intracranial bleeding, acute ischemic infarct or acute intracranial abnormality. 2. Chronic white matter ischemic changes in both cerebral hemispheres. 3. No interval change when compared to 02/25/2018. Electronically Signed: Brenton Curiel MD at 13:40 EST , Service support ,
--- NOTE | 2019-05-08 12:56 | EKG12_ITS ---
Test Reason : FALL Blood Pressure : / mmHG Vent. Rate : 053 BPM Atrial Rate : 079 BPM P-R Int : 000 ms QRS Dur : 092 ms QT Int : 468 ms P-R-T Axes : 000 -19 075 degrees QTc Int : 439 ms Atrial fibrillation with slow ventricular response Abnormal ECG Confirmed by ANGÉLICA PEPE ([id number]), metropolitan editor DEE DEE BEAVERS ([id number]) on 05/12/2019 1:02:28 PM Referred By: Ale Odonnell Confirmed By:ANGÉLICA PEPE
--- NOTE | 2019-05-08 12:57 | RAD_ITS ---
STUDY: X-RAY CHEST REASON FOR EXAM: Male, 83 years old. Recent fall. Lightheadedness. TECHNIQUE: Single frontal view of the chest. COMPARISON: April 18, 2019 FINDINGS: Hyperexpansion with diffuse interstitial pattern, left greater than right, unchanged. Resolution of pleural effusions on the prior study. Cardiomegaly with sternotomy wires unchanged. Normal mediastinum and rashad. Normal visualized pulmonary arteries. Normal visualized aortic arch and descending thoracic aorta. Normal visualized thoracic spine. Osteoarthrosis of both glenohumeral joints unchanged. There is no demonstrated abnormality of the visualized soft tissue structures of the upper abdomen. RAD/Chest 1 View (Portable) IMPRESSION: Relatively stable chest with no acute superimposed finding. Electronically Signed: Aurelio Hull MD at 14:21 EST , Service support ,
--- NOTE | 2019-05-08 12:59 | ED.VIS.GEN ---
History of Present Illness Chief Complaint: Fall Informant: Patient Onset: Days Narrative: Patient presents with multiple falls. He has been feeling lightheaded, worse when he stands over the past 2 to 3 weeks. He does report some medication changes about the time these symptoms were noted. He does report striking the right side of his head last night and putting a hole in the drywall. He also comments on injuring his right hip yesterday. Patient does live alone but has someone that comes in the home several hours a day with him. He denies loss of consciousness. Patient is currently on Eliquis for history of A. fib. - Past Medical History (1) Congestive heart failure Status: Chronic (2) CKD (chronic kidney disease), stage III Status: Chronic (3) Presence of stent in coronary artery Status: Chronic Comment: PTCA/CRYSTAL to SVG to obtuse marginal in August 2016; Staged PTCA/CRYSTAL to RCA in October 2016; (4) Atherosclerosis of coronary artery bypass graft without angina pectoris Status: Chronic (5) Essential hypertension Status: Chronic (6) Pure hypercholesterolemia Status: Chronic (7) CHF exacerbation Status: Chronic (8) Hx of CABG Status: Chronic Past Medical History - Allergies and Home Meds Allergies/Adverse Reactions: Allergies atorvastatin calcium [From Lipitor] Adverse Reaction (Verified 05/08/19 12:23) Other LEG CRAMPS WITH 40MG DOSE BUT TOLERATES LOWER DOSE buspirone HCl [From BuSpar] Adverse Reaction (Verified 05/08/19 12:23) Other FAINT fosinopril sodium [From Monopril] Adverse Reaction (Verified 05/08/19 12:23) Other LEG CRAMPS Iodinated Contrast Media [CONTRASTS] Adverse Reaction (Verified 05/08/19 12:23) Itching ramipril [From Altace] Adverse Reaction (Verified 05/08/19 12:23) Other LEG CRAMPS simvastatin Adverse Reaction (Verified 05/08/19 12:23) Other WHEN MIXED WITH DILTIAZEM CAUSES SEVERE MUSCLE CRAMPS Primary Care Physician: Adalgisa Isidro MD [Primary Care Provider] - Surgical History: coronary bypass surgery, - - CABG x5, PCI x6, left knee arthroscopic surgery. Lives: Alone Smoking Status: Former smoker - Family History Maternal Family History: Family History (Last Reviewed 02/26/19 @ 11:28 by Amor Steen MD) Father emphysema Mother Hypertension HLD (hyperlipidemia) Sister Enlarged heart Sister Myocardial infarction Family History: Reports: High Cholesterol, Heart Disease, Hypertension Paternal Family History: Family History (Last Reviewed 02/26/19 @ 11:28 by Amor Steen MD) Father emphysema Mother Hypertension HLD (hyperlipidemia) Sister Enlarged heart Sister Myocardial infarction Family History: Reports: COPD Sibling Family History: Family History (Last Reviewed 02/26/19 @ 11:28 by Amor Steen MD) Father emphysema Mother Hypertension HLD (hyperlipidemia) Sister Enlarged heart Sister Myocardial infarction Family History: Reports: - - sister from enlarged heart Review of Systems General: Denies: Chills, Fever Eyes: Denies: Visual changes - bilaterally ENT: Denies: Bilateral ear pain Cardiovascular: Denies: Chest pain Respiratory: Denies: Dyspnea, Cough Gastrointestinal: Denies: Abdominal pain, Nausea, Vomiting, Diarrhea Genitourinary: Denies: Dysuria Musculoskeletal: Reports: Extremity Pain. Denies: Back pain Skin: Denies: Rash Neurological: Denies: Headache Allergy: Denies: Uticaria Physical Exam Vital Signs/Narrative: Vital Signs Temp Pulse Pulse Pulse Pulse Resp BP 05/08/19 12:15 97.6 F L 60 55 L 60 70 16 138/52 H BP BP BP Pulse Ox 05/08/19 12:15 127/58 H 138/52 H 124/49 H 93 Inital Vital Signs reviewed: Yes General: Well nourished, Well developed Head: Normocephalic ENT: Moist mucous membranes Neck: Supple Cardiovascular: Irregular, Bradycardia Respiratory: No distress, CTA bilaterally, Chest nontender Abdomen: Soft, Nontender Extremities: - - Mild tenderness to the right hip. Equal leg lengths are noted. Minimal pain with logroll. Skin: Normal color Neurological: Alert, Oriented x3, - - No focal neuro deficits. Psychological: Normal affect Diagnostic/Tx/Re-eval Impressions Brain CT 05/08/19 12:55 IMPRESSION: 1. No CT evidence of intracranial bleeding, acute ischemic infarct or acute intracranial abnormality. 2. Chronic white matter ischemic changes in both cerebral hemispheres. 3. No interval change when compared to 02/25/2018. Electronically Signed: Brenton Curiel MD at 13:40 EST , Service support , Chest X-Ray 05/08/19 12:57 IMPRESSION: Relatively stable chest with no acute superimposed finding. Electronically Signed: Aurelio Hull MD at 14:21 EST , Service support , Hip/Pelvis X-Ray 05/08/19 13:48 IMPRESSION: Osteopenia with osteoarthrosis of both hips. No acute finding. Electronically Signed: Aurelio Hull MD at 14:37 EST , Service support , 05/08/19 12:55 Brain/Head without Contrast [CT] Stat 05/08/19 12:57 Chest 1 View (Portable) [RAD] Stat 05/08/19 13:48 HIP, UNI W/ Pelvis 2-3 Views [RAD] Stat Laboratory Results 05/08/19 05/08/19 05/08/19 12:55 12:55 12:55 WBC 7.1 RBC 4.00 L Hgb 11.6 L Hct 36.7 L MCV 91.8 MCH 29.0 MCHC 31.6 L RDW Std Deviation 49.0 H RDW Coeff of Justice 14.7 H Plt Count 220 MPV 10.0 Immature Gran % (Auto) 0.400 Neut % (Auto) 77.6 H Lymph % (Auto) 10.9 L [place] % (Auto) 7.9 Eos % (Auto) 2.8 Baso % (Auto) 0.4 Absolute Neuts (auto) 5.5 Absolute Lymphs (auto) 0.77 L Nucleated RBC % 0 PT 15.9 H INR 1.3 APTT 39.0 H Sodium 141 Potassium 4.7 Chloride 106 Carbon Dioxide 33.0 H Anion Gap 2 L BUN 20 H Creatinine 1.57 H Estim Creat Clear Calc 37.97 Est GFR (MDRD) Af Amer 54 L Est GFR (MDRD) Non-Af 45 L BUN/Creatinine Ratio 12.7 Glucose 99 Calcium 8.4 L Urine Color Urine Clarity Urine pH Ur Specific [place] Urine Protein Urine Glucose (UA) Urine Ketones Urine Occult Blood Urine Nitrite Urine Bilirubin Urine Urobilinogen Ur Leukocyte Esterase Urine RBC Urine WBC Ur Squamous Epith Cells Urine Bacteria Urine Mucus 05/08/19 13:40 WBC RBC Hgb Hct MCV MCH MCHC RDW Std Deviation RDW Coeff of Justice Plt Count MPV Immature Gran % (Auto) Neut % (Auto) Lymph % (Auto) [place] % (Auto) Eos % (Auto) Baso % (Auto) Absolute Neuts (auto) Absolute Lymphs (auto) Nucleated RBC % PT INR APTT Sodium Potassium Chloride Carbon Dioxide Anion Gap BUN Creatinine Estim Creat Clear Calc Est GFR (MDRD) Af Amer Est GFR (MDRD) Non-Af BUN/Creatinine Ratio Glucose Calcium Urine Color Yellow Urine Clarity Clear Urine pH 7.0 Ur Specific [place] 1.010 Urine Protein Negative Urine Glucose (UA) Normal Urine Ketones Negative Urine Occult Blood Negative Urine Nitrite Negative Urine Bilirubin Negative Urine Urobilinogen Normal Ur Leukocyte Esterase 25 H Urine RBC 0 SEEN Urine WBC 0-5 SEEN Ur Squamous Epith Cells 0-5 SEEN Urine Bacteria 0 SEEN Urine Mucus 0 SEEN - EKG Initial EKG Interpretation: Atrial Fibrillation - A. fib with ventricular response rate of 53. No acute ST change. - Medical Decision Making On repeat evaluation patient's daughter is now in the room. She is able to provide more history. Patient had had 2 hospitalizations during the month of March. He went to a snf for rehab and just came out of there 36 hours ago. He has had multiple falls since returning home. Daughter states he is very unsteady on his feet. Patient reported some recent medication changes that he thought it might be making him more lightheaded. It sounds as though he had been on Lasix recently and his atorvastatin was increased, not his blood pressure medications. At this time I expressed to patient my concern about his safety at home. I do not believe he is safe to be home alone. We will admit for physical therapy evaluation and placement. Patient would like to be considered for the rehab unit here at the hospital if he qualifies, but understands if he does not qualify he will need to find another ECF for rehab. ED Disposition - Plan for ED Patient: Disposition[facility] Diagnosis: Falls, Generalized weakness Referrals: Adalgisa Isidro MD [Primary Care Provider] -
[2019-05-08 13:16] LABS: Absolute Lymphocyte Count 0.77 X10^3/uL (0.83-4.51); Absolute Neutrophil Count 5.5 X10^3/uL (2.0-7.7); Basophil# 0.03 X10^3/uL; Basophil% 0.4 % (0-1); Eosinophils% 2.8 % (0-5); Hematocrit 36.7 % (40-54); Hemoglobin 11.6 g/dL (13.0-16.5); Lymphocyte # 0.77 X10^3/ul (4.0); Lymphocyte % 10.9 % (19-41); Mean Corp Hgb Conc 31.6 g/dL (32-36); Mean Corpuscular Volume 91.8 fL (80-94); Monocyte# 0.56 X10^3/uL; Monocyte% 7.9 % (0-10); NRBC Flagged by Analyzer 0 % (0-5); Neutrophil % 77.6 % (47-70); Platelet Count 220 K/mm3 (150-450); RBC Distribution Width CV 14.7 % (11.6-14.6); White Blood Count 7.1 K/mm3 (4.4-11.0)
[2019-05-08 13:21] LABS: International Normalized Ratio 1.3; Prothrombin Time (Protime)PT. 15.9 SECONDS (11.7-14.9)
[2019-05-08 13:36] LABS: Anion Gap 2 (5-15); BUN 20 mg/dL (7-18); BUN/Creat Ratio 12.7 RATIO (10-20); Calcium,Total 8.4 mg/dL (8.5-10.1); Chloride 106 mmol/L (98-107); Creatinine, Serum 1.57 mg/dL (0.70-1.30); EST Glomerular Filtration Rate 45 mL/min (>60); Est Glom Filt Rate - Afr Amer 54 mL/min (>60); Estimated Creatinine Clearance 37.97 ml/min; Glucose 99 mg/dL (74-106); Potassium 4.7 mmol/L (3.5-5.1); Sodium Level 141 mmol/L (136-145)
[2019-05-08] MEDS: 0.9% Normal Saline 1,000 ML 150 ML IV (13:44)
--- NOTE | 2019-05-08 13:48 | RAD_ITS ---
STUDY: X-RAY - PELVIS AND RIGHT HIP REASON FOR EXAM: Male, 83 years old. Fall yesterday. Right hip pain. TECHNIQUE: 3 views of the pelvis and hip. COMPARISON: None. FINDINGS: There is a non-specific bowel gas pattern. Phleboliths. Vascular calcifications. Generalized osteopenia. Normal bilateral iliac wings, sacroiliac joints and visualized sacrum. Normal bilateral superior and inferior pubic rami. Normal pubic symphysis. Normal bilateral ischial tuberosities. Osteoarthrosis of both hips. RAD/HIP, UNI W/ Pelvis 2-3 Views IMPRESSION: Osteopenia with osteoarthrosis of both hips. No acute finding. Electronically Signed: Aurelio Hull MD at 14:37 EST , Service support ,
[2019-05-08 13:53] LABS: Bacteria 0 SEEN /hpf (None Seen); Mucous, Urine 0 SEEN /hpf (<or=2+); Red Blood Cells-Urine 0 SEEN /hpf (0-5)
[2019-05-08 14:05] LABS: Color, Urine Yellow (Yellow); Glucose, Dipstick Normal (Normal); Ketone-Dipstick Negative (Negative); Leukocyte Esterase-Dipstick 25 /ul (Negative); Nitrite-Dipstick Negative (Negative); Occult Blood-Urine Negative /ul (Negative); Protein-Dipstick Negative (Negative); Urine Bilirubin Dipstick Negative (Negative); Urine Clarity Clear (Clear); Urine Urobilinogen Normal (Normal)
[2019-05-08 14:12] LABS: Squamous Epithelial Cells - UA 0-5 SEEN /hpf (0-5); White Blood Cells 0-5 SEEN /hpf (0-5)
--- NOTE | 2019-05-08 17:04 | PCM.HP.STD ---
Problem List (1) Generalized weakness Status: Acute (2) Falls Status: Acute (3) Pulmonary HTN Status: Chronic (4) Chronic systolic CHF (congestive heart failure) Status: Chronic (5) Congestive heart failure Status: Chronic (6) CKD (chronic kidney disease), stage III Status: Chronic (7) Essential hypertension Status: Chronic (8) Pure hypercholesterolemia Status: Chronic (9) BPH (benign prostatic hyperplasia) Status: Chronic Qualifiers: Lower urinary tract symptom presence: unspecified whether lower urinary tract symptoms present Qualified Code(s): N40.0 - Benign prostatic hyperplasia without lower urinary tract symptoms (10) Hyperlipidemia Status: Chronic Qualifiers: Hyperlipidemia type: unspecified Qualified Code(s): E78.5 - Hyperlipidemia, unspecified (11) Atrial fibrillation with RVR Status: Chronic (12) Hx of CABG Status: Chronic History of Present Illness Date of Admission: 05/08/19 Chief Complaint: falls The patient is a 83 year old M with pmhx as above notable for recent discharge from [facility] where he was treated for debility, who presents to the ER with multiple falls and weakness. Yesterday he got up in the morning and attempted to walk down the hallway. He felt lightheaded and had difficulty with his balance, and fell to the ground striking his head against a wall on the way down. He had no loss of consciousness. He could not get up on his own. A friend who was over helped him up but he fell again twice. He was too weak to stand on his own. Today he can bear weight but is unsteady just standing on his own. He also had his home health workers check his orthostatic vital signs and reportedly these were positive three times. In the ER these were negative. He does seem somewhat dehydrated. He otherwise feels well and denies recent infection. He has no palpitations, no chest pain, no SOB. EKG shows Afib (chronic) with mild bradycardia. He does have some right hip pain where he landed on his hip but xray is negative for acute process. He denies any other musculoskeletal pain. [] Past Medical History Past Medical History (Chronic Problems): Chronic Problems (Last Reviewed 02/26/19 @ 11:28 by Amor Steen MD) Pulmonary HTN (Chronic) Chronic systolic CHF (congestive heart failure) (Chronic) Congestive heart failure (Chronic) CKD (chronic kidney disease), stage III (Chronic) Presence of stent in coronary artery (Chronic ~10/2016) PTCA/CRYSTAL to SVG to obtuse marginal in August 2016; Staged PTCA/CRYSTAL to RCA in October 2016; Atherosclerosis of coronary artery bypass graft without angina pectoris (Chronic) Essential hypertension (Chronic) Pure hypercholesterolemia (Chronic) Atherosclerotic heart disease (Chronic) S/P CABG in 1993 with MARIA to LAD, SVG to OM1, and SVG to first diagonal; PTCA/CRYSTAL to SVG to obtuse marginal in August 2016; Staged PTCA/CRYSTAL to RCA in October 2016; BPH (benign prostatic hyperplasia) (Chronic) Hyperlipidemia (Chronic) CHF exacerbation (Chronic) Atrial fibrillation with RVR (Chronic) Hx of CABG (Chronic ~1993) Medical History: Medical History (Last Reviewed 02/26/19 @ 11:28 by Amor Steen MD) Presence of stent in coronary artery (Chronic) Onset Date: ~10/2016 Z95.5 PTCA/CRYSTAL to SVG to obtuse marginal in August 2016; Staged PTCA/CRYSTAL to RCA in October 2016; Atherosclerosis of coronary artery bypass graft without angina pectoris (Chronic) I25.810 Essential hypertension (Chronic) I10 Nicotine abuse Z72.0 Atherosclerotic heart disease of [place] coronary artery without angina pectoris I25.10 CABG: MARIA to LAD, SVG to 1st OM, SVG to 1st Dx 1993. PTCA: PTCA/CRYSTAL to SVG to OM 09/19/2016. PCI-CRYSTAL-RCA 10/30/2016. 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 Allergies atorvastatin calcium [From Lipitor] Adverse Reaction (Verified 05/08/19 12:23) Other LEG CRAMPS WITH 40MG DOSE BUT TOLERATES LOWER DOSE buspirone HCl [From BuSpar] Adverse Reaction (Verified 05/08/19 12:23) Other FAINT fosinopril sodium [From Monopril] Adverse Reaction (Verified 05/08/19 12:23) Other LEG CRAMPS Iodinated Contrast Media [CONTRASTS] Adverse Reaction (Verified 05/08/19 12:23) Itching ramipril [From Altace] Adverse Reaction (Verified 05/08/19 12:23) Other LEG CRAMPS simvastatin Adverse Reaction (Verified 05/08/19 12:23) Other WHEN MIXED WITH DILTIAZEM CAUSES SEVERE MUSCLE CRAMPS Home Medications: Ambulatory Orders Medication Instructions Recorded Atenolol [Tenormin (beta vlad)] 50 mg PO DAILY 06/01/14 Calcium Carb/Vitamin D 1 tab PO BID 06/01/14 [Caltrate-600 With Vit D Tab] Cholecalciferol (VIT D3) [Vitamin 2,000 unit PO BID 06/01/14 D3] Multivitamins,Therapeutic 1 tab PO DAILY 06/01/14 [Multivitamin] Nitroglycerin (INPATIENT USE) 0.4 mg SUBLINGUAL PRN PRN 06/08/14 [Nitrostat] lorazepam 0.5 mg tablet 0.5 mg PO DAILY PRN 15 Days tab 11/09/18 Amlodipine Besylate [Norvasc] 5 mg PO DAILY 04/13/19 Apixaban [Eliquis] 2.5 mg PO BID 04/13/19 Atorvastatin Calcium 40 mg PO QHS 04/13/19 Bupropion HCl 75 mg PO BID 04/13/19 Clopidogrel Bisulfate [Clopidogrel] 75 mg PO DAILY 04/13/19 Isosorbide Dinitrate 20 mg PO TID 04/13/19 Losartan Potassium [Cozaar] 25 mg PO BID 04/13/19 [place]-3S/Dha/Epa/Fish Oil [[place]-3 1 cap PO BID 04/13/19 Fish Oil 1,200 mg Sfgl] Potassium Chloride [K-Tab ER] 20 meq PO DAILY 04/13/19 Sertraline HCl 100 mg PO DAILY 04/13/19 Tamsulosin HCl 0.4 mg PO DAILY 04/13/19 Furosemide 40 mg PO BID 05/08/19 Surgical History: Surgical History (Last Reviewed 02/26/19 @ 11:28 by mAor Steen MD) H/O coronary artery bypass surgery Z95.1 CABG: MARIA to LAD, SVG to 1st OM, SVG to 1st Dx 1993. Presence of coronary angioplasty implant and graft Onset Date: ~10/2016 Z95.5 PTCA/CRYSTAL to SVG to obtuse marginal in August 2016; Staged PTCA/CRYSTAL to RCA in October 2016; Surgical History: coronary bypass surgery, - - CABG x5, PCI x6, left knee arthroscopic surgery. Psychiatric History: Anxiety, Depression Lives: Alone Smoking Status: Former smoker Tobacco Use: Non-smoker Alcohol: Occasional - 2 beers nightly. Drugs: None - *Family History Sibling Family History: Family History (Last Reviewed 05/08/19 @ 17:11 by СЕРГЕЙ Werner) Father emphysema Mother Hypertension HLD (hyperlipidemia) Sister Enlarged heart Sister Myocardial infarction History Items: - - sister from enlarged heart Maternal Family History: Family History (Last Reviewed 05/08/19 @ 17:11 by СЕРГЕЙ Werner) Father emphysema Mother Hypertension HLD (hyperlipidemia) Sister Enlarged heart Sister Myocardial infarction History Items: High Cholesterol, Heart Disease, Hypertension Paternal Family History: Family History (Last Reviewed 05/08/19 @ 17:11 by СЕРГЕЙ Werner) Father emphysema Mother Hypertension HLD (hyperlipidemia) Sister Enlarged heart Sister Myocardial infarction History Items: COPD Review of Systems Constitutional: Reports: Weakness, Fatigue. Denies: Chills, Fever HEENT: Denies: Head Aches, Sinus Congestion, Sinus Drainage Cardiovascular: Reports: Light Headedness. Denies: Chest Pain, Chest Pressure, Chest Tightness, Heaviness, Palpitations, Paroxysmal Noc. Dyspnea, Syncope Respiratory: Denies: Cough, Shortness of Breath, Shortness of breath at rest, Sputum production Gastrointestinal: Denies: Abdominal Pain, Diarrhea, Nausea, Vomiting Genitourinary: Denies: Dysuria Musculoskeletal: Reports: - - right hip pain. Denies: Joint Pain, Joint Tenderness Skin: Denies: Lesions, Rash, Wounds Neurological: Denies: Numbness, Tingling, Focal weakness Psychiatric: Denies: Anxiety, Depression, Homicidal Ideations, Suicidal Ideations Hematologic/ Lymphatic: Denies: Easy Bruising, Easy Bleeding VTE Information - Inpt Only VTE Present on Admission: No VTE Mechan Device Prophylaxis: None VTE Pharm Prophylaxis ordered?: Yes Patient Problems: Active and Suspected Problems (Last Reviewed 02/26/19 @ 11:28 by Amor Steen MD) Falls (Acute) Generalized weakness (Acute) - Physical Exam Vitals/I&O's: Vital Signs Temp Pulse Resp BP Pulse Ox 98.8 F 57 L 18 159/77 H 98 05/08/19 16:55 05/08/19 16:55 05/08/19 16:55 05/08/19 16:55 05/08/19 16:55 Oxygen Flow Rate (L/min) 4 Oxygen Delivery Method Nasal Cannula Weight: 167 lb 8.821 oz Body Mass Index (BMI) 23.3 Intake and Output for Last 24 Hours 05/06/19 05/07/19 05/08/19 23:59 23:59 23:59 Intake Total 157.5 / 157.5 Balance 157.5 / 157.5 General: Alert, Oriented x3, Cooperative HEENT: Atraumatic, PERRLA, EOMI, Normocephalic Neck: Supple, No JVD, Negative Carotid Bruits Lungs: Clear to auscultation, Normal air movement Cardiovascular: No murmurs, Irregular Rate Abdomen: Bowel Sounds Present, Soft, Non Tender Extremities: No edema, Capillary Refill Less than 3 Seconds Skin: No rashes, No breakdown Musculoskeletal: No Tenderness to Palpation of Joints or Extremities Neurological: Cranial nerves II-XII grossly intact Psych/Mental Status: Normal Affect, Appropriate, Alert and oriented to time, place, person, mood and affect Laboratory Results 05/08/19 12:55: WBC 7.1, RBC 4.00 L, Hgb 11.6 L, Hct 36.7 L, MCV 91.8, MCH 29.0, MCHC 31.6 L, RDW Std Deviation 49.0 H, RDW Coeff of Justice 14.7 H, Plt Count 220, MPV 10.0, Immature Gran % (Auto) 0.400, Neut % (Auto) 77.6 H, Lymph % (Auto) 10.9 L, [place] % (Auto) 7.9, Eos % (Auto) 2.8, Baso % (Auto) 0.4, Absolute Neuts (auto) 5.5, Absolute Lymphs (auto) 0.77 L, Nucleated RBC % 0 05/08/19 12:55: PT 15.9 H, INR 1.3, APTT 39.0 H 05/08/19 12:55: Sodium 141, Potassium 4.7, Chloride 106, Carbon Dioxide 33.0 H, Anion Gap 2 L, BUN 20 H, Creatinine 1.57 H, Estim Creat Clear Calc 37.97, Est GFR (MDRD) Af Amer 54 L, Est GFR (MDRD) Non-Af 45 L, BUN/Creatinine Ratio 12.7, Glucose 99, Calcium 8.4 L 05/08/19 13:40: Urine Color Yellow, Urine Clarity Clear, Urine pH 7.0, Ur Specific [place] 1.010, Urine Protein Negative, Urine Glucose (UA) Normal, Urine Ketones Negative, Urine Occult Blood Negative, Urine Nitrite Negative, Urine Bilirubin Negative, Urine Urobilinogen Normal, Ur Leukocyte Esterase 25 H, Urine RBC 0 SEEN, Urine WBC 0-5 SEEN, Ur Squamous Epith Cells 0-5 SEEN, Urine Bacteria 0 SEEN, Urine Mucus 0 SEEN Current Medications Sodium Chloride () 1,000 mls @ 150 mls/hr IV .[id number] LISA Last Infusion: 05/08/19 15:43 Dose: Infused Documented by: Sodium Chloride () 250 mls @ 15 mls/hr IV .[id number] PRN PRN Reason: Saline Flush Sodium Chloride () 10 - 40 ml IV UD PRN PRN Reason: SALINE FLUSH Assessment/Plan All Active Problems (Last Reviewed 02/26/19 @ 11:28 by Amor Steen MD) Falls (Acute) Generalized weakness (Acute) CAP (community acquired pneumonia) (Resolved) Pneumonia (Acute) Acute respiratory failure with hypoxia (Acute) Non-ST elevated myocardial infarction (Resolved ~01/23/19) Pneumonia (Resolved) 1. Falls, lightheadedness, generalized weakness - possibly due to deconditioning/poor balance, however there are also reports of positive orthos x3 from home health care, and labs are c/w mild dehydration. Will maintain on telemetry overnight and provide IV fluids. Hold lasix and ARB. Recheck orthos. There may be a component of polypharmacy given his multiple cardiac issues and use of ativan prn, and use of alcohol at night. PTOT will eval and he will likely be placed. He would prefer to go to the Rehab Unit or TCU. He was very unhappy with his care at [facility]. UA neg. No symptoms suggestive of acute illness. -Hip xray no acute changes - osteopenia/osteoarthrosis -CXR neg -CT brain chronic changes. 2. Hx chronic systolic CHF and severe pulmonary htn - gentle fluids. hold lasix overnight. recent echo EF 45% severe pulm htn. 3. CAD - prior CABG/stent - continue home meds. Recent Negative stress test. 4. Chronic Afib - rate mildly saulo. Continue atenolol, eliquis. 5. Anxiety / Depression - continue home meds. Ativan may be compounding issues relating to #1. Ideall this should be weaned off. 6. BPH - flomax. 7. Osteopenia - on VitD/Ca++. DVT ppx: eliquis TATIANA planning: SNF placement This patient was seen by Jessee Dale PA-C under the supervision of Dr. Odonnell.
--- NOTE | 2019-05-08 17:10 | NURSING ---
while doing home med list- pt states that he is unsure some of the medications if he took them today or not i'm trying to get back into the habit of stuff since i was just discharged from the [place] [facility].
[2019-05-08] MEDS: Tamsulosin HCl 0.4 MG Capsule PO (18:56)
[2019-05-08] MEDS: 0.9% Normal Saline 1,000 ML 100 ML IV (18:56)
[2019-05-08] MEDS: 0.9% Saline Lock 10 ML Syringe IV (18:56)
[2019-05-08] MEDS: APIXABAN 2.5 MG TABLET PO (22:51)
[2019-05-08] MEDS: Atorvastatin Calcium 40 MG Tablet PO (22:52)
[2019-05-08] MEDS: Isosorbide DN 20 MG Tablet PO (22:52)
[2019-05-08] MEDS: Calcium Carb/Vitamin D 1 TABLET Tablet PO (22:53)
[2019-05-08] MEDS: buPROPion 75 MG Tablet PO (22:53)
[2019-05-09] VITALS (15 sets, daily range): BP systolic 111–165; BP diastolic 55–89; PULSE 68–94; RESP 16–20; TEMP 36.6; O2SAT 92–96
[2019-05-09] MEDS: 0.9% Normal Saline 1,000 ML 100 ML IV (04:51)
[2019-05-09] MEDS: Isosorbide DN 20 MG Tablet PO ×3 (05:09→21:05)
[2019-05-09 07:03] LABS: Anion Gap 3 (5-15); BUN 17 mg/dL (7-18); BUN/Creat Ratio 13.4 RATIO (10-20); Calcium,Total 7.9 mg/dL (8.5-10.1); Chloride 107 mmol/L (98-107); Creatinine, Serum 1.27 mg/dL (0.70-1.30); EST Glomerular Filtration Rate 57 mL/min (>60); Est Glom Filt Rate - Afr Amer 70 mL/min (>60); Estimated Creatinine Clearance 46.38 ml/min; Glucose 88 mg/dL (74-106); Potassium 3.7 mmol/L (3.5-5.1); Sodium Level 141 mmol/L (136-145)
[2019-05-09] MEDS: Clopidogrel Bisulfate 75 MG Tablet PO (10:38)
[2019-05-09] MEDS: Calcium Carb/Vitamin D 1 TABLET Tablet PO ×2 (10:38→21:05)
[2019-05-09] MEDS: Tamsulosin HCl 0.4 MG Capsule PO (10:38)
[2019-05-09] MEDS: buPROPion 75 MG Tablet PO ×2 (10:39→21:05)
[2019-05-09] MEDS: Sertraline 100 MG Tablet PO (10:39)
[2019-05-09] MEDS: Atenolol 25 MG Tablet PO (10:42)
[2019-05-09] MEDS: Menthol/Lanolin/Calamine/Znox 113 GM Tube 1 APPLIC TOPICAL (13:00)
--- NOTE | 2019-05-09 14:59 | PN_ITS ---
<Jessee Dale - Last Filed: 05/09/19 14:59> Patient Problems: Active and Suspected Problems (Last Reviewed 02/26/19 @ 11:28 by Amor Steen MD) Falls (Acute) Generalized weakness (Acute) Reason for Visit: Today no right hip pain. He was able to stand and bare weight with 2 assistants. He has no fever/chills. No LH/dizziness when he was up, and none at rest. Had mild saulo last night, atenolol was decreased and no further saulo today. He is doing well and still plans to pursue senior care at discharge. Vitals/I&O's: Vital Signs Temp Pulse Resp BP Pulse Ox 98 F 69 20 H 159/85 H 92 05/09/19 09:15 05/09/19 13:01 05/09/19 10:59 05/09/19 12:51 05/09/19 10:59 Oxygen Flow Rate (L/min) 3 Oxygen Delivery Method Nasal Cannula Weight: 164 lb 0.383 oz Body Mass Index (BMI) 22.8 Orthostatic Vital Signs Start: 05/09/19 05:17 Freq: q24h Status: Active Protocol: Activity Type Activity Date Activity User E-Sign Co-Sign Detail Recorded Client Recorded Date Recorded By Document 05/09/19 12:51 DIPTI [id number] 05/09/19 12:59 DIPTI 05/09/19 12:51 Orthostatic Vitals Standing -Blood Pressure (90/60-120/80) 146/72 H -Extremity Use Right Arm -Pulse Rate (60-100) 73 Sitting -Blood Pressure (90/60-120/80) 149/74 H -Extremity Use Right Arm -Pulse Rate (60-100) 75 Lying -Blood Pressure (90/60-120/80) 159/85 H -Extremity Use Right Arm -Pulse Rate (60-100) 70 Intake and Output for Last 24 Hours 05/07/19 05/08/19 05/09/19 23:59 23:59 23:59 Intake Total 397.5 / 547.5 2146.67 / 2146.67 Output Total 375 / 375 Balance 397.5 / 397.5 1771.67 / 1771.67 General: Alert, Oriented x3, Cooperative HEENT: Atraumatic, PERRLA, EOMI, Normocephalic Neck: Supple, No JVD, Negative Carotid Bruits Lungs: Clear to auscultation, Normal air movement Cardiovascular: Regular rate, No murmurs Abdomen: Bowel Sounds Present, Soft, Non Tender Extremities: No edema, Capillary Refill Less than 3 Seconds Skin: No rashes, No breakdown Musculoskeletal: No Tenderness to Palpation of Joints or Extremities Neurological: Cranial nerves II-XII grossly intact Psych/Mental Status: Normal Affect, Appropriate, Alert and oriented to time, place, person, mood and affect Laboratory Results 05/09/19 04:30: Sodium 141, Potassium 3.7, Chloride 107, Carbon Dioxide 31.0, Anion Gap 3 L, BUN 17, Creatinine 1.27, Estim Creat Clear Calc 46.38, Est GFR (MDRD) Af Amer 70, Est GFR (MDRD) Non-Af 57 L, BUN/Creatinine Ratio 13.4, Glucose 88, Calcium 7.9 L Current Medications Acetaminophen (Tylenol) 650 mg PO Q6H PRN PRN PRN Reason: Pain 1-03/04 or Fever Atenolol (Tenormin (Beta Darcie)) 25 mg PO DAILY [facility] Last Admin: 05/09/19 10:42 Dose: 25 mg Documented by: Atorvastatin Calcium (Lipitor) 40 mg PO QHS [facility] Last Admin: 05/08/19 22:52 Dose: 40 mg Documented by: Bupropion HCl (Wellbutrin Tablets) 75 mg PO BID [facility] Last Admin: 05/09/19 10:39 Dose: 75 mg Documented by: Calamine/Phenol (Calmoseptine Ointment) 1 applic TOPICAL BID PRN; Protocol PRN Reason: RASH/TOPICAL IRRITATION Last Admin: 05/09/19 13:00 Dose: 1 applicatio Documented by: Calcium/Vitamin D (Os-Kyle 500mg + D) 1 tablet PO BID [facility] Last Admin: 05/09/19 10:38 Dose: 1 tablet Documented by: Cholecalciferol (Vitamin D) 2,000 unit PO BID [facility] Last Admin: 05/09/19 10:39 Dose: 2,000 unit Documented by: Clopidogrel Bisulfate (Plavix) 75 mg PO DAILY [facility] Last Admin: 05/09/19 10:38 Dose: 75 mg Documented by: Sodium Chloride () 250 mls @ 15 mls/hr IV .[id number] PRN PRN Reason: Saline Flush Isosorbide Dinitrate (Isordil) 20 mg PO TID [facility] Last Admin: 05/09/19 14:05 Dose: 20 mg Documented by: Lorazepam (Ativan) 0.5 mg PO DAILY PRN PRN Reason: Anixety Nitroglycerin (Nitrostat) 0.4 mg SUBLINGUAL PRN PRN PRN Reason: Chest Pain Ondansetron HCl (Zofran) 4 mg PO Q6H PRN PRN PRN Reason: NAUSEA Oxycodone HCl (Oxyir) 5 mg PO Q6H PRN PRN PRN Reason: Pain Score 6-10/10 Sertraline HCl (Zoloft) 100 mg PO DAILY [facility] Last Admin: 05/09/19 10:39 Dose: 100 mg Documented by: Sodium Chloride () 10 - 40 ml IV UD PRN PRN Reason: SALINE FLUSH Last Admin: 05/08/19 18:56 Dose: 10 ml Documented by: Tamsulosin HCl (Flomax) 0.4 mg PO DAILY [facility] Last Admin: 05/09/19 10:38 Dose: 0.4 mg Documented by: STROKE Vital Signs/Narrative: Vital Signs Pulse Pulse Pulse Pulse BP BP BP 05/09/19 13:01 69 05/09/19 12:51 70 75 73 159/85 H 149/74 H 146/72 H Medical Necessity - Tobacco Use Smoking Status: Former smoker Tobacco Use: Non-smoker Assessment/Plan All Active Problems (Last Reviewed 02/26/19 @ 11:28 by Amor Steen MD) Falls (Acute) Generalized weakness (Acute) CAP (community acquired pneumonia) (Resolved) Pneumonia (Acute) Acute respiratory failure with hypoxia (Acute) Non-ST elevated myocardial infarction (Resolved ~01/23/19) Pneumonia (Resolved) 1. Falls, lightheadedness, generalized weakness - he was saulo and with + orthos at presentation. Still + orthos. Received IV fluids overnight with good improvement in renal function. Norvasc held, atenolol at 1/2 dose. Bradycardia resolved. Still very weak and needs 2 assist to stand. Orthos qshift. LEO hoses. -Hip xray no acute changes - osteopenia/osteoarthrosis -CXR neg -CT brain chronic changes. 2. Hx chronic systolic CHF and severe pulmonary htn - recent echo EF 45% severe pulm htn. Will stop fluids, no issue with PO and his renal function has improved. Resume lasix at discharge, lower dose. 3. CAD - prior CABG/stent - continue home meds. Recent Negative stress test. 4. Chronic Afib - Continue atenolol, eliquis. 5. Anxiety / Depression - continue home meds. Ativan may be compounding issues relating to #1. Ideall this should be weaned off. 6. BPH - flomax. 7. Osteopenia - on VitD/Ca++. DVT ppx: eliquis DC planning: SNF placement This patient was seen by Jessee Dale PA-C under the supervision of Dr. Parra <Paula Parra - Last Filed: 05/09/19 15:19> Vitals/I&O's: Vital Signs Temp Pulse Resp BP Pulse Ox 98 F 69 20 H 159/85 H 92 05/09/19 09:15 05/09/19 13:01 05/09/19 10:59 05/09/19 12:51 05/09/19 10:59 Oxygen Flow Rate (L/min) 3 Oxygen Delivery Method Nasal Cannula Weight: 164 lb 0.383 oz Body Mass Index (BMI) 22.8 Orthostatic Vital Signs Start: 05/09/19 05:17 Freq: q24h Status: Active Protocol: Activity Type Activity Date Activity User E-Sign Co-Sign Detail Recorded Client Recorded Date Recorded By Document 05/09/19 12:51 DIPTI [id number] 05/09/19 12:59 DIPTI 05/09/19 12:51 Orthostatic Vitals Standing -Blood Pressure (90/60-120/80) 146/72 H -Extremity Use Right Arm -Pulse Rate (60-100) 73 Sitting -Blood Pressure (90/60-120/80) 149/74 H -Extremity Use Right Arm -Pulse Rate (60-100) 75 Lying -Blood Pressure (90/60-120/80) 159/85 H -Extremity Use Right Arm -Pulse Rate (60-100) 70 Intake and Output for Last 24 Hours 05/07/19 05/08/19 05/09/19 23:59 23:59 23:59 Intake Total 397.5 / 547.5 2146.67 / 2146.67 Output Total 375 / 375 Balance 397.5 / 397.5 1771.67 / 1771.67 Laboratory Results 05/09/19 04:30: Sodium 141, Potassium 3.7, Chloride 107, Carbon Dioxide 31.0, Anion Gap 3 L, BUN 17, Creatinine 1.27, Estim Creat Clear Calc 46.38, Est GFR (MDRD) Af Amer 70, Est GFR (MDRD) Non-Af 57 L, BUN/Creatinine Ratio 13.4, Glucose 88, Calcium 7.9 L Current Medications Acetaminophen (Tylenol) 650 mg PO Q6H PRN PRN PRN Reason: Pain 1-03/04 or Fever Atenolol (Tenormin (Beta Darcie)) 25 mg PO DAILY [facility] Last Admin: 05/09/19 10:42 Dose: 25 mg Documented by: Atorvastatin Calcium (Lipitor) 40 mg PO QHS [facility] Last Admin: 05/08/19 22:52 Dose: 40 mg Documented by: Bupropion HCl (Wellbutrin Tablets) 75 mg PO BID [facility] Last Admin: 05/09/19 10:39 Dose: 75 mg Documented by: Calamine/Phenol (Calmoseptine Ointment) 1 applic TOPICAL BID PRN; Protocol PRN Reason: RASH/TOPICAL IRRITATION Last Admin: 05/09/19 13:00 Dose: 1 applicatio Documented by: Calcium/Vitamin D (Os-Kyle 500mg + D) 1 tablet PO BID [facility] Last Admin: 05/09/19 10:38 Dose: 1 tablet Documented by: Cholecalciferol (Vitamin D) 2,000 unit PO BID [facility] Last Admin: 05/09/19 10:39 Dose: 2,000 unit Documented by: Clopidogrel Bisulfate (Plavix) 75 mg PO DAILY [facility] Last Admin: 05/09/19 10:38 Dose: 75 mg Documented by: Sodium Chloride () 250 mls @ 15 mls/hr IV .[id number] PRN PRN Reason: Saline Flush Isosorbide Dinitrate (Isordil) 20 mg PO TID [facility] Last Admin: 05/09/19 14:05 Dose: 20 mg Documented by: Lorazepam (Ativan) 0.5 mg PO DAILY PRN PRN Reason: Anixety Nitroglycerin (Nitrostat) 0.4 mg SUBLINGUAL PRN PRN PRN Reason: Chest Pain Ondansetron HCl (Zofran) 4 mg PO Q6H PRN PRN PRN Reason: NAUSEA Oxycodone HCl (Oxyir) 5 mg PO Q6H PRN PRN PRN Reason: Pain Score 6-10/10 Sertraline HCl (Zoloft) 100 mg PO DAILY [facility] Last Admin: 05/09/19 10:39 Dose: 100 mg Documented by: Sodium Chloride () 10 - 40 ml IV UD PRN PRN Reason: SALINE FLUSH Last Admin: 05/08/19 18:56 Dose: 10 ml Documented by: Tamsulosin HCl (Flomax) 0.4 mg PO DAILY [facility] Last Admin: 05/09/19 10:38 Dose: 0.4 mg Documented by: STROKE Vital Signs/Narrative: Vital Signs Pulse Pulse Pulse Pulse BP BP BP 05/09/19 13:01 69 05/09/19 12:51 70 75 73 159/85 H 149/74 H 146/72 H Assessment/Plan Patient seen by Jessee Dale PA-C under my supervision Patient seen and examined. He was admitted with a complaint of mechanical fall with associated lightheadedness and weakness. He was found to be asystolic positive as well as bradycardic. He has been hydrated with IV fluids. Patient states that he had a similar fall a few weeks ago. He hit his head when he fell this time. Of note he is on Eliquis on account of A. fib. He also has a history of evacuation of hematoma in the brain. Patient has no complaints this morning. Review of stems otherwise negative. Labs and vitals reviewed. o/e: Vital Signs Height 5 ft 11 in Weight: 164 lb 0.383 oz Weight in Pounds 164.0 lbs BMI 26.5 Pulse Ox 92 Temperature 98 F Pulse Rate [Standing] 73 Pulse Rate [Sitting] 75 Pulse Rate [Lying] 70 Pulse Rate 69 Respiratory Rate 20 Blood Pressure [Standing] 146/72 Blood Pressure [Sitting] 149/74 Blood Pressure [Lying] 159/85 Blood Pressure 154/80 Blood Pressure Position Semi-Fowlers General: Alert, Oriented x3, Cooperative, looks frail HEENT: Atraumatic, PERRLA, EOMI, Normocephalic Neck: Supple, No JVD, Negative Carotid Bruits Lungs: Clear to auscultation, Normal air movement Cardiovascular: Regular rate, No murmurs Abdomen: Bowel Sounds Present, Soft, Non Tender Extremities: No edema, Capillary Refill Less than 3 Seconds Skin: No rashes, No breakdown Musculoskeletal: No Tenderness to Palpation of Joints or Extremities Neurological: Cranial nerves II-XII grossly intact Psych/Mental Status: Normal Affect, Appropriate, Alert and oriented to time, place, person, mood and affect And is continue gentle hydration with IV fluids. Patient remains orthostatic positive. Patient counseled that we will discuss with his primary senior web designer about stopping Eliquis on account of patient being at risk for stroke renal bleeding due to mechanical falls. Patient however states that he wants to go to a rehab facility as he currently lives alone. He was counseled that if he is in a controlled environment in the prison, then possibly can continue with Eliquis. Will discuss with cardiology. Fall precautions. PT OT on board. Rest as per Jessee Dale PA-C's notes which I reviewed and endorsed. Code Visit OBSV E&M: 81186 Subsequent observation care L2
[2019-05-09] MEDS: Atorvastatin Calcium 40 MG Tablet PO (21:05)
[2019-05-10] VITALS (17 sets, daily range): BP systolic 112–170; BP diastolic 70–96; PULSE 74–111; RESP 16–36; TEMP 36.6–37.6; O2SAT 78–99
[2019-05-10] MEDS: LORazepam 0.5 MG Tablet PO (00:45)
[2019-05-10] MEDS: Isosorbide DN 20 MG Tablet PO ×3 (04:39→22:15)
[2019-05-10] MEDS: Tamsulosin HCl 0.4 MG Capsule PO (08:27)
[2019-05-10] MEDS: Clopidogrel Bisulfate 75 MG Tablet PO (08:27)
[2019-05-10] MEDS: Sertraline 100 MG Tablet PO (08:28)
[2019-05-10] MEDS: buPROPion 75 MG Tablet PO ×2 (08:28→22:16)
[2019-05-10] MEDS: Calcium Carb/Vitamin D 1 TABLET Tablet PO ×2 (08:28→22:16)
[2019-05-10] MEDS: Atenolol 25 MG Tablet PO (08:32)
--- NOTE | 2019-05-10 11:11 | CASEMGMT ---
RN CM received note that daughter Savannah RIOS is requesting call from CM. RN CM attempted to call daughter, no answer, contact information left in voice message.
--- NOTE | 2019-05-10 11:16 | CASEMGMT ---
Addendum entered by Davidson Downs 05/10/19 11:51: HOWE FORM completed. Xsolis score 65. -Call back received from daughter Savannah oLng (who is Savannah Dean from DPOA form). Per daughter, new DPOA paperwork has been completed and she will bring copy in. Intro role of CM to daughter re: HOWE form and explained re: observation status for treatment of weakness and falls. Reviewed INPT vs OBS status and if SNF is needed, this would not require 3 day qualifying stay, and referral would be completed by ALIVIA Boykin. Telephone signature completed with witness. -Per daughter, pt has had confusion at home, left skilled nursing early and daughter is interested in retirement on dc. -Call transferred then to CORWIN High CM to further discuss dc planning. Mahad GARRETT RN AC Original Note: CORWIN GRAYSON note: Attempted to speak with pt re: HOWE form, pt very sleepy unable to participate. Nursing documents pt oriented x person and is confused. Reviewed DPOA forms on file. Carmen is in nursing facility. Savannah is second. Name is listed on DPOA as Savannah Dean, but demographics has daughter listed as Savannah Long. Call to Savannah Long to clarify DPOA and to discuss HOWE form. Message left re: call back. Mahad GARRETT RN ACM
--- NOTE | 2019-05-10 11:24 | DCINST_ITS ---
- Discharge Diagnoses Current Active Problems: Current Active and Chronic Problems (Last Reviewed 02/26/19 @ 11:28 by Amor Steen MD) Falls (Acute) Generalized weakness (Acute) Pulmonary HTN (Chronic) Chronic systolic CHF (congestive heart failure) (Chronic) You will use the following diet at home:: Cardiac Your food should be the consistency of: Regular Your liquids should be the consistency of: Regular/Thin Discharge Activity: Return to Normal Activity Additional Instructions: LEO hoses are to be used daily. You need to use extra care in sitting and standing as your blood pressure can decrease causing lighthe adedness or loss of conscious. Allergies/Adverse Reactions: Allergies atorvastatin calcium [From Lipitor] Adverse Reaction (Verified 05/08/19 12:23) Other LEG CRAMPS WITH 40MG DOSE BUT TOLERATES LOWER DOSE buspirone HCl [From BuSpar] Adverse Reaction (Verified 05/08/19 12:23) Other FAINT fosinopril sodium [From Monopril] Adverse Reaction (Verified 05/08/19 12:23) Other LEG CRAMPS Iodinated Contrast Media [CONTRASTS] Adverse Reaction (Verified 05/08/19 12:23) Itching ramipril [From Altace] Adverse Reaction (Verified 05/08/19 12:23) Other LEG CRAMPS simvastatin Adverse Reaction (Verified 05/08/19 12:23) Other WHEN MIXED WITH DILTIAZEM CAUSES SEVERE MUSCLE CRAMPS Medications to take at Discharge Calcium Carb/Vitamin D [Caltrate-600 With Vit D Tab] 1 tab PO BID 06/01/14 Cholecalciferol (VIT D3) [Vitamin D3] 2,000 unit PO BID 06/01/14 Multivitamins,Therapeutic [Multivitamin] 1 tab PO DAILY 06/01/14 Nitroglycerin (INPATIENT USE) [Nitrostat] 0.4 mg SUBLINGUAL PRN PRN 06/08/14 lorazepam 0.5 mg tablet 0.5 mg PO DAILY PRN 15 Days tab 11/09/18 Apixaban [Eliquis] 2.5 mg PO BID 04/13/19 Atorvastatin Calcium 40 mg PO QHS 04/13/19 Bupropion HCl 75 mg PO BID 04/13/19 Clopidogrel Bisulfate [Clopidogrel] 75 mg PO DAILY 04/13/19 Isosorbide Dinitrate 20 mg PO TID 04/13/19 [place]-3S/Dha/Epa/Fish Oil [[place]-3 Fish Oil 1,200 mg Sfgl] 1 cap PO BID 04/13/19 Sertraline HCl 100 mg PO DAILY 04/13/19 Tamsulosin HCl 0.4 mg PO DAILY 04/13/19 Atenolol [Tenormin (beta vlad)] 25 mg PO DAILY #30 tab 05/10/19 Furosemide 40 mg PO DAILY #0 05/10/19 Menthol/Lanolin/Calamine/Znox [Calmoseptine Ointment] 1 applic TOPICAL BID PRN tube 05/10/19 The following prescriptions were given: Atenolol [Tenormin (beta vlad)] 25 mg PO DAILY #30 tab Transmission Status: Pending to [facility]/pharmacy #[id number] Primary Care Physician: Adalgisa Isidro MD [Primary Care Provider] - Please follow up with your Primary Care Physician in: 1-2 weeks Test Results: Test results from this visit will be discussed in further detail at your follow- up appointment, if applicable. Please Follow Up With: Amor Steen MD When: 2-4 weeks
--- NOTE | 2019-05-10 11:48 | CASEMGMT ---
CORWIN GRAYSON received call back from daughter Savannah, KENJI. CORWIN GRAYSON verified with daughter that C is setup with [facility]. CORWIN GRAYSON inquired if patient would have 24 hr care at home. Daughter Savannah states no and that her plan was for patient to go to TCU or SNF at discharge. CORWIN GRAYSON asked Savannah if her and her sister would be able to come in for a family meeting. Savannah states that she will be able to come at 1500 and will call sister. CORWIN GRAYSON arranged for SW and PA to be present at meeting set for today at 1500 to discuss concerns and discharge planning.
--- NOTE | 2019-05-10 12:05 | CASEMGMT ---
Addendum entered by Heidi Castillo 05/10/19 15:48: RN KENAN and this worker met with pt's daughter Savannah who is HCPOA. Discharge plans and mcc plans were discussed with Savannah. ALIVIA provided Savannah with list of area SNF that accept pt's insurance. Savannah states that first choice for SNF is [facility] and second choice would be [facility]. ALIVIA informed Savannah that this worker will need to follow up with TCU to determine if they will have a bed available for pt. ALIVIA educated Savannah on buttermilk drier operator care and that she should look into getting pt approved for Medicaid as Medicaid pays for mcc care. ALIVIA informed Savannah that there will be a SW at any SNF that will be able to assist with discharge planning from SNF. Savannah states understanding. ALIVIA placed a call to [facility]ia in TCU. Kenia states she does have a bed available and will submit for pre-cert. ALIVIA updated Savannah on acceptance to TCU pending pre-cert and that pt will remain at [facility] until Pre-cert is obtained. Savannah states understanding. Savannah states that pt's side of face is dropping and speech was not clear so she has concerns that pt may of had a stroke. ALIVIA updated Savannah that this worker will update RN. RN updated on Savannah's concerns. Plan: TCU pending pre-cert Original Note: Social Work Note ALIVIA received update that pt's daughters are coming to [facility] around 3:00pm today to confirm discharge plans. Pt's daughter states that if SNF is needed, they prefer TCU for pt. ALIVIA placed a call to referral line. Per Kenia she may have a bed on TCU. ALIVIA updated Kenia that a family meeting is arranged for 3:00pm and this worker will know more about plan once the family meeting is held. Kenia states she will know by then if she will for sure have a bed or not. Plan: Family meeting today at 3:00pm. SNF vs. Home Heidi Castillo SHOE PLANNER, MARINE CHRONOMETER ASSEMBLER
--- NOTE | 2019-05-10 12:16 | PCM.PN.HOSP ---
<Jessee Dale - Last Filed: 05/10/19 12:16> Patient Problems: Active and Suspected Problems (Last Reviewed 02/26/19 @ 11:28 by Amor Steen MD) Falls (Acute) Generalized weakness (Acute) Reason for Visit: weakness Subjective: Pt without pain this AM. Over the weekend, the patient and family had planned for him to go to SNF. Today the patient insisted he was going home. He was confused. He had apparently called his daughter and did not know he was talking to her, and thought he was talking to his . He told her he was coming to the grocery store to pick her () up, which did not make any sense. Family states that they cannot provide 24 hour care for him and plan for SNF still. He has no pain today. Vitals/I&O's: Vital Signs Temp Pulse Resp BP Pulse Ox 98.1 F 86 16 159/84 H 94 05/10/19 08:25 05/10/19 10:03 05/10/19 09:28 05/10/19 10:03 05/10/19 09:28 Oxygen Flow Rate (L/min) 2.5 Oxygen Delivery Method Nasal Cannula Weight: 164 lb 0.383 oz Body Mass Index (BMI) 22.8 Orthostatic Vital Signs Start: 05/09/19 05:17 Freq: q24h Status: Active Protocol: Activity Type Activity Date Activity User E-Sign Co-Sign Detail Recorded Client Recorded Date Recorded By Document 05/10/19 10:03 [facility] [id number] 05/10/19 10:04 MAB 05/10/19 10:03 Orthostatic Vitals Standing -Blood Pressure (90/60-120/80) 112/85 H -Extremity Use Left Arm -Pulse Rate (60-100) 85 Sitting -Blood Pressure (90/60-120/80) 170/84 H -Extremity Use Left Arm -Pulse Rate (60-100) 96 Lying -Blood Pressure (90/60-120/80) 159/84 H -Extremity Use Left Arm -Pulse Rate (60-100) 86 Intake and Output for Last 24 Hours 05/08/19 05/09/19 05/10/19 23:59 23:59 23:59 Intake Total 397.5 / 547.5 2626.67 / 2626.67 240 / 240 Output Total 775 / 775 225 / 225 Balance 397.5 / 397.5 1851.67 / 1851.67 General: Alert, Oriented x3, Cooperative HEENT: Atraumatic, PERRLA, EOMI, Normocephalic Neck: Supple, No JVD, Negative Carotid Bruits Lungs: Clear to auscultation, Normal air movement Cardiovascular: Regular rate, No murmurs Abdomen: Bowel Sounds Present, Soft, Non Tender Extremities: No edema, Capillary Refill Less than 3 Seconds Skin: No rashes, No breakdown Musculoskeletal: No Tenderness to Palpation of Joints or Extremities Neurological: Cranial nerves II-XII grossly intact Psych/Mental Status: Normal Affect, Appropriate, Alert and oriented to time, place, person, mood and affect Current Medications Acetaminophen (Tylenol) 650 mg PO Q6H PRN PRN PRN Reason: Pain 1-10/10 or Fever Atenolol (Tenormin (Beta Darcie)) 25 mg PO DAILY [facility] Last Admin: 05/10/19 08:32 Dose: 25 mg Documented by: Atorvastatin Calcium (Lipitor) 40 mg PO QHS [facility] Last Admin: 05/09/19 21:05 Dose: 40 mg Documented by: Bupropion HCl (Wellbutrin Tablets) 75 mg PO BID [facility] Last Admin: 05/10/19 08:28 Dose: 75 mg Documented by: Calamine/Phenol (Calmoseptine Ointment) 1 applic TOPICAL BID PRN; Protocol PRN Reason: RASH/TOPICAL IRRITATION Last Admin: 05/09/19 13:00 Dose: 1 applicatio Documented by: Calcium/Vitamin D (Os-Kyle 500mg + D) 1 tablet PO BID [facility] Last Admin: 05/10/19 08:28 Dose: 1 tablet Documented by: Cholecalciferol (Vitamin D) 2,000 unit PO BID [facility] Last Admin: 05/10/19 08:28 Dose: 2,000 unit Documented by: Clopidogrel Bisulfate (Plavix) 75 mg PO DAILY [facility] Last Admin: 05/10/19 08:27 Dose: 75 mg Documented by: Sodium Chloride () 250 mls @ 15 mls/hr IV .[id number] PRN PRN Reason: Saline Flush Isosorbide Dinitrate (Isordil) 20 mg PO TID [facility] Last Admin: 05/10/19 04:39 Dose: 20 mg Documented by: Lorazepam (Ativan) 0.5 mg PO DAILY PRN PRN Reason: Anixety Last Admin: 05/10/19 00:45 Dose: 0.5 mg Documented by: Nitroglycerin (Nitrostat) 0.4 mg SUBLINGUAL PRN PRN PRN Reason: Chest Pain Ondansetron HCl (Zofran) 4 mg PO Q6H PRN PRN PRN Reason: NAUSEA Oxycodone HCl (Oxyir) 5 mg PO Q6H PRN PRN PRN Reason: Pain Score 6-10/10 Sertraline HCl (Zoloft) 100 mg PO DAILY [facility] Last Admin: 05/10/19 08:28 Dose: 100 mg Documented by: Sodium Chloride () 10 - 40 ml IV UD PRN PRN Reason: SALINE FLUSH Last Admin: 05/08/19 18:56 Dose: 10 ml Documented by: Tamsulosin HCl (Flomax) 0.4 mg PO DAILY [facility] Last Admin: 05/10/19 08:27 Dose: 0.4 mg Documented by: STROKE Vital Signs/Narrative: Vital Signs Temp Pulse Pulse Pulse Pulse Resp BP 05/10/19 10:03 86 96 85 05/10/19 09:28 88 16 05/10/19 09:25 111 H 16 05/10/19 08:41 111 H 05/10/19 08:25 98.1 F 89 20 H 162/85 H BP BP BP Pulse Ox 05/10/19 10:03 159/84 H 170/84 H 112/85 H 05/10/19 09:28 94 05/10/19 09:25 78 05/10/19 08:41 05/10/19 08:25 94 Medical Necessity - Tobacco Use Smoking Status: Former smoker Tobacco Use: Non-smoker Assessment/Plan All Active Problems (Last Reviewed 02/26/19 @ 11:28 by Amor Steen MD) Falls (Acute) Generalized weakness (Acute) CAP (community acquired pneumonia) (Resolved) Pneumonia (Acute) Acute respiratory failure with hypoxia (Acute) Non-ST elevated myocardial infarction (Resolved ~01/23/19) Pneumonia (Resolved) 1. Falls, lightheadedness, generalized weakness - still with significant orthostatic hypotension, however his resting BP is elevated so I would not remove any additional BP meds or start midodrine. I added LEO hoses. Pt to go to SNF at in. 2. Hx chronic systolic CHF and severe pulmonary htn - recent echo EF 45% severe pulm htn. Will stop fluids, no issue with PO and his renal function has improved. Resume lasix at discharge, lower dose. Restart lasix lower dose. 3. CAD - prior CABG/stent - continue home meds. Recent Negative stress test. 4. Chronic Afib - Continue atenolol, eliquis. 5. Anxiety / Depression - continue home meds. Ativan may be compounding issues relating to #1. Ideall this should be weaned off. 6. BPH - flomax. 7. Osteopenia - on VitD/Ca++. 8. Confusion - suspicious for underlying dementia. DVT ppx: eliquis DC planning: SNF placement This patient was seen by Jessee Dale PA-C under the supervision of Dr. Parra <Paula Parra - Last Filed: 05/10/19 15:36> Vitals/I&O's: Vital Signs Temp Pulse Resp BP Pulse Ox 98.2 F 74 20 H 152/96 H 93 05/10/19 15:05 05/10/19 15:05 05/10/19 15:05 05/10/19 15:05 05/10/19 15:05 Oxygen Flow Rate (L/min) 3 Oxygen Delivery Method Nasal Cannula Weight: 164 lb 0.383 oz Body Mass Index (BMI) 22.8 Orthostatic Vital Signs Start: 05/09/19 05:17 Freq: q24h Status: Active Protocol: Activity Type Activity Date Activity User E-Sign Co-Sign Detail Recorded Client Recorded Date Recorded By Document 05/10/19 10:03 [facility] [id number] 05/10/19 10:04 MAB 05/10/19 10:03 Orthostatic Vitals Standing -Blood Pressure (90/60-120/80) 112/85 H -Extremity Use Left Arm -Pulse Rate (60-100) 85 Sitting -Blood Pressure (90/60-120/80) 170/84 H -Extremity Use Left Arm -Pulse Rate (60-100) 96 Lying -Blood Pressure (90/60-120/80) 159/84 H -Extremity Use Left Arm -Pulse Rate (60-100) 86 Intake and Output for Last 24 Hours 05/08/19 05/09/1905/10/19 23:59 23:59 23:59 Intake Total 397.5 / 547.5 2626.67 / 2626.67 240 / 240 Output Total 775 / 775 225 / 225 Balance 397.5 / 397.5 1851.67 / 1851.67 Current Medications Acetaminophen (Tylenol) 650 mg PO Q6H PRN PRN PRN Reason: Pain 1-10/10 or Fever Atenolol (Tenormin (Beta Darcie)) 25 mg PO DAILY [facility] Last Admin: 05/10/19 08:32 Dose: 25 mg Documented by: Atorvastatin Calcium (Lipitor) 40 mg PO QHS [facility] Last Admin: 05/09/19 21:05 Dose: 40 mg Documented by: Bupropion HCl (Wellbutrin Tablets) 75 mg PO BID [facility] Last Admin: 05/10/19 08:28 Dose: 75 mg Documented by: Calamine/Phenol (Calmoseptine Ointment) 1 applic TOPICAL BID PRN; Protocol PRN Reason: RASH/TOPICAL IRRITATION Last Admin: 05/09/19 13:00 Dose: 1 applicatio Documented by: Calcium/Vitamin D (Os-Kyle 500mg + D) 1 tablet PO BID [facility] Last Admin: 05/10/19 08:28 Dose: 1 tablet Documented by: Cholecalciferol (Vitamin D) 2,000 unit PO BID [facility] Last Admin: 05/10/19 08:28 Dose: 2,000 unit Documented by: Clopidogrel Bisulfate (Plavix) 75 mg PO DAILY [facility] Last Admin: 05/10/19 08:27 Dose: 75 mg Documented by: Furosemide (Lasix) 20 mg PO DAILY [facility] Sodium Chloride () 250 mls @ 15 mls/hr IV .[id number] PRN PRN Reason: Saline Flush Isosorbide Dinitrate (Isordil) 20 mg PO TID [facility] Last Admin: 05/10/19 15:04 Dose: 20 mg Documented by: Lorazepam (Ativan) 0.5 mg PO DAILY PRN PRN Reason: Anixety Last Admin: 05/10/19 00:45 Dose: 0.5 mg Documented by: Nitroglycerin (Nitrostat) 0.4 mg SUBLINGUAL PRN PRN PRN Reason: Chest Pain Ondansetron HCl (Zofran) 4 mg PO Q6H PRN PRN PRN Reason: NAUSEA Oxycodone HCl (Oxyir) 5 mg PO Q6H PRN PRN PRN Reason: Pain Score 6-10/10 Sertraline HCl (Zoloft) 100 mg PO DAILY [facility] Last Admin: 05/10/19 08:28 Dose: 100 mg Documented by: Sodium Chloride () 10 - 40 ml IV UD PRN PRN Reason: SALINE FLUSH Last Admin: 05/08/19 18:56 Dose: 10 ml Documented by: Tamsulosin HCl (Flomax) 0.4 mg PO DAILY [facility] Last Admin: 05/10/19 08:27 Dose: 0.4 mg Documented by: STROKE Vital Signs/Narrative: Vital Signs Temp Pulse Resp BP Pulse Ox 05/10/19 15:05 98.2 F 74 20 H 152/96 H 93 05/10/19 13:24 81 Assessment/Plan Patient seen by Jessee Dale PA-C under my supervision Patient seen and examined. He has no complaints this morning. Review of systems otherwise negative. He remains profoundly orthostatics positive. o/e: Vital Signs Height 5 ft 11 in Weight: 164 lb 0.383 oz Weight in Pounds 164.0 lbs BMI 26.5 Pulse Ox 93 Temperature 98.2 F Pulse Rate [Standing] 85 Pulse Rate [Sitting] 96 Pulse Rate [Lying] 86 Pulse Rate 74 Respiratory Rate 20 Blood Pressure [Standing] 112/85 Blood Pressure [Sitting] 170/84 Blood Pressure [Lying] 159/84 Blood Pressure 152/96 Blood Pressure Position Semi-Fowlers General: Alert, Oriented x3, Cooperative, looks frail HEENT: Atraumatic, PERRLA, EOMI, Normocephalic Neck: Supple, No JVD, Negative Carotid Bruits Lungs: Clear to auscultation, Normal air movement Cardiovascular: Regular rate, No murmurs Abdomen: Bowel Sounds Present, Soft, Non Tender Extremities: No edema, Capillary Refill Less than 3 Seconds Skin: No rashes, No breakdown Musculoskeletal: No Tenderness to Palpation of Joints or Extremities Neurological: Cranial nerves II-XII grossly intact Psych/Mental Status: Normal Affect, Appropriate, Alert and oriented to time, place, person, mood and affect Tinea gentle hydration with IV fluids. Orthostatics remain positive. Patient open to going to rehab facility. Discussed with cardiology about continue on Eliquis. Continue hydration with IV fluid. If patient remains orthostatics positive, will consider starting midodrine. Fall precautions. PT OT on board. Rest as per Jessee Dale PA-C's notes which I reviewed and endorsed. Code Visit OBSV E&M: 26325 Subsequent observation care L2
--- NOTE | 2019-05-10 15:00 | CASEMGMT ---
Daughter Savannah, KENJI on unit to discuss discharge planning and concerns with CM, SW, and PA. Daughter voices concerns with other siblings making decisions and patient being confused. Concerns address by PA regarding increased confusion. PA agreeable for patient going to SNF for additional therapy. SW discussed SNF with Savannah. Plan is for patient to go to TCU pending availability and precert. SW will assist with SNF discharge planning. CM remains available if needed.
[2019-05-10] MEDS: Ondansetron ODT 4 MG Tablet PO (19:08)
--- NOTE | 2019-05-10 20:05 | NURSING ---
Talked to CPS about evaluating this pt. Advised he was 82% on 6L...now on NRB. They are going to come see him.
--- NOTE | 2019-05-10 21:04 | RAD_ITS ---
STUDY: X-RAY CHEST REASON FOR EXAM: Male, 84 years old. Possible aspiration TECHNIQUE: Single frontal view of the chest. COMPARISON: May 08, 2019 FINDINGS: Sternotomy wires. Mild interstitial edema. There is no demonstrated pleural abnormality. Normal size heart. Normal mediastinum and rashad. Normal visualized pulmonary arteries. Normal visualized aortic arch and descending thoracic aorta. Normal visualized thoracic spine. Normal visualized ribs, clavicles, and shoulders. There is no demonstrated abnormality of the visualized soft tissue structures of the upper abdomen. RAD/Chest 1 View (Portable) IMPRESSION: Mild to moderate edema/interstitial infiltrates increased Electronically Signed: Charles Lr MD at 21:23 EST , Service support ,
[2019-05-10] MEDS: Atorvastatin Calcium 40 MG Tablet PO (22:15)
[2019-05-10] MEDS: Ceftriaxone 1 GM/50 ML BAG IV (22:41)
[2019-05-10] MEDS: 0.9% Saline Lock 10 ML Syringe IV (22:41)
[2019-05-11] VITALS (10 sets, daily range): BP systolic 99–129; BP diastolic 55–78; PULSE 63–89; RESP 16–20; TEMP 36.8–37.1; O2SAT 93–97
[2019-05-11] MEDS: Isosorbide DN 20 MG Tablet PO ×2 (05:44→14:30)
[2019-05-11 06:15] LABS: Anion Gap 6 (5-15); BUN 18 mg/dL (7-18); BUN/Creat Ratio 16.2 RATIO (10-20); Calcium,Total 7.9 mg/dL (8.5-10.1); Chloride 104 mmol/L (98-107); Creatinine, Serum 1.11 mg/dL (0.70-1.30); EST Glomerular Filtration Rate 67 mL/min (>60); Est Glom Filt Rate - Afr Amer 81 mL/min (>60); Estimated Creatinine Clearance 52.13 ml/min; Glucose 96 mg/dL (74-106); Sodium Level 138 mmol/L (136-145)
[2019-05-11] MEDS: Ipratropium/Albuterol Sulfate 3 ML AMPUL.NEB INHALATION ×2 (07:26→11:43)
[2019-05-11] MEDS: Furosemide 20 MG Tablet PO (10:48)
[2019-05-11] MEDS: Sertraline 100 MG Tablet PO (10:48)
[2019-05-11] MEDS: Calcium Carb/Vitamin D 1 TABLET Tablet PO (10:48)
[2019-05-11] MEDS: Tamsulosin HCl 0.4 MG Capsule PO (10:48)
[2019-05-11] MEDS: Atenolol 25 MG Tablet PO (10:49)
[2019-05-11] MEDS: Clopidogrel Bisulfate 75 MG Tablet PO (10:49)
[2019-05-11] MEDS: buPROPion 75 MG Tablet PO (10:50)
--- NOTE | 2019-05-11 11:45 | PN_ITS ---
<Alireza Dale - Last Filed: 05/11/19 11:45> Patient Problems: Active and Suspected Problems (Last Reviewed 02/26/19 @ 11:28 by Amor Steen MD) Falls (Acute) Generalized weakness (Acute) Reason for Visit: weakness Subjective: Ongoing confusion. Still saying he thinks he is going home. Today some dyspnea with exertion when walking with therapy and hypoxia. No SOB at rest. No cough. No fever/chlls. No LE edema. Vitals/I&O's: Vital Signs Temp Pulse Resp BP Pulse Ox 98.4 F 88 18 119/68 94 05/11/19 10:28 05/11/19 10:28 05/11/19 10:28 05/11/19 10:28 05/11/19 10:28 Oxygen Flow Rate (L/min) 3 Oxygen Delivery Method Nasal Cannula Weight: 164 lb 0.383 oz Body Mass Index (BMI) 22.8 Orthostatic Vital Signs Start: 05/09/19 05:17 Freq: 0600 Status: Active Protocol: Activity Type Activity Date Activity User E-Sign Co-Sign Detail Recorded Client Recorded Date Recorded By Document 05/11/19 05:34 CDS [id number] 05/11/19 05:42 CDS 05/11/19 05:34 Orthostatic Vitals Standing -Blood Pressure (90/60-120/80) 99/55 L -Extremity Use Right Arm -Pulse Rate (60-100) 81 Sitting -Blood Pressure (90/60-120/80) 129/65 H -Extremity Use Right Arm -Pulse Rate (60-100) 79 Lying -Blood Pressure (90/60-120/80) 128/78 H -Extremity Use Right Arm -Pulse Rate (60-100) 77 Intake and Output for Last 24 Hours 05/09/19 05/10/19 05/11/19 23:59 23:59 23:59 Intake Total 2626.67 / 2626.67 580 / 580 50 / 50 Output Total 775 / 775 225 / 225 150 / 150 Balance 1851.67 / 1851.67 355 / 355 -100 / -100 General: Alert, Oriented x3, Cooperative HEENT: Atraumatic, PERRLA, EOMI, Normocephalic Neck: Supple, No JVD, Negative Carotid Bruits Lungs: Clear to auscultation, Normal air movement Cardiovascular: Regular rate, No murmurs Abdomen: Bowel Sounds Present, Soft, Non Tender Extremities: No edema, Capillary Refill Less than 3 Seconds Skin: No rashes, No breakdown Musculoskeletal: No Tenderness to Palpation of Joints or Extremities Neurological: Cranial nerves II-XII grossly intact Psych/Mental Status: Normal Affect, Appropriate, Alert and oriented to time, place, person, mood and affect Laboratory Results 05/11/19 05:16: Sodium 138, Potassium 4.0, Chloride 104, Carbon Dioxide 28.0, Anion Gap 6, BUN 18, Creatinine 1.11, Estim Creat Clear Calc 52.13, Est GFR (MDRD) Af Amer 81, Est GFR (MDRD) Non-Af 67, BUN/Creatinine Ratio 16.2, Glucose 96, Calcium 7.9 L Current Medications Acetaminophen (Tylenol) 650 mg PO Q6H PRN PRN PRN Reason: Pain 1-1010 or Fever Albuterol/Ipratropium (Duoneb) 3 ml INHALATION Q4HWA.RT [facility] Last Admin: 05/11/19 11:43 Dose: 3 ml Documented by: Atenolol (Tenormin (Beta Darcie)) 25 mg PO DAILY [facility] Last Admin: 05/11/19 10:49 Dose: 25 mg Documented by: Atorvastatin Calcium (Lipitor) 40 mg PO QHS [facility] Last Admin: 05/10/19 22:15 Dose: 40 mg Documented by: Bupropion HCl (Wellbutrin Tablets) 75 mg PO BID [facility] Last Admin: 05/11/19 10:50 Dose: 75 mg Documented by: Calamine/Phenol (Calmoseptine Ointment) 1 applic TOPICAL BID PRN; Protocol PRN Reason: RASH/TOPICAL IRRITATION Last Admin: 05/09/19 13:00 Dose: 1 applicatio Documented by: Calcium/Vitamin D (Os-Kyle 500mg + D) 1 tablet PO BID [facility] Last Admin: 05/11/19 10:48 Dose: 1 tablet Documented by: Cholecalciferol (Vitamin D) 2,000 unit PO BID [facility] Last Admin: 05/11/19 10:49 Dose: 2,000 unit Documented by: Clopidogrel Bisulfate (Plavix) 75 mg PO DAILY [facility] Last Admin: 05/11/19 10:49 Dose: 75 mg Documented by: Furosemide (Lasix) 20 mg PO DAILY [facility] Last Admin: 12/17/19 10:48 Dose: 20 mg Documented by: Sodium Chloride () 250 mls @ 15 mls/hr IV .[id number] PRN PRN Reason: Saline Flush Ceftriaxone Sodium (Rocephin) 1 gm in 50 mls @ 100 mls/hr IV Q24@2200 [facility] Last Infusion: 05/10/19 23:11 Dose: Infused Documented by: Isosorbide Dinitrate (Isordil) 20 mg PO TID [facility] Last Admin: 05/11/19 05:44 Dose: 20 mg Documented by: Lorazepam (Ativan) 0.5 mg PO DAILY PRN PRN Reason: Anixety Last Admin: 05/10/19 00:45 Dose: 0.5 mg Documented by: Nitroglycerin (Nitrostat) 0.4 mg SUBLINGUAL PRN PRN PRN Reason: Chest Pain Ondansetron HCl (Zofran Odt) 4 mg PO Q6H PRN PRN PRN Reason: NAUSEA Last Admin: 05/10/19 19:08 Dose: 4 mg Documented by: Oxycodone HCl (Oxyir) 5 mg PO Q6H PRN PRN PRN Reason: Pain Score 6-10/10 Sertraline HCl (Zoloft) 100 mg PO DAILY [facility] Last Admin: 05/11/19 10:48 Dose: 100 mg Documented by: Sodium Chloride () 10 - 40 ml IV UD PRN PRN Reason: SALINE FLUSH Last Admin: 05/10/19 22:41 Dose: 10 ml Documented by: Tamsulosin HCl (Flomax) 0.4 mg PO DAILY [facility] Last Admin: 05/11/19 10:48 Dose: 0.4 mg Documented by: STROKE Vital Signs/Narrative: Vital Signs Temp Pulse Resp BP Pulse Ox 05/11/19 10:28 98.4 F 88 18 119/68 94 05/11/19 07:53 77 Medical Necessity - Tobacco Use Smoking Status: Former smoker Tobacco Use: Non-smoker Assessment/Plan All Active Problems (Last Reviewed 02/26/19 @ 11:28 by Amor Steen MD) Falls (Acute) Generalized weakness (Acute) CAP (community acquired pneumonia) (Resolved) Pneumonia (Acute) Acute respiratory failure with hypoxia (Acute) Non-ST elevated myocardial infarction (Resolved ~01/23/19) Pneumonia (Resolved) 1. Falls, lightheadedness, generalized weakness - orthostatic hypotension. LEO hoses. Continue current BP regimen. Resting htn so no midodrine. 2. Hx chronic systolic CHF and severe pulmonary htn - recent echo EF 45% severe pulm htn. Will stop fluids, no issue with PO and his renal function has improved. Resume lasix at discharge, lower dose. Continue lasix. No rales and no LE edema. 3. CAD - prior CABG/stent - continue home meds. Recent Negative stress test. 4. Chronic Afib - Continue atenolol, eliquis. 5. Anxiety / Depression - continue home meds. Ativan may be compounding issues relating to #1. Ideall this should be weaned off. 6. BPH - flomax. 7. Osteopenia - on VitD/Ca++. 8. Confusion - suspicious for underlying dementia. 9. Chronic hypoxic respiratory failure - 3 lpm baseline. Desat on ambulation. Continue lasix and incentive spirometer. DVT ppx: eliquis DC planning: SNF placement This patient was seen by Alireza Dale PA-C under the supervision of Dr. Parra <Paula Parra - Last Filed: 05/11/19 15:22> Vitals/I&O's: Vital Signs Temp Pulse Resp BP Pulse Ox 98.2 F 68 18 126/60 H 93 05/11/19 14:25 05/11/19 14:25 05/11/19 14:25 05/11/19 14:25 05/11/19 14:25 Oxygen Flow Rate (L/min) 3 Oxygen Delivery Method Nasal Cannula Weight: 164 lb 0.383 oz Body Mass Index (BMI) 22.8 Orthostatic Vital Signs Start: 05/09/19 05:17 Freq: 0600 Status: Active Protocol: Activity Type Activity Date Activity User E-Sign Co-Sign Detail Recorded Client Recorded Date Recorded By Document 05/11/19 05:34 CDS [id number] 05/11/19 05:42 CDS 05/11/19 05:34 Orthostatic Vitals Standing -Blood Pressure (90/60-120/80) 99/55 L -Extremity Use Right Arm -Pulse Rate (60-100) 81 Sitting -Blood Pressure (90/60-120/80) 129/65 H -Extremity Use Right Arm -Pulse Rate (60-100) 79 Lying -Blood Pressure (90/60-120/80) 128/78 H -Extremity Use Right Arm -Pulse Rate (60-100) 77 Intake and Output for Last 24 Hours 05/09/19 05/10/19 05/11/19 23:59 23:59 23:59 Intake Total 2626.67 / 2626.67 580 / 580 250 / 250 Output Total 775 / 775 225 / 225 250 / 250 Balance 1851.67 / 1851.67 355 / 355 0 / 0 Laboratory Results 05/11/19 05:16: Sodium 138, Potassium 4.0, Chloride 104, Carbon Dioxide 28.0, Anion Gap 6, BUN 18, Creatinine 1.11, Estim Creat Clear Calc 52.13, Est GFR (MDRD) Af Amer 81, Est GFR (MDRD) Non-Af 67, BUN/Creatinine Ratio 16.2, Glucose 96, Calcium 7.9 L STROKE Vital Signs/Narrative: Vital Signs Temp Pulse Resp BP Pulse Ox 05/11/19 14:25 98.2 F 68 18 126/60 H 93 05/11/19 12:35 87 05/11/19 11:45 89 16 95 Assessment/Plan Patient seen by alireza Dale PA-C under my supervision. Patient seen and examined. No active events overnight. He had no complaints and felt well. Review of signs otherwise negative. Patient was examined and physical examination documented as per discharge summary as [facility] Agree with rest of above note by Alireza Dale PA-C which are reviewed and endorsed. Code Visit OBSV E&M: 71344 Subsequent observation care L2
--- NOTE | 2019-05-11 12:18 | CASEMGMT ---
Addendum entered by Heidi Castillo 05/11/19 13:09: ALIVAI placed a call to pt's daughter Savannah and updated her on approval to TCU and discharge to TCU today. Savannah states understanding. Original Note: Social Work Note ALIVIA received message from Kenia in TCU that pre-cert has been obtained and pt is able to discharge today. Physician updated. Plan: TCU today Heidi Castillo MICROFILM OPERATOR, [employer] [employer]
--- NOTE | 2019-05-11 12:24 | PCM.EXTCARCO ---
- Diet 05/08/19 17:00 Diet: Cardiac/Low Cholesterol - Routine Orders/Code Status Suppository Type: Dulcolax 10mg Suppository Frequency: Daily PRN O2 Frequency: Continuous Keep PO Greater than or Equal to (%): 89 Routine Lab Work: CBC - 1 week, BMP - 3 days Code Status: Full Code - Therapies Physical Therapy: Eval and Treat Occupational Therapy: Eval and Treat - Problem/Diagnosis (1) Generalized weakness Status: Acute Current Visit: Yes (2) Falls Status: Acute Current Visit: Yes (3) Pulmonary HTN Status: Chronic Current Visit: Yes (4) Chronic systolic CHF (congestive heart failure) Status: Chronic Current Visit: Yes (5) Congestive heart failure Status: Chronic Current Visit: No (6) CKD (chronic kidney disease), stage III Status: Chronic Current Visit: No (7) Essential hypertension Status: Chronic Current Visit: No (8) Pure hypercholesterolemia Status: Chronic Current Visit: No (9) BPH (benign prostatic hyperplasia) Status: Chronic Current Visit: No (10) Hyperlipidemia Status: Chronic Current Visit: No (11) Atrial fibrillation with RVR Status: Chronic Current Visit: No (12) Hx of CABG Status: Chronic Current Visit: No (13) Chronic respiratory failure with hypoxia Status: Chronic Current Visit: Yes (14) Dementia Status: Chronic Current Visit: Yes - Allergies/Procedures Done in Hospital Allergies/Adverse Reactions: Allergies atorvastatin calcium [From Lipitor] Adverse Reaction (Verified 05/08/19 12:23) Other LEG CRAMPS WITH 40MG DOSE BUT TOLERATES LOWER DOSE buspirone HCl [From BuSpar] Adverse Reaction (Verified 05/08/19 12:23) Other FAINT fosinopril sodium [From Monopril] Adverse Reaction (Verified 05/08/19 12:23) Other LEG CRAMPS Iodinated Contrast Media [CONTRASTS] Adverse Reaction (Verified 05/08/19 12:23) Itching ramipril [From Altace] Adverse Reaction (Verified 05/08/19 12:23) Other LEG CRAMPS simvastatin Adverse Reaction (Verified 05/08/19 12:23) Other WHEN MIXED WITH DILTIAZEM CAUSES SEVERE MUSCLE CRAMPS Procedures: None - Type of Care/Length of Stay Estimated LOS: Convalescent Care Less Than 30 days Type of Care Needed: Skilled Rehab Potential: Fair Prognosis: Fair - Additional Orders/Day of Discharge Day of Discharge: 12/17/19 - Follow Up Care Primary Care Physician: Adalgisa Isidro MD [Primary Care Provider] - Please follow up with your Primary Care Physician in: 1-2 weeks Please Follow Up With: Amor Steen MD When: 2-4 weeks
--- NOTE | 2019-05-11 12:27 | DS.PCM_ITS ---
<Jessee Dale - Last Filed: 05/11/19 12:27> Discharge Date and Diagnosis - Problem List Patient Problems: Active and Suspected Problems (Last Reviewed 02/26/19 @ 11:28 by Amor Steen MD) Falls (Acute) Generalized weakness (Acute) Date of Admission: 05/08/19 Date of Discharge: 05/11/19 - Primary Discharge Diagnosis Active and Suspected Problems (Last Reviewed 02/26/19 @ 11:28 by Amor Steen MD) Falls Generalized weakness Orthostatic hypotension Bradycardia Dementia Chronic hypoxic respiratory failure Chronic systolic CHF Severe pulmonary HTN Anxiety/Depression BPH Osteopenia - Secondary Discharge Diagnosis Chronic Problems (Last Reviewed 02/26/19 @ 11:28 by Amor Steen MD) Pulmonary HTN (Chronic) Chronic systolic CHF (congestive heart failure) (Chronic) Chronic respiratory failure with hypoxia (Chronic) Dementia (Chronic) Congestive heart failure (Chronic) CKD (chronic kidney disease), stage III (Chronic) Presence of stent in coronary artery (Chronic ~10/2016) PTCA/CRYSTAL to SVG to obtuse marginal in August 2016; Staged PTCA/CRYSTAL to RCA in October 2016; Atherosclerosis of coronary artery bypass graft without angina pectoris (Chronic) Essential hypertension (Chronic) Pure hypercholesterolemia (Chronic) Atherosclerotic heart disease (Chronic) S/P CABG in 1993 with MARIA to LAD, SVG to OM1, and SVG to first diagonal; PTCA/CRYSTAL to SVG to obtuse marginal in August 2016; Staged PTCA/CRYSTAL to RCA in October 2016; BPH (benign prostatic hyperplasia) (Chronic) Hyperlipidemia (Chronic) CHF exacerbation (Chronic) Atrial fibrillation with RVR (Chronic) Hx of CABG (Chronic ~1993) Hospital Course and Treatment Imaging Results: IMAGING: CT/Brain/Head without Contrast IMPRESSION: 1. No CT evidence of intracranial bleeding, acute ischemic infarct or acute intracranial abnormality. 2. Chronic white matter ischemic changes in both cerebral hemispheres. 3. No interval change when compared to 02/25/2018. RAD/Chest 1 View (Portable) IMPRESSION: Relatively stable chest with no acute superimposed finding. RAD/HIP, UNI W/ Pelvis 2-3 Views IMPRESSION: Osteopenia with osteoarthrosis of both hips. No acute finding. RAD/Chest 1 View (Portable) IMPRESSION: Mild to moderate edema/interstitial infiltrates increased Operations: None Procedures: None Summary of Care Provided: Hospital Course: The patient is a 84 year old M with past medical history of chronic systolic congestive heart failure and severe pulmonary hypertension, underlying dementia, atrial fibrillation, CAD with history of CABG, who presented to the emergency ro with debility and falls. The patient had been released 36 hours prior to his presentation from snf. He went home and had ongoing weakness. The day prior to discharge she fell 3 times at home and could not get up on his own. In the ER he could stand but not walk on his own. He also had his vital signs checked by his home health care workers who found him to be significantly orth ostatic. CT of the brain was obtained in the emergency room and was found to be negative labs were consistent with mild dehydration, chest x-ray was negative. On arrival to the floor he had some bradycardia and positive orthostatic vitals. His atenolol was decreased by half and his heart rate improved well. His Norvasc was discontinued for orthostatic hypotension and Lasix was held for dehydration. He continued to have orthostatic hypotension however he had resting hypertension so LEO hoses were added and no further changes to blood pressure medications were made. He was reinitiated back on Lasix. During his stay he remained stable on 3 L of oxygen at rest. When working with therapy he did have some desaturation. Incentive spirometer was added, Lasix was continued, and he was given duo nebs. He had a recent stress test and echocardiogram so repeats were deferred at this time. He also had fluctuating mental status while with forgetfulness, abnormal behaviors such as tremor at tempting to call his mother and go visit her at her house, who is not alive, not knowing where he was (at one point thought he was out having breakfast in a restaurant)-I discussed this with his POA, daughter, who confirmed that he has had increasing memory issues in the past. Patient was significantly debilitated and required assistance standing and ambulating. It was decided that as he failed going home after being in a snf facility he would need to go to snf again. This was arranged for him at the TCU. He was discharged home in stable condition. 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 This patient was seen by Jessee Dale PA-C under the supervision of Doctor Fidel. [] Patient Problems: Active and Suspected Problems (Last Reviewed 02/26/19 @ 11:28 by Amor Steen MD) Falls (Acute) Generalized weakness (Acute) - Physical Exam Vitals/I&O's: Vital Signs Temp Pulse Resp BP Pulse Ox 98.4 F 89 16 119/68 95 05/11/19 10:28 05/11/19 11:45 05/11/19 11:45 05/11/19 10:28 05/11/19 11:45 Oxygen Flow Rate (L/min) 3 Oxygen Delivery Method Nasal Cannula Weight: 164 lb 0.383 oz Body Mass Index (BMI) 22.8 Orthostatic Vital Signs Start: 05/09/19 05:17 Freq: 0600 Status: Active Protocol: Activity Type Activity Date Activity User E-Sign Co-Sign Detail Recorded Client Recorded Date Recorded By Document 05/11/19 05:34 CDS [id number] 05/11/19 05:42 CDS 05/11/19 05:34 Orthostatic Vitals Standing -Blood Pressure (90/60-120/80) 99/55 L -Extremity Use Right Arm -Pulse Rate (60-100) 81 Sitting -Blood Pressure (90/60-120/80) 129/65 H -Extremity Use Right Arm -Pulse Rate (60-100) 79 Lying -Blood Pressure (90/60-120/80) 128/78 H -Extremity Use Right Arm -Pulse Rate (60-100) 77 Intake and Output for Last 24 Hours 05/09/19 05/10/19 05/11/19 23:59 23:59 23:59 Intake Total 2626.67 / 2626.67 580 / 580 50 / 50 Output Total 775 / 775 225 / 225 150 / 150 Balance 1851.67 / 1851.67 355 / 355 -100 / -100 General: Alert, Oriented x3, Cooperative HEENT: Atraumatic, PERRLA, EOMI, Normocephalic Neck: Supple, No JVD, Negative Carotid Bruits Lungs: Clear to auscultation, Normal air movement Cardiovascular: Regular rate, No murmurs Abdomen: Bowel Sounds Present, Soft, Non Tender Extremities: No edema, Capillary Refill Less than 3 Seconds Skin: No rashes, No breakdown Musculoskeletal: No Tenderness to Palpation of Joints or Extremities Neurological: Cranial nerves II-XII grossly intact Psych/Mental Status: Normal Affect, Appropriate, Alert and oriented to time, place, person, mood and affect Laboratory Results 05/11/19 05:16: Sodium 138, Potassium 4.0, Chloride 104, Carbon Dioxide 28.0, Anion Gap 6, BUN 18, Creatinine 1.11, Estim Creat Clear Calc 52.13, Est GFR (MDRD) Af Amer 81, Est GFR (MDRD) Non-Af 67, BUN/Creatinine Ratio 16.2, Glucose 96, Calcium 7.9 L Current Medications Acetaminophen (Tylenol) 650 mg PO Q6H PRN PRN PRN Reason: Pain 1-03/04 or Fever Albuterol/Ipratropium (Duoneb) 3 ml INHALATION Q4HWA.RT [facility] Last Admin: 05/11/19 11:43 Dose: 3 ml Documented by: Atenolol (Tenormin (Beta Darcie)) 25 mg PO DAILY [facility] Last Admin: 05/11/19 10:49 Dose: 25 mg Documented by: Atorvastatin Calcium (Lipitor) 40 mg PO QHS [facility] Last Admin: 05/10/19 22:15 Dose: 40 mg Documented by: Bupropion HCl (Wellbutrin Tablets) 75 mg PO BID [facility] Last Admin: 05/11/19 10:50 Dose: 75 mg Documented by: Calamine/Phenol (Calmoseptine Ointment) 1 applic TOPICAL BID PRN; Protocol PRN Reason: RASH/TOPICAL IRRITATION Last Admin: 05/09/19 13:00 Dose: 1 applicatio Documented by: Calcium/Vitamin D (Os-Kyle 500mg + D) 1 tablet PO BID [facility] Last Admin: 05/11/19 10:48 Dose: 1 tablet Documented by: Cholecalciferol (Vitamin D) 2,000 unit PO BID [facility] Last Admin: 05/11/19 10:49 Dose: 2,000 unit Documented by: Clopidogrel Bisulfate (Plavix) 75 mg PO DAILY [facility] Last Admin: 05/11/19 10:49 Dose: 75 mg Documented by: Furosemide (Lasix) 20 mg PO DAILY [facility] Last Admin: 05/11/19 10:48 Dose: 20 mg Documented by: Sodium Chloride () 250 mls @ 15 mls/hr IV .[id number] PRN PRN Reason: Saline Flush Ceftriaxone Sodium (Rocephin) 1 gm in 50 mls @ 100 mls/hr IV Q24@2200 [facility] Last Infusion: 05/10/19 23:11 Dose: Infused Documented by: Isosorbide Dinitrate (Isordil) 20 mg PO TID [facility] Last Admin: 05/11/19 05:44 Dose: 20 mg Documented by: Lorazepam (Ativan) 0.5 mg PO DAILY PRN PRN Reason: Anixety Last Admin: 05/10/19 00:45 Dose: 0.5 mg Documented by: Nitroglycerin (Nitrostat) 0.4 mg SUBLINGUAL PRN PRN PRN Reason: Chest Pain Ondansetron HCl (Zofran Odt) 4 mg PO Q6H PRN PRN PRN Reason: NAUSEA Last Admin: 05/10/19 19:08 Dose: 4 mg Documented by: Oxycodone HCl (Oxyir) 5 mg PO Q6H PRN PRN PRN Reason: Pain Score 6-10/10 Sertraline HCl (Zoloft) 100 mg PO DAILY [facility] Last Admin: 05/11/19 10:48 Dose: 100 mg Documented by: Sodium Chloride () 10 - 40 ml IV UD PRN PRN Reason: SALINE FLUSH Last Admin: 05/10/19 22:41 Dose: 10 ml Documented by: Tamsulosin HCl (Flomax) 0.4 mg PO DAILY [facility] Last Admin: 05/11/19 10:48 Dose: 0.4 mg Documented by: Discharge Diet: Low fat/ Low Cholesterol, 2000 mg Sodium Diet Discharge Activity: Return to Normal Activity Home Medications: Medications to take at Discharge Calcium Carb/Vitamin D [Caltrate-600 With Vit D Tab] 1 tab PO BID 06/01/14 Cholecalciferol (VIT D3) [Vitamin D3] 2,000 unit PO BID 06/01/14 Multivitamins,Therapeutic [Multivitamin] 1 tab PO DAILY 06/01/14 Nitroglycerin (INPATIENT USE) [Nitrostat] 0.4 mg SUBLINGUAL PRN PRN 06/08/14 lorazepam 0.5 mg tablet 0.5 mg PO DAILY PRN 15 Days tab 11/09/18 Apixaban [Eliquis] 2.5 mg PO BID 04/13/19 Atorvastatin Calcium 40 mg PO QHS 11/19/19 Bupropion HCl 75 mg PO BID 04/13/19 Clopidogrel Bisulfate [Clopidogrel] 75 mg PO DAILY 04/13/19 Isosorbide Dinitrate 20 mg PO TID 04/13/19 Jena-3S/Dha/Epa/Fish Oil [Jena-3 Fish Oil 1,200 mg Sfgl] 1 cap PO BID 04/13/19 Sertraline HCl 100 mg PO DAILY 04/13/19 Tamsulosin HCl 0.4 mg PO DAILY 04/13/19 Atenolol [Tenormin (beta darcie)] 25 mg PO DAILY #30 tab 05/10/19 Furosemide 40 mg PO DAILY #0 05/10/19 Menthol/Lanolin/Calamine/Znox [Calmoseptine Ointment] 1 applic TOPICAL BID PRN tube 05/10/19 Ipratropium/Albuterol Sulfate [Duoneb] 3 ml INHALATION Q4HWA.RT ampul.neb 05/11/19 Following Prescrptions Were Given to Patient: Atenolol [Tenormin (beta darcie)] 25 mg PO DAILY #30 tab Transmission Status: Received by [facility]/pharmacy #[id number] Primary Care Physician: Adalgisa Isidro MD [Primary Care Provider] - Please follow up with your Primary Care Physician in: 1-2 weeks Please Follow Up With: Amor Steen MD When: 2-4 weeks Medical Necessity - Tobacco Use Smoking Status: Former smoker Tobacco Use: Non-smoker Meaningful Use Info Meaningful Use Diagnoses (Choose all that apply): None applicable <Paula Parra - Last Filed: 05/11/19 15:21> Discharge Date and Diagnosis - Primary Discharge Diagnosis Active and Suspected Problems (Last Reviewed 02/26/19 @ 11:28 by Amor Steen MD) Falls (Acute) Generalized weakness (Acute) - Secondary Discharge Diagnosis Chronic Problems (Last Reviewed 02/26/19 @ 11:28 by Amor Steen MD) Pulmonary HTN (Chronic) Chronic systolic CHF (congestive heart failure) (Chronic) Chronic respiratory failure with hypoxia (Chronic) Dementia (Chronic) Congestive heart failure (Chronic) CKD (chronic kidney disease), stage III (Chronic) Presence of stent in coronary artery (Chronic ~10/2016) PTCA/CRYSTAL to SVG to obtuse marginal in August 2016; Staged PTCA/CRYSTAL to RCA in October 2016; Atherosclerosis of coronary artery bypass graft without angina pectoris (Chronic ) Essential hypertension (Chronic) Pure hypercholesterolemia (Chronic) Atherosclerotic heart disease (Chronic) S/P CABG in 1993 with MARIA to LAD, SVG to OM1, and SVG to first diagonal; PTCA/CRYSTAL to SVG to obtuse marginal in August 2016; Staged PTCA/CRYSTAL to RCA in October 2016; BPH (benign prostatic hyperplasia) (Chronic) Hyperlipidemia (Chronic) CHF exacerbation (Chronic) Atrial fibrillation with RVR (Chronic) Hx of CABG (Chronic ~1993) Hospital Course and Treatment Summary of Care Provided: Patient seen by Jessee Sanchez PA-C under my supervision The patient is an 84 year old M with an extensive past medical history as listed. He was admitted through the ED with a complaint of mechanical falls and debility. Patient had just been released from a detention about 2 days prior to admission. He went home and still had weakness and so he fell down and was unable to get up on his own. On admission he was found to be significantly orthostatic. CT of the brain done without contrast on admission in the ED was negative. He was also mildly bradycardic and orthostatics remain positive. LEO hose versus were ordered. His Norvasc was discontinued and Lasix was held. Patient was noted to be forgetful during admission and this was discussed with his POA who stated that patient had had issues with memory in the past. Patient was also debilitated and required assistance with ambulation after working with physical therapy. Of note, patient's atenolol was also decreased by half to 25 mg daily and he remained stable during admission. He was discharged to his detention on 05/11/2019. Patient seen and examined prior to discharge. He had no complaints. Review of symptoms otherwise negative. With counseling, he was agreeable to going back to the detention. Review of symptoms otherwise negative. Labs and vitals reviewed. Home medication reviewed and reconciled. Since he was going to a controlled environment in the detention, his Eliquis was continued. o/e: Vital Signs Height 5 ft 11 in Weight: 164 lb 0.383 oz Weight in Pounds 164.0 lbs BMI 26.5 Pulse Ox 93 Temperature 98.2 F Pulse Rate [Standing] 81 Pulse Rate [Sitting] 79 Pulse Rate [Lying] 77 Pulse Rate 68 Respiratory Rate 18 Blood Pressure [Standing] 99/55 Blood Pressure [Sitting] 129/65 Blood Pressure [Lying] 128/78 Blood Pressure 126/60 Blood Pressure Position Semi-Fowlers [] General: Alert, Oriented x3, Cooperative, looks frail HEENT: Atraumatic, PERRLA, EOMI, Normocephalic Neck: Supple, No JVD, Negative Carotid Bruits Lungs: Clear to auscultation, Normal air movement Cardiovascular: Regular rate, No murmurs Abdomen: Bowel Sounds Present, Soft, Non Tender Extremities: No edema, Capillary Refill Less than 3 Seconds Skin: No rashes, No breakdown Musculoskeletal: No Tenderness to Palpation of Joints or Extremities Neurological: Cranial nerves II-XII grossly intact Psych/Mental Status: Normal Affect, Appropriate, Alert and oriented to time, place, person, mood and affect Plan as above. - Physical Exam Vitals/I&O's: Vital Signs Temp Pulse Resp BP Pulse Ox 98.2 F 68 18 126/60 H 93 05/11/19 14:25 05/11/19 14:25 05/11/19 14:25 05/11/19 14:25 05/11/19 14:25 Oxygen Flow Rate (L/min) 3 Oxygen Delivery Method Nasal Cannula Weight: 164 lb 0.383 oz Body Mass Index (BMI) 22.8 Orthostatic Vital Signs Start: 05/09/19 05:17 Freq: 0600 Status: Active Protocol: Activity Type Activity Date Activity User E-Sign Co-Sign Detail Recorded Client Recorded Date Recorded By Document 05/11/19 05:34 CDS [id number] 05/11/19 05:42 CDS 05/11/19 05:34 Orthostatic Vitals Standing -Blood Pressure (90/60-120/80) 99/55 L -Extremity Use Right Arm -Pulse Rate (60-100) 81 Sitting -Blood Pressure (90/60-120/80) 129/65 H -Extremity Use Right Arm -Pulse Rate (60-100) 79 Lying -Blood Pressure (90/60-120/80) 128/78 H -Extremity Use Right Arm -Pulse Rate (60-100) 77 Intake and Output for Last 24 Hours 05/09/19 05/10/19 05/11/19 23:59 23:59 23:59 Intake Total 2626.67 / 2626.67 580 / 580 250 / 250 Output Total 775 / 775 225 / 225 250 / 250 Balance 1851.67 / 1851.67 355 / 355 0 / 0 Laboratory Results 05/11/19 05:16: Sodium 138, Potassium 4.0, Chloride 104, Carbon Dioxide 28.0, Anion Gap 6, BUN 18, Creatinine 1.11, Estim Creat Clear Calc 52.13, Est GFR ( MDRD) Af Amer 81, Est GFR (MDRD) Non-Af 67, BUN/Creatinine Ratio 16.2, Glucose 96, Calcium 7.9 L Current Medications Acetaminophen (Tylenol) 650 mg PO Q6H PRN PRN PRN Reason: Pain 1-03/04 or Fever Albuterol/Ipratropium (Duoneb) 3 ml INHALATION Q4HWA.RT [facility] Last Admin: 05/11/19 11:43 Dose: 3 ml Documented by: Atenolol (Tenormin (Beta Darcie)) 25 mg PO DAILY [facility] Last Admin: 05/11/19 10:49 Dose: 25 mg Documented by: Atorvastatin Calcium (Lipitor) 40 mg PO QHS [facility] Last Admin: 05/10/19 22:15 Dose: 40 mg Documented by: Bupropion HCl (Wellbutrin Tablets) 75 mg PO BID [facility] Last Admin: 05/11/19 10:50 Dose: 75 mg Documented by: Calamine/Phenol (Calmoseptine Ointment) 1 applic TOPICAL BID PRN; Protocol PRN Reason: RASH/TOPICAL IRRITATION Last Admin: 05/09/19 13:00 Dose: 1 applicatio Documented by: Calcium/Vitamin D (Os-Kyle 500mg + D) 1 tablet PO BID [facility] Last Admin: 05/11/19 10:48 Dose: 1 tablet Documented by: Cholecalciferol (Vitamin D) 2,000 unit PO BID [facility] Last Admin: 05/11/19 10:49 Dose: 2,000 unit Documented by: Clopidogrel Bisulfate (Plavix) 75 mg PO DAILY [facility] Last Admin: 05/11/19 10:49 Dose: 75 mg Documented by: Furosemide (Lasix) 20 mg PO DAILY [facility] Last Admin: 05/11/19 10:48 Dose: 20 mg Documented by: Sodium Chloride () 250 mls @ 15 mls/hr IV .[id number] PRN PRN Reason: Saline Flush Ceftriaxone Sodium (Rocephin) 1 gm in 50 mls @ 100 mls/hr IV Q24@2200 [facility] Last Infusion: 05/10/19 23:11 Dose: Infused Documented by: Isosorbide Dinitrate (Isordil) 20 mg PO TID [facility] Last Admin: 05/11/19 14:30 Dose: 20 mg Documented by: Lorazepam (Ativan) 0.5 mg PO DAILY PRN PRN Reason: Anixety Last Admin: 05/10/19 00:45 Dose: 0.5 mg Documented by: Nitroglycerin (Nitrostat) 0.4 mg SUBLINGUAL PRN PRN PRN Reason: Chest Pain Ondansetron HCl (Zofran Odt) 4 mg PO Q6H PRN PRN PRN Reason: NAUSEA Last Admin: 05/10/19 19:08 Dose: 4 mg Documented by: Oxycodone HCl (Oxyir) 5 mg PO Q6H PRN PRN PRN Reason: Pain Score 6-10/10 Sertraline HCl (Zoloft) 100 mg PO DAILY [facility] Last Admin: 05/11/19 10:48 Dose: 100 mg Documented by: Sodium Chloride () 10 - 40 ml IV UD PRN PRN Reason: SALINE FLUSH Last Admin: 05/10/19 22:41 Dose: 10 ml Documented by: Tamsulosin HCl (Flomax) 0.4 mg PO DAILY [facility] Last Admin: 05/11/19 10:48 Dose: 0.4 mg Documented by: Disposition: Residential facility Minutes spent on discharge:: 35 Patient Condition:: Stable Code Visit OBSV E&M: 83151 Observation care discharge
--- NOTE | 2019-05-11 15:05 | NURSING ---
report called to [facility]
== END 2019-05-11 15:15 | disposition skilled nursing facility (03) ==
LOC: ED 15:26 → MS3 05-09 08:37
PROVIDERS: Physician Assistant; Admitting Provider Internal Medicine; Emergency Provider Emergency Medicine; Family Provider Internal Medicine; PCP Internal Medicine; Referring Provider Internal Medicine; Visit Provider Student in an Organized Health Care Education/Training Program
DX: I95.1 Orthostatic hypotension (principal); E86.0 Dehydration; R53.1 Weakness; J96.11 Chronic respiratory failure with hypoxia; N40.0 Benign prostatic hyperplasia without lower urinary tract symptoms; I50.22 Chronic systolic (congestive) heart failure; I27.20 Pulmonary hypertension, unspecified; N18.3 Chronic kidney disease, stage 3 (moderate); I13.0 Hypertensive heart and chronic kidney disease with heart failure and stage 1 through stage 4 chronic kidney disease, or unspecified chronic kidney disease; E78.5 Hyperlipidemia, unspecified; I48.20 Chronic atrial fibrillation, unspecified; I25.10 Atherosclerotic heart disease of native coronary artery without angina pectoris; Z79.899 Other long term (current) drug therapy; Z79.02 Long term (current) use of antithrombotics/antiplatelets; F41.9 Anxiety disorder, unspecified; F32.9 Major depressive disorder, single episode, unspecified; Z79.01 Long term (current) use of anticoagulants; Z95.5 Presence of coronary angioplasty implant and graft; Z95.1 Presence of aortocoronary bypass graft; Z87.891 Personal history of nicotine dependence; Z91.81 History of falling; M85.89 Other specified disorders of bone density and structure, multiple sites; R41.0 Disorientation, unspecified
CPT/HCPCS: 36415; 70450; 71045; 73502; 80048; 81001; 85025; 85610; 85730; 93005; 94640; 96361; 96365; 97116; 97162; 97165; 97530; 99218; 99285; J7030; A4216; G0378

== ENCOUNTER 2019-05-11 15:26 | Inpatient (IN) | payer MEDICARE, SELFPAY ==
[2016-10-30 13:35] VITALS: BMI 26.5
[2019-05-08 16:57] VITALS: BMI 22.8
[2019-05-11 15:42] VITALS: BP 126/65; PULSE 58; RESP 20; TEMP 37.2; O2SAT 90
[2019-05-11 15:51] VITALS: BMI 23.1
[2019-05-11 15:53] VITALS: BMI 23.1
[2019-05-11] MEDS: APIXABAN 2.5 MG TABLET PO (17:42)
[2019-05-11] MEDS: buPROPion 75 MG Tablet PO (17:42)
[2019-05-11] MEDS: Calcium Carb/Vitamin D 1 TABLET Tablet PO (17:42)
[2019-05-11 18:13] VITALS: RESP 16
[2019-05-11 20:05] VITALS: PULSE 89; RESP 18; O2SAT 95
[2019-05-11] MEDS: Ipratropium/Albuterol Sulfate 3 ML AMPUL.NEB INHALATION (20:05)
--- NOTE | 2019-05-11 20:31 | HP.PCM_ITS ---
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 The patient is a 84 year old Male with below past medical history presented to [facility] Emergency Department 05/08/2019 with falls. 05/08/2019 CT head chronic white matter ischemic changes, no acute infarcts. 05/08/2019 X-ray pelvis, right hip showed osteoarthritis bilateral hips, osteopenia. Multiple falls, lightheaded x 2-3 weeks. Hit head, put hole in dry wall. Right hip injury. EKG atrial fibrillation, rate 53. 2 Hospitalizations in March 2019. Discharged from [facility] 36 hours prior, multiple falls since home. 05/08/2019 Admit to Hospital. IV Fluids for orthostasis. Hold Lasix, Hold ARB. Wean off Lorazepam. 05/10/2019 Chest X--ray showed mild to moderate edema/interstitial infiltrates increased. Leo Louis, Medication adjustment for orthostatic hypotension. He had waxing, waning mentation. 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 05/11/2019 Admit to TCU with debility, here for rehabilitation, strengthening, prior to disposition determination. Past Medical History Past Medical History (Chronic Problems): Chronic Problems (Last Reviewed 02/26/19 @ 11:28 by Amor Steen MD) Pulmonary HTN (Chronic) Chronic systolic CHF (congestive heart failure) (Chronic) Chronic respiratory failure with hypoxia (Chronic) Dementia (Chronic) Atrial fibrillation (Chronic) Dementia, unspecified, without behavioral disturbance (Chronic) Chronic kidney disease (Chronic) Coronary artery disease (Chronic) Hypertension (Chronic) Severe pulmonary arterial systolic hypertension (Chronic) Hypokalemia (Chronic) Congestive heart failure (Chronic) CKD (chronic kidney disease), stage III (Chronic) Presence of stent in coronary artery (Chronic ~10/2016) PTCA/CRYSTAL to SVG to obtuse marginal in August 2016; Staged PTCA/CRYSTAL to RCA in October 2016; Atherosclerosis of coronary artery bypass graft without angina pectoris (Chronic) Essential hypertension (Chronic) Pure hypercholesterolemia (Chronic) Atherosclerotic heart disease (Chronic) S/P CABG in 1993 with MARIA to LAD, SVG to OM1, and SVG to first diagonal; PTCA/CRYSTAL to SVG to obtuse marginal in August 2016; Staged PTCA/CRYSTAL to RCA in October 2016; BPH (benign prostatic hyperplasia) (Chronic) Hyperlipidemia (Chronic) CHF exacerbation (Chronic) Atrial fibrillation with RVR (Chronic) Hx of CABG (Chronic ~1993) Medical History: Medical History (Last Reviewed 02/26/19 @ 11:28 by Amor Steen MD) Presence of stent in coronary artery (Chronic) Onset Date: ~10/2016 Z95.5 PTCA/CRYSTAL to SVG to obtuse marginal in August 2016; Staged PTCA/CRYSTAL to RCA in October 2016; Atherosclerosis of coronary artery bypass graft without angina pectoris (Chronic) I25.810 Essential hypertension (Chronic) I10 Nicotine abuse Z72.0 Atherosclerotic heart disease of [place] coronary artery without angina pectoris I25.10 CABG: MARIA to LAD, SVG to 1st OM, SVG to 1st Dx 1993. PTCA: PTCA/CRYSTAL to SVG to OM 09/19/2016. PCI-CRYSTAL-RCA 10/30/2016. 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 Allergies atorvastatin calcium [From Lipitor] Adverse Reaction (Verified 05/08/19 12:23) Other LEG CRAMPS WITH 40MG DOSE BUT TOLERATES LOWER DOSE buspirone HCl [From BuSpar] Adverse Reaction (Verified 05/08/19 12:23) Other FAINT fosinopril sodium [From Monopril] Adverse Reaction (Verified 05/08/19 12:23) Other LEG CRAMPS Iodinated Contrast Media [CONTRASTS] Adverse Reaction (Verified 05/08/19 12:23) Itching ramipril [From Altace] Adverse Reaction (Verified 05/08/19 12:23) Other LEG CRAMPS simvastatin Adverse Reaction (Verified 05/08/19 12:23) Other WHEN MIXED WITH DILTIAZEM CAUSES SEVERE MUSCLE CRAMPS Home Medications: Ambulatory Orders Medication Instructions Recorded Calcium Carb/Vitamin D 1 tab PO BID 06/01/14 [Caltrate-600 With Vit D Tab] Cholecalciferol (VIT D3) [Vitamin 2,000 unit PO BID 06/01/14 D3] Multivitamins,Therapeutic 1 tab PO DAILY 06/01/14 [Multivitamin] Nitroglycerin (INPATIENT USE) 0.4 mg SUBLINGUAL PRN PRN 06/08/14 [Nitrostat] lorazepam 0.5 mg tablet 0.5 mg PO DAILY PRN 15 Days tab 11/09/18 Apixaban [Eliquis] 2.5 mg PO BID 04/13/19 Atorvastatin Calcium 40 mg PO QHS 04/13/19 Bupropion HCl 75 mg PO BID 04/13/19 Clopidogrel Bisulfate [Clopidogrel] 75 mg PO DAILY 04/13/19 Isosorbide Dinitrate 20 mg PO TID 04/13/19 [place]-3S/Dha/Epa/Fish Oil [[place]-3 1 cap PO BID 04/13/19 Fish Oil 1,200 mg Sfgl] Sertraline HCl 100 mg PO DAILY 04/13/19 Tamsulosin HCl 0.4 mg PO DAILY 04/13/19 Furosemide 40 mg PO DAILY #0 05/10/19 Menthol/Lanolin/Calamine/Znox 1 applic TOPICAL BID PRN tube 05/10/19 [Calmoseptine Ointment] Atenolol [Tenormin (beta darcie)] 25 mg PO DAILY 05/11/19 Ipratropium/Albuterol Sulfate 3 ml INHALATION Q4HWA.RT 05/11/19 [Duoneb] Surgical History: Surgical History (Last Reviewed 02/26/19 @ 11:28 by Amor Steen MD) H/O coronary artery bypass surgery Z95.1 CABG: MARIA to LAD, SVG to 1st OM, SVG to 1st Dx 1993. Presence of coronary angioplasty implant and graft Onset Date: ~10/2016 Z95.5 PTCA/CRYSTAL to SVG to obtuse marginal in August 2016; Staged PTCA/CRYSTAL to RCA in October 2016; Surgical History: angioplasty - Stents x 6., coronary bypass surgery - x %., - - Left knee arthroscopic surgery. Psychiatric History: Anxiety, Depression Lives: Alone - Lives with cat. Smoking Status: Former smoker Tobacco Use: Cigarettes Alcohol: Heavy - 2 beers per night. Drugs: None - *Family History Maternal Family History: Family History (Last Reviewed 05/08/19 @ 17:11 by СЕРГЕЙ Werner) Father emphysema Mother Hypertension HLD (hyperlipidemia) Sister Enlarged heart Sister Myocardial infarction History Items: High Cholesterol, Heart Disease, Hypertension Paternal Family History: Family History (Last Reviewed 05/08/19 @ 17:11 by СЕРГЕЙ Werner) Father emphysema Mother Hypertension HLD (hyperlipidemia) Sister Enlarged heart Sister Myocardial infarction History Items: COPD Sibling Family History: Family History (Last Reviewed 05/08/19 @ 17:11 by СЕРГЕЙ Werner) Father emphysema Mother Hypertension HLD (hyperlipidemia) Sister Enlarged heart Sister Myocardial infarction History Items: - - sister from enlarged heart Review of Systems Constitutional: Reports: Weakness. Denies: Chills, Fever, Weight Change HEENT: Denies: Head Aches, Sinus Congestion, Sinus Drainage Cardiovascular: Denies: Chest Pain, Palpitations Respiratory: Denies: Cough, Shortness of breath at rest, Sputum production Gastrointestinal: Denies: Abdominal Pain, Nausea, Vomiting Genitourinary: Denies: Dysuria Musculoskeletal: Denies: Joint Pain, Joint Tenderness Skin: Denies: Rash, Wounds Neurological: Denies: Numbness, Tingling, Focal weakness Psychiatric: Denies: Anxiety, Depression, Homicidal Ideations, Suicidal Ideations Hematologic/ Lymphatic: Denies: Easy Bruising, Easy Bleeding VTE Information - Inpt Only VTE Present on Admission: No VTE Mechan Device Prophylaxis: Knee High LEO Hose VTE Pharm Prophylaxis ordered?: No Reason prophylaxis not ordered:: Treatment Not Indicated Patient Problems: Active and Suspected Problems (Last Reviewed 02/26/19 @ 11:28 by Amor Steen MD) Debility (Acute) Multiple falls (Acute) Closed head injury (Acute) Delirium (Acute) Orthostatic hypotension (Acute) - Physical Exam Vitals/I&O's: Vital Signs Temp Pulse Resp BP Pulse Ox 98.9 F 89 18 126/65 H 95 05/11/19 15:42 05/11/19 20:05 05/11/19 20:05 05/11/19 15:42 05/11/19 20:05 Oxygen Flow Rate (L/min) 3 Oxygen Delivery Method Nasal Cannula Weight: 75.07 kg Body Mass Index (BMI) 23.1 General: Alert, Oriented x3, Cooperative HEENT: Atraumatic, PERRLA, EOMI, Normocephalic Neck: Supple, No JVD, Negative Carotid Bruits Lungs: Clear to auscultation, Normal air movement Cardiovascular: Regular rate, No murmurs Abdomen: Bowel Sounds Present, Soft, Non Tender Extremities: No edema, Capillary Refill Less than 3 Seconds Skin: No rashes, No breakdown Musculoskeletal: No Tenderness to Palpation of Joints or Extremities Neurological: Cranial nerves II-XII grossly intact Psych/Mental Status: Normal Affect, Appropriate Current Medications Albuterol/Ipratropium (Duoneb) 3 ml INHALATION Q4HWA.RT [facility] Last Admin: 05/11/19 20:05 Dose: 3 ml Documented by: Apixaban (Eliquis) 2.5 mg PO BID [facility] Last Admin: 05/11/19 17:42 Dose: 2.5 mg Documented by: Atenolol (Tenormin (Beta Darcie)) 25 mg PO DAILY LISA Atorvastatin Calcium (Lipitor) 40 mg PO QHS [facility] Bisacodyl (Dulcolax) 10 mg RECTAL DAILY PRN PRN Reason: Constipation Bupropion HCl (Wellbutrin Tablets) 75 mg PO BID [facility] Last Admin: 05/11/19 17:42 Dose: 75 mg Documented by: Calamine/Phenol (Calmoseptine Ointment) 1 applic TOPICAL BID PRN; Protocol PRN Reason: RASH/TOPICAL IRRITATION Calcium/Vitamin D (Os-Kyle 500mg + D) 1 tablet PO BID [facility] Last Admin: 05/11/19 17:42 Dose: 1 tablet Documented by: Cholecalciferol (Vitamin D) 2,000 unit PO BID [facility] Last Admin: 05/11/19 17:42 Dose: 2,000 unit Documented by: Clopidogrel Bisulfate (Plavix) 75 mg PO DAILY [facility] Furosemide (Lasix) 40 mg PO DAILY [facility] Isosorbide Dinitrate (Isordil) 20 mg PO TID LISA Lorazepam (Ativan) 0.5 mg PO DAILY PRN PRN PRN Reason: Anixety Multivitamins (Multivitamin) 1 tablet PO DAILYCM LISA Nitroglycerin (Nitrostat) 0.4 mg SUBLINGUAL PRN PRN PRN Reason: CHEST Sertraline HCl (Zoloft) 100 mg PO DAILY LISA Tamsulosin HCl (Flomax) 0.4 mg PO DAILY LISA Tuberculin PPD (Tubersol, Aplisol, Ppd) 5 tu ID X1 ONE Stop: 05/12/19 10:01 Tuberculin PPD (Tubersol, Aplisol, Ppd) 5 tu ID X1 ONE Stop: 05/19/19 10:01 Assessment/Plan All Active Problems (Last Reviewed 02/26/19 @ 11:28 by Amor Steen MD) Falls (Acute) Generalized weakness (Acute) Debility (Acute) Multiple falls (Acute) Closed head injury (Acute) Delirium (Acute) Orthostatic hypotension (Acute) CAP (community acquired pneumonia) (Resolved) Pneumonia (Acute) Acute respiratory failure with hypoxia (Acute) Non-ST elevated myocardial infarction (Resolved ~01/23/19) Pneumonia (Resolved) 84 year old male with below past medical history hospitalized for multiple falls, complicated by orthostatic hypotension, delirium, underlying mixed dementia, admitted to TCU with debility, here for rehabilitation, strengthening, prior to disposition determination. * Debility - PT/OT. * Pain - Tylenol 1000MG Q6H PRN pain (1-10). * Bowel - Miralax 17GM daily, Senna/colace 1 tablet BID, Dulcolax 10MG [place] daily PRN. * Adult immunization - Administer Prevnar 13, Pneumovax 23, Fluzone as necessary. * DVT prophylaxis - Not necessary, already on Eliquis. * Atrial Fibrillation - Stop Atenolol, heart rate 58, continue Eliquis 2.5MG twice daily. * Hyperlipidemia - Atorvastatin 40MG QHS. * Depression - Bupropion 75MG twice daily, Sertraline 100MG daily. * Coronary Artery Disease s/p CABG x 5, s/p stents x 6 - Stop Atenolol due to bradycardia, Isordil 20MG TID, Eliquis 2.5MG twice daily, stop Plavix due to increased risk of bleeding without further benefit of CV risk reduction when already on Eliquis, NTG 0.4MG SL Q5M RPN. * Chronic systolic heart failure - Isordil 20MG TID, Lasix 40MG daily, consider Entresto. * Shortness of breath - Duoneb 3ML [id number]. * Benzodiazepine dependence - Stop Lorazepam. * Alcohol dependence - Monitor for alcohol withdrawal, he drinks 2 beers per night per report, probably drinks more. * Insomnia - Rx Melatonin 10MG QHS. * Skin irritation - Calmoseptine BID PRN. * BPH - Tamsulosin 0.4MG daily. 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
[2019-05-11] MEDS: Isosorbide DN 20 MG Tablet PO (21:18)
[2019-05-11] MEDS: Atorvastatin Calcium 40 MG Tablet PO (21:18)
[2019-05-11] MEDS: MELATONIN 10 MG TABLET PO (21:24)
--- NOTE | 2019-05-12 01:06 | NURSING ---
Alarm noted to be sounding in patient's room. Patient standing beside bed. Patient loss balance. States that he hit his left shoulder on wall. Skin tear noted to left elbow. Bandaid applied at this time. Patient reminded to use call light before getting up. Explained to patient that if he hears alarm then he needs to sit on bed and wait for staff. Patient states that he thought that alarm was a phone ringing but I now know for next time. Patient appreciative of this nurses' help and states that he will use call light next time.
[2019-05-12] MEDS: Senna/Docusate Sodium 1 Tablet PO ×2 (05:29→18:36)
[2019-05-12] MEDS: Polyethylene Glycol 3350 17 GM PACKET PO (05:29)
[2019-05-12] MEDS: buPROPion 75 MG Tablet PO ×2 (05:31→18:36)
[2019-05-12] MEDS: Isosorbide DN 20 MG Tablet PO ×3 (05:31→21:43)
[2019-05-12] MEDS: Tamsulosin HCl 0.4 MG Capsule PO (05:32)
[2019-05-12] MEDS: APIXABAN 2.5 MG TABLET PO ×2 (05:32→18:36)
[2019-05-12] MEDS: Furosemide 40 MG Tablet PO (05:32)
[2019-05-12] MEDS: Sertraline 100 MG Tablet PO (05:32)
[2019-05-12 05:35] VITALS: BP 125/71; PULSE 81; O2SAT 94
[2019-05-12 05:55] LABS: Absolute Lymphocyte Count 0.93 X10^3/uL (0.83-4.51); Absolute Neutrophil Count 6.8 X10^3/uL (2.0-7.7); Basophil# 0.02 X10^3/uL; Basophil% 0.2 % (0-1); Eosinophil# 0.13 X10^3/uL; Eosinophils% 1.5 % (0-5); Hematocrit 32.7 % (40-54); Hemoglobin 10.6 g/dL (13.0-16.5); Lymphocyte # 0.93 X10^3/ul (4.0); Lymphocyte % 10.9 % (19-41); Mean Corp Hgb Conc 32.4 g/dL (32-36); Mean Corpuscular Hgb 28.9 pg (27.0-32.0); Mean Corpuscular Volume 89.1 fL (80-94); Mean Platelet Vol. 10.7 fl (6.2-12.0); Monocyte# 0.61 X10^3/uL; Monocyte% 7.2 % (0-10); NRBC Flagged by Analyzer 0 % (0-5); Neutrophil # 6.79 X10^3/uL (2.7-7.7); Neutrophil % 79.8 % (47-70); Platelet Count 173 K/mm3 (150-450); RBC Distribution Width CV 14.8 % (11.6-14.6); RBC Distribution Width SD 47.7 fl (35.1-43.9); Red Blood Count 3.67 M/mm3 (4.6-6.2); White Blood Count 8.5 K/mm3 (4.4-11.0)
[2019-05-12 06:51] LABS: Anion Gap 6 (5-15); BUN 21 mg/dL (7-18); BUN/Creat Ratio 16.8 RATIO (10-20); Calcium,Total 8.2 mg/dL (8.5-10.1); Chloride 106 mmol/L (98-107); Creatinine, Serum 1.25 mg/dL (0.70-1.30); EST Glomerular Filtration Rate 59 mL/min (>60); Est Glom Filt Rate - Afr Amer 71 mL/min (>60); Estimated Creatinine Clearance 46.71 ml/min; Glucose 97 mg/dL (74-106); Potassium 3.8 mmol/L (3.5-5.1); Sodium Level 140 mmol/L (136-145)
[2019-05-12] MEDS: Ipratropium/Albuterol Sulfate 3 ML AMPUL.NEB INHALATION (07:04)
[2019-05-12 10:02] VITALS: PULSE 63; RESP 16; O2SAT 95
[2019-05-12] MEDS: Tuberculin,Purif.prot.deriv. 50 TU/ML Vial 5 ML ID (10:48)
--- NOTE | 2019-05-12 12:44 | CASEMGMT ---
SW spoke w/pt, he plans to return home at discharge w/[facility](they had started just prior to his coming here), private hire aides and daughter's assist. SW will follow to confirm discharge needs and make arrangements as needed. MADHURI Escalante
[2019-05-12 15:00] VITALS: BP 131/64; PULSE 63; RESP 18; TEMP 36.4; O2SAT 95
--- NOTE | 2019-05-12 15:17 | PCM.PN.RX ---
<Kaylee Laguna - Last Filed: 05/12/19 15:17> Progress Note - Pharmacy Subjective: TCU Admission Objective: Allergies atorvastatin calcium [From Lipitor] Adverse Reaction (Verified 05/08/19 12:23) Other LEG CRAMPS WITH 40MG DOSE BUT TOLERATES LOWER DOSE buspirone HCl [From BuSpar] Adverse Reaction (Verified 05/08/19 12:23) Other FAINT fosinopril sodium [From Monopril] Adverse Reaction (Verified 05/08/19 12:23) Other LEG CRAMPS Iodinated Contrast Media [CONTRASTS] Adverse Reaction (Verified 05/08/19 12:23) Itching ramipril [From Altace] Adverse Reaction (Verified 05/08/19 12:23) Other LEG CRAMPS simvastatin Adverse Reaction (Verified 05/08/19 12:23) Other WHEN MIXED WITH DILTIAZEM CAUSES SEVERE MUSCLE CRAMPS Current Medications Generic Name Dose Route Start Last Admin Trade Name Freq PRN Reason Stop Dose Admin Acetaminophen 1,000 mg 05/11/19 20:53 Tylenol PO Q6H PRN PRN Pain Score 1-10/10 Apixaban 2.5 mg 05/11/19 18:00 05/12/19 05:32 Eliquis PO 2.5 mg BID LISA Administration Atorvastatin Calcium 40 mg 05/11/19 22:00 05/11/19 21:18 Lipitor PO 40 mg QHS LISA Administration Bisacodyl 10 mg 05/11/19 16:01 Dulcolax RECTAL DAILY PRN Constipation Bupropion HCl 75 mg 05/11/19 18:00 05/12/19 05:31 Wellbutrin Tablets PO 75 mg BID LISA Administration Calamine/Phenol 1 applic 05/11/19 15:51 Calmoseptine Ointment TOPICAL BID PRN RASH/TOPICAL IRRITATION Protocol Furosemide 40 mg 05/12/19 06:00 05/12/19 05:32 Lasix PO 40 mg DAILY LISA Administration Isosorbide Dinitrate 20 mg 05/11/19 22:00 05/12/19 14:59 Isordil PO 20 mg TID LISA Administration Melatonin 10 mg 05/11/19 22:00 05/11/19 21:24 Melatonin PO 10 mg QHS LISA Administration Nitroglycerin 0.4 mg 05/11/19 15:51 Nitrostat SUBLINGUAL PRN PRN CHEST Nutritional Formula (Lactose Free) 120 ml 05/12/19 12:00 05/12/19 10:51 Ensure Enlive PO 120 ml 4X/DAY LISA Administration Polyethylene Glycol 17 gm 05/12/19 06:00 05/12/19 05:29 Miralax PO 17 gm DAILY LISA Administration Polysaccharide Iron Complex 150 mg 05/13/19 08:00 Ferrex 150 PO DAILYCM LISA Senna/Docusate Sodium 1 tablet 05/12/19 06:00 05/12/19 05:29 Senokot-S, [place]-Colace PO 1 tablet BID LISA Administration Sertraline HCl 100 mg 05/12/19 06:00 05/12/19 05:32 Zoloft PO 100 mg DAILY LISA Administration Tamsulosin HCl 0.4 mg 05/12/19 06:00 05/12/19 05:32 Flomax PO 0.4 mg DAILY LISA Administration Tuberculin PPD 5 tu 05/19/19 10:00 Tubersol, Aplisol, Ppd ID 05/19/19 10:01 X1 ONE Problem List (Last Reviewed 02/26/19 @ 11:28 by Amor Steen MD) Debility (Acute) Multiple falls (Acute) Atrial fibrillation (Chronic) Closed head injury (Acute) Delirium (Acute) Dementia, unspecified, without behavioral disturbance (Chronic) Orthostatic hypotension (Acute) Chronic kidney disease (Chronic) Coronary artery disease (Chronic) Hypertension (Chronic) Severe pulmonary arterial systolic hypertension (Chronic) Hypokalemia (Chronic) Vital Signs Temp Pulse Resp BP Pulse Ox 97.5 F L 63 18 131/64 H 95 05/12/19 15:00 05/12/19 15:00 05/12/19 15:00 05/12/19 15:00 05/12/19 15:00 Oxygen Flow Rate (L/min) 3 Oxygen Delivery Method Nasal Cannula Weight: 75.07 kg Body Mass Index (BMI) 23.1 Sodium 140 mmol/L (136-145) 05/12/19 05:15 Potassium 3.8 mmol/L (3.5-5.1) 05/12/19 05:15 Chloride 106 mmol/L (98-107) 05/12/19 05:15 Carbon Dioxide 28.0 mmol/L (21.0-32.0) 05/12/19 05:15 Anion Gap 6 (5-15) 05/12/19 05:15 BUN 21 mg/dL (7-18) H 05/12/19 05:15 Creatinine 1.25 mg/dL (0.70-1.30) 05/12/19 05:15 Est GFR (MDRD) Af Amer 71 mL/min (>60) 05/12/19 05:15 Est GFR (MDRD) Non-Af 59 mL/min (>60) L 05/12/19 05:15 BUN/Creatinine Ratio 16.8 RATIO (10-20) 05/12/19 05:15 Glucose 97 mg/dL (74-106) 05/12/19 05:15 Assessment/Plan: 1. Pain: acetaminophen 1000mg Q6H PRN pain (-03/04). Please continue to monitor for pain and increased PRN usage. 2. Atrial fibrillation: apixaban 2.5mg PO BID. Please continue to monitor for S/S of bleeding, renal function and platelets. 3. Hyperlipidemia: atorvastatin 40mg PO QHS. Recent lipid panel and LFTs in chart. Please continue to monitor for muscle pain. *4. Coronary artery disease (s/p CABG x5 and stents X6)/chronic systolic heart failure: isosorbide dinitrate 20mg PO TID, nitroglycerin 0.4mg SL PRN chest, furosemide 40mg PO daily. See physician note regarding the consideration of Entresto. Please consider changing directions for nitroglycerin to Q5M PRN chest pain. Thanks. 5. BPH: tamsulosin 0.4mg PO daily. Please continue to monitor for hypotension and urinary flow. 6. Anemia (Hgb 10.6): Ferrex 150mg PO DAILYCM. Please continue to monitor hemoglobin and for dark, tarry stools. 7. Insomnia: melatonin 10mg PO QHS. Please continue to monitor for excessive drowsiness. Psychotropic Medications: *1. Depression: sertraline 100mg PO daily and bupropion 75mg PO BID. Please consider GDR by 10/2019 if clinically appropriate. Unnecessary Medications: None Bowel Regimen: Miralax 17gm PO daily, senna/docusate 1T PO BID, bisacodyl 10mg VT daily PRN constipation. Please continue to monitor for constipation and increased PRN usage. Date of Note:: 05/12/19 - Provider Comments Provider responsibility: Provider responsible to enter orders to implement recommendations <Johnie Wang Chi - Last Filed: 05/12/19 17:44> Progress Note - Pharmacy Subjective: [] Objective: Allergies atorvastatin calcium [From Lipitor] Adverse Reaction (Verified 05/08/19 12:23) Other LEG CRAMPS WITH 40MG DOSE BUT TOLERATES LOWER DOSE buspirone HCl [From BuSpar] Adverse Reaction (Verified 05/08/19 12:23) Other FAINT fosinopril sodium [From Monopril] Adverse Reaction (Verified 05/08/19 12:23) Other LEG CRAMPS Iodinated Contrast Media [CONTRASTS] Adverse Reaction (Verified 05/08/19 12:23) Itching ramipril [From Altace] Adverse Reaction (Verified 05/08/19 12:23) Other LEG CRAMPS simvastatin Adverse Reaction (Verified 05/08/19 12:23) Other WHEN MIXED WITH DILTIAZEM CAUSES SEVERE MUSCLE CRAMPS Current Medications Generic Name Dose Route Start Last Admin Trade Name Freq PRN Reason Stop Dose Admin Acetaminophen 1,000 mg 05/11/19 20:53 Tylenol PO Q6H PRN PRN Pain Score 1-10/10 Apixaban 2.5 mg 05/11/19 18:00 05/12/19 05:32 Eliquis PO 2.5 mg BID LISA Administration Atorvastatin Calcium 40 mg 05/11/19 22:00 05/11/19 21:18 Lipitor PO 40 mg QHS LISA Administration Bisacodyl 10 mg 05/11/19 16:01 Dulcolax RECTAL DAILY PRN Constipation Bupropion HCl 75 mg 05/11/19 18:00 05/12/19 05:31 Wellbutrin Tablets PO 75 mg BID LISA Administration Calamine/Phenol 1 applic 05/11/19 15:51 Calmoseptine Ointment TOPICAL BID PRN RASH/TOPICAL IRRITATION Protocol Furosemide 40 mg 05/12/19 06:00 05/12/19 05:32 Lasix PO 40 mg DAILY LISA Administration Isosorbide Dinitrate 20 mg 05/11/19 22:00 05/12/19 14:59 Isordil PO 20 mg TID LISA Administration Melatonin 10 mg 05/11/19 22:00 05/11/19 21:24 Melatonin PO 10 mg QHS LISA Administration Nitroglycerin 0.4 mg 05/11/19 15:51 Nitrostat SUBLINGUAL PRN PRN CHEST Nutritional Formula (Lactose Free) 120 ml 05/12/19 12:00 05/12/19 10:51 Ensure Enlive PO 120 ml 4X/DAY LISA Administration Polyethylene Glycol 17 gm 05/12/19 06:00 05/12/19 05:29 Miralax PO 17 gm DAILY LISA Administration Polysaccharide Iron Complex 150 mg 05/13/19 08:00 Ferrex 150 PO DAILYCM LISA Senna/Docusate Sodium 1 tablet 05/12/19 06:00 05/12/19 05:29 Senokot-S, [place]-Colace PO 1 tablet BID LISA Administration Sertraline HCl 100 mg 05/12/19 06:00 05/12/19 05:32 Zoloft PO 100 mg DAILY LISA Administration Tamsulosin HCl 0.4 mg 05/12/19 06:00 05/12/19 05:32 Flomax PO 0.4 mg DAILY LISA Administration Tuberculin PPD 5 tu 05/19/19 10:00 Tubersol, Aplisol, Ppd ID 05/19/19 10:01 X1 ONE Problem List (Last Reviewed 02/26/19 @ 11:28 by Amor Steen MD) Debility (Acute) Multiple falls (Acute) Atrial fibrillation (Chronic) Closed head injury (Acute) Delirium (Acute) Dementia, unspecified, without behavioral disturbance (Chronic) Orthostatic hypotension (Acute) Chronic kidney disease (Chronic) Coronary artery disease (Chronic) Hypertension (Chronic) Severe pulmonary arterial systolic hypertension (Chronic) Hypokalemia (Chronic) Vital Signs Temp Pulse Resp BP Pulse Ox 97.5 F L 63 18 131/64 H 95 05/12/19 15:00 05/12/19 15:00 05/12/19 15:00 05/12/19 15:00 05/12/19 15:00 Oxygen Flow Rate (L/min) 3 Oxygen Delivery Method Nasal Cannula Weight: 75.07 kg Body Mass Index (BMI) 23.1 Sodium 140 mmol/L (136-145) 05/12/19 05:15 Potassium 3.8 mmol/L (3.5-5.1) 05/12/19 05:15 Chloride 106 mmol/L (98-107) 05/12/19 05:15 Carbon Dioxide 28.0 mmol/L (21.0-32.0) 05/12/19 05:15 Anion Gap 6 (5-15) 05/12/19 05:15 BUN 21 mg/dL (7-18) H 05/12/19 05:15 Creatinine 1.25 mg/dL (0.70-1.30) 05/12/19 05:15 Est GFR (MDRD) Af Amer 71 mL/min (>60) 05/12/19 05:15 Est GFR (MDRD) Non-Af 59 mL/min (>60) L 05/12/19 05:15 BUN/Creatinine Ratio 16.8 RATIO (10-20) 05/12/19 05:15 Glucose 97 mg/dL (74-106) 05/12/19 05:15 Assessment/Plan: Psychotropic Medications: Unnecessary Medications: Bowel Regimen: - Provider Comments Provider responsibility: Provider responsible to enter orders to implement recommendations Provider Comments to Recommendations by Pharmacy: Agree
[2019-05-12] MEDS: MELATONIN 10 MG TABLET PO (21:43)
[2019-05-12] MEDS: Atorvastatin Calcium 40 MG Tablet PO (21:43)
[2019-05-13] MEDS: Polyethylene Glycol 3350 17 GM PACKET PO (05:19)
[2019-05-13] MEDS: Tamsulosin HCl 0.4 MG Capsule PO (05:19)
[2019-05-13] MEDS: APIXABAN 2.5 MG TABLET PO ×2 (05:19→17:19)
[2019-05-13] MEDS: Senna/Docusate Sodium 1 Tablet PO ×2 (05:19→17:19)
[2019-05-13] MEDS: Furosemide 40 MG Tablet PO (05:19)
[2019-05-13] MEDS: buPROPion 75 MG Tablet PO ×2 (05:19→17:19)
[2019-05-13] MEDS: Isosorbide DN 20 MG Tablet PO ×3 (05:19→21:03)
[2019-05-13] MEDS: Sertraline 100 MG Tablet PO (05:19)
[2019-05-13] MEDS: Iron Polysaccharide Complex 150 MG CAPSULE PO (09:15)
--- NOTE | 2019-05-13 10:18 | PCA ---
Patient was caught by housekeeping in the restroom alone, no walker, alarm was not sounding for staff at time, patient keeps turning around in chair and silencing alarm and not using call light for assistance
[2019-05-13 16:00] VITALS: BP 152/75; PULSE 88; RESP 20; TEMP 37.2; O2SAT 96
[2019-05-13 21:00] VITALS: O2SAT 93
[2019-05-13] MEDS: Atorvastatin Calcium 40 MG Tablet PO (21:03)
[2019-05-13] MEDS: MELATONIN 10 MG TABLET PO (21:08)
--- NOTE | 2019-05-13 21:08 | PCA ---
Addendum entered by Catherine Willis 05/13/19 21:23: In to assess patient at this time. Patient has no complaint of pain. States that he had hit his right shoulder but states that he is not in any pain. When asked about hitting head, patient states that he did not hit his head. No bumps or bruises seen on patient's head. Daughter also in room and aware of patient falling. Patient is alert and oriented x 3. Patient's oxygen was noted to be off and oxygen turned off when aide found patient in bed. When questioned about how the oxygen was off patient states I turned it off to save electricity since I wasn't using it. 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 Patient reminded that he needs to call for help when getting up, patient understands but is quick to say that he does not want to give us more work. Patient reassured that he isn't giving us more work and that staff is wanting to help him be safe. Patient understands and says that he will call us when he needs help. Dr. Wang notified of this. No new orders given at this time. Dr. Wang states that neurochecks are not needed due to patient stating that he did not hit head and no bumps or bruises to head noted. Original Note: Noticed patient door was closed. Walked into room and patient was laying in the bed. Oxygen was on floor and turned off at the wall. On previous rounds he was sitting in his recliner, with chair alarm on. I asked patient how he got to the bed. Patient said he took himself to the bathroom. I reminded patient to ask for assistance, and told him he was kj he didn't fall. While doing HS care patient stated that he wanted to be truthful. I asked why that was. Patient said i did fall in the bathroom, and landed on my left shoulder. And I got myself up and to the bed. When i asked how he turned the alarm off, Patient said he pushed the button on the alarm so it wouldn't call us. Nurse notified and in room to assess.
[2019-05-13] MEDS: Nystatin Powder 15gm Bottle 1 APPLIC TOPICAL (21:15)
[2019-05-13] MEDS: Menthol/Lanolin/Calamine/Znox 113 GM Tube 1 APPLIC TOPICAL (21:15)
[2019-05-14 05:57] VITALS: BP 142/82; PULSE 81
[2019-05-14] MEDS: buPROPion 75 MG Tablet PO ×2 (05:58→17:47)
[2019-05-14] MEDS: Senna/Docusate Sodium 1 Tablet PO ×2 (05:58→17:47)
[2019-05-14] MEDS: Isosorbide DN 20 MG Tablet PO ×3 (05:58→21:40)
[2019-05-14] MEDS: Furosemide 40 MG Tablet PO (05:58)
[2019-05-14] MEDS: APIXABAN 2.5 MG TABLET PO ×2 (05:59→17:47)
[2019-05-14] MEDS: Tamsulosin HCl 0.4 MG Capsule PO (05:59)
[2019-05-14] MEDS: Sertraline 100 MG Tablet PO (05:59)
[2019-05-14] MEDS: Nystatin Powder 15gm Bottle 1 APPLIC TOPICAL ×2 (06:01→21:41)
[2019-05-14] MEDS: Menthol/Lanolin/Calamine/Znox 113 GM Tube 1 APPLIC TOPICAL ×2 (06:01→21:41)
[2019-05-14 06:52] VITALS: O2SAT 96
[2019-05-14] MEDS: Iron Polysaccharide Complex 150 MG CAPSULE PO (09:30)
[2019-05-14] MEDS: Acetaminophen 500 MG Tablet 1000 MG PO (15:45)
[2019-05-14 16:00] VITALS: BP 149/79; PULSE 84; RESP 18; TEMP 37.1; O2SAT 96
[2019-05-14] MEDS: Atorvastatin Calcium 40 MG Tablet PO (21:40)
[2019-05-14] MEDS: MELATONIN 10 MG TABLET PO (21:42)
[2019-05-15] MEDS: Furosemide 40 MG Tablet PO (06:11)
[2019-05-15] MEDS: Senna/Docusate Sodium 1 Tablet PO ×2 (06:11→16:52)
[2019-05-15] MEDS: Isosorbide DN 20 MG Tablet PO ×3 (06:11→21:46)
[2019-05-15] MEDS: buPROPion 75 MG Tablet PO ×2 (06:11→16:52)
[2019-05-15] MEDS: Tamsulosin HCl 0.4 MG Capsule PO (06:11)
[2019-05-15] MEDS: APIXABAN 2.5 MG TABLET PO ×2 (06:11→16:52)
[2019-05-15] MEDS: Menthol/Lanolin/Calamine/Znox 113 GM Tube 1 APPLIC TOPICAL ×2 (06:11→21:43)
[2019-05-15] MEDS: Sertraline 100 MG Tablet PO (06:11)
[2019-05-15] MEDS: Nystatin Powder 15gm Bottle 1 APPLIC TOPICAL ×2 (06:12→21:42)
[2019-05-15] MEDS: Iron Polysaccharide Complex 150 MG CAPSULE PO (08:21)
[2019-05-15 13:18] VITALS: BP 127/70; PULSE 97
[2019-05-15 16:00] VITALS: BP 150/62; PULSE 95; RESP 20; TEMP 36.6; O2SAT 97
[2019-05-15 19:47] VITALS: PULSE 106; RESP 16; O2SAT 98
[2019-05-15] MEDS: Atorvastatin Calcium 40 MG Tablet PO (21:46)
[2019-05-15] MEDS: MELATONIN 10 MG TABLET PO (21:46)
[2019-05-16] MEDS: Furosemide 40 MG Tablet PO (05:22)
[2019-05-16] MEDS: Tamsulosin HCl 0.4 MG Capsule PO (05:22)
[2019-05-16] MEDS: APIXABAN 2.5 MG TABLET PO ×2 (05:22→17:09)
[2019-05-16] MEDS: Isosorbide DN 20 MG Tablet PO ×3 (05:22→21:30)
[2019-05-16] MEDS: Sertraline 100 MG Tablet PO (05:22)
[2019-05-16] MEDS: Senna/Docusate Sodium 1 Tablet PO ×2 (05:22→17:09)
[2019-05-16] MEDS: buPROPion 75 MG Tablet PO ×2 (05:22→17:09)
[2019-05-16] MEDS: Menthol/Lanolin/Calamine/Znox 113 GM Tube 1 APPLIC TOPICAL ×2 (05:25→21:32)
[2019-05-16] MEDS: Nystatin Powder 15gm Bottle 1 APPLIC TOPICAL ×2 (05:25→21:32)
[2019-05-16 06:34] VITALS: O2SAT 97
[2019-05-16] MEDS: Iron Polysaccharide Complex 150 MG CAPSULE PO (07:57)
[2019-05-16 15:16] VITALS: BP 127/84; PULSE 113; RESP 18; TEMP 37.2; O2SAT 97
--- NOTE | 2019-05-16 17:45 | NURSING ---
Daughter here to see pt, pt verbalizing to his daughter that he has not been getting therapy since he was admitted. This nurse reviewed OT and PTs charting and explained to daughter that pt did get therapy on Friday but no therapy on Sundays. Did notice a couple times that pt had called out for assist, but when this nurse entered room he would state I cant remember what I needed Speech therapy eval order placed for cognition concerns.
[2019-05-16 21:18] VITALS: BP 180/106; PULSE 123
[2019-05-16] MEDS: Nitroglycerin (INPATIENT USE) 0.4 MG TAB.SUBL SUBLINGUAL (21:18)
[2019-05-16 21:23] VITALS: BP 137/87; PULSE 118; RESP 16
--- NOTE | 2019-05-16 21:25 | NURSING ---
Patient c/o chest pain 10/02. Burning cessation. Patient requesting Nitro. I feel like I need a Nitro Vitals obtained as noted. Heart rate irregular x1 Nitro sublingual given. After 5 minutes, patient rating pain 0 out of 10. Patient resting in bed. Oxygen on 3 LPM via nasal cannula. Denies any pain/SOB.Rechecked blood pressure and heart rate.
[2019-05-16] MEDS: Atorvastatin Calcium 40 MG Tablet PO (21:30)
[2019-05-16] MEDS: MELATONIN 10 MG TABLET PO (21:33)
[2019-05-17] MEDS: Tamsulosin HCl 0.4 MG Capsule PO (05:22)
[2019-05-17] MEDS: APIXABAN 2.5 MG TABLET PO ×2 (05:22→17:07)
[2019-05-17] MEDS: Isosorbide DN 20 MG Tablet PO ×3 (05:22→20:01)
[2019-05-17] MEDS: buPROPion 75 MG Tablet PO ×2 (05:23→17:07)
[2019-05-17] MEDS: Sertraline 100 MG Tablet PO (05:23)
[2019-05-17] MEDS: Furosemide 40 MG Tablet PO (05:23)
[2019-05-17] MEDS: Senna/Docusate Sodium 1 Tablet PO ×2 (05:23→17:06)
[2019-05-17] MEDS: Nystatin Powder 15gm Bottle 1 APPLIC TOPICAL ×2 (05:24→20:02)
[2019-05-17] MEDS: Menthol/Lanolin/Calamine/Znox 113 GM Tube 1 APPLIC TOPICAL ×2 (05:25→20:03)
[2019-05-17 07:38] VITALS: O2SAT 90
[2019-05-17] MEDS: Iron Polysaccharide Complex 150 MG CAPSULE PO (07:51)
--- NOTE | 2019-05-17 14:08 | MDS.RN ---
Pain interview for freeman 05/18/19 completed.
--- NOTE | 2019-05-17 15:59 | CASEMGMT ---
Brief interview for mental status (BIMS) and resident mood interview (PHQ-9) completed on this day. BIMS score 04/09. PHQ-9 score 07/22. Neli SAHA, SERGO
[2019-05-17 16:00] VITALS: BP 117/74; PULSE 119; RESP 19; TEMP 36.4; O2SAT 95
--- NOTE | 2019-05-17 17:41 | NURSING ---
pt HR 119 per GENERAL OFFICE CLERK, rechecked apical @ 130bpm, irregular. reported to Dr. Wang, N/O for metoprolol BID
[2019-05-17 17:48] VITALS: BP 117/74; PULSE 130
[2019-05-17] MEDS: Metoprolol Tartrate 25 MG Tablet 12.5 MG PO (17:48)
[2019-05-17] MEDS: Atorvastatin Calcium 40 MG Tablet PO (20:01)
[2019-05-17] MEDS: MELATONIN 10 MG TABLET PO (20:01)
[2019-05-17 20:06] VITALS: PULSE 92
[2019-05-18 06:18] VITALS: BP 143/76; PULSE 86
[2019-05-18] MEDS: Metoprolol Tartrate 25 MG Tablet 12.5 MG PO ×2 (06:18→16:52)
[2019-05-18] MEDS: Isosorbide DN 20 MG Tablet PO ×3 (06:18→21:34)
[2019-05-18] MEDS: buPROPion 75 MG Tablet PO ×2 (06:18→16:52)
[2019-05-18] MEDS: Senna/Docusate Sodium 1 Tablet PO ×2 (06:18→16:52)
[2019-05-18] MEDS: Tamsulosin HCl 0.4 MG Capsule PO (06:18)
[2019-05-18] MEDS: APIXABAN 2.5 MG TABLET PO ×2 (06:18→16:53)
[2019-05-18] MEDS: Sertraline 100 MG Tablet PO (06:19)
[2019-05-18] MEDS: Furosemide 40 MG Tablet PO (06:19)
[2019-05-18] MEDS: Menthol/Lanolin/Calamine/Znox 113 GM Tube 1 APPLIC TOPICAL ×2 (06:22→21:35)
[2019-05-18] MEDS: Nystatin Powder 15gm Bottle 1 APPLIC TOPICAL ×2 (06:22→21:34)
[2019-05-18] MEDS: Iron Polysaccharide Complex 150 MG CAPSULE PO (08:39)
--- NOTE | 2019-05-18 09:24 | CASEMGMT ---
Social Work Spoke with [facility] - faxed referral per dtr/pt request. Will await outcome. Radha Pratt MSW [employer]
[2019-05-18 15:57] VITALS: BP 124/65; PULSE 73; RESP 18; TEMP 36.7; O2SAT 96
[2019-05-18 16:00] VITALS: O2SAT 96
[2019-05-18 16:52] VITALS: BP 124/65; PULSE 73
[2019-05-18] MEDS: Atorvastatin Calcium 40 MG Tablet PO (21:34)
[2019-05-18] MEDS: MELATONIN 10 MG TABLET PO (21:37)
[2019-05-19] MEDS: Nystatin Powder 15gm Bottle 1 APPLIC TOPICAL ×2 (05:10→20:20)
[2019-05-19] MEDS: buPROPion 75 MG Tablet PO ×2 (05:13→17:12)
[2019-05-19] MEDS: APIXABAN 2.5 MG TABLET PO ×2 (05:13→17:12)
[2019-05-19] MEDS: Senna/Docusate Sodium 1 Tablet PO (05:13)
[2019-05-19] MEDS: Furosemide 40 MG Tablet PO (05:14)
[2019-05-19] MEDS: Isosorbide DN 20 MG Tablet PO ×3 (05:14→20:17)
[2019-05-19] MEDS: Tamsulosin HCl 0.4 MG Capsule PO (05:14)
[2019-05-19] MEDS: Sertraline 100 MG Tablet PO (05:14)
[2019-05-19] MEDS: Menthol/Lanolin/Calamine/Znox 113 GM Tube 1 APPLIC TOPICAL ×2 (05:15→20:21)
[2019-05-19 05:17] VITALS: BP 153/82; PULSE 90
[2019-05-19] MEDS: Metoprolol Tartrate 25 MG Tablet 12.5 MG PO ×2 (05:17→17:12)
[2019-05-19 06:21] LABS: Absolute Neutrophil Count 4.9 X10^3/uL (2.0-7.7); Basophil# 0.03 X10^3/uL; Basophil% 0.4 % (0-1); Eosinophil# 0.41 X10^3/uL; Hematocrit 34.3 % (40-54); Hemoglobin 10.7 g/dL (13.0-16.5); Lymphocyte % 14.7 % (19-41); Mean Corp Hgb Conc 31.2 g/dL (32-36); Mean Corpuscular Hgb 28.3 pg (27.0-32.0); Mean Corpuscular Volume 90.7 fL (80-94); Mean Platelet Vol. 9.8 fl (6.2-12.0); Monocyte# 0.43 X10^3/uL; Monocyte% 6.3 % (0-10); NRBC Flagged by Analyzer 0 % (0-5); Neutrophil # 4.87 X10^3/uL (2.7-7.7); Neutrophil % 71.9 % (47-70); Platelet Count 197 K/mm3 (150-450); RBC Distribution Width CV 15.2 % (11.6-14.6); RBC Distribution Width SD 49.4 fl (35.1-43.9); Red Blood Count 3.78 M/mm3 (4.6-6.2); White Blood Count 6.8 K/mm3 (4.4-11.0)
[2019-05-19 06:44] LABS: Anion Gap 4 (5-15); BUN 27 mg/dL (7-18); BUN/Creat Ratio 21.1 RATIO (10-20); Calcium,Total 7.9 mg/dL (8.5-10.1); Chloride 102 mmol/L (98-107); Creatinine, Serum 1.28 mg/dL (0.70-1.30); EST Glomerular Filtration Rate 57 mL/min (>60); Est Glom Filt Rate - Afr Amer 69 mL/min (>60); Estimated Creatinine Clearance 44.65 ml/min; Glucose 91 mg/dL (74-106); Sodium Level 140 mmol/L (136-145)
[2019-05-19 07:47] VITALS: O2SAT 95
[2019-05-19] MEDS: Iron Polysaccharide Complex 150 MG CAPSULE PO (08:30)
[2019-05-19] MEDS: Tuberculin,Purif.prot.deriv. 50 TU/ML Vial 5 ML ID (10:36)
[2019-05-19 15:39] VITALS: BP 129/74; PULSE 63; RESP 18; TEMP 37.2; O2SAT 97
[2019-05-19 17:12] VITALS: PULSE 63
[2019-05-19] MEDS: Atorvastatin Calcium 40 MG Tablet PO (20:18)
[2019-05-19] MEDS: MELATONIN 10 MG TABLET PO (20:19)
[2019-05-20] MEDS: Menthol/Lanolin/Calamine/Znox 113 GM Tube 1 APPLIC TOPICAL ×2 (06:10→21:44)
[2019-05-20 06:11] VITALS: BP 145/72; PULSE 72
[2019-05-20] MEDS: Nystatin Powder 15gm Bottle 1 APPLIC TOPICAL ×2 (06:11→21:44)
[2019-05-20] MEDS: Metoprolol Tartrate 25 MG Tablet 12.5 MG PO ×2 (06:11→17:34)
[2019-05-20] MEDS: Sertraline 100 MG Tablet PO (06:12)
[2019-05-20] MEDS: Tamsulosin HCl 0.4 MG Capsule PO (06:12)
[2019-05-20] MEDS: buPROPion 75 MG Tablet PO ×2 (06:12→17:35)
[2019-05-20] MEDS: Furosemide 40 MG Tablet PO (06:12)
[2019-05-20] MEDS: APIXABAN 2.5 MG TABLET PO ×2 (06:12→17:33)
[2019-05-20] MEDS: Isosorbide DN 20 MG Tablet PO ×3 (06:12→21:43)
[2019-05-20] MEDS: Iron Polysaccharide Complex 150 MG CAPSULE PO (07:36)
--- NOTE | 2019-05-20 15:34 | CASEMGMT ---
Social Work Spoke with patient's dtr Savannah to discuss DC plans. Dtr is unsure where pt will DC to. [facility] may be too far away. Educated to in network SNFs and explained private pay or Medicaid coverage. Dtr will be out of the country beginning 05/26 and would like pt DC'd to SNF prior. Dtr to provide new referrals for SW to make. Will await insurance outcome from update on this date. Pt's dtr, Zohreh, contacted SW and wants pt to DC home with her and . Encouraged dtr to speak with sister to discuss details of DC plans. IDT evaluating pt's decision making skills - from POC meeting pt stated he would like to DC to SNF. Attempted to visit pt but unavailable. Will continue to attempt. MARIA A NoonanW
[2019-05-20 16:00] VITALS: BP 133/59; PULSE 91; RESP 20; TEMP 36.7; O2SAT 97
[2019-05-20 17:34] VITALS: PULSE 88
[2019-05-20] MEDS: Senna/Docusate Sodium 1 Tablet PO (17:35)
[2019-05-20] MEDS: Atorvastatin Calcium 40 MG Tablet PO (21:43)
[2019-05-20] MEDS: MELATONIN 10 MG TABLET PO (21:46)
[2019-05-21] MEDS: Menthol/Lanolin/Calamine/Znox 113 GM Tube 1 APPLIC TOPICAL ×2 (05:44→22:10)
[2019-05-21] MEDS: Nystatin Powder 15gm Bottle 1 APPLIC TOPICAL ×2 (05:44→22:14)
[2019-05-21 05:47] VITALS: BP 162/82; PULSE 111
[2019-05-21] MEDS: Metoprolol Tartrate 25 MG Tablet 12.5 MG PO ×2 (05:47→18:12)
[2019-05-21] MEDS: Senna/Docusate Sodium 1 Tablet PO ×2 (05:49→18:12)
[2019-05-21] MEDS: Isosorbide DN 20 MG Tablet PO ×3 (05:49→22:14)
[2019-05-21] MEDS: buPROPion 75 MG Tablet PO ×2 (05:49→18:12)
[2019-05-21] MEDS: Furosemide 40 MG Tablet PO (05:49)
[2019-05-21] MEDS: APIXABAN 2.5 MG TABLET PO ×2 (05:49→18:12)
[2019-05-21] MEDS: Sertraline 100 MG Tablet PO (05:49)
[2019-05-21] MEDS: Tamsulosin HCl 0.4 MG Capsule PO (05:49)
[2019-05-21] MEDS: Iron Polysaccharide Complex 150 MG CAPSULE PO (07:42)
--- NOTE | 2019-05-21 12:49 | CASEMGMT ---
Addendum entered by Radha Pratt 05/21/19 16:32: [facility] did not give acceptance or denial for pt. Will speak with dtr further. [facility] accepted pt with some safety concerns and will speak with dtr Friday. SW spoke with dtr with above information and dtr is unsure of facility choice at this time. Will continue to follow. Addendum entered by Radha Pratt 05/21/19 15:51: Insurance issued LCD 05/24, DC 05/25. [facility] cannot accept pt. [facility] completing onsite today. Awaiting outcome from [facility]. Spoke with dtr to notify of above. Original Note: Social Work Spoke with patient and discussed patient's wishes. Pt is able to carry on conversation and answer appropriately, but through further cognitive testing, pt is impaired. ST recommending SNF as pt is confused and unable to make safe decisions. Pt would like to return home alone, but trusts dtr Savannah RIOS and understands he may need to got to SNF and hopefully live with his again. Spoke with dtr at length to discuss further as insurance may issue DC date. Dtr understands pt would be paying privately and the up front cost - provided cost of TCU as well. Dtr would like referrals to [facility], [facility], and to f/u with [facility]. Referrals made - faxed updated info to [facility]. [facility] requires a year worth of private pay and only has private rooms available. Left message with dtr. Awaiting outcome. Will continue to follow. MARIA A Noonan
--- NOTE | 2019-05-21 13:30 | NURSING ---
Addendum entered by Ale Rodriguez 05/21/19 15:12: no injury, pt denies pain. Dr Felipe, daughter & supervisor pipelines notified. Original Note: pt found on knees on floor in front of recliner yvette by ANNA Gonzalez. Asked pt what he was trying to do, pt states I cant remember, I was trying to turn of alarm explained to pt that alarm only goes off when pt trying to get up. He was unable to remember what he was trying to do before getting up. Pt was just toileted 30 minutes prior to being found on floor.
[2019-05-21 13:41] VITALS: BP 159/83; PULSE 88; RESP 18; O2SAT 94
[2019-05-21 15:10] VITALS: BP 126/69; PULSE 52; RESP 18; TEMP 36.4; O2SAT 100
--- NOTE | 2019-05-21 15:20 | DCINST_ITS ---
- Discharge Diagnoses Current Active Problems: Current Active and Chronic Problems (Last Reviewed 02/26/19 @ 11:28 by Amor Steen MD) Debility (Acute) Multiple falls (Acute) Atrial fibrillation (Chronic) Closed head injury (Acute) Delirium (Acute) Dementia, unspecified, without behavioral disturbance (Chronic) Orthostatic hypotension (Acute) Chronic kidney disease (Chronic) Coronary artery disease (Chronic) Hypertension (Chronic) Severe pulmonary arterial systolic hypertension (Chronic) Hypokalemia (Chronic) You will use the following diet at home:: No restrictions, Regular Your food should be the consistency of: Regular Your liquids should be the consistency of: Regular/Thin Discharge Activity: Return to Normal Activity, May Shower, Use Walker Weight Bearing Status: Weight bearing as tolerated Call your doctor if you observe: Fever of 101 or Higher, Inability to urinate, Inability to have a bowel movement, Shortness of breath, Chest pain, Uncontrolled pain Allergies/Adverse Reactions: Allergies atorvastatin calcium [From Lipitor] Adverse Reaction (Verified 05/08/19 12:23) Other LEG CRAMPS WITH 40MG DOSE BUT TOLERATES LOWER DOSE buspirone HCl [From BuSpar] Adverse Reaction (Verified 05/08/19 12:23) Other FAINT fosinopril sodium [From Monopril] Adverse Reaction (Verified 05/08/19 12:23) Other LEG CRAMPS Iodinated Contrast Media [CONTRASTS] Adverse Reaction (Verified 05/08/19 12:23) Itching ramipril [From Altace] Adverse Reaction (Verified 05/08/19 12:23) Other LEG CRAMPS simvastatin Adverse Reaction (Verified 05/08/19 12:23) Other WHEN MIXED WITH DILTIAZEM CAUSES SEVERE MUSCLE CRAMPS Medications to take at Discharge Nitroglycerin (INPATIENT USE) [Nitrostat] 0.4 mg SUBLINGUAL PRN PRN 06/08/14 Apixaban [Eliquis] 2.5 mg PO BID 04/13/19 Bupropion HCl 75 mg PO BID 04/13/19 Isosorbide Dinitrate 20 mg PO TID 04/13/19 Sertraline HCl 100 mg PO DAILY 04/13/19 Tamsulosin HCl 0.4 mg PO DAILY 04/13/19 Furosemide 40 mg PO DAILY #0 05/10/19 Menthol/Lanolin/Calamine/Znox [Calmoseptine Ointment] 1 applic TOPICAL BID PRN tube 05/10/19 Acetaminophen [Tylenol] 1,000 mg PO Q6H PRN PRN tab 05/21/19 Atorvastatin Calcium [Lipitor] 40 mg PO QHS tab 05/21/19 Bisacodyl [Dulcolax] 10 mg RECTAL DAILY PRN suppos. 05/21/19 Ensure Enlive 120 ml PO 4X/DAY liquid 05/21/19 Iron Polysaccharide Complex [Ferrex 150] 150 mg PO DAILYCM cap 05/21/19 Melatonin 10 mg PO QHS tab 05/21/19 Metoprolol Tartrate [Lopressor (beta vlad)] 12.5 mg PO BID tab 05/21/19 Nystatin Powder [Mycostatin Powder] 1 applic TOPICAL 0600,2200 bottle 05/21/19 Polyethylene Glycol 3350 [Miralax] 17 gm PO DAILY packet 05/21/19 Senna/Docusate Sodium [Senokot-S] 1 tab PO BID tab 05/21/19 Primary Care Physician: Adalgisa Isidro MD [Primary Care Provider] - Please follow up with your Primary Care Physician in: 1 week. Test Results: Test results from this visit will be discussed in further detail at your follow- up appointment, if applicable. Please Follow Up With: Adalgisa Isidro MD Please Follow Up With: Amor Steen MD (will see Tere Moreno NP) When: 2 weeks. Proposed Discharge Date: 05/24/19
--- NOTE | 2019-05-21 15:22 | DS.PCM_ITS ---
Discharge Date and Diagnosis - Problem List Patient Problems: Active and Suspected Problems (Last Reviewed 02/26/19 @ 11:28 by Amor Steen MD) Debility (Acute) Multiple falls (Acute) Closed head injury (Acute) Delirium (Acute) Orthostatic hypotension (Acute) Date of Admission: 05/11/19 Date of Discharge: 05/24/19 - Primary Discharge Diagnosis Active and Suspected Problems (Last Reviewed 02/26/19 @ 11:28 by Amor Steen MD) Debility (Acute) Multiple falls (Acute) Closed head injury (Acute) Delirium (Acute) Orthostatic hypotension (Acute) - Secondary Discharge Diagnosis Chronic Problems (Last Reviewed 02/26/19 @ 11:28 by Amor Steen MD) Pulmonary HTN (Chronic) Chronic systolic CHF (congestive heart failure) (Chronic) Chronic respiratory failure with hypoxia (Chronic) Dementia (Chronic) Atrial fibrillation (Chronic) Dementia, unspecified, without behavioral disturbance (Chronic) Chronic kidney disease (Chronic) Coronary artery disease (Chronic) Hypertension (Chronic) Severe pulmonary arterial systolic hypertension (Chronic) Hypokalemia (Chronic) Congestive heart failure (Chronic) CKD (chronic kidney disease), stage III (Chronic) Presence of stent in coronary artery (Chronic ~10/2016) PTCA/CRYSTAL to SVG to obtuse marginal in August 2016; Staged PTCA/CRYSTAL to RCA in October 2016; Atherosclerosis of coronary artery bypass graft without angina pectoris (Chronic) Essential hypertension (Chronic) Pure hypercholesterolemia (Chronic) Atherosclerotic heart disease (Chronic) S/P CABG in 1993 with MARIA to LAD, SVG to OM1, and SVG to first diagonal; PTCA/CRYSTAL to SVG to obtuse marginal in August 2016; Staged PTCA/CRYSTAL to RCA in October 2016; BPH (benign prostatic hyperplasia) (Chronic) Hyperlipidemia (Chronic) CHF exacerbation (Chronic) Atrial fibrillation with RVR (Chronic) Hx of CABG (Chronic ~1993) Hospital Course and Treatment Imaging Results: 05/11/19 15:59 Diet: Cardiac/Low Cholesterol Operations: None Procedures: None Summary of Care Provided: The patient is a 84 year old Male with below past medical history hospitalized for multiple falls, complicated by orthostatic hypotension, delirium, underlying mixed dementia, admitted to TCU with debility, here for rehabilitation, strengthening, prior to disposition determination. 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 Patient Problems: Active and Suspected Problems (Last Reviewed 02/26/19 @ 11:28 by Amor Steen MD) Debility (Acute) Multiple falls (Acute) Closed head injury (Acute) Delirium (Acute) Orthostatic hypotension (Acute) - Physical Exam Vitals/I&O's: Vital Signs Temp Pulse Resp BP Pulse Ox 97.5 F L 52 L 18 126/69 H 100 05/21/19 15:10 05/21/19 15:10 05/21/19 15:10 05/21/19 15:10 05/21/19 15:10 Oxygen Flow Rate (L/min) 3 Oxygen Delivery Method Nasal Cannula Weight: 73.482 kg Body Mass Index (BMI) 23.1 Intake and Output for Last 24 Hours 05/19/19 05/20/19 05/21/19 23:59 23:59 23:59 Intake Total 1320 / 1320 1080 / 1080 240 / 240 Output Total 200 / 200 300 / 300 Balance 1120 / 1120 1080 / 1080 -60 / -60 Current Medications Acetaminophen (Tylenol) 1,000 mg PO Q6H PRN PRN PRN Reason: Pain Score 1-1010 Last Admin: 05/14/19 15:45 Dose: 1,000 mg Documented by: Apixaban (Eliquis) 2.5 mg PO BID [facility] Last Admin: 05/21/19 05:49 Dose: 2.5 mg Documented by: Atorvastatin Calcium (Lipitor) 40 mg PO QHS [facility] Last Admin: 05/20/19 21:43 Dose: 40 mg Documented by: Bisacodyl (Dulcolax) 10 mg RECTAL DAILY PRN PRN Reason: Constipation Bupropion HCl (Wellbutrin Tablets) 75 mg PO BID [facility] Last Admin: 05/21/19 05:49 Dose: 75 mg Documented by: Calamine/Phenol (Calmoseptine Ointment) 1 applic TOPICAL 0600,2200 [facility]; Protocol Last Admin: 05/21/19 05:44 Dose: 1 applicatio Documented by: Furosemide (Lasix) 40 mg PO DAILY [facility] Last Admin: 05/21/19 05:49 Dose: 40 mg Documented by: Isosorbide Dinitrate (Isordil) 20 mg PO TID [facility] Last Admin: 05/21/19 14:56 Dose: 20 mg Documented by: Melatonin (Melatonin) 10 mg PO QHS [facility] Last Admin: 05/20/19 21:46 Dose: 10 mg Documented by: Metoprolol Tartrate (Lopressor (Beta Darcie)) 12.5 mg PO BID [facility] Last Admin: 05/21/19 05:47 Dose: 12.5 mg Documented by: Nitroglycerin (Nitrostat) 0.4 mg SUBLINGUAL Q5M PRN PRN Reason: chest pain Last Admin: 05/16/19 21:18 Dose: 0.4 mg Documented by: Nutritional Formula (Lactose Free) (Ensure Enlive) 120 ml PO 4X/DAY [facility] Last Admin: 05/21/19 11:29 Dose: 120 ml Documented by: Nystatin (Mycostatin Powder) 1 applic TOPICAL 0600,2200 [facility]; Protocol Last Admin: 05/21/19 05:44 Dose: 1 applicatio Documented by: Polyethylene Glycol (Miralax) 17 gm PO DAILY [facility] Last Admin: 05/21/19 05:44 Dose: Not Given Documented by: Polysaccharide Iron [facility] ([facility]rex 150) [facility] Admin: 05/21/19 07:42 Dose: 150 mg Documented by: Senna/Docusate Sodium (Senokot-S, Savanna-Colace) 1 tablet PO BID [facility] Last Admin: 05/21/19 05:49 Dose: 1 tablet Documented by: Sertraline HCl (Zoloft) 100 mg PO DAILY [facility] Last Admin: 05/21/19 05:49 Dose: 100 mg Documented by: Tamsulosin HCl (Flomax) 0.4 mg PO DAILY [facility] Last Admin: 05/21/19 05:49 Dose: 0.4 mg Documented by: Discharge Diet: No Restrictions Discharge Activity: Return to Normal Activity, May Shower, Use Walker Weight Bearing Status: Weight bearing as tolerated Call your doctor if you observe: Fever of 101 or Higher, Inability to urinate, Inability to have a bowel movement, Shortness of breath, Chest pain, Uncontrolled pain Home Medications: Medications to take at Discharge Nitroglycerin (INPATIENT USE) [Nitrostat] 0.4 mg SUBLINGUAL PRN PRN 06/08/14 Apixaban [Eliquis] 2.5 mg PO BID 04/13/19 Bupropion HCl 75 mg PO BID 04/13/19 Isosorbide Dinitrate 20 mg PO TID 04/13/19 Sertraline HCl 100 mg PO DAILY 04/13/19 Tamsulosin HCl 0.4 mg PO DAILY 04/13/19 Furosemide 40 mg PO DAILY #0 05/10/19 Menthol/Lanolin/Calamine/Znox [Calmoseptine Ointment] 1 applic TOPICAL BID PRN tube 05/10/19 Acetaminophen [Tylenol] 1,000 mg PO Q6H PRN PRN tab 05/21/19 Atorvastatin Calcium [Lipitor] 40 mg PO QHS tab 05/21/19 Bisacodyl [Dulcolax] 10 mg RECTAL DAILY PRN suppos. 05/21/19 Ensure Enlive 120 ml PO 4X/DAY liquid 05/21/19 Iron Polysaccharide Complex [Ferrex 150] 150 mg PO DAILYCM cap 05/21/19 Melatonin 10 mg PO QHS tab 05/21/19 Metoprolol Tartrate [Lopressor (beta darcie)] 12.5 mg PO BID tab 05/21/19 Nystatin Powder [Mycostatin Powder] 1 applic TOPICAL 0600,2200 bottle 05/21/19 Polyethylene Glycol 3350 [Miralax] 17 gm PO DAILY packet 05/21/19 Senna/Docusate Sodium [Senokot-S] 1 tab PO BID tab 05/21/19 Primary Care Physician: Adalgisa Isidro MD [Primary Care Provider] - Please follow up with your Primary Care Physician in: 1 week. Please Follow Up With: Adalgisa Isidro MD Please Follow Up With: Amor Steen MD (will see Tere Moreno NP) When: 2 weeks. Disposition: Asstd Living/Non-Skill RI Minutes spent on discharge:: 30 Patient Condition:: Stable Medical Necessity - Tobacco Use Smoking Status: Former smoker Tobacco Use: Cigarettes Meaningful Use Info Meaningful Use Diagnoses (Choose all that apply): None applicable
--- NOTE | 2019-05-21 15:23 | NURSING ---
pt placed call light on, went in to assist to BR per his request and pt stated I dont need bathroom, I pushed the light and can't remember but I dont need BR explained to pt that if he changes his mind to let nursing know by using his call light like he just did. Left room & pt light went off, answered and pt requesting his computer. given. alarm in place.
--- NOTE | 2019-05-21 15:24 | TREXTCAR_ITS ---
- Diet 05/11/19 15:59 Diet: Cardiac/Low Cholesterol - Routine Orders/Code Status Suppository Type: Dulcolax 10mg Suppository Frequency: Daily PRN Code Status: [facility] - Wound(s) Left upper arm Wound Type: Skin Tear - Therapies Weight Bearing: Weight bearing as tolerated Extremity Affected:: Bilateral Lower - Problem/Diagnosis (1) Debility Status: Acute Current Visit: Yes (2) Multiple falls Status: Acute Current Visit: Yes (3) Atrial fibrillation Status: Chronic Current Visit: Yes (4) Closed head injury Status: Acute Current Visit: Yes (5) Delirium Status: Acute Current Visit: Yes (6) Dementia, unspecified, without behavioral disturbance Status: Chronic Current Visit: Yes (7) Orthostatic hypotension Status: Acute Current Visit: Yes (8) Chronic kidney disease Status: Chronic Current Visit: Yes (9) Coronary artery disease Status: Chronic Current Visit: Yes (10) Hypertension Status: Chronic Current Visit: Yes (11) Severe pulmonary arterial systolic hypertension Status: Chronic Current Visit: Yes (12) Hypokalemia Status: Chronic Current Visit: Yes (13) Chronic systolic CHF (congestive heart failure) Status: Chronic Current Visit: No (14) BPH (benign prostatic hyperplasia) Status: Chronic Current Visit: No (15) Hyperlipidemia Status: Chronic Current Visit: No - Allergies/Procedures Done in Hospital Allergies/Adverse Reactions: Allergies atorvastatin calcium [From Lipitor] Adverse Reaction (Verified 05/08/19 12:23) Other LEG CRAMPS WITH 40MG DOSE BUT TOLERATES LOWER DOSE buspirone HCl [From BuSpar] Adverse Reaction (Verified 05/08/19 12:23) Other FAINT fosinopril sodium [From Monopril] Adverse Reaction (Verified 05/08/19 12:23) Other LEG CRAMPS Iodinated Contrast Media [CONTRASTS] Adverse Reaction (Verified 05/08/19 12:23) Itching ramipril [From Altace] Adverse Reaction (Verified 05/08/19 12:23) Other LEG CRAMPS simvastatin Adverse Reaction (Verified 05/08/19 12:23) Other WHEN MIXED WITH DILTIAZEM CAUSES SEVERE MUSCLE CRAMPS - Type of Care/Length of Stay Estimated LOS: More Than 30 Days Type of Care Needed: Intermediate Rehab Potential: Fair Prognosis: Fair - Additional Orders/Day of Discharge Day of Discharge: 05/24/19 - Dietary and Speech Recommendations Dietitian Recommendations/Changes: Will continue to provide ensure enlive w/ medpass for increased nutrition. Will continue to provide ground meats for ease of eating d/t dentures need realigned per nsg - Follow Up Care Primary Care Physician: Adalgisa Isidro MD [Primary Care Provider] - Please follow up with your Primary Care Physician in: 1 week. Please Follow Up With: Adalgisa Isidro MD Please Follow Up With: Amor Steen MD (will see Tere Moreno NP) When: 2 weeks.
[2019-05-21 18:12] VITALS: BP 126/69; PULSE 52
[2019-05-21] MEDS: MELATONIN 10 MG TABLET PO (22:14)
[2019-05-21] MEDS: Atorvastatin Calcium 40 MG Tablet PO (22:14)
[2019-05-22] MEDS: Menthol/Lanolin/Calamine/Znox 113 GM Tube 1 APPLIC TOPICAL ×2 (06:35→20:00)
[2019-05-22] MEDS: APIXABAN 2.5 MG TABLET PO ×2 (06:35→17:11)
[2019-05-22 06:36] VITALS: BP 159/91; PULSE 78
[2019-05-22] MEDS: Furosemide 40 MG Tablet PO (06:36)
[2019-05-22] MEDS: Isosorbide DN 20 MG Tablet PO ×3 (06:36→20:01)
[2019-05-22] MEDS: Tamsulosin HCl 0.4 MG Capsule PO (06:36)
[2019-05-22] MEDS: Metoprolol Tartrate 25 MG Tablet 12.5 MG PO ×2 (06:36→17:11)
[2019-05-22] MEDS: buPROPion 75 MG Tablet PO ×2 (06:37→17:11)
[2019-05-22] MEDS: Nystatin Powder 15gm Bottle 1 APPLIC TOPICAL ×2 (06:37→20:02)
[2019-05-22] MEDS: Senna/Docusate Sodium 1 Tablet PO ×2 (06:37→17:11)
[2019-05-22] MEDS: Sertraline 100 MG Tablet PO (06:37)
[2019-05-22 07:47] VITALS: O2SAT 93
[2019-05-22] MEDS: Iron Polysaccharide Complex 150 MG CAPSULE PO (08:50)
[2019-05-22 16:00] VITALS: BP 115/53; PULSE 51; RESP 18; TEMP 36.5; O2SAT 97
[2019-05-22 17:11] VITALS: BP 115/53; PULSE 68
[2019-05-22] MEDS: Atorvastatin Calcium 40 MG Tablet PO (20:01)
[2019-05-22] MEDS: MELATONIN 10 MG TABLET PO (20:06)
[2019-05-23] MEDS: Senna/Docusate Sodium 1 Tablet PO ×2 (06:20→16:46)
[2019-05-23] MEDS: Furosemide 40 MG Tablet PO (06:20)
[2019-05-23] MEDS: APIXABAN 2.5 MG TABLET PO ×2 (06:21→16:46)
[2019-05-23] MEDS: Nystatin Powder 15gm Bottle 1 APPLIC TOPICAL ×2 (06:21→20:44)
[2019-05-23] MEDS: Sertraline 100 MG Tablet PO (06:21)
[2019-05-23] MEDS: Tamsulosin HCl 0.4 MG Capsule PO (06:21)
[2019-05-23] MEDS: Isosorbide DN 20 MG Tablet PO ×3 (06:22→20:41)
[2019-05-23] MEDS: buPROPion 75 MG Tablet PO ×2 (06:23→16:46)
[2019-05-23] MEDS: Menthol/Lanolin/Calamine/Znox 113 GM Tube 1 APPLIC TOPICAL (06:24)
[2019-05-23 06:34] VITALS: BP 160/90; PULSE 89
[2019-05-23] MEDS: Metoprolol Tartrate 25 MG Tablet 12.5 MG PO ×2 (06:34→16:46)
[2019-05-23 07:53] VITALS: O2SAT 98
[2019-05-23] MEDS: Iron Polysaccharide Complex 150 MG CAPSULE PO (07:56)
[2019-05-23 15:48] VITALS: BP 128/59; PULSE 76; RESP 18; TEMP 36.6; O2SAT 95
[2019-05-23 16:46] VITALS: BP 128/59; PULSE 76
[2019-05-23] MEDS: Atorvastatin Calcium 40 MG Tablet PO (20:41)
[2019-05-23] MEDS: MELATONIN 10 MG TABLET PO (20:44)
[2019-05-24] MEDS: Menthol/Lanolin/Calamine/Znox 113 GM Tube 1 APPLIC TOPICAL ×3 (05:56→21:45)
[2019-05-24] MEDS: Nystatin Powder 15gm Bottle 1 APPLIC TOPICAL ×2 (05:56→21:46)
[2019-05-24] MEDS: Sertraline 100 MG Tablet PO (05:56)
[2019-05-24] MEDS: buPROPion 75 MG Tablet PO ×2 (05:56→17:13)
[2019-05-24] MEDS: Furosemide 40 MG Tablet PO (05:57)
[2019-05-24] MEDS: APIXABAN 2.5 MG TABLET PO ×2 (05:57→17:12)
[2019-05-24] MEDS: Tamsulosin HCl 0.4 MG Capsule PO (05:57)
[2019-05-24 05:58] VITALS: BP 158/94; PULSE 77
[2019-05-24] MEDS: Isosorbide DN 20 MG Tablet PO ×3 (05:58→21:44)
[2019-05-24] MEDS: Metoprolol Tartrate 25 MG Tablet 12.5 MG PO ×2 (05:58→17:14)
[2019-05-24] MEDS: Senna/Docusate Sodium 1 Tablet PO ×2 (06:02→17:12)
[2019-05-24] MEDS: Iron Polysaccharide Complex 150 MG CAPSULE PO (07:57)
[2019-05-24 10:00] VITALS: PULSE 81; O2SAT 97
[2019-05-24 15:45] VITALS: BP 117/60; PULSE 70; RESP 18; TEMP 36.3; O2SAT 98
--- NOTE | 2019-05-24 16:16 | CASEMGMT ---
Social Work SW met with pt, son Earl and daughter in law Ale Perez and spoke to daughter Savannah on the phone. All parties would like pt to go to [facility] tomorrow 05/25/19. Phone call to Gerda at [facility] and they are able to accept pt. Farhan Elliott plans to transport pt with picking tech at 1000 on 05/25/19. Phone call to Madelyn at [facility] and notified that pt will not be coming. Orders faxed. Nursing made aware of d/c time. JOSE LUIS Buckley
[2019-05-24 17:14] VITALS: BP 117/60; PULSE 70
[2019-05-24 17:32] VITALS: O2SAT 99
[2019-05-24] MEDS: MELATONIN 10 MG TABLET PO (21:44)
[2019-05-24] MEDS: Atorvastatin Calcium 40 MG Tablet PO (21:44)
[2019-05-25] MEDS: Sertraline 100 MG Tablet PO (05:18)
[2019-05-25] MEDS: buPROPion 75 MG Tablet PO (05:18)
[2019-05-25] MEDS: Isosorbide DN 20 MG Tablet PO (05:18)
[2019-05-25] MEDS: Senna/Docusate Sodium 1 Tablet PO (05:18)
[2019-05-25] MEDS: Furosemide 40 MG Tablet PO (05:18)
[2019-05-25] MEDS: Tamsulosin HCl 0.4 MG Capsule PO (05:19)
[2019-05-25] MEDS: APIXABAN 2.5 MG TABLET PO (05:19)
[2019-05-25 05:21] VITALS: BP 159/75; PULSE 69
[2019-05-25] MEDS: Metoprolol Tartrate 25 MG Tablet 12.5 MG PO (05:21)
[2019-05-25] MEDS: Menthol/Lanolin/Calamine/Znox 113 GM Tube 1 APPLIC TOPICAL (05:27)
[2019-05-25] MEDS: Nystatin Powder 15gm Bottle 1 APPLIC TOPICAL (05:27)
[2019-05-25 05:31] VITALS: O2SAT 94
[2019-05-25 06:39] VITALS: O2SAT 94
[2019-05-25] MEDS: Iron Polysaccharide Complex 150 MG CAPSULE PO (07:47)
[2019-05-25 09:05] VITALS: BP 119/59; PULSE 64; RESP 18; TEMP 36.7; O2SAT 96
--- NOTE | 2019-05-25 09:44 | NURSING ---
Report called to Lexus at [facility].
== END 2019-05-25 10:29 | disposition intermediate care facility (04) | DRG 312 ==
PROVIDERS: Admitting Provider Family Medicine Geriatric Medicine; Family Provider Internal Medicine; PCP Internal Medicine; Visit Provider Family Medicine Geriatric Medicine
DX: I95.1 Orthostatic hypotension (principal); F13.20 Sedative, hypnotic or anxiolytic dependence, uncomplicated; I50.22 Chronic systolic (congestive) heart failure; I13.0 Hypertensive heart and chronic kidney disease with heart failure and stage 1 through stage 4 chronic kidney disease, or unspecified chronic kidney disease; I48.20 Chronic atrial fibrillation, unspecified; J96.11 Chronic respiratory failure with hypoxia; E78.5 Hyperlipidemia, unspecified; I25.10 Atherosclerotic heart disease of native coronary artery without angina pectoris; F03.90 Unspecified dementia, unspecified severity, without behavioral disturbance, psychotic disturbance, mood disturbance, and anxiety; R29.6 Repeated falls; F32.9 Major depressive disorder, single episode, unspecified; F10.20 Alcohol dependence, uncomplicated; N40.0 Benign prostatic hyperplasia without lower urinary tract symptoms; N18.3 Chronic kidney disease, stage 3 (moderate); M16.0 Bilateral primary osteoarthritis of hip; I25.2 Old myocardial infarction; I27.29 Other secondary pulmonary hypertension; Z87.891 Personal history of nicotine dependence
CPT/HCPCS: 36415; 80048; 85025; 92507; 92523; 94640; 97110; 97116; 97162; 97166; 97530; 97535; 97802